=== PATIENT | male | born 1945 | race Caucasian/White ===

== ENCOUNTER 2019-07-30 17:25 | Inpatient (IN) | payer MEDICARE, SELFPAY ==
--- NOTE | ~2019-07-30 | US_ITS ---
EXAMINATION: US carotid duplex BI DATE: 08/01/2019 13:52 INDICATION: Mental status changes TECHNIQUE: Grayscale, color Doppler, and pulsed Doppler images of the cervical carotid arteries were obtained. The degree of vessel stenosis is placed in one of the following categories: normal, <50%, 5 0-69%, >=70% but less than near-occlusion, near-occlusion, or total occlusion. Note that percent sten osis relative to normal distal artery lumen diameter is indirectly measured from velocity measurement s as described by Gabino, et al. Radiology 2003; 229:340-346. Notes: Normal: Peak systolic velocity <125 centimeters/sec and no plaque <50%. Peak systolic velocity <125 ( EDV <40; ICA/CCA PSV ratio <2.0; used these factors only a tandem lesions or low cardiac output or co ntralateral disease) 50-69 %: PSV 125-230 (EDV 40-100; ratio 2-4) >= 70% but less than near occlusion: PSV greater than 230 (EDV > 100; ratio> 4.0) Near Occlusion: PSV that is variable; markedly narrowed lumen Occlusion: Absent flow on color/spectral Doppler and no lumen on myers scale. COMPARISON: None. FINDINGS: RIGHT: The right common carotid artery (CCA) peak systolic velocity (PSV) is 102 cm/s. The right internal ca rotid artery (ICA) PSV is 87 cm/s. The right ICA end-diastolic velocity (EDV) is 10 cm/s. The right I CA/CCA PSV ratio is 0.9. The external carotid artery (ECA) PSV is 122 cm/s. There is antegrade flow i n the right vertebral artery. LEFT: The left CCA PSV is 74 cm/s. The left ICA PSV is 71 cm/s. The left ICA EDV is 21 cm/s. The left ICA/C CA PSV ratio is 1. The ECA PSV is 98 cm/s. There is antegrade flow in the left vertebral artery. IMPRESSION: 1. Less than 50% stenosis in the right internal carotid artery by sonographic criteria. 2. Less than 50% stenosis in the left internal carotid artery by sonographic criteria. Reviewed, dictated and finalized at location A. IMPRESSION: 1. Less than 50% stenosis in the right internal carotid artery by sonographic albino ambrocio. 2. Less than 50% stenosis in the left internal carotid artery by sonographic hui esposito.
--- NOTE | ~2019-07-30 | US_ITS ---
EXAMINATION: US biopsy renal DATE: 08/13/2019 13:59 INDICATION: Acute renal insufficiency of indeterminate etiology. TECHNIQUE: The procedure including the risks, benefits, and alternatives was discussed with the patie nt. Risks discussed included bleeding and infection. The patient understood the risks and agreed to p roceed. A timeout was performed to verify the patient's name, date of , and procedure to be p erformed. The skin overlying the left kidney was prepped and draped in usual sterile fashion. Anest hetic was administered with 1% lidocaine subcutaneously. An 18 gauge core biopsy needle was then use d to obtain 3 core biopsy specimens under continuous sonographic guidance. The entry site was cleaned and dressed. There were no immediate complications. FINDINGS: Ultrasound images demonstrate the needle in the kidney. IMPRESSION: 1. Ultrasound-guided random left kidney core needle biopsy. Reviewed, dictated and finalized at location A.
--- NOTE | ~2019-07-30 | US_ITS ---
EXAMINATION: US renal BI DATE: 08/06/2019 13:35 INDICATION: Acute kidney injury. TECHNIQUE: Multiple ultrasound grayscale images of the kidneys were obtained. COMPARISON: CT 08/01/2019 FINDINGS: The right kidney measures 11.7 x 6.2 x 7.0 cm. The left kidney measures 11.4 x 5.3 x 5.7 cm. The kidn eys demonstrate normal parenchymal echogenicity. There is no hydronephrosis. The bladder is normal. IMPRESSION: 1. Normal kidneys. No hydronephrosis. Reviewed, dictated and finalized at location A.
--- NOTE | ~2019-07-30 | CT_ITS ---
EXAMINATION: CT soft tiss nk chst ab pel wo EXAM DATE: 08/01/2019 18:10 INDICATION: Enlarging cervical lymph nodes. Decrease in appetite. TECHNIQUE: Spiral CT of the neck, chest, abdomen and pelvis was performed without contrast. Axial, coronal and sagittal images of the neck were reviewed. Axial, coronal and sagittal images of the juan carlos st were reviewed. Coronal maximum intensity pixel images of chest reviewed. Axial, coronal and sagi ttal images of the abdomen and pelvis were reviewed. The dose-length product (DLP) for this examinat ion was 1665.07 mGy-cm. The exposure was tailored according to patient size (auto mA exposure contro l), and iterative reconstruction (ASIR) was used as additional dose reduction technique. There is no prior study for comparison. FINDINGS: NECK: Extensive cervical lymphadenopathy with innumerable round cervical lymph nodes measuring up to about 1.7 x 1.0 cm, along the internal jugular chains, posterior cervical triangles, supraclavicular regions. The thyroid gland is unremarkable. The submandibular and parotid glands are symmetric. T he airway is unremarkable. Parapharyngeal and pre-glottic fat planes are preserved. Limited evalu ation of cervical vessels on this noncontrast study. The orbits are unremarkable. Visualized sinu ses and mastoid air cells are well aerated. There is severe disc disease at C5-6, moderate to sever e at C6-7. CHEST: Severe bilateral axillary lymphadenopathy with largest lymph node identified in the right axil la measuring 5.1 x 1.8 cm. There are increased number of mediastinal, prevascular lymph nodes with la rgest precarinal lymph node measuring 1.5 x 1.2 cm. Enlarged epicardial lymph nodes measuring up to 3 .0 x 1.9 cm. Bibasilar predominant mosaic attenuation, could be air trapping, edema or infection. Th ere is 4 mm right lower lobe nodule on image #67, 3 mm right middle lobe nodule on image 61. There a re no pleural or pericardial effusions. Tracheobronchial tree is patent. There is no pneumothorax . There is cardiomegaly. Sternotomy wires and coronary artery calcifications. ABDOMEN PELVIS: There are enlarged bilateral inguinal, pelvic, retroperitoneal lymph nodes, with one of the larger lymph nodes in the left inguinal region measuring 3.9 x 2.1 cm. There is mild splenomeg anastasiya at 15 cm greatest dimension. The liver, adrenal glands and pancreas are unremarkable. Gallbladde r is unremarkable. No biliary obstruction. Left nephrolithiasis measuring 4 mm and another measurin g 1 mm. No obstructing ureteral stones. There is mild prostatomegaly. Mild nonspecific bilateral per inephric fat stranding. The bladder is unremarkable. There is moderate scattered arteriosclerotic d isease. The appendix is not positively visualized. There is no pericecal inflammatory change to suggest appe ndicitis. The stomach and small bowel are unremarkable. There is moderate to large amount of colon ic stool. No free intraperitoneal gas. There are no osteoblastic or osteolytic lesions identified . Mild to moderate lumbar levoscoliosis. IMPRESSION: 1. Extensive neck, chest, abdomen and pelvis lymphadenopathy. 2. Mild splenomegaly. 3. Left nephrolithiasis. 4. Basilar is a continuation, differential diagnosis including air trapping, edema, infection. Reviewed, dictated and finalized at location A. IMPRESSION: 1. Extensive neck, chest, abdomen and pelvis lymphadenopathy. 2. Mild splenomegaly. 3. Left nephrolithiasis. 4. Basilar is a continuation, differential diagnosis including air trapping, e kevin, infection.
--- NOTE | ~2019-07-30 | NM_ITS ---
EXAMINATION: NM renal flow and function DATE: 08/08/2019 15:06 INDICATION: Acute kidney injury. TECHNIQUE: 7.73 mCi Tc-99m MAG3 was administered IV. 40 mg furosemide was administered IV immediatel y afterward. The patient was scanned in the supine position. A posterior abdominal radionuclide angio gram was obtained. A subsequent time course of static images of the kidneys, ureters, and bladder was obtained. COMPARISON: ultrasound 08/06/19 FINDINGS: The posterior abdominal radionuclide angiogram and sequential static images show normal siz e, position, and morphology of the kidneys. Peak renal parenchymal uptake was 14 min in right kidney and 5 min in left kidney (normal peak 3-5 minutes). The relative early renal uptake was 52% on the r ight and 48% on the left (<40% is abnormal). No abnormalities of the ureters or bladder are seen. Th e ultrasound from 08/06/2019 demonstrates no hydronephrosis. T1/2 for clearance of activity from the right kidney and proximal collecting system was >>20 minutes. T1/2 for clearance of activity from the left kidney and proximal collecting system was >>20 minutes. IMPRESSION: 1. Symmetric kidney function. 2. Delayed contrast clearance from both kidneys, consistent with decreased renal function. Reviewed, dictated and finalized at location A. IMPRESSION: 1. Symmetric kidney function. 2. Delayed contrast clearance from both kidneys, consistent with decreased monica al function.
--- NOTE | ~2019-07-30 | CT_ITS ---
EXAMINATION: CT brain wo con DATE: 07/31/2019 00:45 INDICATION: Confusion TECHNIQUE: Computed tomography (CT) of the head was performed without intravenous contrast. Sagittal and coronal reconstructions were performed. The mA was adjusted according to patient size. Iterative reconstruction technique was employed. The dose-length product was 605.33 mGy-cm. COMPARISON: None FINDINGS: No acute intracranial hemorrhage, acute infarction or abnormal extra axial fluid collection. Small ol d lacunar infarct in the right frontal lobe dsouza radiata. There is additional mild scattered white matter hypoattenuation consistent with chronic small vessel ischemic disease. Symmetric prominence of the sulci consistent with mild age-appropriate diffuse cerebral volume loss. Ventricles are normal a nd symmetric. No mass/mass effect. Intracranial calcified cerebral atherosclerosis is noted. The orbi ts, paranasal sinuses and mastoid air cells are normal. IMPRESSION: 1. 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 2. Age-related changes including mild diffuse volume loss and mild scattered white matter hypoattenua tion consistent with chronic small vessel ischemic disease. Reviewed, dictated and finalized at location A. IMPRESSION: 1. 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 2. Age-related changes including mild diffuse volume loss and mild scattered wh ite matter hypoattenuation consistent with chronic small vessel ischemic diseas e.
--- NOTE | ~2019-07-30 | MR_ITS ---
EXAMINATION: MR brain/brain stem wo con DATE: 08/01/2019 13:32 INDICATION: Altered mental status TECHNIQUE: Magnetic resonance imaging (MRI) of the brain and brainstem was performed without intraven ous contrast. Sequences included sagittal and axial T1-weighted SE, axial diffusion-weighted FS SE, a xial T2*-weighted GRE, axial T2-weighted FLAIR, and axial T2-weighted FSE. Apparent diffusion coeffic ient (ADC) maps were created. COMPARISON: Head CT dated 07/31/2019 FINDINGS: There are no areas of restricted diffusion to suggest acute infarction. Small old lacunar infarct in the anterior left frontal periventricular white matter. Single tiny focus of susceptibility artifact on T2*weighted images at the right basal ganglia consistent with the presence of blood products in th e setting of chronic microhemorrhage which could be seen with hypertension or amyloid angiopathy. No abnormal intracranial mass lesion. There are scattered areas of nonspecific increased T2-weighted sig nal intensity in the cerebral white matter, predominantly involving the deep and periventricular whit e matter. There are no intraparenchymal signal abnormalities seen on the other pulse sequences. The v entricles are symmetric and normal in size. There are no abnormal extra-axial fluid collections. Flow voids are seen in the cerebral arteries on the T2-weighted sequences consistent with their expected patency. Mild mucoperiosteal thickening in the bilateral ethmoid sinuses. Visualized orbits and soft tissues are unremarkable. There are numerous enlarged bilateral cervical lymph nodes. IMPRESSION: 1. No acute intracranial process. 2. Small old lacunar infarct in the left frontal lobe white matter. 3. Tiny focus of susceptibility artifact in the right basal ganglia consistent with chronic microimag e sequences in the setting of hypertension or less likely amyloid angiopathy. 4. Age-related changes including mild diffuse volume loss and age-appropriate scattered nonspecific w chuck matter T2 hyperintensity consistent with chronic small vessel ischemic disease. 5. Numerous enlarged bilateral cervical lymph nodes which raises concern for lymphoma or less likely metastatic disease. Consider further evaluation with CT of at least the neck and chest and consider u ltrasound-guided lymph node biopsy. Reviewed, dictated and finalized at location A. IMPRESSION: 1. No acute intracranial process. 2. Small old lacunar infarct in the left frontal lobe white matter. 3. Tiny focus of susceptibility artifact in the right basal ganglia consistent with chronic microimage sequences in the setting of hypertension or less likely amyloid angiopathy. 4. Age-related changes including mild diffuse volume loss and age-appropriate s cattered nonspecific white matter T2 hyperintensity consistent with chronic sma ll vessel ischemic disease. 5. Numerous enlarged bilateral cervical lymph nodes which raises concern for ly mphoma or less likely metastatic disease. Consider further evaluation with CT o f at least the neck and chest and consider ultrasound-guided lymph node biopsy.
--- NOTE | ~2019-07-30 | XR_ITS ---
EXAMINATION: XR chest 2V EXAM DATE: 07/30/2019 18:12 INDICATION: Shortness of air, increasing weakness fatigue and confusion. TECHNIQUE: Frontal and lateral projections of the chest obtained and reviewed. There is no prior raghav dy for comparison. FINDINGS: Sternotomy wires are present without findings to suggest sternal dehiscence. Patient rotat ed to the right. No confluent consolidation, pneumothorax or pleural effusion suspected. There is mil d compression fracture of a midthoracic level likely chronic. IMPRESSION: 1. No acute cardiopulmonary findings. Reviewed, dictated and finalized at location A.
--- NOTE | ~2019-07-30 | US_ITS ---
EXAMINATION: US biopsy lymph node DATE: 08/02/2019 12:39 INDICATION: Extensive lymphadenopathy concerning for lymphoma including a prominent enlarged right ax illary lymph node. TECHNIQUE: The procedure including the risks and benefits was discussed with the patient. Risks discu ssed included bleeding and infection. The patient understood the risks and agreed to proceed. The sk in overlying the right axilla was prepped and draped in usual sterile fashion. Anesthetic was admini stered with 1% lidocaine subcutaneously. An 14 gauge core biopsy needle was advanced under continuou s ultrasound observation to the lesion of interest. 6 core biopsy specimens were obtained, 2 placed in formalin and 4 in RPMI media. The needle was removed and the entry site was cleaned and dressed. Post procedure ultrasound demonstrated no hemorrhage. FINDINGS: Ultrasound images demonstrate a few enlarged right axillary lymph nodes the most accessible is a 7.1 x 2.4 cm lymph node with thickened cortex surrounding a central fatty hilum. Subsequent lisbet ges demonstrate biopsy needles advanced into the lymph node. IMPRESSION: 1. Successful Ultrasound-guided biopsy of a 7.1 x 2.4 cm right axillary lymph node. Reviewed, dictated and finalized at location A. IMPRESSION: 1. Successful Ultrasound-guided biopsy of a 7.1 x 2.4 cm right axillary lymph n ode.
[2019-07-30 17:34] VITALS: BP 199/95; PULSE 78; RESP 20; O2SAT 100
--- NOTE | 2019-07-30 17:40 | ED.GENADULT ---
HPI - General Adult General Chief complaint: Altered Mental Status Stated complaint: short of breath Time Seen by Provider: 07/30/19 17:33 History of Present Illness HPI narrative: Patient is a 73-year-old male with history of CABG x5 who presents the ER with exertional weakness and shortness of breath. Ongoing for the last week. No chest pain. Has had decreased appetite as well and has lost 8 pounds. No runny nose/sore throat/productive cough. 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 Apparently there is also a shop in [place] that he frequents. There is a COVID positive person there 06/26/19, the place was shut down for 2 weeks, and then it reopened business. He visited that shop after they came off of quarantine and there were no known infectious people there at that time. Has no known personal interaction with a COVID positive person. Related Data Home Medications Medication Instructions Recorded Confirmed Adults Multivitamin 1 cap DAILY 07/30/19 07/30/19 aspirin 325 mg DAILY 07/30/19 07/30/19 coenzyme Q10 [CoQ-10] 200 mg PO DAILY 07/30/19 07/30/19 cyanocobalamin (vitamin B-12) 1,000 mcg DAILY 07/30/19 07/30/19 [Vitamin B-12] dapagliflozin-metformin [Xigduo XR] 5 - 1,000 tablet PO DAILY 07/30/19 07/30/19 diphenhydramine HCl [Benadryl] 25 mg PO HS 07/30/19 07/30/19 lisinopril 20 mg DAILY 07/30/19 07/30/19 metoprolol tartrate 12.5 mg BID 07/30/19 07/30/19 omega-3 fatty acids-fish oil [Fish 1 cap DAILY 07/30/19 07/30/19 Oil] simvastatin 40 mg HS 07/30/19 07/30/19 vitamin D3-folic acid 1 tablet DAILY 07/30/19 07/30/19 Allergies Allergy/AdvReac Type Severity Reaction Status Date / Time No Known Allergies Allergy Verified 07/30/19 18:20 Review of Systems Review of Systems: All systems reviewed & are unremarkable except as noted in HPI and below Constitutional: Constitutional: Denies chills, Reports fatigue, Denies fever(s) and Reports weakness ENT: Denies nasal congestion and Denies sore throat Cardiovascular: Cardiovascular: Denies chest pain and Denies radiating jaw, neck or arm pain Respiratory: Respiratory: Denies chest congestion, Denies cough, Reports dyspnea and Denies wheezing Gastrointestinal: Gastrointestinal: Denies abdominal pain, Denies nausea and Denies vomiting Genitourinary: Genitourinary: Denies dysuria and Denies urinary frequency Exam Narrative: Exam Narrative: GENERAL: Well-appearing, well-nourished, and in no acute distress. HEAD: Normocephalic, atraumatic. CHEST: Clear to auscultation. No respiratory distress. HEART: Regular rate and rhythm. Normal peripheral pulses. ABDOMEN: Soft, nontender, nondistended. EXTREMITIES: Normal range of motion. No edema. SKIN: Warm, dry, no rash. NEURO: Alert and oriented x3. PSYCH: Normal mood and affect. Course Course Emergency Course: Discussed case with Dr. Garcia as well as the hospital service. Admit for observation. Trend troponins. We will cautiously hydrate with 500 mL bolus and then a rate of 100 mL/h. Vital Signs Vital signs: Vital Signs Pulse Rate 78 07/30/19 17:34 Respiratory Rate 20 07/30/19 17:34 Blood Pressure 199/95 H 07/30/19 17:34 Pulse Oximetry 100 07/30/19 17:34 Pulse Rate 78 07/30/19 17:34 Respiratory Rate 20 07/30/19 18:48 Blood Pressure 199/95 H 07/30/19 17:34 Pulse Oximetry 100 07/30/19 17:34 Medical Decision Making Vital Signs Vital Signs: Vital Signs Pulse Rate 78 07/30/19 17:34 Respiratory Rate 20 07/30/19 17:34 Blood Pressure 199/95 H 07/30/19 17:34 Pulse Oximetry 100 07/30/19 17:34 Pulse Rate 78 07/30/19 17:34 Respiratory Rate 20 07/30/19 18:48 Blood Pressure 199/95 H 07/30/19 17:34 Pulse Oximetry 100 07/30/19 17:34 Lab Data Result diagrams: 07/30/19 17:50 07/30/19 17:50 Labs: Lab Results 07/30/19 07/30/19 07/30/19 Range/Units 17:50 17:50 17:50 WBC 14.5 H (4.5-10.0) K/mm3
--- NOTE | 2019-07-30 17:42 | ECG_ITS ---
Measurements Intervals [place] Rate: 77 P: 53 UT: 150 QRS: 15 QRSD: 98 T: 114 QT: 389 QTc: 441 Interpretive Statements SINUS RHYTHM LEFT ATRIAL ENLARGEMENT BORDERLINE R WAVE PROGRESSION, ANTERIOR LEADS INFERIOR INFARCT, AGE INDETERMINATE BORDERLINE ST-T WAVE ABNORMALITY- ANTEROLAT/LAT LEADS BASELINE WANDER- II, III, AVF, V1-V3, V6 ABNORMAL ECG Electronically Signed On 07-31-2019 7:19:23 CDT by Osmin Nam D.O.
[2019-07-30 17:56] LABS: Hemoglobin 12.5 g/dL (14.0-18.0); Mean Corpuscular HGB Conc 32.9 g/dl (32-36); Mean Corpuscular Hemoglobin 30.8 pg (26-34); Mean Corpuscular Volume 93.6 fl (80-100); Mean Platelet Volume 11.8 fl (7.4-10.4); Platelet Count Result 179 k/mm3 (150-375); Red Blood Count 4.06 M/mm3 (4.6-6.20); Red Cell Distribution Width 13.2 % (11.5-14.5); White Blood Count 14.5 K/mm3 (4.5-10.0)
[2019-07-30 18:06] LABS: INR 1.1; Partial Thromboplastin Time 24.2 SECONDS (22.3-36.8); Prothrombin Time 13.8 Seconds (11.1-14.7)
[2019-07-30 18:08] LABS: Blood Urea Nitrogen 28 mg/dL (9-20); Calcium 12.3 mg/dL (8.4-10.2); Carbon Dioxide 27 mmol/L (22-30); Chloride 106 mmol/L (98-107); Estimated CRCL calculation 30 ml/min; Estimated Glomerular Filt Rate 33; Glucose 119 mg/dL (75-110); Sodium 137 mmol/L (137-145)
[2019-07-30 18:20] LABS: Band Neutrophils Percent 2 % (0-6); Basophils Absolute Manual 0.14 K/mm3 (0.0-0.1); Basophils Percent Manual 1 % (0-1); Lymphocytes Absolute Manual 6.96 K/mm3 (1.1-4.5); Monocytes Percent Manual 9 % (3-9); Neutrophils Absolute Manual 6.09 K/mm3 (1.3-6.7); Neutrophils Percent Manual 40 % (46-73); Platelet Estimate Adequate (Adequate); Total Cells Counted 100
[2019-07-30 18:27] LABS: NT Pro B Type Natriuretic Pept 1790 PG/ML (5-100); Troponin I 0.069 ng/mL (0.000-0.034)
[2019-07-30 18:48] VITALS: RESP 20
[2019-07-30 18:58] VITALS: BP 170/87; PULSE 76; RESP 15; TEMP 36.9; O2SAT 95
[2019-07-30] MEDS: SODIUM CHLORIDE 0.9% IV 500 ML 999 ML IV CONT (19:03)
[2019-07-30 19:06] LABS: Add Urine Microscopic? YES; Appearance Urine Clear (Clear); Bacteria Urine Trace /hpf; Bilirubin Urine Negative (Negative); Blood Urine 1+ (Negative); Color Urine Straw (Yellow); Glucose Urine UA 3+ mg/dL (Negative); Ketones Urine Negative (Negative); Leukocyte Esterase Ur Negative LEU/UL (Negative); Mucus Urine Rare /lpf; Nitrate Urine Negative (Negative); Protein Urine 2+ mg/dL (Negative); Specific Grav Ur 1.011 (1.001-1.035); Urobilinogen Urine Negative mg/dL (<2.0); WBC Urine 0-3 /hpf
[2019-07-30 20:00] VITALS: BP 186/95; PULSE 85; RESP 20; TEMP 36.9; O2SAT 97
[2019-07-30] MEDS: SODIUM CHLORIDE 0.9% IV 1,000 ML 100 ML IV CONT (20:14)
[2019-07-30 20:18] VITALS: BMI 23.5
--- NOTE | 2019-07-30 20:20 | ADMGEN ---
This patient, Jabier Smith, was admitted to IMU Room 200-01 at 2009 on Jul 30 2019 Patient/family oriented to hospital policies and general routines including ID bracelet, bed and alarms, visiting hours, pain management, procedures, bathroom and other care routines, personal items, smoking policy, room service/diet, and visiting hours. Valuables list has been completed. Information on how to activate the Rapid Response Team has been discussed. Patient/Family are encouraged to report perceived risks to care and to ask questions if they do not understand what they are told or what they should do.
[2019-07-30 21:48] LABS: Creatine Kinase 36 U/L (55-170)
[2019-07-30 22:00] VITALS: PULSE 83
[2019-07-30 22:16] LABS: Troponin I 0.079 ng/mL (0.000-0.034)
--- NOTE | 2019-07-30 23:00 | PM.IMHP ---
H&P: HPI History of Present Illness Chief complaint: Acute renal failure,Elevated troponin,Hypocalcemia Narrative: Date and time of patient contact: 07/30/2019 at 11:00 p.m. Jabier Smith is a 73 year old male with a past medical history of coronary artery disease diabetes and hypertension who presented to the ER with 2 weeks of increasing weakness, and confusion. Source of information is ER records, patient report and patient's 's report. The patient himself denies having any confusion. However his states that the patient has been confused over the past week. He has been slower to respond and does not his usual self. Over the last 3 days she reports that he is forgetful. Just before coming into the ER the patient was clutching at his temples and had for gotten what he was getting ready to do. He has had more difficulty with word finding for the last 2 or 3 days. She does not think the patient has fallen but reports that the patient has stumbled and caught himself several times over the course of the last week or 2. The patient reports that he has been more short of breath for the last couple of weeks. He denies any eliciting or relieving factors with his shortness of breath. His states that she has caught him mouth breathing multiple times recently. The patient has had decreased appetite and he has lost 8 lb over the course of the last 2 weeks. He denies any fevers or chills. He has had progressive fatigue. 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 His reports that he is usually on the go and does not slow down. She states that he runs where he goes. Currently he has little energy or motivation. He denies any loss of taste or smell. He denies any GI or urinary symptoms. He has not been having any chest pain or palpitations. He has not noticed any lower extremity swelling or abdominal swelling. He denies ever having had a colonoscopy but does have Cologuard cards at home that he has not yet utilized. He denies any dysuria or hematuria. He has been afebrile since presentation. He does have some leukocytosis with lymphocytosis on labs. The patient and his deny any history of kidney disease. However the patient's creatinine on arrival to the ER was elevated at 2.0. His calcium was also elevated to 12.3. I contacted the patient's by phone with permission from the patient. Review of Systems Review of Systems: Narrative: 12 systems were reviewed with pertinent positives and negatives per HPI. Except as documented in the HPI, all other systems were reviewed and are negative. 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 He lives in [place] with his (Cata) of 50 years. He has 2 sons who are in their 40s and who are relatively healthy. Primary care provider: [facility] Code status: Full code Smoking status: Never smoker Alcohol intake: never Substance use: never Living arrangements: with family Additional living arrangements comments: He lives in [place] with his of 50 years. 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
[2019-07-30 23:39] VITALS: BP 174/99; PULSE 73; RESP 20; TEMP 36.6; O2SAT 97
[2019-07-31] VITALS (27 sets, daily range): BP systolic 133–235; BP diastolic 63–114; PULSE 57–105; RESP 12–20; TEMP 36.1–36.8; O2SAT 93–100; BMI 22.2
[2019-07-31 00:34] LABS: Troponin I 0.084 ng/mL (0.000-0.034)
[2019-07-31] MEDS: METOPROLOL TARTRATE INJ 5 MG/5 ML VIAL IV PUSH ×2 (01:38→11:20)
[2019-07-31] MEDS: SIMVASTATIN 20 MG TABLET 40 MG PO ×2 (01:38→21:23)
[2019-07-31] MEDS: METOPROLOL TARTRATE 12.5 MG TABLET PO ×3 (01:38→17:06)
[2019-07-31] MEDS: hydrALAZINE HCL 20 MG/ML VIAL 10 MG IV PUSH ×2 (03:02→08:19)
[2019-07-31 04:30] LABS: D Dimer 2.25 ug/mL (<0.48)
[2019-07-31 04:32] LABS: Hematocrit 36.7 % (42.0-52.0); Hemoglobin 12.1 g/dL (14.0-18.0); Mean Corpuscular Hemoglobin 30.7 pg (26-34); Mean Corpuscular Volume 93.1 fl (80-100); Mean Platelet Volume 11.4 fl (7.4-10.4); Platelet Count Result 152 k/mm3 (150-375); Red Blood Count 3.94 M/mm3 (4.6-6.20); White Blood Count 14.1 K/mm3 (4.5-10.0)
[2019-07-31 04:50] LABS: Alanine Aminotransferase 16 U/L (4-50); Albumin Level 3.6 g/dL (3.5-5.1); Alkaline Phosphatase 71 U/L (38-126); Aspartate Amino Transferase 28 U/L (17-59); Bilirubin,Total 0.3 mg/dL (0.2-1.3); Blood Urea Nitrogen 26 mg/dL (9-20); CRP < 0.5 mg/dL (<1.0); Calcium 11.4 mg/dL (8.4-10.2); Carbon Dioxide 27 mmol/L (22-30); Chloride 106 mmol/L (98-107); Estimated CRCL calculation 32 ml/min; Estimated Glomerular Filt Rate 37; Glucose 102 mg/dL (75-110); Lactate Dehydrogenase 333 U/L (313-618); Potassium 3.6 mmol/L (3.4-5.0); Sodium 137 mmol/L (137-145)
[2019-07-31 05:02] LABS: Parathyroid Intact 50.6 pg/mL (7.5-53.5); Troponin I 0.094 ng/mL (0.000-0.034)
[2019-07-31] MEDS: MULTIVITAMINS THERAPEUTIC TAB (*BKC) 1 TABLET PO (08:10)
[2019-07-31] MEDS: FOLIC ACID 1 MG TABLET PO (08:10)
[2019-07-31] MEDS: CHOLECALCIFEROL 1,000 UNIT TABLET 5000 UNITS PO (08:10)
[2019-07-31] MEDS: ASPIRIN 325 MG TABLET PO (08:10)
[2019-07-31] MEDS: OMEGA 3 POLYUNSAT FATTY ACIDS 1 GM CAP PO (08:11)
[2019-07-31] MEDS: CYANOCOBALAMIN 1,000 MCG TABLET 1000 MCG PO (08:11)
[2019-07-31] MEDS: HEPARIN SODIUM 5,000 UNITS/ML VIAL 5000 UNITS SUB-Q ×2 (08:18→21:23)
[2019-07-31 09:14] LABS: Glucose Point of Care 99 (65-105)
[2019-07-31 13:28] LABS: SARS-CoV-2 RNA PCR Negative
--- NOTE | 2019-07-31 14:02 | PM.CNCAR ---
Assessment and Plan Assessment and plan (1) Elevated troponin: Code(s): R79.89 - Other specified abnormal findings of blood chemistry Status: Acute Assessment and Plan: Slow upward trend possibly demand ischemia related to hypertensive urgency with systolic blood pressures as high as 235/114. He has underlying CAD so can't exclude small non ST-elevation [place], however, most likely type 2 infarct. Continue aggressive medical therapy including aspirin, statin beta-lópez. (2) Coronary artery disease: Code(s): I25.10 - Atherosclerotic heart disease of [place] coronary artery without angina pectoris Status: Acute Assessment and Plan: As above. Aggressive medical therapy. Further workup/recommendations based on patient's clinical response to therapy and echocardiogram. (3) Encephalopathy acute: Code(s): G93.40 - Encephalopathy, unspecified Status: Acute Assessment and Plan: Improved. Workup per primary service. (4) Acute renal failure (ARF): Code(s): N17.9 - Acute kidney failure, unspecified Status: Acute Assessment and Plan: Supportive care, IV fluids. Workup per primary service. (5) RODRIGUES (dyspnea on exertion): Code(s): R06.00 - Dyspnea, unspecified Status: Acute Assessment and Plan: Essentially resolved at this time. Check 2D echocardiogram. Patient is not been seen in the office for quite some time but he denied anginal symptoms Predating his admission. (6) Suspected COVID-19 virus infection: Code(s): R68.89 - Other general symptoms and signs Status: Acute Assessment and Plan: Negative (7) Hypertension: Code(s): I10 - Essential (primary) hypertension Status: Acute Assessment and Plan: Hypertensive, uncontrolled. May have been contributing to patient's symptom complex at presentation, however, encephalopathy workup underway per primary service. No evidence of acute stroke/bleed on CT head. (8) Dyslipidemia: Code(s): E78.5 - Hyperlipidemia, unspecified Status: Acute Assessment and Plan: Continue statin therapy. Check fasting lipid profile. (9) Status post aorto-coronary artery bypass graft: Code(s): Z95.1 - Presence of aortocoronary bypass graft Status: Acute Assessment and Plan: Will need ischemic evaluation as this has not been performed in many years due to his lack of follow-up. Further recommendation based on patient's clinical course, review of echocardiogram. Need to monitor renal function with clarity in this regard. History of Present Illness History of Present Illness Consult date/time: Date of service: 07/31/19 14:02 This is a cardiology consultation at the request of Dr. Bejarano for our opinion regarding elevated Trop I and CAD. Requesting physician: Roxi Bejarano, DO Consult reason: Other (elevated Troponin I) Reason For Visit: Acute renal failure,Elevated troponin,Hypocalcemia Narrative: Patient is a 70-year-old male with a past medical history significant for CABG February 24, 2011 with a RAMIREZ to the LAD, left radial arterial graft to the 1st obtuse marginal branch, saphenous vein graft to 2nd obtuse marginal branch sequentially graft to the right PDA who did well there are after but has not been seen in the office in October 11, 2016. Patient denies chest pain or any particular issues until past several days. It is documented in the electronic medical record at presentation history was obtained through his as he was confused, slow to respond. This has improved and he denies chest pain but did admit to worsening shortness of breath with past couple of weeks. He stated he had been feeling much more fatigued, weak, decreased energy losing weight and appetite. He denied sore throat or significant cough. 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 There is no palpitati
[2019-07-31 16:14] LABS: Glucose Point of Care 112 (65-105)
--- NOTE | 2019-07-31 16:51 | PM.IMPN ---
Subjective Date/time seen: 07/31/19 16:51 Pt admitted by speech therapist technician [employer] rep, discussed case with her, so shorter note Pt is stable for transfer out of ICU on medical floor now. Past medical history of coronary artery disease diabetes and hypertension who presented to the ER with 2 weeks of increasing weakness, and confusion. Possible COVID due to loss of appetite and encephalopathy. Pt has elevated troponin, DM and HTN. Cardiology consulted for elevated troponin. Pt creat is elevated at 1.8 continue to monitor. Continue present care, pt seen by cardiology for elevated troponin. I will add sliding scale and Bp medications. Also continue to monitor calcium levels. Objective Data Vital Signs Vital Signs: Vital Signs - 24 hr 07/30/19 17:34 07/30/19 18:48 07/30/19 18:58 Temperature 36.9 C Pulse Rate 78 76 Respiratory Rate 20 20 15 Blood Pressure 199/95 H 170/87 H Pulse Oximetry 100 95 07/30/19 20:00 07/30/19 22:00 07/30/19 23:39 Temperature 36.9 C 36.6 C Pulse Rate 85 83 73 Respiratory Rate 20 20 Blood Pressure 186/95 H 174/99 H Pulse Oximetry 97 97 07/31/19 00:00 07/31/19 01:07 07/31/19 01:30 Temperature Pulse Rate 105 H 78 79 Respiratory Rate 16 Blood Pressure 230/110 H 235/114 H Pulse Oximetry 95 07/31/19 01:38 07/31/19 02:00 07/31/19 02:27 Temperature Pulse Rate 89 69 69 Respiratory Rate 15 Blood Pressure 217/94 H Pulse Oximetry 93 07/31/19 03:15 07/31/19 04:00 07/31/19 05:02 Temperature 36.4 C L Pulse Rate 69 73 57 L Respiratory Rate 18 15 Blood Pressure 207/98 H 194/87 H 133/73 Pulse Oximetry 99 98 99 07/31/19 05:52 07/31/19 06:01 07/31/19 07:51 Temperature Pulse Rate 57 L Respiratory Rate Blood Pressure 145/63 H Pulse Oximetry 99 07/31/19 08:00 07/31/19 08:09 07/31/19 09:00 Temperature 36.5 C Pulse Rate 65 73 70 Respiratory Rate 17 18 Blood Pressure 181/89 H 168/73 H Pulse Oximetry 100 98 07/31/19 10:00 07/31/19 11:11 07/31/19 11:20 Temperature Pulse Rate 73 78 Respiratory Rate Blood Pressure Pulse Oximetry 97 07/31/19 12:00 07/31/19 14:00 07/31/19 16:00 Temperature 36.5 C 36.8 C Pulse Rate 69 70 80 Respiratory Rate 12 18 Blood Pressure 178/83 H 172/86 H Pulse Oximetry 94 96 Intake/Output Intake/Output: Intake & Output 07/28/19 07/29/19 07/30/19 07/31/19 23:59 23:59 23:59 23:59 Intake Total 500 2055 Output Total 2100 Balance 500 -45 Meds/Results Medications: Active Medications Generic Name Dose Route Start Last Admin Trade Name Freq PRN Reason Stop Dose Admin Acetaminophen 650 mg 07/30/19 19:16 Tylenol Tablet PO Q4H PRN Mild Pain (1-3) or Fever Hydrocodone Bitart/Acetaminophen 1 tab 07/30/19 19:16 [place] 5-325 Mg PO Q4H PRN Pain Rated 4-6 Aspirin 325 mg 07/31/19 09:00 07/31/19 08:10 Aspirin PO 325 mg DAILY SLAVA Administration Cyanocobalamin 1,000 mcg 07/31/19 09:00 07/31/19 08:11 Vitamin B-12 Tab PO 1,000 mcg DAILY SLAVA Administration Diphenhydramine HCl 25 mg 07/31/19 00:26 Benadryl Cap PO HS PRN Insomnia Fish Oil 1 gm 07/31/19 09:00 07/31/19 08:11 [place] PO 1 gm DAILY SLAVA Administration Folic Acid 1 mg 07/31/19 09:00 07/31/19 08:10 Folic Acid PO 1 mg QAM SLAVA Administration Heparin Sodium (Porcine) 5,000 units 07/31/19 09:00 07/31/19 08:18 Heparin Sodium SUB-Q 5,000 units Q12HR SLAVA Administration Hydralazine HCl 10 mg 07/31/19 02:51 07/31/19 08:19 Apresoline Hcl Inj IV PUSH 10 mg Q4HR PRN Administration Blood Pressure - High Metoprolol Tartrate 5 mg 07/31/19 00:41 07/31/19 11:20 Lopressor Inj IV PUSH 5 mg Q6H PRN Administration SBP greater than 180 Metoprolol Tartrate 12.5 mg 07/31/19 09:00 07/31/19 08:09 Lopressor PO 12.5 mg BID SLAVA Administration Morphine Sulfate 4 mg 07/30/19 19:16 Morphine Sulfate Inj
[2019-07-31] MEDS: lisinopriL 20 MG TABLET PO (18:05)
[2019-07-31 18:49] LABS: Glucose Point of Care 110 (65-105)
--- NOTE | 2019-07-31 19:34 | PC.NURSE ---
This patient, Jabier Smith, was received from ICU 7 on 07/31/19 at 1545. Personal belongings list checked and signed. Patient/family oriented to unit policies and routines
[2019-07-31 20:49] LABS: Glucose Point of Care 126 (65-105)
[2019-08-01] VITALS (18 sets, daily range): BP systolic 147–180; BP diastolic 62–90; PULSE 68–98; RESP 20; TEMP 36.1–36.8; O2SAT 91–99
[2019-08-01] MEDS: hydrALAZINE HCL 20 MG/ML VIAL 10 MG IV PUSH (03:25)
[2019-08-01 04:49] LABS: Hematocrit 35.9 % (42.0-52.0); Hemoglobin 12.1 g/dL (14.0-18.0); Mean Corpuscular HGB Conc 33.7 g/dl (32-36); Mean Corpuscular Hemoglobin 30.9 pg (26-34); Mean Corpuscular Volume 91.8 fl (80-100); Mean Platelet Volume 11.8 fl (7.4-10.4); Platelet Count Result 165 k/mm3 (150-375); Red Blood Count 3.91 M/mm3 (4.6-6.20); White Blood Count 14.5 K/mm3 (4.5-10.0)
[2019-08-01 05:03] LABS: Alanine Aminotransferase 15 U/L (4-50); Albumin Level 3.6 g/dL (3.5-5.1); Alkaline Phosphatase 68 U/L (38-126); Aspartate Amino Transferase 24 U/L (17-59); Bilirubin,Total 0.4 mg/dL (0.2-1.3); Blood Urea Nitrogen 24 mg/dL (9-20); Calcium 11.7 mg/dL (8.4-10.2); Carbon Dioxide 24 mmol/L (22-30); Chloride 106 mmol/L (98-107); Estimated CRCL calculation 31 ml/min; Estimated Glomerular Filt Rate 37; Glucose 122 mg/dL (75-110); Potassium 3.5 mmol/L (3.4-5.0); Sodium 137 mmol/L (137-145)
[2019-08-01 07:48] LABS: Glucose Point of Care 111 (65-105)
[2019-08-01] MEDS: HEPARIN SODIUM 5,000 UNITS/ML VIAL 5000 UNITS SUB-Q ×2 (09:55→20:17)
[2019-08-01] MEDS: OMEGA 3 POLYUNSAT FATTY ACIDS 1 GM CAP PO (09:55)
[2019-08-01] MEDS: MULTIVITAMINS THERAPEUTIC TAB (*BKC) 1 TABLET PO (09:56)
[2019-08-01] MEDS: CYANOCOBALAMIN 1,000 MCG TABLET 1000 MCG PO (09:56)
[2019-08-01] MEDS: lisinopriL 20 MG TABLET PO (09:56)
[2019-08-01] MEDS: ASPIRIN 325 MG TABLET PO (09:56)
[2019-08-01] MEDS: METOPROLOL TARTRATE 12.5 MG TABLET PO ×2 (09:56→17:10)
[2019-08-01] MEDS: CHOLECALCIFEROL 1,000 UNIT TABLET 5000 UNITS PO (09:56)
[2019-08-01] MEDS: FOLIC ACID 1 MG TABLET PO (09:56)
--- NOTE | 2019-08-01 10:01 | PM.IMPN ---
Progress Note: A&P Assessment and Plan (1) Elevated troponin: Code(s): R79.89 - Other specified abnormal findings of blood chemistry Status: Acute Assessment and Plan: Consulted and appreciate input. Troponin did peak at 0.094. Suspect type 2 infarct. Discussed with Cardiology today. Plan to review echocardiogram. If echocardiogram is acceptable, may be able to discharge later today. In the meantime, will continue ASA, simvastatin and metoprolol. Telemetry reviewed on 08/01/2019 with sinus rhythm. (2) Acute renal failure (ARF): Qualifiers: Acute renal failure type: unspecified Qualified Code(s): N17.9 - Acute kidney failure, unspecified Code(s): N17.9 - Acute kidney failure, unspecified Status: Acute Assessment and Plan: Creatinine 2.00 on admission but baseline unknown. Creatinine is now remaining 1.80 and suspect this is his baseline with patient most likely having chronic kidney disease stage 3. No difficulty with urination. Patient on home lisinopril and will continue. Will monitor as long as here. (3) Hypercalcemia: Code(s): E83.52 - Hypercalcemia Status: Acute Assessment and Plan: Creatinine still mildly elevated at 11.7 today. PTH is normal at 50.6. Will follow while here but can follow as outpatient. (4) Encephalopathy acute: Code(s): G93.40 - Encephalopathy, unspecified Status: Acute Assessment and Plan: Unspecified encephalopathy at this point. No obvious infectious process. CT brain with small old lacunar infarct in the right frontal dsouza radiata but no acute changes. Normal mentation at this time. Will continue to monitor while here. (5) Hypertension: Qualifiers: Hypertension type: essential hypertension Qualified Code(s): I10 - Essential (primary) hypertension Code(s): I10 - Essential (primary) hypertension Status: Acute Assessment and Plan: Blood pressure reviewed on 08/01/2019 with mild elevation. Home lisinopril was restarted. Also continue metoprolol. Will continue to monitor. Adjust treatment as needed. (6) Coronary artery disease: Qualifiers: Coronary Disease-Associated Artery/Lesion type: [place] artery [place] vs. transplanted heart: [place] heart Associated angina: without angina Qualified Code(s): I25.10 - Atherosclerotic heart disease of [place] coronary artery without angina pectoris Code(s): I25.10 - Atherosclerotic heart disease of [place] coronary artery without angina pectoris Status: Acute Assessment and Plan: Mild elevation of troponin level as noted above. Await echocardiogram results. Continue ASA, metoprolol and fish oil. (7) Dyslipidemia: Code(s): E78.5 - Hyperlipidemia, unspecified Status: Acute Assessment and Plan: Continue simvastatin and fish oil. (8) Type 2 diabetes mellitus: Qualifiers: Diabetes mellitus half-way insulin use: without terminal worker use Diabetes mellitus complication status: without complication Qualified Code(s): E11.9 - Type 2 diabetes mellitus without complications Code(s): E11.9 - Type 2 diabetes mellitus without complications Status: Acute Assessment and Plan: Glucose reviewed on 08/01/2019 and stable with home oral medication on hold. With elevated creatinine, will need to continue to hold home medication as it does include metformin. Will most likely need to discuss continued treatment with his primary physician as an outpatient. (9) Suspected COVID-19 virus infection: Code(s): R68.89 - Other general symptoms and signs Status: Ruled-out Assessment and Plan: COVID 19 testing is negative. (10) DVT prophylaxis: Code(s): Z29.9 - Encounter for prophylactic measures, unspecified Status: Acute Assessment and Plan: Heparin subcutaneously. Time Spent With Patient Time with patient: 15 - 25 minutes Subjective Date/t
[2019-08-01 11:32] LABS: Glucose Point of Care 148 (65-105)
--- NOTE | 2019-08-01 11:54 | PM.PNCARD ---
Progress Note: A&P Assessment and Plan (1) Elevated troponin: Code(s): R79.89 - Other specified abnormal findings of blood chemistry Status: Acute Assessment and Plan: Patient is not exhibiting anginal symptoms. BP better but not well controlled. Ideally, increase lisinopril to 40 mg daily. Baseline renal function unknown however. Slow upward trend possibly demand ischemia related to hypertensive urgency with systolic blood pressures as high as 235/114. He has underlying CAD so can't exclude small non ST-elevation [place], however, most likely type 2 infarct. Continue aggressive medical therapy including aspirin, statin beta-lópez. (2) Coronary artery disease: Qualifiers: Coronary Disease-Associated Artery/Lesion type: [place] artery [place] vs. transplanted heart: [place] heart Associated angina: without angina Qualified Code(s): I25.10 - Atherosclerotic heart disease of [place] coronary artery without angina pectoris Code(s): I25.10 - Atherosclerotic heart disease of [place] coronary artery without angina pectoris Status: Acute Assessment and Plan: Echocardiogram personally reviewed. EF 65-70% without focal wall motion abnormalities, moderate LVH no significant valve pathology. Outpatient ischemic evaluation. Office follow-up within the next 2-4 weeks. (3) Hypercalcemia: Code(s): E83.52 - Hypercalcemia Status: Acute Assessment and Plan: Significantly elevated on presentation and concerning given acute encephalopathy, associated hyperproteinemia. Consider malignancy i.e. multiple myeloma or primary hyperparathyroidism (although PTH in normal limits at 50), PTHrP pending. (4) Hypertension: Qualifiers: Hypertension type: essential hypertension Qualified Code(s): I10 - Essential (primary) hypertension Code(s): I10 - Essential (primary) hypertension Status: Acute Assessment and Plan: Hypertensive, uncontrolled. May have been contributing to patient's symptom complex at presentation, however, encephalopathy workup underway per primary service. No evidence of acute stroke/bleed on CT head. (5) Encephalopathy acute: Code(s): G93.40 - Encephalopathy, unspecified Status: Acute Assessment and Plan: Improved but still with significant psychomotor delay. May be related to hypercalcemia. Consider MRI given previously unknown CVA on CT head. Workup and treatment per primary service. (6) Acute renal failure (ARF): Qualifiers: Acute renal failure type: unspecified Qualified Code(s): N17.9 - Acute kidney failure, unspecified Code(s): N17.9 - Acute kidney failure, unspecified Status: Acute Assessment and Plan: Workup per primary service. creatinine plateaued at 1.8, chronicity unknown suspect likely at baseline. Patient should have at least outpatient nephrology consultation. (7) Hyperproteinemia: Code(s): E88.09 - Other disorders of plasma-protein metabolism, not elsewhere classified Status: Acute Assessment and Plan: as above, concerning in setting of renal insufficiency, presentation with weakness, lethargy /encephalopathy, hyperproteinemia and hypercalcemia. (8) Cerebrovascular accident, old: Code(s): Z86.73 - Personal history of transient ischemic attack (TIA), and cerebral infarction without residual deficits Status: Acute Assessment and Plan: Radiographic old small lacunar infarction previously unknown. No history of known atrial fibrillation / flutter. Carotid Dopplers. Aggressive atherosclerotic risk reduction. Check lipid panel. Continue statin. Goal LDL less than 70. (9) RODRIGUES (dyspnea on exertion): Code(s): R06.00 - Dyspnea, unspecified Status: Acute Assessment and Plan: Essentially resolved at this time. Check 2D echocardiogram. Patient is not been seen in the office for quite some time but he denied anginal sympt
[2019-08-01 15:54] LABS: Cholesterol 119 mg/dL (0-200); HDL Direct 21 mg/dL; Triglycerides 174 mg/dL (<150)
[2019-08-01 16:05] LABS: LDL Cholesterol Direct 61 mg/dL
[2019-08-01 16:16] LABS: Troponin I 0.384 ng/mL (0.000-0.034)
[2019-08-01 16:29] LABS: Glucose Point of Care 89 (65-105)
--- NOTE | 2019-08-01 17:24 | ECHO_ITS ---
Patient Info Name: Jabier Smith Age: 73 years : 1945 Gender: Male Ht: 69 in Wt: 150 lbs BSA: 1.82 m2 HR: 86 bpm Heart Rhythm: Sinus Rhythm Technical Quality: Good Exam Date: 08/01/2019 9:07 AM Exam Location: [facility] Patient Status: Inpatient Admit Date: 07/30/2019 Staff Ordering Physician: Alonso Chavez MD It Training Specialist: Tee Melendez, TEJ, RT Attending Provider: Roxi Bejarano DO Referring Physician: Kathy NOVAK; Exam Type: CA echo doppler color flow Study Info Indications I50.9 - Heart failure, unspecified Complete two-dimensional, color flow and Doppler transthoracic echocardiogram is performed. Summary 1. Left ventricular systolic function is normal, estimated at 65-70%. 2. There is moderately increased left ventricular wall thickness. 3. The left ventricular diastolic function is grade I diastolic dysfunction. 4. Global longitudinal strain is moderately elevated at -9 %. 5. There is mild aortic valve sclerosis. 6. There is no aortic valve stenosis. 7. There is trace tricuspid valve regurgitation. 8. Unable to estimate PA systolic pressure due to poor spectral resolution of tricuspid regurgitant jet velocity. 9. False tendon noted within the LV cavity. Left Ventricle Left ventricular chamber dimension is normal. Left ventricular systolic function is normal, estimated at 65-70%. There is moderately increased left ventricular wall thickness. The left ventricular diastolic function is grade I diastolic dysfunction. Global longitudinal strain is moderately elevated at -9 %. False tendon noted within the LV cavity. Right Ventricle Right ventricular chamber dimension is normal. Right ventricular systolic function is normal. Left Atria Left atrial chamber dimension is normal. Right Atria Right atrial chamber dimension is normal. Aortic Valve The aortic valve is trileaflet. There is mild aortic valve sclerosis. There is no aortic valve stenosis. There is no aortic valve regurgitation. Pulmonic Valve The pulmonic valve is normal. There is trace pulmonic regurgitation. Mitral Valve The mitral valve has thickened leaflets. There is trace mitral valve regurgitation. The mitral valve annulus is mildly calcified. Tricuspid Valve The tricuspid valve leaflets are normal. There is trace tricuspid valve regurgitation. Unable to estimate PA systolic pressure due to poor spectral resolution of tricuspid regurgitant jet velocity. Pericardium/Pleural The pericardium appears normal. There is no pericardial effusion. Inferior Vena Cava Normal inferior vena cava with >50% collapse upon inspiration consistent with normal right atrial pressure, 5 mmHg. Aorta The aortic root size at the sinus of Valsalva is normal. Left Ventricular Outflow Tract Name Value Normal LVOT 2D LVOT Diameter 2.0 cm LVOT Doppler LVOT Peak Gradient 7 mmHg LVOT Mean Gradient 4 mmHg LVOT VTI 20 cm LVOT VTI/AV VTI Ratio 0.8 LVOT Stroke Volume
[2019-08-01] MEDS: SIMVASTATIN 20 MG TABLET 40 MG PO (20:14)
[2019-08-01 20:22] LABS: Glucose Point of Care 116 (65-105)
[2019-08-02] VITALS (11 sets, daily range): BP systolic 166–180; BP diastolic 66–98; PULSE 58–89; RESP 14–20; TEMP 36.1–36.9; O2SAT 96–100
[2019-08-02 04:33] LABS: Hematocrit 35.1 % (42.0-52.0); Hemoglobin 11.5 g/dL (14.0-18.0); Mean Corpuscular HGB Conc 32.8 g/dl (32-36); Mean Corpuscular Hemoglobin 30.7 pg (26-34); Mean Corpuscular Volume 93.9 fl (80-100); Mean Platelet Volume 11.9 fl (7.4-10.4); Platelet Count Result 158 k/mm3 (150-375); Red Blood Count 3.74 M/mm3 (4.6-6.20); Red Cell Distribution Width 13.2 % (11.5-14.5); White Blood Count 14.4 K/mm3 (4.5-10.0)
[2019-08-02 04:45] LABS: Alanine Aminotransferase 15 U/L (4-50); Albumin Level 3.4 g/dL (3.5-5.1); Alkaline Phosphatase 60 U/L (38-126); Aspartate Amino Transferase 22 U/L (17-59); Bilirubin,Total 0.3 mg/dL (0.2-1.3); Blood Urea Nitrogen 27 mg/dL (9-20); Calcium 11.9 mg/dL (8.4-10.2); Carbon Dioxide 28 mmol/L (22-30); Chloride 108 mmol/L (98-107); Estimated CRCL calculation 33 ml/min; Estimated Glomerular Filt Rate 37; Glucose 102 mg/dL (75-110); Potassium 3.7 mmol/L (3.4-5.0); Sodium 139 mmol/L (137-145)
[2019-08-02 07:41] LABS: Glucose Point of Care 152 (65-105)
--- NOTE | 2019-08-02 09:21 | PM.IMPN ---
Progress Note: A&P Assessment and Plan (1) Lymphadenopathy: Code(s): R59.1 - Generalized enlarged lymph nodes Status: Acute Assessment and Plan: MRI brain done to rule out CVA yesterday revealed numerous enlarged bilateral cervical lymph nodes. Follow-up CT neck/chest/abdomen/pelvis done without contrast due to creatinine level reveals extensive lymphadenopathy in all areas with largest lymph node in the right axilla measuring 5.1 x 1.7 cm, largest precarinal lymph node measuring 1.5 x 1.2 cm, enlarged epicardial lymph nodes measuring up to 3.0 x 1.9 cm and larger lymph nodes in left inguinal region measuring up to 3.9 x 2.1 cm. I was able speak with Radiologist this morning. Will proceed with ultrasound-guided lymph node biopsy most likely from left inguinal region or right axilla. I did also speak with the patient's this morning and notified of CT results. She agrees with proceeding with ultrasound-guided lymph node biopsy. also mentions patient's brother did have diagnosis of lymphocytic lymphoma/chronic lymphocytic leukemia and behaved in a similar manner to that in which the patient is behaving now. Will also consult Oncology. Doubt infectious at this point given extensive nature of lymphadenopathy. Anticipate transfer from IMU later today. (2) Encephalopathy acute: Code(s): G93.40 - Encephalopathy, unspecified Status: Acute Assessment and Plan: Unspecified encephalopathy at this point but patient with extensive lymphadenopathy as noted above. No obvious infectious process. CT brain with small old lacunar infarct in the right frontal dsouza radiata but no acute changes. MRI brain lacunar infarct but no acute changes. Will continue to monitor. (3) Elevated troponin: Code(s): R79.89 - Other specified abnormal findings of blood chemistry Status: Acute Assessment and Plan: Cardiology consulted and appreciate input. Troponin did peak at 0.384 yesterday. Suspect type 2 infarct. Echocardiogram with EF 65-70%, grade 1 diastolic dysfunction. Telemetry reviewed on 08/02/2019 with continued sinus rhythm. Will continue ASA, simvastatin and metoprolol. Will continue to monitor. (4) Acute renal failure (ARF): Qualifiers: Acute renal failure type: unspecified Qualified Code(s): N17.9 - Acute kidney failure, unspecified Code(s): N17.9 - Acute kidney failure, unspecified Status: Acute Assessment and Plan: Creatinine 2.00 on admission but baseline unknown. Creatinine remains unchanged at 1.80 again today. I suspect this is his current baseline. Will continue to monitor. (5) Hypercalcemia: Code(s): E83.52 - Hypercalcemia Status: Acute Assessment and Plan: Calcium remains elevated at 11.9 today. PTH normal at 50.6. Suspect this is most likely related to a malignancy. Additional evaluation as noted above. (6) Hypertension: Qualifiers: Hypertension type: essential hypertension Qualified Code(s): I10 - Essential (primary) hypertension Code(s): I10 - Essential (primary) hypertension Status: Acute Assessment and Plan: Blood pressure reviewed on 08/02/2019 with continued elevation. Will increase metoprolol. Continue lisinopril. Continue to monitor and adjust treatment as needed. (7) Coronary artery disease: Qualifiers: Coronary Disease-Associated Artery/Lesion type: [place] artery [place] vs. transplanted heart: [place] heart Associated angina: without angina Qualified Code(s): I25.10 - Atherosclerotic heart disease of [place] coronary artery without angina pectoris Code(s): I25.10 - Atherosclerotic heart disease of [place] coronary artery without angina pectoris Status: Acute Assessment and Plan: Elevation of troponin level as noted above. Echocardiogram as noted above. Continue ASA, metoprolol and simvastatin. (8) Dyslipidemia: Code(s): E78.5 - H
[2019-08-02] MEDS: CYANOCOBALAMIN 1,000 MCG TABLET 1000 MCG PO (09:42)
[2019-08-02] MEDS: ASPIRIN 325 MG TABLET PO (09:42)
[2019-08-02] MEDS: FOLIC ACID 1 MG TABLET PO (09:42)
[2019-08-02] MEDS: lisinopriL 20 MG TABLET PO (09:42)
[2019-08-02] MEDS: MULTIVITAMINS THERAPEUTIC TAB (*BKC) 1 TABLET PO (09:42)
[2019-08-02] MEDS: CHOLECALCIFEROL 1,000 UNIT TABLET 5000 UNITS PO (09:42)
[2019-08-02] MEDS: METOPROLOL TARTRATE 25 MG TABLET PO ×2 (09:46→21:07)
--- NOTE | 2019-08-02 10:45 | PM.PNCARD ---
Progress Note: A&P Additional Plan 73-year-old man with: Coronary artery disease previous CABG. He is clinically stable. Troponin levels were elevated but this is not felt to be indicative of AMI/ACS Extensive lymphadenopathy found on CT scan. Patient to have a tissue diagnosis established with biopsy which apparently is scheduled in Radiology this afternoon No specific cardiac recommendations at this time Luis Alberto Jcainto MD [facility] Subjective Date/time seen: Date of service: 08/02/19 10:45 Interval history: Follow-up visit in 73-year-old man with history of coronary artery disease previous surgical revascularization seen at the request of the hospitalist because of elevation of troponin. It is our impression that her troponin elevation is not indicative of an acute coronary event. Further evaluation has demonstrated evidence of extensive lymphadenopathy and chart indicates the need for lymph node biopsy. There are no notes on the chart which indicate the plans for this. The patient is also on aware of what the plan is in terms of obtaining lymph node node biopsy for tissue diagnosis Nursing staff indicate that he is planned to have a ultrasound axillary lymph node biopsy by Radiology later today No cardiac complaints of any kind he was sleeping flat in bed with the television on when I came in the room to see him Exam Const: General: comfortable and no acute distress Other: White male appears stated age sleeping flat in bed when I came in to see him upon awakening offers no complaints HENMT: Mouth: Yes moist mucous membranes Eyes: Sclera: sclerae normal Pupils: Equal, round and reactive pupils present Neck: Neck: supple and no JVD Thyroid: thyroid normal Resp: Effort & Inspection: normal respiratory effort Auscultation: clear to auscultation bilaterally Cardio: Rate: regular rate Rhythm: regular rhythm Other: No significant murmur or gallop GI: Auscultation: normal bowel sounds Skin: General skin exam: normal color Neuro: Cognition (Neuro): normal cognition and abnormal cognition Other: Patient is having a hard time remembering details of his history and evaluation that is taking place. Also not able to accurately recall his previous cardiac surgery details Objective Data Vital Signs Vital Signs: Vital Signs - 24 hr 08/01/19 12:00 08/01/19 12:18 08/01/19 14:00 Temperature 36.2 C L Pulse Rate 74 70 68 Respiratory Rate 20 Blood Pressure 161/83 H Pulse Oximetry 99 08/01/19 16:00 08/01/19 16:32 08/01/19 17:10 Temperature 36.3 C L Pulse Rate 74 73 75 Respiratory Rate 20 Blood Pressure 167/81 H Pulse Oximetry 99 08/01/19 18:00 08/01/19 20:00 08/01/19 22:00 Temperature 36.1 C L Pulse Rate 76 71 79 Respiratory Rate 20 Blood Pressure 147/77 H Pulse Oximetry 94 08/02/19 00:00 08/02/19 02:00 08/02/19 04:00 Temperature 36.9 C 36.7 C Pulse Rate 77 58 L 79 Respiratory Rate 16 20 Blood Pressure 176/71 H 178/74 H Pulse Oximetry 96 99 08/02/19 05:42 08/02/19 09:22 08/02/19 09:46 Temperature 36.1 C L Pulse Rate 59 L 89 76 Respiratory Rate 16 Blood Pressure 166/98 H Pulse Oximetry 98 Intake/Output Intake/Output: Intake & Output 07/30/19 07/31/19 08/01/19 08/02/19 23:59 23:59 23:59 23:59 Intake Total 500 2295 1500 780 Output Total 2100 1925 800 Balance 500 195 -425 -20 Meds/Results Medications: Active Medications Generic Name Dose Route Start Last Admin Trade Name Freq PRN Reason Stop Dose Admin Acetaminophen 650 mg 07/30/19 19:16 Tylenol Tablet PO Q4H PRN Mild Pain (1-3) or Fever Hydrocodone Bitart/Acetaminophen 1 tab 07/30/19 19:16 [place] 5-325 Mg PO Q4H PRN Pain Rated 4-6 Alprazolam 0.25 mg 08/01/19 17:04 Xanax PO TID PRN Anxiety Aspirin 325 mg 07/31/19 09:00 08/02/19 09:42 Aspirin PO 325 mg DAILY SLAVA Administration Cyanocobalamin 1,000 mcg 07/31/19 09:00
[2019-08-02] MEDS: OMEGA 3 POLYUNSAT FATTY ACIDS 1 GM CAP PO (11:57)
[2019-08-02 12:41] LABS: Glucose Point of Care 83 (65-105)
--- NOTE | 2019-08-02 13:06 | PC.NURSE ---
This patient, Jabier Smith, was transferred to [facility] on 08/02/19 at 1300. Personal belongings sent with patient. Belongings list checked. Report given to VENKATA Jacobs. Appropriate documentation sent with patient.
[2019-08-02] MEDS: ZOLEDRONIC ACID 4 MG/100 ML 100 ML 400 MG IVPB (16:34)
[2019-08-02 16:52] LABS: Glucose Point of Care 106 (65-105)
--- NOTE | 2019-08-02 18:01 | CONS_ITS ---
DATE OF CONSULTATION: 08/02/2019 REASON FOR CONSULTATION: Generalized lymphadenopathy, likely lymphoma. HISTORY OF PRESENTING ILLNESS: This is a pleasant 73-year-old male with history of coronary artery disease, status post coronary artery bypass grafting about 10 years ago. The patient also has a history of hypertension, came into the hospital with complaint of increasing weakness and confusion for the last couple of weeks duration. The patient lost almost 20 pounds weight in this last 6 months duration. He was initially seen by the primary care physician and was referred to the hospital because of concern of COVID-19 infection. He denies any night sweats and fevers and chills. He has occasional cough. Denies any rash and diarrhea. Denies any other new complaints. CT scan was performed that showed extensive neck, chest, abdominal and pelvic lymphadenopathy with mild splenomegaly. Brain MRI was also done that showed no acute intracranial process. The patient had ultrasound-guided right axillary lymph node biopsy done today. REVIEW OF SYSTEMS: 12-point review of system was reviewed and as per HPI, otherwise negative. PAST MEDICAL HISTORY: Coronary artery disease status post coronary artery bypass grafting, hyperlipidemia, type 2 diabetes, hypertension. PAST SURGICAL HISTORY: Coronary artery bypass grafting 10 years ago. FAMILY HISTORY: There is no history of leukemia and lymphoma in the family. 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 He denies any history of smoking and drinking. The patient has 2 children. HOME MEDICATIONS: Reviewed. ALLERGIES: REVIEWED. PHYSICAL EXAMINATION: GENERAL: This patient is a well-developed, well-nourished male, no apparent distress, alert and oriented. VITAL SIGNS: Per nursing note. HEENT: Normocephalic, atraumatic. Clear oropharynx. LUNGS: Clear to auscultation bilaterally. CARDIOVASCULAR: Regular rate and rhythm. No murmurs. ABDOMEN: Soft, nontender, nondistended. Bowel sounds are positive in all 4 quadrants. No hepatosplenomegaly. EXTREMITIES: No edema. LYMPHATICS: There is generalized lymphadenopathy with prominent right axillary lymphadenopathy and bilateral cervical lymphadenopathy. There is also prominent right groin lymphadenopathy. LABORATORY DATA: WBC 14.4, hemoglobin 11.5, platelet 158,000, 40% neutrophils, 48% lymphocytes. LDH normal at 333, creatinine 1.8, calcium elevated at 11.9. ASSESSMENT AND PLAN: 1. Generalized lymphadenopathy, status post ultrasound-guided right axillary lymph node biopsy. The patient lost 20 pounds weight in last 6 months. Denies any night sweats, fevers and chills. I have reviewed the CT scan finding that showed multiple lymphadenopathy involving the neck, chest, abdomen and pelvis. These findings are quite worrisome for lymphoma. Biopsy has been performed and pathology is pending. Labs also reviewed. LDH is normal. I will order flow cytometric analysis for lymphoma. The patient would need further staging workup for lymphoma as an outpatient. I have provided this patient my office information. 2. Hypercalcemia, likely responsible for mental status changes. MRI finding noted. I would suggest dose of bisphosphonate to normalize the calcium level. I have answered all the questions to the patient's satisfaction. Thank you for the consultation. DEBRA FAITH M.D. SPEEDER FRAME TENDER SPEEDER FRAME TENDER D I MT: Charis
[2019-08-02] MEDS: SIMVASTATIN 20 MG TABLET 40 MG PO (21:07)
[2019-08-02] MEDS: HEPARIN SODIUM 5,000 UNITS/ML VIAL 5000 UNITS SUB-Q (21:08)
[2019-08-02 21:15] LABS: Glucose Point of Care 102 (65-105)
[2019-08-03 05:15] VITALS: BP 192/81; PULSE 69; RESP 18; TEMP 36.5; O2SAT 94
[2019-08-03 07:51] LABS: Glucose Point of Care 98 (65-105)
[2019-08-03 08:18] VITALS: PULSE 70
[2019-08-03] MEDS: FOLIC ACID 1 MG TABLET PO (08:18)
[2019-08-03] MEDS: ASPIRIN 325 MG TABLET PO (08:18)
[2019-08-03] MEDS: CHOLECALCIFEROL 1,000 UNIT TABLET 5000 UNITS PO (08:18)
[2019-08-03] MEDS: METOPROLOL TARTRATE 25 MG TABLET PO (08:18)
[2019-08-03] MEDS: CYANOCOBALAMIN 1,000 MCG TABLET 1000 MCG PO (08:18)
[2019-08-03] MEDS: MULTIVITAMINS THERAPEUTIC TAB (*BKC) 1 TABLET PO (08:19)
[2019-08-03] MEDS: HEPARIN SODIUM 5,000 UNITS/ML VIAL 5000 UNITS SUB-Q ×2 (08:19→20:48)
[2019-08-03] MEDS: lisinopriL 20 MG TABLET PO (08:19)
[2019-08-03] MEDS: OMEGA 3 POLYUNSAT FATTY ACIDS 1 GM CAP PO (08:19)
--- NOTE | 2019-08-03 11:14 | PM.IMPN ---
Progress Note: A&P Assessment and Plan (1) Lymphadenopathy: Code(s): R59.1 - Generalized enlarged lymph nodes Status: Acute Assessment and Plan: MRI brain done to rule out CVA on 08/01/2019 revealed numerous enlarged bilateral cervical lymph nodes. Follow-up CT neck/chest/abdomen/pelvis done without contrast due to creatinine level reveals extensive lymphadenopathy in all areas with largest lymph node in the right axilla measuring 5.1 x 1.7 cm, largest precarinal lymph node measuring 1.5 x 1.2 cm, enlarged epicardial lymph nodes measuring up to 3.0 x 1.9 cm and larger lymph nodes in left inguinal region measuring up to 3.9 x 2.1 cm. Ultrasound-guided lymph node biopsy from the right axilla completed yesterday. Patient was seen in consultation by Dr. Austin with patient most likely felt to have lymphoma but need to await biopsy results. He has otherwise significantly improved and can follow up biopsy results as an outpatient. Discussed with Dr. Austin by phone today. With calcium increasing will not be able to discharge today but hopefully can discharge in the next 1-2 days as long as lab results are improving. (2) Acute metabolic encephalopathy: Code(s): G93.41 - Metabolic encephalopathy Status: Acute Assessment and Plan: Etiology not entirely clear on admission but with patient now noted to have lymphadenopathy with hypercalcemia most likely this was an acute metabolic encephalopathy. No infectious process found. CT brain with small old lacunar infarct in the right frontal dsouza radiata but no acute changes. MRI brain lacunar infarct but no acute changes. Will need to continue to follow mentation as an outpatient. (3) Acute renal failure (ARF): Qualifiers: Acute renal failure type: unspecified Qualified Code(s): N17.9 - Acute kidney failure, unspecified Code(s): N17.9 - Acute kidney failure, unspecified Status: Acute Assessment and Plan: Creatinine 2.00 on admission but baseline unknown. Creatinine 1.90 today but has essentially remained unchanged. Suspect this is current baseline. Continue to monitor. (4) Hypercalcemia: Code(s): E83.52 - Hypercalcemia Status: Acute Assessment and Plan: Calcium remains elevated up to 12.1 today. PTH normal at 50.6. Most likely result of probable malignancy. Did receive dose of IV Zometa yesterday. Discussed with Dr. Austin. He would like to start calcitonin. Would also like to have calcium decreasing prior to discharge. (5) Elevated troponin: Code(s): R79.89 - Other specified abnormal findings of blood chemistry Status: Acute Assessment and Plan: Cardiology consulted and appreciate input. Troponin did peak at 0.384 yesterday. Suspect type 2 infarct. Echocardiogram with EF 65-70%, grade 1 diastolic dysfunction. Presently stable. Will continue ASA, simvastatin and metoprolol. Will continue to monitor. (6) Hypertension: Qualifiers: Hypertension type: essential hypertension Qualified Code(s): I10 - Essential (primary) hypertension Code(s): I10 - Essential (primary) hypertension Status: Acute Assessment and Plan: Blood pressure reviewed on 08/03/2019 with continued elevation. Will leave current lisinopril and metoprolol but add amlodipine. Will have IV hydralazine available as needed. Will continue to monitor. (7) Coronary artery disease: Qualifiers: Coronary Disease-Associated Artery/Lesion type: [place] artery [place] vs. transplanted heart: [place] heart Associated angina: without angina Qualified Code(s): I25.10 - Atherosclerotic heart disease of [place] coronary artery without angina pectoris Code(s): I25.10 - Atherosclerotic heart disease of [place] coronary artery without angina pectoris Status: Acute Assessment and Plan: Elevation of troponin level as noted above. Echocardiogram as noted above. Continue ASA, me
[2019-08-03 11:18] LABS: Alanine Aminotransferase 17 U/L (4-50); Albumin Level 3.7 g/dL (3.5-5.1); Alkaline Phosphatase 70 U/L (38-126); Aspartate Amino Transferase 21 U/L (17-59); Bilirubin,Total 0.3 mg/dL (0.2-1.3); Blood Urea Nitrogen 32 mg/dL (9-20); Calcium 12.1 mg/dL (8.4-10.2); Carbon Dioxide 25 mmol/L (22-30); Chloride 106 mmol/L (98-107); Estimated CRCL calculation 31 ml/min; Estimated Glomerular Filt Rate 35; Glucose 141 mg/dL (75-110); Sodium 137 mmol/L (137-145)
[2019-08-03 12:08] LABS: Glucose Point of Care 91 (65-105)
[2019-08-03] MEDS: AMLODIPINE BESYLATE 5 MG TABLET PO (13:05)
[2019-08-03] MEDS: CALCITONIN SALMON INJ 400 UNITS/2 ML VIAL 100 UNITS SUB-Q (13:05)
--- NOTE | 2019-08-03 13:55 | PM.PNCARD ---
Progress Note: A&P Assessment and Plan (1) Elevated troponin: Code(s): R79.89 - Other specified abnormal findings of blood chemistry Status: Acute Assessment and Plan: Elevated trop up to 0.38, 2nd hypertensionand underlying CAD which appears stable. Patient is not exhibiting anginal symptoms. He has underlying CAD so can't exclude small non ST-elevation [place], however, most likely type 2 infarct. Continue aggressive medical therapy including aspirin, statin beta-lópez. (2) Coronary artery disease: Qualifiers: Associated angina: without angina Coronary Disease-Associated Artery/Lesion type: [place] artery [place] vs. transplanted heart: [place] heart Qualified Code(s): I25.10 - Atherosclerotic heart disease of [place] coronary artery without angina pectoris Code(s): I25.10 - Atherosclerotic heart disease of [place] coronary artery without angina pectoris Status: Acute Assessment and Plan: Echocardiogram personally reviewed. EF 65-70% without focal wall motion abnormalities, moderate LVH no significant valve pathology. Outpatient ischemic evaluation. Office follow-up within the next 2-4 weeks. (3) Hypertension: Qualifiers: Hypertension type: essential hypertension Qualified Code(s): I10 - Essential (primary) hypertension Code(s): I10 - Essential (primary) hypertension Status: Acute Assessment and Plan: Still hypertensive, uncontrolled. Increase metoprolol to 50 mg BID. (4) Encephalopathy acute: Code(s): G93.40 - Encephalopathy, unspecified Status: Acute Assessment and Plan: Improved. May be related to hypercalcemia and a metabolic encephalopathy. Workup and treatment per primary service. (5) Acute renal failure (ARF): Qualifiers: Acute renal failure type: unspecified Qualified Code(s): N17.9 - Acute kidney failure, unspecified Code(s): N17.9 - Acute kidney failure, unspecified Status: Acute Assessment and Plan: Workup per primary service. creatinine plateaued at 1.8, chronicity unknown suspect likely at baseline. Stable. (6) Cerebrovascular accident, old: Code(s): Z86.73 - Personal history of transient ischemic attack (TIA), and cerebral infarction without residual deficits Status: Acute Assessment and Plan: Radiographic old small lacunar infarction previously unknown. No history of known atrial fibrillation / flutter. Carotid Dopplers showed < 50% stenosis. Aggressive atherosclerotic risk reduction. LDL chol 61. Continue statin. (7) RODRIGUES (dyspnea on exertion): Code(s): R06.00 - Dyspnea, unspecified Status: Acute Assessment and Plan: Echo showed EF 65-70%. Essentially resolved at this time. (8) Dyslipidemia: Code(s): E78.5 - Hyperlipidemia, unspecified Status: Acute Assessment and Plan: Continue statin therapy. Check fasting lipid profile. Subjective Date/time seen: 08/03/19 13:55 Interval history: Follow-up visit in 73-year-old man with history of coronary artery disease previous surgical revascularization seen at the request of the hospitalist because of elevation of troponin. It is our impression that her troponin elevation is not indicative of an acute coronary event. Further evaluation has demonstrated evidence of extensive lymphadenopathy. S/P biopsy 08/02/2019. Dr. Austin consulted and lymphoma is suspected. Pt is thought to have a metabolic encephalopathy. Date of Service: 08/03/2019: They say I've go cancer. Noted to be hypertensive. UP and about in room, feels little shakey. No SOB, CP. Review of Systems Constitutional: Constitutional
[2019-08-03 14:24] VITALS: BP 183/77; PULSE 66; RESP 18; TEMP 36.2; O2SAT 97
[2019-08-03] MEDS: hydrALAZINE HCL 20 MG/ML VIAL 10 MG IV PUSH (14:35)
[2019-08-03 16:33] VITALS: BP 167/62
[2019-08-03 17:44] LABS: Glucose Point of Care 115 (65-105)
[2019-08-03 20:30] VITALS: BP 175/84; PULSE 81; RESP 18; TEMP 37; O2SAT 97
[2019-08-03 20:47] VITALS: PULSE 81
[2019-08-03] MEDS: METOPROLOL TARTRATE 50 MG TAB PO (20:47)
[2019-08-03] MEDS: SIMVASTATIN 20 MG TABLET 40 MG PO (20:49)
[2019-08-03 23:58] LABS: Glucose Point of Care 109 (65-105)
[2019-08-04 04:40] VITALS: BP 152/77; PULSE 79; RESP 16; TEMP 37.4; O2SAT 98
[2019-08-04 05:23] LABS: Hematocrit 33.8 % (42.0-52.0); Hemoglobin 11.3 g/dL (14.0-18.0); Mean Corpuscular HGB Conc 33.4 g/dl (32-36); Mean Corpuscular Volume 92.9 fl (80-100); Mean Platelet Volume 11.8 fl (7.4-10.4); Platelet Count Result 174 k/mm3 (150-375); Red Blood Count 3.64 M/mm3 (4.6-6.20); Red Cell Distribution Width 13.3 % (11.5-14.5); White Blood Count 14.1 K/mm3 (4.5-10.0)
[2019-08-04 05:40] LABS: Alanine Aminotransferase 15 U/L (4-50); Albumin Level 3.4 g/dL (3.5-5.1); Alkaline Phosphatase 69 U/L (38-126); Aspartate Amino Transferase 20 U/L (17-59); Bilirubin,Total 0.3 mg/dL (0.2-1.3); Blood Urea Nitrogen 35 mg/dL (9-20); Calcium 11.5 mg/dL (8.4-10.2); Carbon Dioxide 27 mmol/L (22-30); Chloride 107 mmol/L (98-107); Estimated CRCL calculation 27 ml/min; Estimated Glomerular Filt Rate 29; Glucose 119 mg/dL (75-110); Potassium 3.6 mmol/L (3.4-5.0); Sodium 139 mmol/L (137-145)
[2019-08-04 08:41] LABS: Glucose Point of Care 126 (65-105)
[2019-08-04] MEDS: CHOLECALCIFEROL 1,000 UNIT TABLET 5000 UNITS PO (09:15)
[2019-08-04] MEDS: ASPIRIN 325 MG TABLET PO (09:15)
[2019-08-04] MEDS: CYANOCOBALAMIN 1,000 MCG TABLET 1000 MCG PO (09:15)
[2019-08-04 09:16] VITALS: PULSE 79
[2019-08-04] MEDS: FOLIC ACID 1 MG TABLET PO (09:16)
[2019-08-04] MEDS: METOPROLOL TARTRATE 50 MG TAB PO ×2 (09:16→20:28)
[2019-08-04] MEDS: AMLODIPINE BESYLATE 5 MG TABLET 10 MG PO (09:16)
[2019-08-04] MEDS: MULTIVITAMINS THERAPEUTIC TAB (*BKC) 1 TABLET PO (09:17)
[2019-08-04] MEDS: OMEGA 3 POLYUNSAT FATTY ACIDS 1 GM CAP PO (09:17)
[2019-08-04] MEDS: HEPARIN SODIUM 5,000 UNITS/ML VIAL 5000 UNITS SUB-Q ×2 (09:18→21:14)
[2019-08-04] MEDS: CALCITONIN SALMON INJ 400 UNITS/2 ML VIAL 100 UNITS SUB-Q (10:52)
--- NOTE | 2019-08-04 11:19 | PM.IMPN ---
Progress Note: A&P Assessment and Plan (1) Lymphadenopathy: Code(s): R59.1 - Generalized enlarged lymph nodes Status: Acute Assessment and Plan: MRI brain done to rule out CVA on 08/01/2019 revealed numerous enlarged bilateral cervical lymph nodes. Follow-up CT neck/chest/abdomen/pelvis done without contrast due to creatinine level reveals extensive lymphadenopathy in all areas with largest lymph node in the right axilla measuring 5.1 x 1.7 cm, largest precarinal lymph node measuring 1.5 x 1.2 cm, enlarged epicardial lymph nodes measuring up to 3.0 x 1.9 cm and larger lymph nodes in left inguinal region measuring up to 3.9 x 2.1 cm. Ultrasound-guided lymph node biopsy from the right axilla completed yesterday. Patient was seen in consultation by Dr. Austin with patient most likely felt to have lymphoma but need to await biopsy results. Has improved from admission but still not ultimately at his baseline. Pathology results still pending. With calcium at 11.5 and creatinine slightly higher today, will not discharge today. Hopeful discharge in next 1-2 days as long as stable. (2) Acute metabolic encephalopathy: Code(s): G93.41 - Metabolic encephalopathy Status: Acute Assessment and Plan: Etiology not entirely clear on admission but with patient now noted to have lymphadenopathy with hypercalcemia most likely this was an acute metabolic encephalopathy related to the elevated calcium level. No infectious process found. CT brain with small old lacunar infarct in the right frontal dsouza radiata but no acute changes. MRI brain lacunar infarct but no acute changes. Improved mentation from admission. Will continue to monitor. (3) Acute renal failure (ARF): Qualifiers: Acute renal failure type: unspecified Qualified Code(s): N17.9 - Acute kidney failure, unspecified Code(s): N17.9 - Acute kidney failure, unspecified Status: Acute Assessment and Plan: Has now increased back up to 2.20 today. Lisinopril discontinued. Will continue to monitor. (4) Hypercalcemia: Code(s): E83.52 - Hypercalcemia Status: Acute Assessment and Plan: Calcium now decreasing again at 11.5 today. PTH normal at 50.6. Most likely result of malignancy. Received dose of IV Zometa on 08/02/2019. Started on subcutaneous calcitonin on 08/03/2019 which will be continued daily. Would like calcium to be closer to 11 prior to discharge. Will recheck in a.m.. (5) Hypertension: Qualifiers: Hypertension type: essential hypertension Qualified Code(s): I10 - Essential (primary) hypertension Code(s): I10 - Essential (primary) hypertension Status: Acute Assessment and Plan: Blood pressure reviewed on 08/04/2019 with persistent elevation. Will continue current metoprolol. Increase amlodipine. Holding lisinopril with increasing creatinine. IV hydralazine still available as needed. Will continue to monitor and adjust treatment as needed. (6) Elevated troponin: Code(s): R79.89 - Other specified abnormal findings of blood chemistry Status: Acute Assessment and Plan: Cardiology consulted and appreciate input. Troponin did peak at 0.384 yesterday. Suspect type 2 infarct. Echocardiogram with EF 65-70%, grade 1 diastolic dysfunction. Presently stable. Will continue ASA, simvastatin and metoprolol. Will continue to monitor. (7) Coronary artery disease: Qualifiers: Associated angina: without angina Coronary Disease-Associated Artery/Lesion type: [place] artery [place] vs. transplanted heart: [place] heart Qualified Code(s): I25.10 - Atherosclerotic heart disease of [place] coronary artery without angina pectoris Code(s): I25.10 - Atherosclerotic heart disease of [place] coronary artery without angina pectoris Status: Acute Assessment and Plan: Elevation of troponin level as noted above. Echocardiogram as not
[2019-08-04 11:48] LABS: Glucose Point of Care 105 (65-105)
[2019-08-04 14:24] VITALS: BP 149/62; PULSE 59; RESP 18; TEMP 36.3; O2SAT 98
--- NOTE | 2019-08-04 14:37 | PM.PNCARD ---
Progress Note: A&P Assessment and Plan (1) Elevated troponin: Code(s): R79.89 - Other specified abnormal findings of blood chemistry Status: Acute Assessment and Plan: Elevated trop up to 0.38, 2nd hypertension and underlying CAD which appears stable. Patient is not exhibiting anginal symptoms. He has underlying CAD so can't exclude small non ST-elevation [place], however, most likely type 2 infarct. Continue aggressive medical therapy including aspirin, statin beta-lópez. (2) Coronary artery disease: Qualifiers: Coronary Disease-Associated Artery/Lesion type: [place] artery [place] vs. transplanted heart: [place] heart Associated angina: without angina Qualified Code(s): I25.10 - Atherosclerotic heart disease of [place] coronary artery without angina pectoris Code(s): I25.10 - Atherosclerotic heart disease of [place] coronary artery without angina pectoris Status: Acute Assessment and Plan: Echocardiogram personally reviewed. EF 65-70% without focal wall motion abnormalities, moderate LVH no significant valve pathology. Outpatient ischemic evaluation. Office follow-up within the next 2-4 weeks. (3) Hypertension: Qualifiers: Hypertension type: essential hypertension Qualified Code(s): I10 - Essential (primary) hypertension Code(s): I10 - Essential (primary) hypertension Status: Acute Assessment and Plan: Still hypertensive, uncontrolled. Increased metoprolol to 50 mg BID on Monday; no major improvement yet. (4) Encephalopathy acute: Code(s): G93.40 - Encephalopathy, unspecified Status: Acute Assessment and Plan: Improved. May be related to hypercalcemia and a metabolic encephalopathy. Workup and treatment per primary service. (5) Acute renal failure (ARF): Qualifiers: Acute renal failure type: unspecified Qualified Code(s): N17.9 - Acute kidney failure, unspecified Code(s): N17.9 - Acute kidney failure, unspecified Status: Acute Assessment and Plan: Workup per primary service. creatinine plateaued at 1.8-2.0, chronicity unknown suspect likely at baseline. Stable. (6) Cerebrovascular accident, old: Code(s): Z86.73 - Personal history of transient ischemic attack (TIA), and cerebral infarction without residual deficits Status: Acute Assessment and Plan: Radiographic old small lacunar infarction previously unknown. No history of known atrial fibrillation / flutter. Carotid Dopplers showed < 50% stenosis. Aggressive atherosclerotic risk reduction. LDL chol 61. Continue statin. (7) RODRIGUES (dyspnea on exertion): Code(s): R06.00 - Dyspnea, unspecified Status: Acute Assessment and Plan: Echo showed EF 65-70%. Essentially resolved at this time. (8) Dyslipidemia: Code(s): E78.5 - Hyperlipidemia, unspecified Status: Acute Assessment and Plan: Continue statin therapy. Check fasting lipid profile. Additional Plan 73-year-old man with: Coronary artery disease previous CABG. He is clinically stable. Troponin levels were elevated but this is not felt to be indicative of AMI/ACS Extensive lymphadenopathy found on CT scan. Patient to have a tissue diagnosis established with biopsy which apparently is scheduled in Radiology this afternoon No specific cardiac recommendations at this time Luis Alberto Jacinto MD [facility] Subjective Date/time seen: 08/04/19 14:37 Interval history: Follow-up visit in 73-year-old man with history of coronary artery disease previous surgical revascularization seen at the request of the hospitalist because of elevation of troponin. It is our impres
[2019-08-04 16:32] LABS: Glucose Point of Care 126 (65-105)
[2019-08-04 20:22] VITALS: BP 176/95; PULSE 67; RESP 18; TEMP 36.6; O2SAT 100
[2019-08-04 20:28] VITALS: PULSE 67
[2019-08-04] MEDS: SIMVASTATIN 20 MG TABLET 40 MG PO (20:28)
[2019-08-04 20:36] LABS: Glucose Point of Care 99 (65-105)
[2019-08-05 05:00] VITALS: BP 149/93; PULSE 74; RESP 18; TEMP 36.9; O2SAT 98
[2019-08-05 05:36] LABS: Hematocrit 32.7 % (42.0-52.0); Hemoglobin 10.8 g/dL (14.0-18.0); Mean Corpuscular Hemoglobin 30.9 pg (26-34); Mean Corpuscular Volume 93.4 fl (80-100); Mean Platelet Volume 12.3 fl (7.4-10.4); Platelet Count Result 160 k/mm3 (150-375); Red Cell Distribution Width 13.4 % (11.5-14.5); White Blood Count 16.6 K/mm3 (4.5-10.0)
[2019-08-05 05:48] LABS: Alanine Aminotransferase 14 U/L (4-50); Albumin Level 3.4 g/dL (3.5-5.1); Alkaline Phosphatase 65 U/L (38-126); Aspartate Amino Transferase 19 U/L (17-59); Bilirubin,Total 0.3 mg/dL (0.2-1.3); Blood Urea Nitrogen 37 mg/dL (9-20); Calcium 11.3 mg/dL (8.4-10.2); Carbon Dioxide 28 mmol/L (22-30); Chloride 109 mmol/L (98-107); Estimated CRCL calculation 22 ml/min; Estimated Glomerular Filt Rate 23; Glucose 104 mg/dL (75-110); Potassium 3.7 mmol/L (3.4-5.0); Sodium 139 mmol/L (137-145)
[2019-08-05 07:55] LABS: Glucose Point of Care 110 (65-105)
[2019-08-05] MEDS: HEPARIN SODIUM 5,000 UNITS/ML VIAL 5000 UNITS SUB-Q ×2 (08:27→22:00)
[2019-08-05] MEDS: ASPIRIN 325 MG TABLET PO (08:27)
[2019-08-05] MEDS: CHOLECALCIFEROL 1,000 UNIT TABLET 5000 UNITS PO (08:28)
[2019-08-05] MEDS: OMEGA 3 POLYUNSAT FATTY ACIDS 1 GM CAP PO (08:29)
[2019-08-05] MEDS: AMLODIPINE BESYLATE 5 MG TABLET 10 MG PO (08:29)
[2019-08-05] MEDS: MULTIVITAMINS THERAPEUTIC TAB (*BKC) 1 TABLET PO (08:29)
[2019-08-05] MEDS: CYANOCOBALAMIN 1,000 MCG TABLET 1000 MCG PO (08:30)
[2019-08-05] MEDS: FOLIC ACID 1 MG TABLET PO (08:30)
[2019-08-05 08:31] VITALS: PULSE 70
[2019-08-05] MEDS: METOPROLOL TARTRATE 50 MG TAB PO ×2 (08:31→22:00)
[2019-08-05 08:39] VITALS: PULSE 70; RESP 18; O2SAT 98
[2019-08-05] MEDS: CALCITONIN SALMON INJ 400 UNITS/2 ML VIAL 100 UNITS SUB-Q (08:39)
--- NOTE | 2019-08-05 10:52 | PCNFU ---
Nutrition Follow-Up Complete: Involuntary weight loss related to decreased appetite as evidenced by reported 8 pound weight loss over 2 weeks prior to admission. Goal: Patient to consume 75% of meals/supplements or greater. Progressing towards goal. We will continue current goal. Pt current nutrition is DBCC/Heart Healthy. Nutrition recommendation: Agree Last recorded weight is 72 kg. Bowel Motility:+BM reported 08/02 Labs Reviewed:Cr 2.7,BUN 37,GFR 23,Alb 3.4 Meds Noted:Vit B12,Lovaza,Folic Acid,MVI, Vit D Additional Notes: Spoke with nursing today on telephone due to COVID 19 precautions. Patient requires tray set up. Oral Intake 50-100% of meals. Glucerna shakes continue BID providing an additional 220 kcals and 9 gms protein.Oncology consult 08/01-possible lymphoma. Monitoring: Follow up in 5 days.
[2019-08-05 11:34] LABS: Glucose Point of Care 134 (65-105)
--- NOTE | 2019-08-05 13:29 | PM.PNCARD ---
Progress Note: A&P Assessment and Plan (1) Elevated troponin: Code(s): R79.89 - Other specified abnormal findings of blood chemistry Status: Acute Assessment and Plan: Elevated trop up to 0.38, 2nd hypertension and underlying CAD which appears stable. No anginal symptoms. He has underlying CAD so can't exclude small non ST-elevation [place], however, most likely type 2 infarct. Continue aggressive medical therapy including aspirin, statin beta-lópez. (2) Coronary artery disease: Qualifiers: Coronary Disease-Associated Artery/Lesion type: [place] artery [place] vs. transplanted heart: [place] heart Associated angina: without angina Qualified Code(s): I25.10 - Atherosclerotic heart disease of [place] coronary artery without angina pectoris Code(s): I25.10 - Atherosclerotic heart disease of [place] coronary artery without angina pectoris Status: Acute Assessment and Plan: Echocardiogram personally reviewed. EF 65-70% without focal wall motion abnormalities, moderate LVH no significant valve pathology. Outpatient ischemic evaluation. Office follow-up within the next 2-4 weeks. Will arrange outpatient follow up (3) Hypertension: Qualifiers: Hypertension type: essential hypertension Qualified Code(s): I10 - Essential (primary) hypertension Code(s): I10 - Essential (primary) hypertension Status: Acute Assessment and Plan: Improved but not to goal. (4) Encephalopathy acute: Code(s): G93.40 - Encephalopathy, unspecified Status: Acute Assessment and Plan: May be related to hypercalcemia and a metabolic encephalopathy. Workup and treatment per primary service. (5) Acute renal failure (ARF): Qualifiers: Acute renal failure type: unspecified Qualified Code(s): N17.9 - Acute kidney failure, unspecified Code(s): N17.9 - Acute kidney failure, unspecified Status: Acute Assessment and Plan: Workup per primary service. Chronicity unknown Worsening. Creatinine up to 2.7 today. Lisinopril on hold (6) Cerebrovascular accident, old: Code(s): Z86.73 - Personal history of transient ischemic attack (TIA), and cerebral infarction without residual deficits Status: Acute Assessment and Plan: Radiographic old small lacunar infarction previously unknown. No history of known atrial fibrillation / flutter. Carotid Dopplers showed < 50% stenosis. Aggressive atherosclerotic risk reduction. LDL chol 61. Continue statin. (7) RODRIGUES (dyspnea on exertion): Code(s): R06.00 - Dyspnea, unspecified Status: Acute Assessment and Plan: Echo showed EF 65-70%. Essentially resolved at this time. (8) Dyslipidemia: Code(s): E78.5 - Hyperlipidemia, unspecified Status: Acute Assessment and Plan: Continue statin therapy. Check fasting lipid profile. Additional Plan Plan discussed with Dr Jacinto [id number] 08/05/2019 Subjective Date/time seen: 08/05/19 13:29 Interval history: Follow-up for: history of coronary artery disease previous surgical revascularization, elevation of troponin. Date of service: 08/05/2019 Subjective: No chest discomfort or any pain elsewhere. Denied shortness of breath, lightheadedness or palpitations Review of Systems Constitutional: Constitutional: Reports fatigue, Reports lethargy and Reports weakness Eyes: Eyes: Reports as per HPI and Denies blurry vision ENT: Denies epistaxis Cardiovascular: Cardiovascular: Denies chest pain, Denies diaphoresis, Denies leg edema, Denies lightheadedness, Denies palpitations, Denies dyspnea and Denies dyspnea on exertion Respiratory: Respiratory: Denies juan carlos
--- NOTE | 2019-08-05 14:41 | PM.IMPN ---
Progress Note: A&P Assessment and Plan (1) B-cell lymphoma: Qualifiers: B-cell lymphoma type: unspecified B-cell Lymphoma site: unspecified region Qualified Code(s): C85.10 - Unspecified B-cell lymphoma, unspecified site Code(s): C85.10 - Unspecified B-cell lymphoma, unspecified site Status: Acute Assessment and Plan: Appreciate input from Dr. Austin. MRI brain done to rule out CVA on 08/01/2019 revealed numerous enlarged bilateral cervical lymph nodes. Follow-up CT neck/chest/abdomen/pelvis done without contrast due to creatinine level reveals extensive lymphadenopathy in all areas with largest lymph node in the right axilla measuring 5.1 x 1.7 cm, largest precarinal lymph node measuring 1.5 x 1.2 cm, enlarged epicardial lymph nodes measuring up to 3.0 x 1.9 cm and larger lymph nodes in left inguinal region measuring up to 3.9 x 2.1 cm. 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 Discussed with Dr. Austin. Will need additional work up and port placement but can be done as outpatient. Hopeful discharge tomorrow if calcium level lower than today. Discussed with patient. Also discussed with his , Cata Smith, by phone today. (2) Acute metabolic encephalopathy: Code(s): G93.41 - Metabolic encephalopathy Status: Acute Assessment and Plan: Etiology not entirely clear on admission but with patient now noted to have lymphadenopathy with hypercalcemia most likely this was an acute metabolic encephalopathy related to the elevated calcium level. No infectious process found. CT brain with small old lacunar infarct in the right frontal dsouza radiata but no acute changes. MRI brain with old lacunar infarct but no acute changes in brain. COVID-19 testing negative. Mentation continues to improve from admission although not yet back to his normal of a few months ago. Will continue to monitor. (3) Acute renal failure (ARF): Qualifiers: Acute renal failure type: unspecified Qualified Code(s): N17.9 - Acute kidney failure, unspecified Code(s): N17.9 - Acute kidney failure, unspecified Status: Acute Assessment and Plan: Creatinine continues to increase and now up to 2.70 today. No longer on lisinopril. Not on any nephrotoxic agents. Nephrology consulted with continue increase in creatinine level. Urine output remains good. Will continue to monitor. (4) Hypercalcemia: Code(s): E83.52 - Hypercalcemia Status: Acute Assessment and Plan: Calcium elevated on admission with PTH normal at 50.6. Result of malignancy. Received dose of IV Zometa on 08/02/2019. Started on subcutaneous calcitonin daily on 08/03/2019. Calcium now back down to 11.3 today. Will recheck in a.m. Would like calcium to at least be lower again tomorrow for possible discharge. (5) Hypertension: Qualifiers: Hypertension type: essential hypertension Qualified Code(s): I10 - Essential (primary) hypertension Code(s): I10 - Essential (primary) hypertension Status: Acute Assessment and Plan: Blood pressure reviewed on 08/05/2019. Blood pressure improving although not yet at goal. Will continue current metoprolol and amlodipine. Lisinopril stopped with increasing creatinine. IV hydralazine still available as needed. Will continue to monitor and adjust treatment as needed. (6) Elevated troponin: Code(s): R79.89 - Other specified abnormal findings of blood chemistry Status: Acute Assessment and Plan: Cardiology consulted and appreciate input. Troponin did peak at 0.384. Suspect type 2 infarct. Echocardiogram with EF 65-70, grade 1 diastolic dysfunction. Remains stable. Will continue ASA, simvastatin and metoprolol. Will continue to monitor. (7) Coronary artery disease:
[2019-08-05 16:00] VITALS: BP 135/78; PULSE 58; RESP 14; TEMP 37.1; O2SAT 96
--- NOTE | 2019-08-05 16:30 | P.PNONC_ITS ---
Progress Note: A/P - Additional Plan Mature B-cell lymphoma status post right axillary lymph node biopsy. Final pathology report is pending. I will order flow cytometric analysis on the back of low blood for lymphoma. Patient will follow-up with me as an outpatient for complete workup for newly diagnosed lymphoma and start chemotherapy treatment. Hypercalcemia. Calcium level has improved. Status post Zometa infusion. Patie nt is on calcitonin. Should be able to go home in next 24 hours with further improvement in calcium level. Acute renal insufficiency. Nephrology service has been consulted. - Time Spent With Patient Total time spent is greater than 50% in coordination of care (as documented) at patient's floor/unit and/or counseling patient: 15 - 25 minutes Subjective Interval history: Mature B-cell lymphoma Hypercalcemia Acute renal insufficiency Review of Systems - Review of Systems Patient is much more awake and alert today. He denies any fevers and chills. He denies any night sweats. No abdominal pain. Denies any other new complaints. - Neurologic Reports system reviewed and no additional complaints, except as documented, Reports abnormal speech, Reports confusion, Reports weakness, Denies behavioral changes, Denies headache(s) Exam Vital signs: Temp Pulse Resp BP Pulse Ox 36.9 C 70 18 149/93 H 98 08/05/19 05:00 08/05/19 08:39 08/05/19 08:39 08/05/19 05:00 08/05/19 08:39 Lungs are clear to auscultation bilaterally Cardiovascular regular rate rhythm no murmurs Abdomen soft nontender nondistended bowel sounds are positive Extremities no edema PN: Objective Data - Labs CBC & Chem 7: 08/05/19 05:07 08/05/19 05:07 Labs: Laboratory Results - last 24 hr 08/04/19 08/04/19 08/05/19 16:27 20:32 05:07 WBC 16.6 H RBC 3.50 L Hgb 10.8 L Hct 32.7 L MCV 93.4 MCH 30.9 MCHC 33.0 RDW 13.4 Plt Count 160 MPV 12.3 H Sodium Potassium Chloride Carbon Dioxide BUN Creatinine Estim Creat Clear Calc Estimated GFR Glucose POC Capillary Glucose 126 H 99 Calcium Total Bilirubin AST ALT Alkaline Phosphatase Total Protein Albumin 08/05/19 08/05/19 08/05/19 05:07 07:50 11:28 WBC RBC Hgb Hct MCV MCH MCHC RDW Plt Count MPV Sodium 139 Potassium 3.7 Chloride 109 H Carbon Dioxide 28 BUN 37 H Creatinine 2.70 H Estim Creat Clear Calc 22 Estimated GFR 23 L Glucose 104 POC Capillary Glucose 110 134 H Calcium 11.3 H Total Bilirubin 0.3 AST 19 ALT 14 Alkaline Phosphatase 65 Total Protein 9.0 H Albumin 3.4 L
[2019-08-05 16:47] LABS: Glucose Point of Care 98 (65-105)
--- NOTE | 2019-08-05 18:55 | PM.CNNEP ---
Assessment and Plan Assessment and plan (1) Acute renal failure (ARF): Qualifiers: Acute renal failure type: unspecified Qualified Code(s): N17.9 - Acute kidney failure, unspecified Code(s): N17.9 - Acute kidney failure, unspecified Status: Acute (2) Hypercalcemia: Code(s): E83.52 - Hypercalcemia Status: Acute (3) Hypertension: Qualifiers: Hypertension type: essential hypertension Qualified Code(s): I10 - Essential (primary) hypertension Code(s): I10 - Essential (primary) hypertension Status: Acute (4) Type 2 diabetes mellitus: Qualifiers: Diabetes mellitus complication status: without complication Diabetes mellitus correction insulin use: without correction use Qualified Code(s): E11.9 - Type 2 diabetes mellitus without complications Code(s): E11.9 - Type 2 diabetes mellitus without complications Status: Acute Assessment and Plan: . Additional Plan Jabier has acute renal failure of unclear etiology. More concerning is the fact that despite supportive therapy that has been instituted, his BUN and creatinine continue to rise. However, in spite of this, he continues to make fairly good urine output and has no critical electrolyte abnormalities and continues to make fairly good urine output with relative stability in his volume status. I suppose the hypercalcemia in of itself could have caused some damage to his kidneys or perhaps he may have some other pathology present in spite of the fact that he does have hypertension and diabetes which does put him at risk for renal insufficiency at baseline. His recent imaging did not show any specific yet abnormalities in his kidneys aside from nephrolithiasis but these were nonobstructing stones. For further evaluation of his renal dysfunction, I will check urine electrolytes, urine is some the fills, a renal ultrasound for more definitive imaging of his kidneys, and assess for proteinuria with a random urine to protein creatinine ratio. If his kidney function continues to deteriorate, I will proceed with further serological testing to ensure he does not having some other intrinsic, infiltrative, or inflammatory disorder affecting his kidneys. I will continue follow patient with you while Emend hospitalized make further recommendations during his hospital course. Thank you for allowing me to participate in the care of this patient. History of Present Illness Reason for Consult Consult date: 08/06/19 Reason for consult: acute renal failure Chief Complaint Chief complaint: Acute renal failure,Elevated troponin,Hypocalcemia History of Present Illness Narrative: The patient is a 73 year old male with a past medical history as outlined belowowho presented to the ER with 2 weeks of increasing weakness, and confusion. He reportedly had been slower to respond than usual. Over the last 3 days prior to admission, she reports that he is forgetful. Just before coming into the ER,the patient was clutching at his temples and had for gotten what he was getting ready to do. He has had more difficulty with word finding for the last 2 or 3 days prior to admission as well. The patient has also had decreased appetite and he has lost 8 lb over the course of the last 2 weeks. He denies any fevers or chills but has had progressive fatigue. He denies any GI or urinary symptoms. He has not been having any chest pain or palpitations. He has not noticed any lower extremity swelling or abdominal swelling. Workup and evaluation in emergency room was significant for acute renal failure with a creatinine of 2.0 mg/dL and hypercalcemia with a value of 12.3. Given the constellation of symptoms as noted above and these laboratory abnormalities along with the fact that imaging studies have demonstrated significant lymphadenopathy, he was admitted the hospital for further evaluation and therapy Since admission, h
[2019-08-05 22:00] VITALS: BP 162/76; PULSE 63; PULSE 84; RESP 16; TEMP 36.9; O2SAT 95
[2019-08-05] MEDS: SIMVASTATIN 20 MG TABLET 40 MG PO (22:00)
[2019-08-05] MEDS: ALPRAZOLAM 0.25 MG TABLET PO (22:06)
[2019-08-05 22:57] LABS: Glucose Point of Care 85 (65-105)
[2019-08-06 05:31] LABS: Potassium 3.9 mmol/L (3.4-5.0)
[2019-08-06 05:47] LABS: Albumin Level 3.3 g/dL (3.5-5.1); Blood Urea Nitrogen 47 mg/dL (9-20); Calcium 10.8 mg/dL (8.4-10.2); Carbon Dioxide 26 mmol/L (22-30); Chloride 109 mmol/L (98-107); Estimated CRCL calculation 21 ml/min; Estimated Glomerular Filt Rate 21; Glucose 95 mg/dL (75-110); Phosphorus 4.1 mg/dL (2.5-4.5); Sodium 140 mmol/L (137-145)
[2019-08-06 06:00] VITALS: BP 132/87; PULSE 53; RESP 18; TEMP 36.9; O2SAT 97
[2019-08-06 07:45] LABS: Glucose Point of Care 93 (65-105)
[2019-08-06 08:00] VITALS: PULSE 61; RESP 18; O2SAT 100
[2019-08-06] MEDS: CHOLECALCIFEROL 1,000 UNIT TABLET 5000 UNITS PO (08:24)
[2019-08-06 08:25] VITALS: BP 171/74; PULSE 61; RESP 18; O2SAT 97
[2019-08-06] MEDS: FOLIC ACID 1 MG TABLET PO (08:25)
[2019-08-06] MEDS: AMLODIPINE BESYLATE 5 MG TABLET 10 MG PO (08:25)
[2019-08-06] MEDS: MULTIVITAMINS THERAPEUTIC TAB (*BKC) 1 TABLET PO (08:25)
[2019-08-06] MEDS: CYANOCOBALAMIN 1,000 MCG TABLET 1000 MCG PO (08:25)
[2019-08-06] MEDS: ASPIRIN 325 MG TABLET PO (08:25)
[2019-08-06] MEDS: METOPROLOL TARTRATE 50 MG TAB PO ×2 (08:25→20:48)
[2019-08-06] MEDS: OMEGA 3 POLYUNSAT FATTY ACIDS 1 GM CAP PO (08:25)
[2019-08-06] MEDS: HEPARIN SODIUM 5,000 UNITS/ML VIAL 5000 UNITS SUB-Q ×2 (08:26→20:47)
[2019-08-06] MEDS: CALCITONIN SALMON INJ 400 UNITS/2 ML VIAL 100 UNITS SUB-Q (08:48)
--- NOTE | 2019-08-06 10:33 | PM.PNNEP ---
Progress Note: A&P Assessment and Plan (1) Acute renal failure (ARF): Qualifiers: Acute renal failure type: unspecified Qualified Code(s): N17.9 - Acute kidney failure, unspecified Code(s): N17.9 - Acute kidney failure, unspecified Status: Acute Assessment and Plan: etiology not entirely clear due to hypercalcemia?? - if so, should start to improve given improvement in calcium levels noted blood and protein on urinalysis - this could be from HTN or DM but automimmune dissease/vasculilits is possible no critical electrolytes and making reasonable UOP creatinine up again today but rate of rise has decreased - possible peak/plateau? urine electrolytes pending still continue supportive therapy (2) Hypercalcemia: Code(s): E83.52 - Hypercalcemia Status: Acute Assessment and Plan: improving s/p zometa related to suspected malignancy(?) (3) Hypertension: Qualifiers: Hypertension type: essential hypertension Qualified Code(s): I10 - Essential (primary) hypertension Code(s): I10 - Essential (primary) hypertension Status: Acute Assessment and Plan: reasonable control off lisinopril given #1 (4) Type 2 diabetes mellitus: Qualifiers: Diabetes mellitus complication status: without complication Diabetes mellitus supervisor intermediates insulin use: without supervisor intermediates use Qualified Code(s): E11.9 - Type 2 diabetes mellitus without complications Code(s): E11.9 - Type 2 diabetes mellitus without complications Status: Acute Assessment and Plan: follow accuchecks on SSI Will continue to follow. Subjective Date/time seen: 08/06/19 10:33 No acute issues or problems to report at this time; asking about discharge although the concerning the his kidney function continues to deteriorate. Exam Narrative: Exam Narrative: General: WD/WN male in NAD Heart: normal S1 and S2; no rub Lungs: clear to auscultation Abdomen: soft, nontender, nondistended, positive bowel sounds Extremities: no cyanosis or clubbing; no edema Skin: warm and dry Objective Data Vital Signs Vital Signs: Vital Signs Temp Pulse Resp BP Pulse Ox 08/06/19 08:25 61 18 171/74 H 97 08/06/19 06:00 36.9 C 53 L 18 132/87 97 08/05/19 22:00 36.9 C 63 16 162/76 H 95 08/05/19 16:00 37.1 C 58 L 14 135/78 96 Intake/Output Intake/Output: Intake & Output 08/03/19 08/04/19 08/05/19 08/06/19 23:59 23:59 23:59 23:59 Intake Total 2107 2732 1920 760 Output Total 540 1870 450 200 Balance 4592 108 7445 560 Meds/Results Medications: Active Medications Generic Name Dose Route Start Last Admin Trade Name Freq PRN Reason Stop Dose Admin Acetaminophen 650 mg 07/30/19 19:16 Tylenol Tablet PO Q4H PRN Mild Pain (1-3) or Fever Hydrocodone Bitart/Acetaminophen 1 tab 07/30/19 19:16 Sunburst 5-325 Mg PO Q4H PRN Pain Rated 4-6 Alprazolam 0.25 mg 08/01/19 17:04 08/05/19 22:06 Xanax PO 0.25 mg TID PRN Administration Anxiety Amlodipine Besylate 10 mg 08/04/19 07:38 08/06/19 08:25 Norvasc PO 10 mg QAM SLAVA Administration Aspirin 325 mg 07/31/19 09:00 08/06/19 08:25 Aspirin PO 325 mg DAILY SLAVA Administration Calcitonin [place] 100 units 08/03/19 11:30 08/06/19 08:48 Miacalcin Inj SUB-Q 100 units QAM SLAVA Administration Cyanocobalamin 1,000 mcg 07/31/19 09:00 08/06/19 08:25 Vitamin B-12 Tab PO 1,000 mcg DAILY SLAVA Administration Dextrose 12.5 gm 07/31/19 17:07 Dextrose 50% Syringe IV PUSH PRN PRN Hypoglycemia Protocol Diphenhydramine HCl 25 mg 07/31/19 00:26 08/05/19 22:06 Benadryl Cap PO 25 mg HS PRN Administration Insomnia Fish Oil 1 gm 07/31/19 09:00 08/06/19 08:25 Lovaza PO 1 gm DAILY SLAVA Administration Folic Acid 1 mg 07/31/19 09:00 08/06/19 08:25 Folic Acid PO 1 mg QAM SLAVA
--- NOTE | 2019-08-06 10:55 | PM.PNCARD ---
Progress Note: A&P Assessment and Plan (1) Elevated troponin: Code(s): R79.89 - Other specified abnormal findings of blood chemistry Status: Acute Assessment and Plan: Elevated trop up to 0.38, 2nd hypertension and underlying CAD which appears stable. No anginal symptoms. He has underlying CAD so can't exclude small non ST-elevation [place], however, most likely type 2 infarct. Continue aggressive medical therapy including aspirin, statin beta-lópez. Outpatient ischemic eval. See discharge instructions (2) Coronary artery disease: Qualifiers: Associated angina: without angina Coronary Disease-Associated Artery/Lesion type: [place] artery [place] vs. transplanted heart: [place] heart Qualified Code(s): I25.10 - Atherosclerotic heart disease of [place] coronary artery without angina pectoris Code(s): I25.10 - Atherosclerotic heart disease of [place] coronary artery without angina pectoris Status: Acute Assessment and Plan: Echocardiogram personally reviewed. EF 65-70% without focal wall motion abnormalities, moderate LVH no significant valve pathology. Outpatient ischemic evaluation as above. Office follow-up after stress test (3) Hypertension: Qualifiers: Hypertension type: essential hypertension Qualified Code(s): I10 - Essential (primary) hypertension Code(s): I10 - Essential (primary) hypertension Status: Acute Assessment and Plan: Improved but not to goal. Add hydralazine 10 mg every 8 hours (4) Encephalopathy acute: Code(s): G93.40 - Encephalopathy, unspecified Status: Acute Assessment and Plan: May be related to hypercalcemia and a metabolic encephalopathy. Workup and treatment per primary service. (5) Acute renal failure (ARF): Qualifiers: Acute renal failure type: unspecified Qualified Code(s): N17.9 - Acute kidney failure, unspecified Code(s): N17.9 - Acute kidney failure, unspecified Status: Acute Assessment and Plan: Workup per primary service. Chronicity unknown. Worsening. Creatinine up to 2.9 today. Lisinopril on hold Dr Moise consulted (6) Cerebrovascular accident, old: Code(s): Z86.73 - Personal history of transient ischemic attack (TIA), and cerebral infarction without residual deficits Status: Acute Assessment and Plan: Radiographic old small lacunar infarction previously unknown. No history of known atrial fibrillation / flutter. Carotid Dopplers showed < 50% stenosis. Aggressive atherosclerotic risk reduction. LDL chol 61. Continue statin. (7) RODRIGUES (dyspnea on exertion): Code(s): R06.00 - Dyspnea, unspecified Status: Acute Assessment and Plan: Echo showed EF 65-70%. Essentially resolved at this time. (8) Dyslipidemia: Code(s): E78.5 - Hyperlipidemia, unspecified Status: Acute Assessment and Plan: Continue statin therapy. LDL 61 on 08/01/2019 Additional Plan Plan discussed with Dr Radha Jain 08/06/2019 Time Spent With Patient Time with patient: less than 15 minutes Subjective Date/time seen: 08/06/19 10:55 Interval history: Follow-up for: history of coronary artery disease previous surgical revascularization, elevation of troponin. Date of service: 08/06/2019 Subjective: Review of Systems Constitutional: Constitutional: Reports fatigue, Reports lethargy and Reports weakness Eyes: Eyes: Denies blurry vision ENT: Denies epistaxis Cardiovascular: Cardiovascular: Denies chest pain, Denies diaphoresis, Denies leg edema, Denies lightheadedness, Denies palpitations, Denies dyspnea and Denies dyspnea on exertion Respiratory: Respiratory
[2019-08-06 12:10] LABS: Glucose Point of Care 111 (65-105)
--- NOTE | 2019-08-06 12:40 | PM.IMPN ---
Progress Note: A&P Assessment and Plan (1) B-cell lymphoma: Qualifiers: B-cell lymphoma type: unspecified B-cell Lymphoma site: unspecified region Qualified Code(s): C85.10 - Unspecified B-cell lymphoma, unspecified site Code(s): C85.10 - Unspecified B-cell lymphoma, unspecified site Status: Acute Assessment and Plan: Appreciate input from Dr. Austin. MRI brain done to rule out CVA on 08/01/2019 revealed numerous enlarged bilateral cervical lymph nodes. Follow-up CT neck/chest/abdomen/pelvis done without contrast due to creatinine level reveals extensive lymphadenopathy in all areas. 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 Patient will need additional work up and port placement but can be done as outpatient. (2) Acute metabolic encephalopathy: Code(s): G93.41 - Metabolic encephalopathy Status: Acute Assessment and Plan: Etiology not entirely clear on admission but suspect related to lymphadenopathy with hypercalcemia. No infectious process found. CT brain with small old lacunar infarct in the right frontal dsouza radiata but no acute changes. MRI brain with old lacunar infarct but no acute changes in brain. COVID-19 testing negative. Mentation continues to improve from admission although not yet back to his normal of a few months ago. Will continue to monitor. (3) Acute renal failure (ARF): Qualifiers: Acute renal failure type: unspecified Qualified Code(s): N17.9 - Acute kidney failure, unspecified Code(s): N17.9 - Acute kidney failure, unspecified Status: Acute Assessment and Plan: Creatinine continues to increase and now up to 2.90 today. No longer on lisinopril. Not on any nephrotoxic agents. Nephrology consulted and appreciate their input. Urine output remains good. Will continue to monitor. Discussed with Nephrology today. Renal ultrasound showing normal kidneys and no hydronephrosis. (4) Hypercalcemia: Code(s): E83.52 - Hypercalcemia Status: Acute Assessment and Plan: Calcium elevated on admission with PTH normal at 50.6. Result of malignancy. Received dose of IV Zometa on 08/02/2019. Started on subcutaneous calcitonin daily on 08/03/2019. Calcium now back down to 10.8 today. (5) Hypertension: Qualifiers: Hypertension type: essential hypertension Qualified Code(s): I10 - Essential (primary) hypertension Code(s): I10 - Essential (primary) hypertension Status: Acute Assessment and Plan: Blood pressure reviewed on 08/06/2019. Blood pressure improving but still elevated. Will continue current metoprolol and amlodipine. Lisinopril stopped with increasing creatinine. IV hydralazine still available as needed. Oral hydralazine added. Will continue to monitor and adjust treatment as needed. (6) Elevated troponin: Code(s): R79.89 - Other specified abnormal findings of blood chemistry Status: Acute Assessment and Plan: Cardiology consulted and appreciate input. Troponin did peak at 0.384. Suspect type 2 infarct. Echocardiogram with EF 65-70, grade 1 diastolic dysfunction. Remains stable. Will continue ASA, simvastatin and metoprolol. Will continue to monitor. Plan for outpatient ischemic evaluation. (7) Coronary artery disease: Qualifiers: Associated angina: without angina Coronary Disease-Associated Artery/Lesion type: [place] artery [place] vs. transplanted heart: [place] heart Qualified Code(s): I25.10 - Atherosclerotic heart disease of [place] coronary artery without angina pectoris Code(s): I25.10 - Atherosclerotic heart disease of [place] coronary artery without angina pectoris Status: Acute Assessment and Plan: Elevation of troponin level as noted above. Echocardiogram as no
[2019-08-06 14:27] VITALS: BP 169/73; PULSE 51; RESP 16; TEMP 35.9; O2SAT 100
[2019-08-06] MEDS: hydrALAZINE 10 MG TABLET PO ×2 (14:29→21:03)
[2019-08-06 15:00] LABS: Creatinine Urine 63.4 mg/dL; Total Protein Urine Random 103 mg/dL
[2019-08-06 15:10] LABS: Sodium Urine Random 24 meq/L
[2019-08-06 16:39] LABS: Glucose Point of Care 124 (65-105)
[2019-08-06 20:08] VITALS: BP 170/70; PULSE 55; RESP 16; TEMP 36.1; O2SAT 100
[2019-08-06 20:48] VITALS: PULSE 57
[2019-08-06 20:48] LABS: Glucose Point of Care 116 (65-105)
[2019-08-06] MEDS: SIMVASTATIN 20 MG TABLET 40 MG PO (20:48)
[2019-08-07] MEDS: SODIUM CHLORIDE 0.9% IV 250 ML 75 ML IV CONT (02:51)
[2019-08-07 04:55] VITALS: BP 135/97; PULSE 55; RESP 16; TEMP 36.8; O2SAT 98
[2019-08-07] MEDS: hydrALAZINE 10 MG TABLET PO (05:00)
[2019-08-07 05:32] LABS: Basophils Percent Auto 0.2 % (0.2-1.2); Eosinophils Absolute Auto 0.1 K/mm3 (0-0.3); Eosinophils Percent Auto 0.7 % (0-4.4); Hematocrit 32.5 % (42.0-52.0); Hemoglobin 10.6 g/dL (14.0-18.0); Immature Granulocyte Absolute 0.04 K/mm3 (0.00-0.031); Immature Granulocyte Percent A 0.3 % (0-0.5); Lymphocytes Absolute Auto 9.38 K/mm3 (0.9-3.2); Mean Corpuscular HGB Conc 32.6 g/dl (32-36); Mean Corpuscular Hemoglobin 30.7 pg (26-34); Mean Corpuscular Volume 94.2 fl (80-100); Mean Platelet Volume 12.6 fl (7.4-10.4); Monocytes Absolute Auto 1.1 K/mm3 (0.1-0.6); Monocytes Percent Auto 6.9 % (2.6-8.5); Neutrophils Absolute Auto 4.5 K/mm3 (1.3-6.7); Neutrophils Percent Auto 29.9 % (45.5-73.1); Platelet Count Result 169 k/mm3 (150-375); Red Blood Count 3.45 M/mm3 (4.6-6.20); Red Cell Distribution Width 13.4 % (11.5-14.5); White Blood Count 15.1 K/mm3 (4.5-10.0)
[2019-08-07 05:33] LABS: Albumin Level 3.2 g/dL (3.5-5.1); Blood Urea Nitrogen 48 mg/dL (9-20); Calcium 10.6 mg/dL (8.4-10.2); Carbon Dioxide 24 mmol/L (22-30); Chloride 107 mmol/L (98-107); Estimated CRCL calculation 20 ml/min; Estimated Glomerular Filt Rate 21; Glucose 99 mg/dL (75-110); Magnesium 2.1 mg/dL (1.6-2.3); Sodium 136 mmol/L (137-145)
[2019-08-07 08:17] LABS: Glucose Point of Care 101 (65-105)
[2019-08-07 08:32] VITALS: PULSE 60
[2019-08-07] MEDS: MULTIVITAMINS THERAPEUTIC TAB (*BKC) 1 TABLET PO (08:32)
[2019-08-07] MEDS: METOPROLOL TARTRATE 50 MG TAB PO ×2 (08:32→22:08)
[2019-08-07] MEDS: OMEGA 3 POLYUNSAT FATTY ACIDS 1 GM CAP PO (08:33)
[2019-08-07] MEDS: CHOLECALCIFEROL 1,000 UNIT TABLET 5000 UNITS PO (08:33)
[2019-08-07] MEDS: ASPIRIN 325 MG TABLET PO (08:33)
[2019-08-07] MEDS: CALCITONIN SALMON INJ 400 UNITS/2 ML VIAL 100 UNITS SUB-Q (08:34)
[2019-08-07] MEDS: AMLODIPINE BESYLATE 5 MG TABLET 10 MG PO (08:34)
[2019-08-07 08:35] VITALS: PULSE 60; RESP 16; O2SAT 98
[2019-08-07] MEDS: HEPARIN SODIUM 5,000 UNITS/ML VIAL 5000 UNITS SUB-Q ×2 (08:35→22:08)
[2019-08-07] MEDS: CYANOCOBALAMIN 1,000 MCG TABLET 1000 MCG PO (08:35)
[2019-08-07] MEDS: FOLIC ACID 1 MG TABLET PO (08:35)
--- NOTE | 2019-08-07 11:14 | PM.PNCARD ---
Progress Note: A&P Assessment and Plan (1) Elevated troponin: Code(s): R79.89 - Other specified abnormal findings of blood chemistry Status: Acute Assessment and Plan: Elevated trop up to 0.38, 2nd hypertension and underlying CAD which appears stable. No anginal symptoms. He has underlying CAD so can't exclude small non ST-elevation [place], however, most likely type 2 infarct. Continue aggressive medical therapy including aspirin, statin beta-lópez. Outpatient ischemic eval. See discharge instructions (2) Coronary artery disease: Qualifiers: Coronary Disease-Associated Artery/Lesion type: [place] artery [place] vs. transplanted heart: [place] heart Associated angina: without angina Qualified Code(s): I25.10 - Atherosclerotic heart disease of [place] coronary artery without angina pectoris Code(s): I25.10 - Atherosclerotic heart disease of [place] coronary artery without angina pectoris Status: Acute Assessment and Plan: Echocardiogram personally reviewed. EF 65-70% without focal wall motion abnormalities, moderate LVH no significant valve pathology. Outpatient ischemic evaluation as above. Office follow-up after stress test (3) Hypertension: Qualifiers: Hypertension type: essential hypertension Qualified Code(s): I10 - Essential (primary) hypertension Code(s): I10 - Essential (primary) hypertension Status: Acute Assessment and Plan: Improved but but still not to goal. Increase hydralazine to 25mg every 8 hours. (4) Encephalopathy acute: Code(s): G93.40 - Encephalopathy, unspecified Status: Acute Assessment and Plan: May be related to hypercalcemia and a metabolic encephalopathy. Workup and treatment per primary service. (5) Acute renal failure (ARF): Qualifiers: Acute renal failure type: unspecified Qualified Code(s): N17.9 - Acute kidney failure, unspecified Code(s): N17.9 - Acute kidney failure, unspecified Status: Acute Assessment and Plan: Workup per primary service. Chronicity unknown. Worsening. Creatinine up to 3.0 today. Lisinopril on hold Management [facility] (6) Cerebrovascular accident, old: Code(s): Z86.73 - Personal history of transient ischemic attack (TIA), and cerebral infarction without residual deficits Status: Acute Assessment and Plan: Radiographic old small lacunar infarction previously unknown. No history of known atrial fibrillation / flutter. Carotid Dopplers showed < 50% stenosis. Aggressive atherosclerotic risk reduction. LDL chol 61. Continue statin. (7) RODRIGUES (dyspnea on exertion): Code(s): R06.00 - Dyspnea, unspecified Status: Acute Assessment and Plan: Echo showed EF 65-70%. Essentially resolved at this time. (8) Dyslipidemia: Code(s): E78.5 - Hyperlipidemia, unspecified Status: Acute Assessment and Plan: Continue statin therapy. LDL 61 on 08/01/2019 Additional Plan OK to discharge from cardiac standpoint Plan discussed with Dr Garcia 1120 08/07/2019 Subjective Date/time seen: 08/07/19 11:14 Interval history: Follow-up for: history of coronary artery disease previous surgical revascularization, elevation of troponin. Date of service: 08/07/2019 Subjective:No chest discomfort, shortness of breath, lightheadedness or palpitations. Has been ambulating in the room as well as in the halls. Has had 2 large bowel movements. Wants to know who he needs to talk to so he can go home. Review of Systems Constitutional: Constitutional: Denies chills and Denies fever(s) Eyes: Eyes: Denies blurry vision ENT: Den
[2019-08-07 11:40] LABS: Glucose Point of Care 128 (65-105)
[2019-08-07] MEDS: hydrALAZINE HCL 25 MG TABLET PO ×2 (13:28→22:08)
[2019-08-07 15:07] VITALS: BP 154/61; PULSE 63; RESP 18; TEMP 37.1; O2SAT 95
[2019-08-07 16:37] LABS: Glucose Point of Care 121 (65-105)
--- NOTE | 2019-08-07 17:06 | P.PNNP_ITS ---
Progress Note: A&P Assessment and Plan (1) Acute renal failure (ARF): Qualifiers: Acute renal failure type: unspecified Qualified Code(s): N17.9 - Acute kidney failure, unspecified Code(s): N17.9 - Acute kidney failure, unspecified Status: Acute Assessment and Plan: * etiology not entirely clear * due to hypercalcemia?? - if so, should start to improve given improvement in calcium levels * noted blood and protein on urinalysis - this could be from HTN or DM but automimmune dissease/vasculilits is possible * no critical electrolytes and making reasonable UOP * creatinine up again today - expand testing (serologies) * urine electrolytes suggest pre-renal azotemia - trial of IVFs * related to lymphoma?? -- there are case reports of lymphoma causing ALEXA... * continue supportive therapy (2) Hypercalcemia: Code(s): E83.52 - Hypercalcemia Status: Acute Assessment and Plan: * improving * s/p zometa * related to suspected malignancy(?) (3) Hypertension: Qualifiers: Hypertension type: essential hypertension Qualified Code(s): I10 - Essential (primary) hypertension Code(s): I10 - Essential (primary) hypertension Status: Acute Assessment and Plan: * reasonable control * off lisinopril given #1 (4) Type 2 diabetes mellitus: Qualifiers: Diabetes mellitus complication status: without complication Diabetes mellitus intermediate school teacher insulin use: without intermediate school teacher use Qualified Code(s): E11.9 - Type 2 diabetes mellitus without complications Code(s): E11.9 - Type 2 diabetes mellitus without complications Status: Acute Assessment and Plan: * follow accuchecks * on SSI Will continue to follow. Subjective Date/time seen: 08/07/19 17:06 Not very talkative at the time of my visit -- I tried to wake him up several times and appeared to ignore me; however, he did not appear in any acute distress. Exam Narrative: Exam Narrative: General: WD/WN male in NAD Heart: normal S1 and S2; no rub Lungs: clear to auscultation Abdomen: soft, nontender, nondistended, positive bowel sounds Extremities: no cyanosis or clubbing; no edema Skin: warm and intact Objective Data Vital Signs Vital Signs: Vital Signs Temp Pulse Resp BP Pulse Ox 08/07/19 15:07 37.1 C 63 18 154/61 H 95 08/07/19 08:35 60 16 98 08/07/19 08:32 60 08/07/19 04:55 36.8 C 55 L 16 135/97 H 98 08/06/19 20:48 57 L 08/06/19 20:08 36.1 C L 55 L 16 170/70 H 100 Intake/Output Intake/Output: Intake & Output 08/04/19 08/05/19 08/06/19 08/07/19 23:59 23:59 23:59 23:59 Intake Total 2732 1920 2240 1255 Output Total 1870 450 200 Balance 862 1470 2040 1255 Meds/Results Medications: Active Medications Generic Name Dose Route Start Last Admin Trade Name Ramonq PRN Reason Stop Dose Admin Acetaminophen 650 mg 07/30/19 19:16 Tylenol Tablet PO Q4H PRN Mild Pain (1-3) or Fever Hydrocodone Bitart/Acetaminophen 1 tab 07/30/19 19:16 [place] 5-325 Mg PO Q4H PRN Pain Rated 4-6 Alprazolam 0.25 mg 08/01/19 17:04 08/05/19 22:06 Xanax PO 0.25 mg TID PRN Administratio
--- NOTE | 2019-08-07 17:06 | PM.PNNEP ---
Progress Note: A&P Assessment and Plan (1) Acute renal failure (ARF): Qualifiers: Acute renal failure type: unspecified Qualified Code(s): N17.9 - Acute kidney failure, unspecified Code(s): N17.9 - Acute kidney failure, unspecified Status: Acute Assessment and Plan: etiology not entirely clear due to hypercalcemia?? - if so, should start to improve given improvement in calcium levels noted blood and protein on urinalysis - this could be from HTN or DM but automimmune dissease/vasculilits is possible no critical electrolytes and making reasonable UOP creatinine up again today - expand testing (serologies) urine electrolytes suggest pre-renal azotemia - trial of IVFs related to lymphoma?? -- there are case reports of lymphoma causing ALEXA... continue supportive therapy (2) Hypercalcemia: Code(s): E83.52 - Hypercalcemia Status: Acute Assessment and Plan: improving s/p zometa related to suspected malignancy(?) (3) Hypertension: Qualifiers: Hypertension type: essential hypertension Qualified Code(s): I10 - Essential (primary) hypertension Code(s): I10 - Essential (primary) hypertension Status: Acute Assessment and Plan: reasonable control off lisinopril given #1 (4) Type 2 diabetes mellitus: Qualifiers: Diabetes mellitus complication status: without complication Diabetes mellitus termination clerk insulin use: without halfway use Qualified Code(s): E11.9 - Type 2 diabetes mellitus without complications Code(s): E11.9 - Type 2 diabetes mellitus without complications Status: Acute Assessment and Plan: follow accuchecks on SSI Will continue to follow. Subjective Date/time seen: 08/07/19 17:06 Not very talkative at the time of my visit -- I tried to wake him up several times and appeared to ignore me; however, he did not appear in any acute distress. Exam Narrative: Exam Narrative: General: WD/WN male in NAD Heart: normal S1 and S2; no rub Lungs: clear to auscultation Abdomen: soft, nontender, nondistended, positive bowel sounds Extremities: no cyanosis or clubbing; no edema Skin: warm and intact Objective Data Vital Signs Vital Signs: Vital Signs Temp Pulse Resp BP Pulse Ox 08/07/19 15:07 37.1 C 63 18 154/61 H 95 05/13/20 08:35 60 16 98 08/07/19 08:32 60 08/07/19 04:55 36.8 C 55 L 16 135/97 H 98 08/06/19 20:48 57 L 08/06/19 20:08 36.1 C L 55 L 16 170/70 H 100 Intake/Output Intake/Output: Intake & Output 08/04/19 08/05/19 08/06/19 08/07/19 23:59 23:59 23:59 23:59 Intake Total 2732 1920 2240 1255 Output Total 1870 450 200 Balance 862 1470 2040 1255 Meds/Results Medications: Active Medications Generic Name Dose Route Start Last Admin Trade Name Freq PRN Reason Stop Dose Admin Acetaminophen 650 mg 07/30/19 19:16 Tylenol Tablet PO Q4H PRN Mild Pain (1-3) or Fever Hydrocodone Bitart/Acetaminophen 1 tab 07/30/19 19:16 [place] 5-325 Mg PO Q4H PRN Pain Rated 4-6 Alprazolam 0.25 mg 08/01/19 17:04 08/05/19 22:06 Xanax PO 0.25 mg TID PRN Administration Anxiety Amlodipine Besylate 10 mg 08/04/19 07:38 08/07/19 08:34 Norvasc PO 10 mg QAM SLAVA Administration Aspirin 325 mg 07/31/19 09:00 08/07/19 08:33 Aspirin PO 325 mg DAILY SLAVA Administration Calcitonin [place] 100 units 08/03/19 11:30 08/07/19 08:34 Miacalcin Inj SUB-Q 100 units QAM SLAVA Administration Cyanocobalamin 1,000 mcg 07/31/19 09:00 08/07/19 08:35 Vitamin B-12 Tab PO 1,000 mcg DAILY SLAVA Administration Dextrose 12.5 gm 07/31/19 17:07 Dextrose 50% Syringe IV PUSH PRN PRN Hypoglycemia Protocol Diphenhydramine HCl 25 mg 07/31/19 00:26 08/06/19 20:52 Benadryl Cap PO 25 mg HS PRN Administration Insomnia Docusate Sodium 100 mg
--- NOTE | 2019-08-07 17:16 | PM.IMPN ---
Progress Note: A&P Assessment and Plan (1) B-cell lymphoma: Qualifiers: B-cell lymphoma type: unspecified B-cell Lymphoma site: unspecified region Qualified Code(s): C85.10 - Unspecified B-cell lymphoma, unspecified site Code(s): C85.10 - Unspecified B-cell lymphoma, unspecified site Status: Acute Assessment and Plan: Appreciate input from Dr. Austin. MRI brain done to rule out CVA on 08/01/2019 revealed numerous enlarged bilateral cervical lymph nodes. Follow-up CT neck/chest/abdomen/pelvis reveals extensive lymphadenopathy in all areas. Ultrasound-guided lymph node biopsy from the right axilla completed on 08/02/2019 with pathology results showing CD5-negative, [id number] mature B-cell lymphoma. Patient will need additional work up and port placement but can be done as outpatient. (2) Acute metabolic encephalopathy: Code(s): G93.41 - Metabolic encephalopathy Status: Acute Assessment and Plan: Etiology related to lymphoma with hypercalcemia. No infectious process found. CT brain with small old lacunar infarct in the right frontal dsouza radiata but no acute changes. MRI brain with old lacunar infarct but no acute changes in brain. COVID-19 testing negative. Mentation continues to improve from admission. Will continue to monitor. (3) Acute renal failure (ARF): Qualifiers: Acute renal failure type: unspecified Qualified Code(s): N17.9 - Acute kidney failure, unspecified Code(s): N17.9 - Acute kidney failure, unspecified Status: Acute Assessment and Plan: Creatinine continues to increase and now up to 3.0 today. No longer on lisinopril. Not on any nephrotoxic agents. Nephrology consulted and appreciate their input. Urine output not calculated but patient feels he is voiding well. Need more strict UOP. (4) Hypercalcemia: Code(s): E83.52 - Hypercalcemia Status: Acute Assessment and Plan: Calcium elevated on admission to 12.3 with iPTH normal at 50.6. Hypercalcemia related to the malignancy. Received dose of IV Zometa on 08/02/19. Started on subcutaneous calcitonin daily on 08/03/2019. Calcium now back down to 10.6 today. (5) Hypertension: Qualifiers: Hypertension type: essential hypertension Qualified Code(s): I10 - Essential (primary) hypertension Code(s): I10 - Essential (primary) hypertension Status: Acute Assessment and Plan: Blood pressure reviewed on 08/07/2019. Blood pressure improved but still elevated at times. Continue metoprolol, hydralazine and amlodipine. Lisinopril stopped with increasing creatinine. IV hydralazine still available as needed. Oral hydralazine advanced today. Will continue to monitor. (6) Elevated troponin: Code(s): R79.89 - Other specified abnormal findings of blood chemistry Status: Acute Assessment and Plan: Cardiology consulted and appreciate input. Troponin did peak at 0.384. Suspect type 2 infarct. Echocardiogram with EF 65-70, grade 1 diastolic dysfunction. Remains stable. Will continue ASA, simvastatin and metoprolol. Will continue to monitor. Plan for outpatient ischemic evaluation. (7) Coronary artery disease: Qualifiers: Associated angina: without angina Coronary Disease-Associated Artery/Lesion type: [place] artery [place] vs. transplanted heart: [place] heart Qualified Code(s): I25.10 - Atherosclerotic heart disease of [place] coronary artery without angina pectoris Code(s): I25.10 - Atherosclerotic heart disease of [place] coronary artery without angina pectoris Status: Acute Assessment and Plan: Elevation of troponin level as noted above. Echocardiogram as noted above. Stable with no acute issue. Continue ASA, metoprolol and simvastatin. plan for outpatient ischemic evaluation. (8) Type 2 diabetes mellitus: Qualifiers: Diabetes mellitus com
[2019-08-07 22:00] VITALS: BP 157/72; PULSE 63; PULSE 73; RESP 18; TEMP 37.1; O2SAT 96
[2019-08-07 22:06] LABS: Glucose Point of Care 90 (65-105)
[2019-08-07] MEDS: SIMVASTATIN 20 MG TABLET 40 MG PO (22:07)
[2019-08-07 22:08] VITALS: PULSE 63
[2019-08-08 06:00] VITALS: BP 140/54; PULSE 61; RESP 20; TEMP 36.3; O2SAT 99
[2019-08-08] MEDS: hydrALAZINE HCL 25 MG TABLET PO ×3 (06:15→22:39)
[2019-08-08 06:29] LABS: Basophils Percent Auto 0.2 % (0.2-1.2); Eosinophils Absolute Auto 0.1 K/mm3 (0-0.3); Eosinophils Percent Auto 0.4 % (0-4.4); Hematocrit 30.4 % (42.0-52.0); Immature Granulocyte Absolute 0.03 K/mm3 (0.00-0.031); Immature Granulocyte Percent A 0.2 % (0-0.5); Lymphocytes Absolute Auto 9.71 K/mm3 (0.9-3.2); Lymphocytes Percent Auto 67.2 % (18.3-44.2); Mean Corpuscular HGB Conc 32.9 g/dl (32-36); Mean Corpuscular Hemoglobin 31.1 pg (26-34); Mean Corpuscular Volume 94.4 fl (80-100); Monocytes Absolute Auto 0.9 K/mm3 (0.1-0.6); Monocytes Percent Auto 6.3 % (2.6-8.5); Neutrophils Absolute Auto 3.7 K/mm3 (1.3-6.7); Neutrophils Percent Auto 25.7 % (45.5-73.1); Platelet Count Result 172 k/mm3 (150-375); Red Blood Count 3.22 M/mm3 (4.6-6.20); Red Cell Distribution Width 13.5 % (11.5-14.5); White Blood Count 14.5 K/mm3 (4.5-10.0)
[2019-08-08 06:44] LABS: Albumin Level 3.2 g/dL (3.5-5.1); Blood Urea Nitrogen 45 mg/dL (9-20); Calcium 10.5 mg/dL (8.4-10.2); Carbon Dioxide 25 mmol/L (22-30); Chloride 109 mmol/L (98-107); Estimated CRCL calculation 17 ml/min; Estimated Glomerular Filt Rate 17; Glucose 95 mg/dL (75-110); Phosphorus 4.1 mg/dL (2.5-4.5); Potassium 3.8 mmol/L (3.4-5.0); Sodium 137 mmol/L (137-145)
[2019-08-08 07:00] LABS: Atypical Lymphocytes Present; Platelet Estimate Adequate (Adequate)
[2019-08-08 07:50] LABS: Glucose Point of Care 103 (65-105)
[2019-08-08] MEDS: MULTIVITAMINS THERAPEUTIC TAB (*BKC) 1 TABLET PO (09:56)
[2019-08-08] MEDS: CALCITONIN SALMON INJ 400 UNITS/2 ML VIAL 100 UNITS SUB-Q (09:56)
[2019-08-08] MEDS: CHOLECALCIFEROL 1,000 UNIT TABLET 5000 UNITS PO (09:57)
[2019-08-08] MEDS: CYANOCOBALAMIN 1,000 MCG TABLET 1000 MCG PO (09:57)
[2019-08-08] MEDS: AMLODIPINE BESYLATE 5 MG TABLET 10 MG PO (09:57)
[2019-08-08 09:58] VITALS: PULSE 61
[2019-08-08] MEDS: METOPROLOL TARTRATE 50 MG TAB PO ×2 (09:58→20:41)
[2019-08-08] MEDS: HEPARIN SODIUM 5,000 UNITS/ML VIAL 5000 UNITS SUB-Q ×2 (09:58→20:41)
[2019-08-08] MEDS: OMEGA 3 POLYUNSAT FATTY ACIDS 1 GM CAP PO (09:58)
[2019-08-08] MEDS: FOLIC ACID 1 MG TABLET PO (09:59)
--- NOTE | 2019-08-08 10:45 | PM.IMPN ---
Progress Note: A&P Assessment and Plan (1) Acute renal failure (ARF): Qualifiers: Acute renal failure type: unspecified Qualified Code(s): N17.9 - Acute kidney failure, unspecified Code(s): N17.9 - Acute kidney failure, unspecified Status: Acute Assessment and Plan: Creatinine continues to increase and now up to 3.6 today. No longer on lisinopril. Not on any nephrotoxic agents. Nephrology consulted and appreciate their input. Urine output not calculated but patient feels he is voiding well. Discussed with nephrology with plans now for possible renal biopsy. (2) B-cell lymphoma: Qualifiers: B-cell lymphoma type: unspecified B-cell Lymphoma site: unspecified region Qualified Code(s): C85.10 - Unspecified B-cell lymphoma, unspecified site Code(s): C85.10 - Unspecified B-cell lymphoma, unspecified site Status: Acute Assessment and Plan: Appreciate input from Dr. Austin. MRI brain done to rule out CVA on 08/01/2019 revealed numerous enlarged bilateral cervical lymph nodes. Follow-up CT neck/chest/abdomen/pelvis reveals extensive lymphadenopathy in all areas. Ultrasound-guided lymph node biopsy from the right axilla completed on 08/02/2019 with pathology results showing CD5-negative, [id number] mature B-cell lymphoma. Patient will need additional work up and port placement but can be done as outpatient. (3) Acute metabolic encephalopathy: Code(s): G93.41 - Metabolic encephalopathy Status: Acute Assessment and Plan: Etiology related to lymphoma with hypercalcemia. No infectious process found. CT brain with small old lacunar infarct in the right frontal dsouza radiata but no acute changes. MRI brain with old lacunar infarct but no acute changes in brain. COVID-19 testing negative. Essentially resolved. Will continue to monitor. (4) Hypercalcemia: Code(s): E83.52 - Hypercalcemia Status: Acute Assessment and Plan: Calcium elevated on admission to 12.3 with iPTH and PTHrp normal. Hypercalcemia related to the malignancy. Received dose of IV Zometa on 08/02/19. Started on subcutaneous calcitonin daily on 08/03/2019. Calcium now back down to 10.5 today. (5) Hypertension: Qualifiers: Hypertension type: essential hypertension Qualified Code(s): I10 - Essential (primary) hypertension Code(s): I10 - Essential (primary) hypertension Status: Acute Assessment and Plan: Blood pressure reviewed on 08/08/2019. Blood pressure improved overall. Continue metoprolol, hydralazine and amlodipine. Lisinopril stopped with increasing creatinine. IV hydralazine still available as needed. Will continue to monitor. (6) Elevated troponin: Code(s): R79.89 - Other specified abnormal findings of blood chemistry Status: Acute Assessment and Plan: Cardiology consulted and appreciate input. Troponin did peak at 0.384. Suspect type 2 infarct. Echocardiogram with EF 65-70, grade 1 diastolic dysfunction. Remains stable. Will continue ASA, simvastatin and metoprolol. Will continue to monitor. Plan for outpatient ischemic evaluation. (7) Coronary artery disease: Qualifiers: Coronary Disease-Associated Artery/Lesion type: [place] artery [place] vs. transplanted heart: [place] heart Associated angina: without angina Qualified Code(s): I25.10 - Atherosclerotic heart disease of [place] coronary artery without angina pectoris Code(s): I25.10 - Atherosclerotic heart disease of [place] coronary artery without angina pectoris Status: Acute Assessment and Plan: Elevation of troponin level as noted above. Echocardiogram as noted above. Stable with no acute issue. Continue ASA, metoprolol and simvastatin. plan for outpatient ischemic evaluation. (8) Type 2 diabetes mellitus: Qualifiers: Diabetes mellitus care home insulin use: without long t
[2019-08-08 10:56] LABS: Free T4 Free Thyroxine Reflex 1.41 ng/dL (0.78-2.19)
[2019-08-08 11:16] LABS: Glucose Point of Care 123 (65-105)
--- NOTE | 2019-08-08 11:43 | PM.PNNEP ---
Progress Note: A&P Assessment and Plan (1) Acute renal failure (ARF): Qualifiers: Acute renal failure type: unspecified Qualified Code(s): N17.9 - Acute kidney failure, unspecified Code(s): N17.9 - Acute kidney failure, unspecified Status: Acute Assessment and Plan: etiology not entirely clear due to hypercalcemia?? - if so, would have assumed improvement in renal function given improvement in calcium levels noted blood and protein on urinalysis - this could be from HTN or DM but automimmune dissease/vasculilits is possible no critical electrolytes and making reasonable UOP creatinine up again today - expanded testing (serologies) pending urine electrolytes suggest pre-renal azotemia - trial of IVFs not effectv related to lymphoma?? -- there are case reports of lymphoma causing ALEXA... leading towards doing a renal biopsy -- unfortunately, on full dose ASA which make him high risk for bleeding - hold ASA for now - tentative plan renal biopsy next week check renal scan continue supportive therapy (2) Hypercalcemia: Code(s): E83.52 - Hypercalcemia Status: Acute Assessment and Plan: improving s/p zometa related to suspected malignancy(?) (3) Hypertension: Qualifiers: Hypertension type: essential hypertension Qualified Code(s): I10 - Essential (primary) hypertension Code(s): I10 - Essential (primary) hypertension Status: Acute Assessment and Plan: reasonable control off lisinopril given #1 (4) Type 2 diabetes mellitus: Qualifiers: Diabetes mellitus mcfp insulin use: without mcfp use Diabetes mellitus complication status: without complication Qualified Code(s): E11.9 - Type 2 diabetes mellitus without complications Code(s): E11.9 - Type 2 diabetes mellitus without complications Status: Acute Assessment and Plan: follow accuchecks on SSI Will continue to follow. Subjective Date/time seen: 08/08/19 11:43 No new issues or problems to report at this time; states he is voiding normally; no events overnight or earlier this AM; no apparent distress voiced. Exam Narrative: Exam Narrative: General: WD/WN male in NAD Heart: normal S1 and S2; no rub Lungs: clear to auscultation Abdomen: soft, nontender, nondistended, positive bowel sounds Extremities: no cyanosis or clubbing; no edema Skin: no rash Objective Data Vital Signs Vital Signs: Vital Signs Temp Pulse Resp BP Pulse Ox 08/08/19 09:58 61 08/08/19 06:00 36.3 C L 61 20 140/54 L 99 08/07/19 22:08 63 08/07/19 22:00 37.1 C 63 18 157/72 H 96 Intake/Output Intake/Output: Intake & Output 08/05/19 08/06/19 08/07/19 08/08/19 23:59 23:59 23:59 23:59 Intake Total 1920 2240 4235 1250 Output Total 450 200 300 Balance 1470 2040 4235 950 Meds/Results Medications: Active Medications Generic Name Dose Route Start Last Admin Trade Name Freq PRN Reason Stop Dose Admin Acetaminophen 650 mg 07/30/19 19:16 Tylenol Tablet PO Q4H PRN Mild Pain (1-3) or Fever Hydrocodone Bitart/Acetaminophen 1 tab 07/30/19 19:16 [place] 5-325 Mg PO Q4H PRN Pain Rated 4-6 Alprazolam 0.25 mg 08/01/19 17:04 08/05/19 22:06 Xanax PO 0.25 mg TID PRN Administration Anxiety Amlodipine Besylate 10 mg 08/04/19 07:38 08/08/19 09:57 Norvasc PO 10 mg QAM SLAVA Administration Aspirin 325 mg 07/31/19 09:00 08/08/19 09:57 Aspirin PO Not Given DAILY SLAVA Calcitonin [place] 100 units 08/03/19 11:30 08/08/19 09:56 Miacalcin Inj SUB-Q 100 units QAM SLAVA Administration Cyanocobalamin 1,000 mcg 07/31/19 09:00 08/08/19 09:57 Vitamin B-12 Tab PO 1,000 mcg DAILY SLAVA Administration Dextrose 12.5 gm 07/31/19 17:07 Dextrose 50% Syringe IV PUSH PRN PRN Hypoglycemia Protocol Diphenhydramine
--- NOTE | 2019-08-08 11:43 | P.PNNP_ITS ---
Progress Note: A&P Assessment and Plan (1) Acute renal failure (ARF): Qualifiers: Acute renal failure type: unspecified Qualified Code(s): N17.9 - Acute kidney failure, unspecified Code(s): N17.9 - Acute kidney failure, unspecified Status: Acute Assessment and Plan: * etiology not entirely clear * due to hypercalcemia?? - if so, would have assumed improvement in renal function given improvement in calcium levels * noted blood and protein on urinalysis - this could be from HTN or DM but automimmune dissease/vasculilits is possible * no critical electrolytes and making reasonable UOP * creatinine up again today - expanded testing (serologies) pending * urine electrolytes suggest pre-renal azotemia - trial of IVFs not effectv * related to lymphoma?? -- there are case reports of lymphoma causing ALEXA... * leading towards doing a renal biopsy -- unfortunately, on full dose ASA which make him high risk for bleeding - hold ASA for now - tentative plan renal biopsy next week * check renal scan * continue supportive therapy (2) Hypercalcemia: Code(s): E83.52 - Hypercalcemia Status: Acute Assessment and Plan: * improving * s/p zometa * related to suspected malignancy(?) (3) Hypertension: Qualifiers: Hypertension type: essential hypertension Qualified Code(s): I10 - Essential (primary) hypertension Code(s): I10 - Essential (primary) hypertension Status: Acute Assessment and Plan: * reasonable control * off lisinopril given #1 (4) Type 2 diabetes mellitus: Qualifiers: Diabetes mellitus intermediate insulin use: 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 Subjective Date/time seen: 08/08/19 11:43 No new issues or problems to report at this time; states he is voiding normally; no events overnight or earlier this AM; no apparent distress voiced. Exam Narrative: Exam Narrative: General: WD/WN male in NAD Heart: normal S1 and S2; no rub Lungs: clear to auscultation Abdomen: soft, nontender, nondistended, positive bowel sounds Extremities: no cyanosis or clubbing; no edema Skin: no rash Objective Data Vital Signs Vital Signs: Vital Signs Temp Pulse Resp BP Pulse Ox 08/08/19 09:58 61 08/08/19 06:00 36.3 C L 61 20 140/54 L 99 08/07/19 22:08 63 08/07/19 22:00 37.1 C 63 18 157/72 H 96 Intake/Output Intake/Output: Intake & Output 08/05/19 08/06/19 08/07/19 08/08/19 23:59 23:59 23:59 23:59 Intake Total 1920 2240 4235 1250 Output Total 450 200 300 Balance 1470 2040 4235 950 Meds/Results Medications: Active Medications Generic Name Dose Route Start Last Admin Trade Name Freq PRN Reason Stop Dose Admin Acetaminophen 650 mg 07/30/19 19:16 Tylenol Tablet PO Q4H PRN Mild Pain (1-3) or Fever Hydrocodone Bitart/Acetaminophen 1 tab 07/30/19 19:16 [place] 5-325 Mg PO Q4H PRN
--- NOTE | 2019-08-08 13:59 | PCOTNOTE ---
Attempted to see patient this pm, however patient being taken to [facility] at this time.
[2019-08-08 15:24] LABS: Total Triiodothyronine (T3) 1.16 NG/ML (0.97-1.69)
[2019-08-08 15:28] VITALS: BP 131/66; PULSE 57; RESP 18; TEMP 37.3; O2SAT 100
[2019-08-08 16:12] LABS: Glucose Point of Care 122 (65-105)
[2019-08-08 20:00] VITALS: PULSE 66; RESP 18; O2SAT 97
[2019-08-08 20:20] VITALS: BP 170/72; PULSE 66; RESP 18; TEMP 36.6; O2SAT 97
[2019-08-08] MEDS: SIMVASTATIN 20 MG TABLET 40 MG PO (20:38)
[2019-08-08 20:41] VITALS: PULSE 66
[2019-08-09 00:11] LABS: Glucose Point of Care 135 (65-105)
[2019-08-09] MEDS: hydrALAZINE HCL 25 MG TABLET PO ×3 (06:18→21:18)
[2019-08-09 06:26] VITALS: BP 133/78; PULSE 55; RESP 16; TEMP 36.8; O2SAT 99
[2019-08-09 06:38] LABS: Hematocrit 31.1 % (42.0-52.0); Hemoglobin 10.2 g/dL (14.0-18.0); Mean Corpuscular HGB Conc 32.8 g/dl (32-36); Mean Corpuscular Hemoglobin 30.9 pg (26-34); Mean Corpuscular Volume 94.2 fl (80-100); Mean Platelet Volume 12.3 fl (7.4-10.4); Platelet Count Result 178 k/mm3 (150-375); Red Cell Distribution Width 13.4 % (11.5-14.5); White Blood Count 17.1 K/mm3 (4.5-10.0)
[2019-08-09 06:56] LABS: Albumin Level 3.2 g/dL (3.5-5.1); Blood Urea Nitrogen 48 mg/dL (9-20); Calcium 10.5 mg/dL (8.4-10.2); Carbon Dioxide 24 mmol/L (22-30); Chloride 108 mmol/L (98-107); Estimated CRCL calculation 16 ml/min; Estimated Glomerular Filt Rate 15; Glucose 126 mg/dL (75-110); Phosphorus 4.4 mg/dL (2.5-4.5); Potassium 4.2 mmol/L (3.4-5.0); Sodium 136 mmol/L (137-145)
[2019-08-09 07:00] LABS: Complement C3 79 mg/dL (88-165)
[2019-08-09 08:10] LABS: Glucose Point of Care 84 (65-105)
[2019-08-09] MEDS: CHOLECALCIFEROL 1,000 UNIT TABLET 5000 UNITS PO (08:28)
[2019-08-09] MEDS: HEPARIN SODIUM 5,000 UNITS/ML VIAL 5000 UNITS SUB-Q ×2 (08:30→21:18)
[2019-08-09] MEDS: OMEGA 3 POLYUNSAT FATTY ACIDS 1 GM CAP PO (08:30)
[2019-08-09] MEDS: AMLODIPINE BESYLATE 5 MG TABLET 10 MG PO (08:30)
[2019-08-09] MEDS: CALCITONIN SALMON INJ 400 UNITS/2 ML VIAL 100 UNITS SUB-Q (08:30)
[2019-08-09] MEDS: FOLIC ACID 1 MG TABLET PO (08:30)
[2019-08-09] MEDS: MULTIVITAMINS THERAPEUTIC TAB (*BKC) 1 TABLET PO (08:30)
[2019-08-09 08:31] VITALS: PULSE 55
[2019-08-09] MEDS: METOPROLOL TARTRATE 50 MG TAB PO ×2 (08:31→21:18)
[2019-08-09] MEDS: CYANOCOBALAMIN 1,000 MCG TABLET 1000 MCG PO (08:31)
[2019-08-09 08:39] LABS: Glucose Point of Care 83 (65-105)
--- NOTE | 2019-08-09 10:50 | PCNFU ---
Nutrition Follow-Up Complete: Involuntary weight loss related to decreased appetite as evidenced by reported 8 pound weight loss over 2 weeks prior to admission. Goal: Patient to consume 75% of meals/supplements or greater. Progressing towards goal.We will continue current goal. Pt current nutrition is DBCC/Heart Healthy. Nutrition recommendation:Agree Last recorded weight is 71.6 kg. Bowel Motility:+BM reported 08/07 Labs Reviewed:BUN 48,Cr 3.9,Na 136 Meds Noted:VIt D,B12,Folic Acid, MVI Additional Notes: Spoke with nursing today over telephone due to COVID 19 precautions. Tried calling patients room x 2, no answer. Patient Intake has been fair 50% of most trays. Breakfast today patient ordered a banana, hash browns,eggs, V8 and coffee intake reported 50%. Possible Renal Biopsy next week. Monitoring: Follow up in 5 days.
[2019-08-09 11:28] LABS: Hepatitis B Surface Antigen Negative (Negative)
[2019-08-09 11:31] LABS: Glucose Point of Care 119 (65-105)
[2019-08-09 11:34] LABS: HAV RESULT Negative (Negative); Hepatitis B Core IgM Result Negative (Negative)
[2019-08-09 11:46] LABS: Hepatitis B Surface Anti Res Negative; Hepatitis C Virus Antibody Negative (Negative)
--- NOTE | 2019-08-09 11:57 | PM.IMPN ---
Progress Note: A&P Assessment and Plan (1) Acute renal failure (ARF): Qualifiers: Acute renal failure type: unspecified Qualified Code(s): N17.9 - Acute kidney failure, unspecified Code(s): N17.9 - Acute kidney failure, unspecified Status: Acute Assessment and Plan: Creatinine continues to increase and now up to 3.9 today. No longer on lisinopril. Not on any nephrotoxic agents. Nephrology consulted and appreciate their input. Urine output not calculated but patient feels he is voiding well. Discussed with nephrology with plans now for possible renal biopsy. (2) B-cell lymphoma: Qualifiers: B-cell lymphoma type: unspecified B-cell Lymphoma site: unspecified region Qualified Code(s): C85.10 - Unspecified B-cell lymphoma, unspecified site Code(s): C85.10 - Unspecified B-cell lymphoma, unspecified site Status: Acute Assessment and Plan: Appreciate input from Dr. Austin. MRI brain done to rule out CVA on 08/01/2019 revealed numerous enlarged bilateral cervical lymph nodes. Follow-up CT neck/chest/abdomen/pelvis reveals extensive lymphadenopathy in all areas. 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 Patient will need additional work up and port placement but can be done as outpatient. (3) Acute metabolic encephalopathy: Code(s): G93.41 - Metabolic encephalopathy Status: Acute Assessment and Plan: Etiology related to lymphoma with hypercalcemia. No infectious process found. CT brain with small old lacunar infarct in the right frontal dsouza radiata but no acute changes. MRI brain with old lacunar infarct but no acute changes in brain. COVID-19 testing negative. Essentially resolved. Will continue to monitor. (4) Hypercalcemia: Code(s): E83.52 - Hypercalcemia Status: Acute Assessment and Plan: Calcium elevated on admission to 12.3 with iPTH and PTHrp normal. Hypercalcemia related to the malignancy. Received dose of IV Zometa on 08/02/19. Started on subcutaneous calcitonin daily on 08/03/2019. Calcium stable at 10.5 today. (5) Hypertension: Qualifiers: Hypertension type: essential hypertension Qualified Code(s): I10 - Essential (primary) hypertension Code(s): I10 - Essential (primary) hypertension Status: Acute Assessment and Plan: Blood pressure reviewed on 08/09/2019. Blood pressure improved overall. Continue metoprolol, hydralazine and amlodipine. Lisinopril stopped with increasing creatinine. IV hydralazine still available as needed. Will continue to monitor. (6) Elevated troponin: Code(s): R79.89 - Other specified abnormal findings of blood chemistry Status: Acute Assessment and Plan: Cardiology consulted and appreciate input. Troponin did peak at 0.384. Suspect type 2 infarct. Echocardiogram with EF 65-70, grade 1 diastolic dysfunction. Remains stable. Will continue simvastatin and metoprolol. Will continue to monitor. Plan for outpatient ischemic evaluation. Resume aspirin when okay with Nephrology. (7) Coronary artery disease: Qualifiers: Coronary Disease-Associated Artery/Lesion type: [place] artery [place] vs. transplanted heart: [place] heart Associated angina: without angina Qualified Code(s): I25.10 - Atherosclerotic heart disease of [place] coronary artery without angina pectoris Code(s): I25.10 - Atherosclerotic heart disease of [place] coronary artery without angina pectoris Status: Acute Assessment and Plan: Elevation of troponin level as noted above. Echocardiogram as noted above. Stable with no acute issue. Continue metoprolol and simvastatin. Plan for outpatient ischemic evaluation. Aspirin on hold from possible biopsy. (8) Type 2 diabetes mellitus: Qualifiers:
--- NOTE | 2019-08-09 13:05 | P.PNNP_ITS ---
Progress Note: A&P Assessment and Plan (1) Acute renal failure (ARF): Qualifiers: Acute renal failure type: unspecified Qualified Code(s): N17.9 - Acute kidney failure, unspecified Code(s): N17.9 - Acute kidney failure, unspecified Status: Acute Assessment and Plan: * etiology not entirely clear * creatinine continues to rise despite conversative therapy * due to hypercalcemia?? - if so, would have assumed improvement in renal function given improvement in calcium levels * noted blood and protein on urinalysis - this could be from HTN or DM but automimmune dissease/vasculilits is possible - serological evaluation ordered with some results noted * no critical electrolytes and making reasonable UOP * urine electrolytes suggest pre-renal azotemia - trial of IVFs not effective * related to lymphoma?? -- there are case reports of lymphoma causing ALEXA... * renal scan results noted * leading towards doing a renal biopsy -- unfortunately, on full dose ASA since admission which make him high risk for bleeding - hold ASA for now (at least for 5 days) - tentative plan renal biopsy next week (Monday or Monday) * continue supportive therapy (2) Hypercalcemia: Code(s): E83.52 - Hypercalcemia Status: Acute Assessment and Plan: * improving * s/p zometa * related to suspected malignancy(?) (3) Hypertension: Qualifiers: Hypertension type: essential hypertension Qualified Code(s): I10 - Essential (primary) hypertension Code(s): I10 - Essential (primary) hypertension Status: Acute Assessment and Plan: * reasonable control * off lisinopril given #1 (4) Type 2 diabetes mellitus: Qualifiers: Diabetes mellitus complication status: without complication 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 Subjective Date/time seen: 08/09/19 13:05 No new issues or problems to report at this time; eating and drinking well; despite descrepancy with I/Os, reports he is making reasonably urine; no apparent distress noted. Exam Narrative: Exam Narrative: General: WD/WN male in NAD Heart: normal S1 and S2; no rub Lungs: clear to auscultation Abdomen: soft, nontender, nondistended, positive bowel sounds Extremities: no cyanosis or clubbing; no edema Skin: no nodules Objective Data Vital Signs Vital Signs: Vital Signs Temp Pulse Resp BP Pulse Ox 08/09/19 08:31 55 L 08/09/19 06:26 36.8 C 55 L 16 133/78 99 08/08/19 20:41 66 08/08/19 20:20 36.6 C 66 18 170/72 H 97 08/08/19 20:00 66 18 97 08/08/19 15:28 37.3 C 57 L 18 131/66 100 Intake/Output Intake/Output: Intake & Output 08/06/19 08/07/19 08/08/19 08/09/19 23:59 23:59 23:59 23:59 Intake Total 2240 4235 2490 1930 Output Total 200 300 Balance 2040 4235 2190 1930 Meds/Results Medications: Active Medications Generic Name Dose Route Start Last Admin Trade Name Pavel PRN Reason Stop Dose Admin Acetaminophen 650 mg
--- NOTE | 2019-08-09 13:05 | PM.PNNEP ---
Progress Note: A&P Assessment and Plan (1) Acute renal failure (ARF): Qualifiers: Acute renal failure type: unspecified Qualified Code(s): N17.9 - Acute kidney failure, unspecified Code(s): N17.9 - Acute kidney failure, unspecified Status: Acute Assessment and Plan: etiology not entirely clear creatinine continues to rise despite conversative therapy due to hypercalcemia?? - if so, would have assumed improvement in renal function given improvement in calcium levels noted blood and protein on urinalysis - this could be from HTN or DM but automimmune dissease/vasculilits is possible - serological evaluation ordered with some results noted no critical electrolytes and making reasonable UOP urine electrolytes suggest pre-renal azotemia - trial of IVFs not effective related to lymphoma?? -- there are case reports of lymphoma causing ALEXA... renal scan results noted leading towards doing a renal biopsy -- unfortunately, on full dose ASA since admission which make him high risk for bleeding - hold ASA for now (at least for 5 days) - tentative plan renal biopsy next week (Monday or Monday) continue supportive therapy (2) Hypercalcemia: Code(s): E83.52 - Hypercalcemia Status: Acute Assessment and Plan: improving s/p zometa related to suspected malignancy(?) (3) Hypertension: Qualifiers: Hypertension type: essential hypertension Qualified Code(s): I10 - Essential (primary) hypertension Code(s): I10 - Essential (primary) hypertension Status: Acute Assessment and Plan: reasonable control off lisinopril given #1 (4) Type 2 diabetes mellitus: Qualifiers: Diabetes mellitus complication status: without complication Diabetes mellitus half-way insulin use: without terminal 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 Subjective Date/time seen: 08/09/19 13:05 No new issues or problems to report at this time; eating and drinking well; despite descrepancy with I/Os, reports he is making reasonably urine; no apparent distress noted. Exam Narrative: Exam Narrative: General: WD/WN male in NAD Heart: normal S1 and S2; no rub Lungs: clear to auscultation Abdomen: soft, nontender, nondistended, positive bowel sounds Extremities: no cyanosis or clubbing; no edema Skin: no nodules Objective Data Vital Signs Vital Signs: Vital Signs Temp Pulse Resp BP Pulse Ox 08/09/19 08:31 55 L 08/09/19 06:26 36.8 C 55 L 16 133/78 99 08/08/19 20:41 66 08/08/19 20:20 36.6 C 66 18 170/72 H 97 08/08/19 20:00 66 18 97 08/08/19 15:28 37.3 C 57 L 18 131/66 100 Intake/Output Intake/Output: Intake & Output 08/06/19 08/07/19 08/08/19 08/09/19 23:59 23:59 23:59 23:59 Intake Total 2240 4235 2490 1930 Output Total 200 300 Balance 2040 4235 2190 1930 Meds/Results Medications: Active Medications Generic Name Dose Route Start Last Admin Trade Name Freq PRN Reason Stop Dose Admin Acetaminophen 650 mg 07/30/19 19:16 Tylenol Tablet PO Q4H PRN Mild Pain (1-3) or Fever Hydrocodone Bitart/Acetaminophen 1 tab 07/30/19 19:16 [place] 5-325 Mg PO Q4H PRN Pain Rated 4-6 Alprazolam 0.25 mg 08/01/19 17:04 08/05/19 22:06 Xanax PO 0.25 mg TID PRN Administration Anxiety Amlodipine Besylate 10 mg 08/04/19 07:38 08/09/19 08:30 Norvasc PO 10 mg QAM SLAVA Administration Aspirin 325 mg 07/31/19 09:00 08/08/19 09:57 Aspirin PO Not Given DAILY [facility] Calcitonin [place] 100 units 08/03/19 11:30 08/09/19 08:30 Miacalcin Inj SUB-Q 100 units QAM SLAVA Administration Cyanocobalamin 1,000 mcg 07/31/19 09:00
[2019-08-09 14:05] VITALS: BP 151/69; PULSE 51; RESP 18; TEMP 36.1; O2SAT 97
--- NOTE | 2019-08-09 14:47 | WPDONCPN ---
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 Flow cytometry on the blood also came back positive for lymphoma. Patient will start chemotherapy with bendamustine Rituxan as an outpatient. I will ask Dr connell for port placement. This can be arranged as an outpatient. Hypercalcemia. Secondary to lymphoma. Calcium has improved to status post Zometa and calcitonin treatment. Acute renal insufficiency. Nephrology input noted. Creatinine keep going up. Patient wants to be discharged today as patient patient is [place] out of the state. This decision will be based on nephrology input. Okay to discharge from Hematology standpoint. - Time Spent With Patient Total time spent is greater than 50% in coordination of care (as documented) at patient's floor/unit and/or counseling patient: 15 - 25 minutes Subjective Interval history: Mature B-cell lymphoma Hypercalcemia Acute renal insufficiency Review of Systems - Review of Systems Patient resting comfortably. He denies any fevers and chills. He denies any chest pain and shortness of breath. Patient wants to go home today. He has been eating well. - Neurologic Reports system reviewed and no additional complaints, except as documented, Reports abnormal speech, Reports confusion, Reports weakness, Denies behavioral changes, Denies headache(s) Exam Vital signs: Denisse Villeda. Assessment of coma and impaired consciousness. A practical scale. Lancet 1974; 2:81-4. Narrative: Lungs are clear to auscultation bilaterally Cardiovascular regular rate rhythm no murmurs Abdomen soft nontender nondistended Extremities no edema PN: Objective Data - Labs CBC & Chem 7: 08/09/19 05:57 08/09/19 05:57 Labs: Laboratory Results - last 24 hr 08/08/19 08/08/19 08/08/19 05:51 16:09 20:40 WBC RBC Hgb Hct MCV MCH MCHC RDW Plt Count MPV Sodium Potassium Chloride Carbon Dioxide BUN Creatinine Estim Creat Clear Calc Estimated GFR Glucose POC Capillary Glucose 122 H 135 H Calcium Phosphorus Albumin Total T3 1.16 Complement C3 Complement C4 Hepatitis A IgM Ab Hep Bs Antigen Hep Bs Antibody Hep B Core IgM Ab Hepatitis C Ab Screen 08/09/19 08/09/19 08/09/19 05:57 05:57 05:57 WBC 17.1 H RBC 3.30 L Hgb 10.2 L Hct 31.1 L MCV 94.2 MCH 30.9 MCHC 32.8 RDW 13.4 Plt Count 178 MPV 12.3 H Sodium Potassium Chloride Carbon Dioxide BUN Creatinine Estim Creat Clear Calc Estimated GFR Glucose POC Capillary Glucose Calcium Phosphorus Albumin Total T3 Complement C3 79 L Complement C4 13.6 L Hepatitis A IgM Ab Negative Hep Bs Antigen Negative Hep Bs Antibody Negative Hep B Core IgM Ab Negative Hepatitis C Ab Screen Negative 08/09/19 08/09/19 08/09/19 05:57 08:08 08:29 WBC RBC Hgb Hct MCV MCH MCHC RDW Plt Count MPV Sodium 136 L Potassium 4.2 Chloride 108 H Carbon Dioxide 24 BUN 48 H Creatinine 3.90 H Estim Creat Clear Calc 16 Estimated GFR 15 L Glucose 126 H POC Capillary Glucose 84 83 Calcium 10.5 H Phosphorus 4.4 Albumin 3.2 L Total T3 Complement C3 Complement C4 Hepatitis A IgM Ab Hep Bs Antigen Hep Bs Antibody Hep B Core IgM Ab Hepatitis C Ab Screen 08/09/19 11:24 WBC RBC Hgb Hct MCV MCH MCHC RDW Plt Count MPV Sodium Potassium Chloride Carbon Dioxide BUN Creatinine Estim Creat Clear Calc Estimated GFR Glucose POC Capillary Glucose 119 H Calcium Phosphorus Albumin Total T3 Complement C3 Complement C4 Hepatitis A IgM Ab Hep Bs Antigen Hep Bs Antibody Hep B Core IgM Ab Hepatitis C Ab Screen
[2019-08-09 16:29] LABS: Glucose Point of Care 100 (65-105)
--- NOTE | 2019-08-09 16:35 | PM.CNGS ---
Assessment and Plan Assessment and plan (1) B-cell lymphoma: Qualifiers: B-cell lymphoma type: unspecified B-cell Lymphoma site: unspecified region Qualified Code(s): C85.10 - Unspecified B-cell lymphoma, unspecified site Code(s): C85.10 - Unspecified B-cell lymphoma, unspecified site Status: Acute Assessment and Plan: The patient has newly diagnosed B-Cell lymphoma and is being followed by Dr. Austin for Oncology who has requested Port-A-Cath placement for chemotherapy. Description of Port-A-Cath placement, risks, benefits, indications, and expected outcomes were discussed with the patient in detail. All questions were answered. The patient agrees to proceed. After discussing the patient's case with Dr. Rossi, we will plan to schedule this as an outpatient with Dr. Rossi once the patient is medically stable. Thank you for allowing me to see the patient in consultation. Please let us know if you need anything further. (2) Acute renal failure (ARF): Qualifiers: Acute renal failure type: unspecified Qualified Code(s): N17.9 - Acute kidney failure, unspecified Code(s): N17.9 - Acute kidney failure, unspecified Status: Acute (3) Coronary artery disease: Qualifiers: Coronary Disease-Associated Artery/Lesion type: [place] artery [place] vs. transplanted heart: [place] heart Associated angina: without angina Qualified Code(s): I25.10 - Atherosclerotic heart disease of [place] coronary artery without angina pectoris Code(s): I25.10 - Atherosclerotic heart disease of [place] coronary artery without angina pectoris Status: Acute (4) Hypertension: Qualifiers: Hypertension type: essential hypertension Qualified Code(s): I10 - Essential (primary) hypertension Code(s): I10 - Essential (primary) hypertension Status: Acute (5) Dyslipidemia: Code(s): E78.5 - Hyperlipidemia, unspecified Status: Acute (6) Type 2 diabetes mellitus: Qualifiers: Diabetes mellitus care home insulin use: without care home use Diabetes mellitus complication status: without complication Qualified Code(s): E11.9 - Type 2 diabetes mellitus without complications Code(s): E11.9 - Type 2 diabetes mellitus without complications Status: Acute History of Present Illness Consult details Consult date: 08/09/19 Reason for consult: other (Port-A-Cath placement) Requesting physician: Pradeep Austin MD Narrative: This is a 73-year-old male with a history of coronary artery disease, hypertension, and diabetes, who was admitted to [facility] on 07/30/19 for elevated troponin, encephalopathy, acute renal failure, and suspected COVID-19. Patient was incidentally found to have bilateral cervical lymphadenopathy on his brain MRI. Further workup revealed extensive neck, chest, abdominal, and pelvic lymphadenopathy on CT. The patient underwent right axillary lymph node biopsy on 08/02/19 and he has a new diagnosis of B-cell lymphoma. Oncology has been consulted and is planning to start the patient on chemotherapy outpatient. Our service has been consulted requesting Port-A-Cath placement for this patient. Also to note, the patient has worsening acute renal failure with a creatinine of 3.9 today, and is being followed by Nephrology. He had elevated troponins on admission and Cardiology evaluated the patient. This was felt to be type 2 infarct related to his hypertensive urgency on admission with the coronary artery disease. Patient currently on full dose aspirin and statin therapy, along with a beta-lópez. The patient is now being seen on the medical floor for surgical evaluation. No significant complaints at this time. Review of Systems Review of Systems: All systems reviewed & are unremarkable except as noted in HPI and below Constitutional: Constitutional: Reports as per HPI, Denies chills, Denies excessive sweating, Denies fatigue, Denies fever(s),
[2019-08-09 19:20] VITALS: BP 150/63; PULSE 56; RESP 16; TEMP 36.3; O2SAT 99
[2019-08-09 21:18] VITALS: PULSE 56
[2019-08-09] MEDS: SIMVASTATIN 20 MG TABLET 40 MG PO (21:18)
[2019-08-09 21:19] VITALS: PULSE 56; RESP 16; O2SAT 99
[2019-08-09 22:14] LABS: Glucose Point of Care 105 (65-105)
[2019-08-10 05:44] VITALS: BP 165/71; PULSE 68; RESP 16; TEMP 36.8; O2SAT 92
[2019-08-10] MEDS: hydrALAZINE HCL 25 MG TABLET PO ×3 (05:53→22:07)
[2019-08-10 07:22] LABS: Albumin Level 3.4 g/dL (3.5-5.1); Blood Urea Nitrogen 49 mg/dL (9-20); Calcium 10.9 mg/dL (8.4-10.2); Carbon Dioxide 21 mmol/L (22-30); Chloride 110 mmol/L (98-107); Estimated CRCL calculation 14 ml/min; Estimated Glomerular Filt Rate 13; Glucose 116 mg/dL (75-110); Phosphorus 4.9 mg/dL (2.5-4.5); Potassium 4.4 mmol/L (3.4-5.0); Sodium 137 mmol/L (137-145)
[2019-08-10 07:33] LABS: INR 1.1; Prothrombin Time 13.7 Seconds (11.1-14.7)
[2019-08-10 08:18] LABS: Glucose Point of Care 110 (65-105)
[2019-08-10] MEDS: CHOLECALCIFEROL 1,000 UNIT TABLET 5000 UNITS PO (09:57)
[2019-08-10] MEDS: CYANOCOBALAMIN 1,000 MCG TABLET 1000 MCG PO (09:57)
[2019-08-10 09:58] VITALS: PULSE 64
[2019-08-10] MEDS: MULTIVITAMINS THERAPEUTIC TAB (*BKC) 1 TABLET PO (09:58)
[2019-08-10] MEDS: OMEGA 3 POLYUNSAT FATTY ACIDS 1 GM CAP PO (09:58)
[2019-08-10] MEDS: METOPROLOL TARTRATE 50 MG TAB PO ×2 (09:58→22:07)
[2019-08-10] MEDS: AMLODIPINE BESYLATE 5 MG TABLET 10 MG PO (09:58)
[2019-08-10] MEDS: FOLIC ACID 1 MG TABLET PO (09:58)
[2019-08-10] MEDS: HEPARIN SODIUM 5,000 UNITS/ML VIAL 5000 UNITS SUB-Q ×2 (09:59→22:07)
[2019-08-10] MEDS: CALCITONIN SALMON INJ 400 UNITS/2 ML VIAL 100 UNITS SUB-Q (10:00)
--- NOTE | 2019-08-10 11:08 | PM.PNNEP ---
Progress Note: A&P Assessment and Plan (1) Acute renal failure (ARF): Qualifiers: Acute renal failure type: unspecified Qualified Code(s): N17.9 - Acute kidney failure, unspecified Code(s): N17.9 - Acute kidney failure, unspecified Status: Acute Assessment and Plan: etiology not entirely clear creatinine continues to rise despite conversative therapy due to hypercalcemia?? - if so, would have assumed improvement in renal function given improvement in calcium levels noted blood and protein on urinalysis - this could be from HTN or DM but automimmune dissease/vasculilits is possible - serological evaluation ordered with some results noted no critical electrolytes and making reasonable UOP urine electrolytes suggest pre-renal azotemia - trial of IVFs not effective related to lymphoma?? -- there are case reports of lymphoma causing ALEXA... renal scan results noted leading towards doing a renal biopsy -- unfortunately, on full dose ASA since admission which make him high risk for bleeding - hold ASA for now (at least for 5 days) - tentative plan renal biopsy next week (as he would have off ASA for ~ 5 days) continue supportive therapy (2) Hypercalcemia: Code(s): E83.52 - Hypercalcemia Status: Acute Assessment and Plan: improving s/p zometa related to suspected malignancy(?) (3) Hypertension: Qualifiers: Hypertension type: essential hypertension Qualified Code(s): I10 - Essential (primary) hypertension Code(s): I10 - Essential (primary) hypertension Status: Acute Assessment and Plan: reasonable control off lisinopril given #1 (4) Type 2 diabetes mellitus: Qualifiers: Diabetes mellitus complication status: without complication Diabetes mellitus terminal worker insulin use: without usp use Qualified Code(s): E11.9 - Type 2 diabetes mellitus without complications Code(s): E11.9 - Type 2 diabetes mellitus without complications Status: Acute Assessment and Plan: follow accuchecks on SSI Per patient's request, I will try to discuss the situation with regard to his renal failure with his son. Will continue to follow. Subjective Date/time seen: 08/10/19 11:08 No new issues or complaints voiced; states he continues to make urine (suspect I/Os documentation inaccurate); no events overnight or earlier this AM; no apparent distress noted. Exam Narrative: Exam Narrative: General: WD/WN male in NAD Heart: normal S1 and S2; no rub Lungs: clear to auscultation Abdomen: soft, nontender, nondistended, positive bowel sounds Extremities: no cyanosis or clubbing; no edema Skin: warm and intact Objective Data Vital Signs Vital Signs: Vital Signs Temp Pulse Resp BP Pulse Ox 08/10/19 09:58 64 08/10/19 05:44 36.8 C 68 16 165/71 H 92 08/09/19 21:19 56 L 16 99 08/09/19 21:18 56 L 08/09/19 19:20 36.3 C L 56 L 16 150/63 H 99 08/09/19 14:05 36.1 C L 51 L 18 151/69 H 97 Intake/Output Intake/Output: Intake & Output 08/07/19 08/08/19 08/09/19 08/10/19 23:59 23:59 23:59 23:59 Intake Total 4235 2490 2720 865 Output Total 300 Balance 4235 2190 2720 865 Meds/Results Medications: Active Medications Generic Name Dose Route Start Last Admin Trade Name Freq PRN Reason Stop Dose Admin Acetaminophen 650 mg 07/30/19 19:16 Tylenol Tablet PO Q4H PRN Mild Pain (1-3) or Fever Alprazolam 0.25 mg 08/01/19 17:04 08/05/19 22:06 Xanax PO 0.25 mg TID PRN Administration Anxiety Amlodipine Besylate 10 mg 08/04/19 07:38 08/10/19 09:58 Norvasc PO 10 mg QAM SLAVA Administration Aspirin 325 mg 07/31/19 09:00 08/08/19 09:57 Aspirin PO Not Given DAILY SLAVA Calcitonin [place] 100 units 08/03/19 11:30 08/10/19 10:00 Miacalcin Inj SUB-Q 100 units QAM SLAVA Administration Cyanocobalamin
[2019-08-10 12:15] LABS: Glucose Point of Care 107 (65-105)
--- NOTE | 2019-08-10 13:49 | PM.IMPN ---
Progress Note: A&P Assessment and Plan (1) Acute renal failure (ARF): Qualifiers: Acute renal failure type: unspecified Qualified Code(s): N17.9 - Acute kidney failure, unspecified Code(s): N17.9 - Acute kidney failure, unspecified Status: Acute Assessment and Plan: Creatinine continues to increase and now up to 4.5 today. No longer on lisinopril. Not on any nephrotoxic agents. Nephrology consulted and appreciate their input. Urine output not accurate but patient feels he is voiding well. Discussed with nephrology with plans now for possible renal biopsy. (2) B-cell lymphoma: Qualifiers: B-cell lymphoma type: unspecified B-cell Lymphoma site: unspecified region Qualified Code(s): C85.10 - Unspecified B-cell lymphoma, unspecified site Code(s): C85.10 - Unspecified B-cell lymphoma, unspecified site Status: Acute Assessment and Plan: Appreciate input from Dr. Austin. MRI brain done to rule out CVA on 08/01/2019 revealed numerous enlarged bilateral cervical lymph nodes. Follow-up CT neck/chest/abdomen/pelvis reveals extensive lymphadenopathy in all areas. Ultrasound-guided lymph node biopsy from the right axilla completed on 08/02/2019 with pathology results showing CD5-negative, [id number] mature B-cell lymphoma. Patient will need additional work up and port placement but can be done as outpatient. General surgery consulted for Port placement but plan to be done as outpatient. (3) Acute metabolic encephalopathy: Code(s): G93.41 - Metabolic encephalopathy Status: Acute Assessment and Plan: Etiology related to lymphoma with hypercalcemia. No infectious process found. CT brain with small old lacunar infarct in the right frontal dsouza radiata but no acute changes. MRI brain with old lacunar infarct but no acute changes in brain. COVID-19 testing negative. Essentially resolved. Will continue to monitor. (4) Hypercalcemia: Code(s): E83.52 - Hypercalcemia Status: Acute Assessment and Plan: Calcium elevated on admission to 12.3 with iPTH and PTHrp normal. Hypercalcemia related to the malignancy. Received dose of IV Zometa on 08/02/19. Started on subcutaneous calcitonin daily on 08/03/2019. Calcium stable at 10.9 today. (5) Hypertension: Qualifiers: Hypertension type: essential hypertension Qualified Code(s): I10 - Essential (primary) hypertension Code(s): I10 - Essential (primary) hypertension Status: Acute Assessment and Plan: Blood pressure reviewed on 08/10/2019. Blood pressure still elevated at times. Continue metoprolol, hydralazine and amlodipine. Lisinopril stopped with increasing creatinine. IV hydralazine still available as needed. Will continue to monitor for now; may need to maintain a higher pressure to perfuse the kidneys. (6) Elevated troponin: Code(s): R79.89 - Other specified abnormal findings of blood chemistry Status: Acute Assessment and Plan: Cardiology consulted and appreciate input. Troponin did peak at 0.384. Suspect type 2 infarct. Echocardiogram with EF 65-70, grade 1 diastolic dysfunction. Remains stable. Will continue simvastatin and metoprolol. Will continue to monitor. Plan for outpatient ischemic evaluation. Resume aspirin when okay with Nephrology. (7) Coronary artery disease: Qualifiers: Associated angina: without angina Coronary Disease-Associated Artery/Lesion type: [place] artery [place] vs. transplanted heart: [place] heart Qualified Code(s): I25.10 - Atherosclerotic heart disease of [place] coronary artery without angina pectoris Code(s): I25.10 - Atherosclerotic heart disease of [place] coronary artery without angina pectoris Status: Acute Assessment and Plan: Elevation of troponin level as noted above. Echocardiogram as noted above. Stable with no acute issue. Continue me
[2019-08-10 14:00] VITALS: BP 150/83; PULSE 56; RESP 18; TEMP 36.5; O2SAT 98
[2019-08-10] MEDS: DOCUSATE SODIUM 100 MG CAPSULE PO (16:17)
[2019-08-10 17:41] LABS: Glucose Point of Care 107 (65-105)
--- NOTE | 2019-08-10 19:02 | PC.NURSE ---
Urinary catheter placed for retention per Dr. Mcclelland's orders. Bladder scan showed >999 urine volume.
[2019-08-10 21:27] VITALS: BP 165/65; PULSE 69; RESP 18; TEMP 37; O2SAT 99
[2019-08-10] MEDS: SIMVASTATIN 20 MG TABLET 40 MG PO (22:06)
[2019-08-10] MEDS: ALPRAZOLAM 0.25 MG TABLET PO (22:08)
[2019-08-10 22:22] LABS: Glucose Point of Care 115 (65-105)
[2019-08-11 06:24] VITALS: BP 146/66; PULSE 63; RESP 20; TEMP 36.8; O2SAT 99
[2019-08-11] MEDS: hydrALAZINE HCL 25 MG TABLET PO ×3 (06:24→20:58)
[2019-08-11 07:04] LABS: Albumin Level 3.5 g/dL (3.5-5.1); Blood Urea Nitrogen 49 mg/dL (9-20); Calcium 10.8 mg/dL (8.4-10.2); Carbon Dioxide 20 mmol/L (22-30); Chloride 110 mmol/L (98-107); Estimated CRCL calculation 14 ml/min; Estimated Glomerular Filt Rate 13; Glucose 182 mg/dL (75-110); Phosphorus 4.5 mg/dL (2.5-4.5); Potassium 4.1 mmol/L (3.4-5.0); Sodium 138 mmol/L (137-145)
[2019-08-11 07:58] LABS: Glucose Point of Care 128 (65-105)
[2019-08-11] MEDS: AMLODIPINE BESYLATE 5 MG TABLET 10 MG PO (08:54)
[2019-08-11 08:55] VITALS: PULSE 70
[2019-08-11] MEDS: FOLIC ACID 1 MG TABLET PO (08:55)
[2019-08-11] MEDS: CHOLECALCIFEROL 1,000 UNIT TABLET 5000 UNITS PO (08:55)
[2019-08-11] MEDS: METOPROLOL TARTRATE 50 MG TAB PO ×2 (08:55→20:58)
[2019-08-11] MEDS: MULTIVITAMINS THERAPEUTIC TAB (*BKC) 1 TABLET PO (08:55)
[2019-08-11] MEDS: CYANOCOBALAMIN 1,000 MCG TABLET 1000 MCG PO (08:55)
[2019-08-11] MEDS: OMEGA 3 POLYUNSAT FATTY ACIDS 1 GM CAP PO (08:55)
[2019-08-11] MEDS: HEPARIN SODIUM 5,000 UNITS/ML VIAL 5000 UNITS SUB-Q ×2 (08:56→20:58)
[2019-08-11] MEDS: CALCITONIN SALMON INJ 400 UNITS/2 ML VIAL 100 UNITS SUB-Q (08:58)
--- NOTE | 2019-08-11 11:33 | PM.PNNEP ---
Progress Note: A&P Assessment and Plan (1) Acute renal failure (ARF): Qualifiers: Acute renal failure type: unspecified Qualified Code(s): N17.9 - Acute kidney failure, unspecified Code(s): N17.9 - Acute kidney failure, unspecified Status: Acute Assessment and Plan: etiology not entirely clear creatinine continues to rise despite conservative therapy - although, creatinine stable today in comparison to yesterday... due to hypercalcemia?? - if so, would have assumed improvement in renal function given improvement in calcium levels noted blood and protein on urinalysis - this could be from HTN or DM but automimmune dissease/vasculilits is possible - serological evaluation ordered with some results noted no critical electrolytes and making reasonable UOP urine electrolytes suggest pre-renal azotemia - trial of IVFs not effective related to lymphoma?? -- there are case reports of lymphoma causing ALEXA... renal scan results noted leading towards doing a renal biopsy -- unfortunately, on full dose ASA since admission which make him high risk for bleeding - hold ASA for now (needs to be off at least for 5 days) - tentative plan renal biopsy next week (likely Monday) - HOWEVER, possible peak/plateau today of creatinine?? - will see what his creatinine is tomorrow...if improving, may hold off on renal biopsy continue supportive therapy (2) Hypercalcemia: Code(s): E83.52 - Hypercalcemia Status: Acute Assessment and Plan: improving s/p zometa related to suspected malignancy(?) (3) Hypertension: Qualifiers: Hypertension type: essential hypertension Qualified Code(s): I10 - Essential (primary) hypertension Code(s): I10 - Essential (primary) hypertension Status: Acute Assessment and Plan: reasonable control off lisinopril given #1 (4) Type 2 diabetes mellitus: Qualifiers: Diabetes mellitus complication status: without complication Diabetes mellitus assisted insulin use: without assisted use Qualified Code(s): E11.9 - Type 2 diabetes mellitus without complications Code(s): E11.9 - Type 2 diabetes mellitus without complications Status: Acute Assessment and Plan: follow accuchecks on SSI Long and extensive discussion (> 20 minutes) with patient's son by phone regarding confusion, worsening kidney function, and possible need for renal biopsy. Will continue to follow. Subjective Date/time seen: 08/11/19 11:33 Appears to be doing reasonably well at this time although seems a bit confused today in comparison to yesterday (confirmed with patient's son based on his phone call conversation with his father earlier today). Exam Narrative: Exam Narrative: General: WD/WN male in NAD Heart: normal S1 and S2; no rub Lungs: clear to auscultation Abdomen: soft, nontender, nondistended, positive bowel sounds Extremities: no cyanosis or clubbing; no edema Skin: no rashes Objective Data Vital Signs Vital Signs: Vital Signs Temp Pulse Resp BP Pulse Ox 08/11/19 08:55 70 08/11/19 06:24 36.8 C 63 20 146/66 H 99 08/10/19 21:27 37.0 C 69 18 165/65 H 99 08/10/19 14:00 36.5 C 56 L 18 150/83 H 98 Intake/Output Intake/Output: Intake & Output 08/08/19 08/09/19 08/10/19 08/11/19 23:59 23:59 23:59 23:59 Intake Total 2490 2720 3195 840 Output Total 897 220 0047 Balance 2190 2720 2425 -285 Meds/Results Medications: Active Medications Generic Name Dose Route Start Last Admin Trade Name Freq PRN Reason Stop Dose Admin Acetaminophen 650 mg 07/30/19 19:16 Tylenol Tablet PO Q4H PRN Mild Pain (1-3) or Fever Alprazolam 0.25 mg 08/01/19 17:04 08/10/19 22:08 Xanax PO 0.25 mg TID PRN Administration Anxiety Amlodipine Besylate 10 mg 08/04/19 07:38 08/11/19 08:54 Norvasc PO 10 mg QAM SLAVA Admini
[2019-08-11 12:49] LABS: Glucose Point of Care 120 (65-105)
--- NOTE | 2019-08-11 13:11 | PM.IMPN ---
Progress Note: A&P Assessment and Plan (1) Acute renal failure (ARF): Qualifiers: Acute renal failure type: unspecified Qualified Code(s): N17.9 - Acute kidney failure, unspecified Code(s): N17.9 - Acute kidney failure, unspecified Status: Acute Assessment and Plan: Creatinine has climbed to 4.5 but now unchanged today. No longer on lisinopril. Not on any nephrotoxic agents. Nephrology consulted and appreciate their input. No evidence of retention clinically or by scans past few days until yesterday. Retention may be playing so part in his ALEXA. Will follow Cr. Possible renal biopsy planned for tomorrow. Check UA to exclude UTI. (2) Acute metabolic encephalopathy: Code(s): G93.41 - Metabolic encephalopathy Status: Acute Assessment and Plan: Etiology related to lymphoma with hypercalcemia. No infectious process found. CT brain with small old lacunar infarct in the right frontal dsouza radiata but no acute changes. MRI brain with old lacunar infarct but no acute changes in brain. COVID-19 testing negative. Mental status worse today but could be related to poor sleeping. (3) Urine retention: Code(s): R33.9 - Retention of urine, unspecified Status: Acute Assessment and Plan: Patient with difficulty voiding yesterday. Bladder scan showed urine retention and Patel catheter placed. Renal ultrasound showing normal bladder on August 05. Nuclear medicine renal scan showed no abnormalities of the bladder on August 07. Unclear on why patient developed acute urine retention. Renal function was worsening during this time but creatinine unchanged today. Routine Patel care. Voiding trial once up and around. Treat constipation. (4) B-cell lymphoma: Qualifiers: B-cell lymphoma type: unspecified B-cell Lymphoma site: unspecified region Qualified Code(s): C85.10 - Unspecified B-cell lymphoma, unspecified site Code(s): C85.10 - Unspecified B-cell lymphoma, unspecified site Status: Acute Assessment and Plan: Appreciate input from Dr. Austin. MRI brain done to rule out CVA on 08/01/2019 revealed numerous enlarged bilateral cervical lymph nodes. Follow-up CT neck/chest/abdomen/pelvis reveals extensive lymphadenopathy in all areas. Ultrasound-guided lymph node biopsy from the right axilla completed on 08/02/2019 with pathology results showing CD5-negative, [id number] mature B-cell lymphoma. Patient will need additional work up and port placement but can be done as outpatient. General surgery consulted for Port placement but plan to be done as outpatient. (5) Hypercalcemia: Code(s): E83.52 - Hypercalcemia Status: Acute Assessment and Plan: Calcium elevated on admission to 12.3 with iPTH and PTHrp normal. Hypercalcemia related to the malignancy. Received dose of IV Zometa on 08/01. Started on subcutaneous calcitonin daily on 08/03/2019. Calcium stable at 10.8 today. (6) Hypertension: Qualifiers: Hypertension type: essential hypertension Qualified Code(s): I10 - Essential (primary) hypertension Code(s): I10 - Essential (primary) hypertension Status: Acute Assessment and Plan: Blood pressure reviewed on 08/11/2019. Blood pressure elevated yesterday but could be related to urine retention. Blood pressure better controlled this morning. Continue metoprolol, hydralazine and amlodipine. Lisinopril stopped with increasing creatinine. IV hydralazine still available as needed. Will continue to monitor for now; may need to maintain a higher pressure to perfuse the kidneys. (7) Elevated troponin: Code(s): R79.89 - Other specified abnormal findings of blood chemistry Status: Acute Assessment and Plan: Cardiology consulted and appreciate input. Troponin did peak at 0.384. Suspect type 2 infarct. Echocardiogram with EF 65-70, grade 1 diastolic dysfun
[2019-08-11 14:00] VITALS: BP 132/60; PULSE 70; RESP 16; TEMP 36.7; O2SAT 99
[2019-08-11 14:27] LABS: Add Urine Microscopic? YES; Appearance Urine Clear (Clear); Bacteria Urine Trace /hpf; Bilirubin Urine Negative (Negative); Blood Urine 3+ (Negative); Color Urine Yellow (Yellow); Glucose Urine UA 1+ mg/dL (Negative); Ketones Urine Negative (Negative); Leukocyte Esterase Ur 1+ LEU/UL (Negative); Mucus Urine Rare /lpf; Nitrate Urine Negative (Negative); Protein Urine 2+ mg/dL (Negative); RBC Urine 21-50 /hpf (0-2); Squamous Epithelial Cell Urine Rare /hpf (Few); Urobilinogen Urine Negative mg/dL (<2.0)
[2019-08-11] MEDS: polyethylene glycoL 3350 17 GM POWD.PACK PO (14:45)
[2019-08-11 16:27] LABS: Glucose Point of Care 109 (65-105)
[2019-08-11 20:58] VITALS: PULSE 78
[2019-08-11] MEDS: SIMVASTATIN 20 MG TABLET 40 MG PO (20:58)
[2019-08-11 21:46] LABS: Glucose Point of Care 122 (65-105)
[2019-08-11 22:00] VITALS: BP 152/62; PULSE 69; RESP 12; TEMP 37.1; O2SAT 97
[2019-08-12] VITALS (8 sets, daily range): BP systolic 147–162; BP diastolic 53–69; PULSE 65–70; RESP 14–20; TEMP 36.8–37.2; O2SAT 95–98
[2019-08-12] MEDS: hydrALAZINE HCL 25 MG TABLET PO ×2 (05:14→14:24)
[2019-08-12 05:24] LABS: Basophils Absolute Auto 0.1 K/mm3 (0.0-0.1); Basophils Percent Auto 0.3 % (0.2-1.2); Eosinophils Absolute Auto 0.1 K/mm3 (0-0.3); Eosinophils Percent Auto 0.5 % (0-4.4); Hematocrit 29.6 % (42.0-52.0); Hemoglobin 9.8 g/dL (14.0-18.0); Immature Granulocyte Absolute 0.05 K/mm3 (0.00-0.031); Immature Granulocyte Percent A 0.3 % (0-0.5); Lymphocytes Absolute Auto 11.27 K/mm3 (0.9-3.2); Lymphocytes Percent Auto 61.5 % (18.3-44.2); Mean Corpuscular HGB Conc 33.1 g/dl (32-36); Mean Corpuscular Volume 93.7 fl (80-100); Mean Platelet Volume 12.4 fl (7.4-10.4); Monocytes Absolute Auto 1.2 K/mm3 (0.1-0.6); Monocytes Percent Auto 6.3 % (2.6-8.5); Neutrophils Absolute Auto 5.7 K/mm3 (1.3-6.7); Neutrophils Percent Auto 31.1 % (45.5-73.1); Platelet Count Result 177 k/mm3 (150-375); Red Blood Count 3.16 M/mm3 (4.6-6.20); Red Cell Distribution Width 13.8 % (11.5-14.5); White Blood Count 18.3 K/mm3 (4.5-10.0)
[2019-08-12 05:32] LABS: INR 1.2; Prothrombin Time 15.1 Seconds (11.1-14.7)
[2019-08-12 05:33] LABS: Partial Thromboplastin Time 24.6 SECONDS (22.3-36.8)
[2019-08-12 05:39] LABS: Alanine Aminotransferase 19 U/L (4-50); Albumin Level 3.1 g/dL (3.5-5.1); Alkaline Phosphatase 68 U/L (38-126); Aspartate Amino Transferase 18 U/L (17-59); Bilirubin,Total 0.3 mg/dL (0.2-1.3); Blood Urea Nitrogen 47 mg/dL (9-20); Calcium 10.6 mg/dL (8.4-10.2); Carbon Dioxide 23 mmol/L (22-30); Chloride 111 mmol/L (98-107); Estimated CRCL calculation 12 ml/min; Estimated Glomerular Filt Rate 11; Glucose 101 mg/dL (75-110); Magnesium 2.3 mg/dL (1.6-2.3); Phosphorus 4.8 mg/dL (2.5-4.5); Potassium 3.9 mmol/L (3.4-5.0); Sodium 137 mmol/L (137-145)
[2019-08-12 07:33] LABS: Glucose Point of Care 94 (65-105)
[2019-08-12] MEDS: CHOLECALCIFEROL 1,000 UNIT TABLET 5000 UNITS PO (09:10)
[2019-08-12] MEDS: METOPROLOL TARTRATE 50 MG TAB PO ×2 (09:10→21:02)
[2019-08-12] MEDS: MULTIVITAMINS THERAPEUTIC TAB (*BKC) 1 TABLET PO (09:10)
[2019-08-12] MEDS: OMEGA 3 POLYUNSAT FATTY ACIDS 1 GM CAP PO (09:10)
[2019-08-12] MEDS: CYANOCOBALAMIN 1,000 MCG TABLET 1000 MCG PO (09:11)
[2019-08-12] MEDS: AMLODIPINE BESYLATE 5 MG TABLET 10 MG PO (09:11)
[2019-08-12] MEDS: FOLIC ACID 1 MG TABLET PO (09:11)
[2019-08-12] MEDS: polyethylene glycoL 3350 17 GM POWD.PACK PO (09:12)
[2019-08-12] MEDS: CALCITONIN SALMON INJ 400 UNITS/2 ML VIAL 100 UNITS SUB-Q (09:12)
[2019-08-12] MEDS: HEPARIN SODIUM 5,000 UNITS/ML VIAL 5000 UNITS SUB-Q (09:15)
--- NOTE | 2019-08-12 10:18 | PM.IMPN ---
Progress Note: A&P Assessment and Plan (1) Acute renal failure (ARF): Qualifiers: Acute renal failure type: unspecified Qualified Code(s): N17.9 - Acute kidney failure, unspecified Code(s): N17.9 - Acute kidney failure, unspecified Status: Acute Assessment and Plan: Creatinine has climbed to 5.1. No longer on lisinopril. Not on any nephrotoxic agents. Nephrology consulted and appreciate their input. No evidence of retention clinically or by scans past few days until yesterday. Retention may be playing a part in his ALEXA but Cr worse today. UA noted yesterday and Rocephin added. UCx pending. Will follow Cr. Possible renal biopsy planned for tomorrow. Consider steroids (AIN related to lymphoma). Spoke with Petar (son) ([phone]) who would like him transferred to [facility]. Explained that nothing urgent that necessitates transfer to [place] but patient can follow up with [facility] after discahrge. Discussed with him about the plan for the biopsy and he seems satisfied with the current plan. (2) B-cell lymphoma: Qualifiers: B-cell lymphoma type: unspecified B-cell Lymphoma site: unspecified region Qualified Code(s): C85.10 - Unspecified B-cell lymphoma, unspecified site Code(s): C85.10 - Unspecified B-cell lymphoma, unspecified site Status: Acute Assessment and Plan: Appreciate input from Dr. Austin. MRI brain done to rule out CVA on 08/01/2019 revealed numerous enlarged bilateral cervical lymph nodes. Follow-up CT neck/chest/abdomen/pelvis reveals extensive lymphadenopathy in all areas. Ultrasound-guided lymph node biopsy from the right axilla completed on 08/02/2019 with pathology results showing CD5-negative, [id number] mature B-cell lymphoma. General surgery consulted for Port placement but plan to be done as outpatient. (3) Acute metabolic encephalopathy: Code(s): G93.41 - Metabolic encephalopathy Status: Acute Assessment and Plan: Etiology related to lymphoma with hypercalcemia. No infectious process found. CT brain with small old lacunar infarct in the right frontal dsouza radiata but no acute changes. MRI brain with old lacunar infarct but no acute changes in brain. COVID-19 testing negative. Mental status worse yesterday but better today. Continue to monitor. (4) Hypercalcemia: Code(s): E83.52 - Hypercalcemia Status: Acute Assessment and Plan: Calcium elevated on admission to 12.3 with iPTH and PTHrp normal. Hypercalcemia related to the malignancy. Received dose of IV Zometa on 08/01. Started on subcutaneous calcitonin daily on 08/03/2019. Calcium stable at 10.6 today. (5) Hypertension: Qualifiers: Hypertension type: essential hypertension Qualified Code(s): I10 - Essential (primary) hypertension Code(s): I10 - Essential (primary) hypertension Status: Acute Assessment and Plan: Blood pressure reviewed on 08/12/2019. Blood pressure elevated at times with SBP running in the 130-160 range. Lisinopril stopped due to increasing creatinine. IV hydralazine available as needed. Will continue metoprolol, hydralazine and amlodipine. Hydralazine was advanced. Will continue to monitor. (6) Elevated troponin: Code(s): R79.89 - Other specified abnormal findings of blood chemistry Status: Acute Assessment and Plan: Cardiology consulted and appreciate input. Troponin did peak at 0.384. Suspect type 2 infarct. Echocardiogram with EF 65-70, grade 1 diastolic dysfunction. Patient remains stable. Will continue simvastatin and metoprolol. Will continue to monitor. Plan for outpatient ischemic evaluation. Resume aspirin when okay with Nephrology. (7) Coronary artery disease: Qualifiers: Associated angina: without angina Coronary Disease-Associated Artery/Lesion type: [place] artery [place] vs. transplanted heart: [place] heart Qualif
[2019-08-12 11:34] LABS: Glucose Point of Care 131 (65-105)
--- NOTE | 2019-08-12 16:06 | P.PNNP_ITS ---
Progress Note: A&P Assessment and Plan (1) Acute renal failure (ARF): Qualifiers: Acute renal failure type: unspecified Qualified Code(s): N17.9 - Acute kidney failure, unspecified Code(s): N17.9 - Acute kidney failure, unspecified Status: Acute Assessment and Plan: * etiology not entirely clear * creatinine continues to rise despite conservative therapy * due to hypercalcemia?? - if so, would have assumed improvement in renal function given improvement in calcium levels * noted blood and protein on urinalysis - this could be from HTN or DM but automimmune dissease/vasculilits is possible - serological evaluation ordered with some results noted * no critical electrolytes and making reasonable UOP * urine electrolytes suggest pre-renal azotemia - trial of IVFs not effective * related to lymphoma?? -- there are case reports of lymphoma causing ALEXA... * renal scan results noted * plan renal biopsy -- unfortunately, on full dose ASA since admission which make him high risk for bleeding - hold ASA for now (needs to be off at least for 5 days) - renal biopsy tomorrow * continue supportive therapy (2) Hypercalcemia: Code(s): E83.52 - Hypercalcemia Status: Acute Assessment and Plan: * improving * s/p zometa * related to suspected malignancy(?) (3) Hypertension: Qualifiers: Hypertension type: essential hypertension Qualified Code(s): I10 - Essential (primary) hypertension Code(s): I10 - Essential (primary) hypertension Status: Acute Assessment and Plan: * reasonable control * off lisinopril given #1 (4) Type 2 diabetes mellitus: Qualifiers: Diabetes mellitus complication status: without complication Diabetes [facility] insulin use: without executive admin use Qualified Code(s): E11.9 - Type 2 diabetes mellitus without complications Code(s): E11.9 - Type 2 diabetes mellitus without complications Status: Acute Assessment and Plan: * follow accuchecks * on SSI Will continue to follow. Subjective Date/time seen: 08/12/19 16:06 Fluctuating mentation noted; no new issues or problems to report at this time; arrington catheter placed on the assumption this was playing a role with renal dysfunction. Exam Narrative: Exam Narrative: General: WD/WN male in NAD Heart: normal S1 and S2; no rub Lungs: clear to auscultation Abdomen: soft, nontender, nondistended, positive bowel sounds Extremities: no cyanosis or clubbing; no edema Skin: warm and dry Objective Data Vital Signs Vital Signs: Vital Signs Temp Pulse Resp BP Pulse Ox 08/12/19 14:34 36.8 C 70 14 162/69 H 97 08/12/19 10:17 65 08/12/19 09:10 65 08/12/19 08:51 36.8 C 68 14 147/53 H 98 08/12/19 05:52 37.2 C 66 18 157/64 H 95 08/11/19 22:00 37.1 C 69 12 152/62 H 97 08/11/19 20:58 78 Intake/Output Intake/Output: Intake & Output 08/09/19 08/10/19 08/11/19 08/12/19 23:59 23:59 23:59 23:59 Intake Total 2720 3195 2670 1370 Output Total 770 1975 950 Balance 2720 2425 695 420 Meds/Results Medications: Active Medications Generic Name Dose Route Start Last Admin Trade Name Freq PRN Reason Stop Dose Admin Acetaminophen 650 mg
--- NOTE | 2019-08-12 16:06 | PM.PNNEP ---
Progress Note: A&P Assessment and Plan (1) Acute renal failure (ARF): Qualifiers: Acute renal failure type: unspecified Qualified Code(s): N17.9 - Acute kidney failure, unspecified Code(s): N17.9 - Acute kidney failure, unspecified Status: Acute Assessment and Plan: etiology not entirely clear creatinine continues to rise despite conservative therapy due to hypercalcemia?? - if so, would have assumed improvement in renal function given improvement in calcium levels noted blood and protein on urinalysis - this could be from HTN or DM but automimmune dissease/vasculilits is possible - serological evaluation ordered with some results noted no critical electrolytes and making reasonable UOP urine electrolytes suggest pre-renal azotemia - trial of IVFs not effective related to lymphoma?? -- there are case reports of lymphoma causing ALEXA... renal scan results noted plan renal biopsy -- unfortunately, on full dose ASA since admission which make him high risk for bleeding - hold ASA for now (needs to be off at least for 5 days) - renal biopsy tomorrow continue supportive therapy (2) Hypercalcemia: Code(s): E83.52 - Hypercalcemia Status: Acute Assessment and Plan: improving s/p zometa related to suspected malignancy(?) (3) Hypertension: Qualifiers: Hypertension type: essential hypertension Qualified Code(s): I10 - Essential (primary) hypertension Code(s): I10 - Essential (primary) hypertension Status: Acute Assessment and Plan: reasonable control off lisinopril given #1 (4) Type 2 diabetes mellitus: Qualifiers: Diabetes mellitus complication status: without complication 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 Subjective Date/time seen: 08/12/19 16:06 Fluctuating mentation noted; no new issues or problems to report at this time; arrington catheter placed on the assumption this was playing a role with renal dysfunction. Exam Narrative: Exam Narrative: General: WD/WN male in NAD Heart: normal S1 and S2; no rub Lungs: clear to auscultation Abdomen: soft, nontender, nondistended, positive bowel sounds Extremities: no cyanosis or clubbing; no edema Skin: warm and dry Objective Data Vital Signs Vital Signs: Vital Signs Temp Pulse Resp BP Pulse Ox 08/12/19 14:34 36.8 C 70 14 162/69 H 97 08/12/19 10:17 65 08/12/19 09:10 65 08/12/19 08:51 36.8 C 68 14 147/53 H 98 08/12/19 05:52 37.2 C 66 18 157/64 H 95 08/11/19 22:00 37.1 C 69 12 152/62 H 97 08/11/19 20:58 78 Intake/Output Intake/Output: Intake & Output 08/09/19 08/10/19 08/11/19 08/12/19 23:59 23:59 23:59 23:59 Intake Total 2720 3195 2670 1370 Output Total 770 1975 950 Balance 2720 2425 695 420 Meds/Results Medications: Active Medications Generic Name Dose Route Start Last Admin Trade Name Freq PRN Reason Stop Dose Admin Acetaminophen 650 mg 07/30/19 19:16 Tylenol Tablet PO Q4H PRN Mild Pain (1-3) or Fever Alprazolam 0.25 mg 08/01/19 17:04 08/10/19 22:08 Xanax PO 0.25 mg TID PRN Administration Anxiety Amlodipine Besylate 10 mg 08/04/19 07:38 08/12/19 09:11 Norvasc PO 10 mg QAM SLAVA Administration Aspirin 325 mg 07/31/19 09:00 08/08/19 09:57 Aspirin PO Not Given DAILY [facility] Calcitonin [place] 100 units 08/03/19 11:30 08/12/19 09:12 Miacalcin Inj SUB-Q 100 units QAM SLAVA Administration Cyanocobalamin 1,000 mcg 07/31/19 09:00 08/12/19 09:11 Vitamin B-12 Tab PO 1,000 mcg DAILY SLAVA Administration Dextrose 12.5 gm 07/31/19 17:07
[2019-08-12 16:35] LABS: Glucose Point of Care 106 (65-105)
[2019-08-12 17:51] LABS: ANCA Screen Negative (Negative)
[2019-08-12] MEDS: hydrALAZINE HCL 50 MG TABLET PO (21:02)
[2019-08-12] MEDS: SIMVASTATIN 20 MG TABLET 40 MG PO (21:02)
[2019-08-12 21:32] LABS: Anti Streptolysin O Screen <50 IU/mL (<200)
[2019-08-12 22:32] LABS: Glucose Point of Care 88 (65-105)
[2019-08-13 04:11] LABS: Abnormal Protein Band 1 4.3 g/dL; Albumin 2.8 g/dL (3.8-4.8); Alpha 1 Globulin 0.3 g/dL (0.2-0.3); Alpha 2 Globulin 0.6 g/dL (0.5-0.9); Beta 1 Globulin 0.3 g/dL (0.4-0.6); Gamma Globulin 4.4 g/dL (0.8-1.7); Protein, Total 8.6 g/dL (6.1-8.1)
[2019-08-13 05:12] VITALS: BP 125/41; PULSE 67; RESP 14; TEMP 37.1; O2SAT 97
[2019-08-13] MEDS: hydrALAZINE HCL 50 MG TABLET PO ×3 (05:18→20:57)
[2019-08-13 05:36] LABS: Basophils Percent Auto 0.2 % (0.2-1.2); Eosinophils Absolute Auto 0.1 K/mm3 (0-0.3); Eosinophils Percent Auto 0.6 % (0-4.4); Hematocrit 29.7 % (42.0-52.0); Hemoglobin 9.8 g/dL (14.0-18.0); Immature Granulocyte Absolute 0.07 K/mm3 (0.00-0.031); Immature Granulocyte Percent A 0.4 % (0-0.5); Lymphocytes Percent Auto 59.4 % (18.3-44.2); Mean Corpuscular Hemoglobin 30.9 pg (26-34); Mean Corpuscular Volume 93.7 fl (80-100); Mean Platelet Volume 12.6 fl (7.4-10.4); Monocytes Absolute Auto 1.2 K/mm3 (0.1-0.6); Monocytes Percent Auto 7.1 % (2.6-8.5); Neutrophils Absolute Auto 5.5 K/mm3 (1.3-6.7); Neutrophils Percent Auto 32.3 % (45.5-73.1); Platelet Count Result 167 k/mm3 (150-375); Red Blood Count 3.17 M/mm3 (4.6-6.20); Red Cell Distribution Width 13.7 % (11.5-14.5)
[2019-08-13 05:45] LABS: INR 1.1; Prothrombin Time 14.3 Seconds (11.1-14.7)
[2019-08-13 06:07] LABS: Blood Urea Nitrogen 51 mg/dL (9-20); Calcium 10.8 mg/dL (8.4-10.2); Carbon Dioxide 21 mmol/L (22-30); Chloride 110 mmol/L (98-107); Estimated CRCL calculation 11 ml/min; Estimated Glomerular Filt Rate 10; Glucose 104 mg/dL (75-110); Phosphorus 5.1 mg/dL (2.5-4.5); Potassium 3.9 mmol/L (3.4-5.0); Sodium 135 mmol/L (137-145)
[2019-08-13 06:17] LABS: Atypical Lymphocytes Present; Platelet Estimate Adequate (Adequate)
--- NOTE | 2019-08-13 08:00 | PC.NURSE ---
Pt NPO for procedure today. Morning medications held.
[2019-08-13 08:03] LABS: Glucose Point of Care 107 (65-105)
[2019-08-13 11:08] LABS: Glucose Point of Care 104 (65-105)
[2019-08-13 12:05] LABS: Anti Glomerular Basement Memb <1.0 AI (<1.0)
--- NOTE | 2019-08-13 12:31 | PC.NURSE ---
Pt off the floor 12:25 for biopsy procedure.
[2019-08-13 13:50] VITALS: BP 159/66; PULSE 69; RESP 18; TEMP 37.1; O2SAT 97
[2019-08-13] MEDS: CHOLECALCIFEROL 1,000 UNIT TABLET 5000 UNITS PO (13:52)
[2019-08-13] MEDS: CALCITONIN SALMON INJ 400 UNITS/2 ML VIAL 100 UNITS SUB-Q (13:52)
[2019-08-13] MEDS: MULTIVITAMINS THERAPEUTIC TAB (*BKC) 1 TABLET PO (13:53)
[2019-08-13] MEDS: METOPROLOL TARTRATE 50 MG TAB PO ×2 (13:53→20:10)
[2019-08-13] MEDS: AMLODIPINE BESYLATE 5 MG TABLET 10 MG PO (13:53)
[2019-08-13] MEDS: FOLIC ACID 1 MG TABLET PO (13:53)
[2019-08-13] MEDS: OMEGA 3 POLYUNSAT FATTY ACIDS 1 GM CAP PO (13:53)
[2019-08-13] MEDS: CYANOCOBALAMIN 1,000 MCG TABLET 1000 MCG PO (13:53)
[2019-08-13 13:56] VITALS: BP 121/57; BP 147/59; PULSE 75; PULSE 77; RESP 24; O2SAT 92; O2SAT 95
--- NOTE | 2019-08-13 15:00 | PM.IMPN ---
Progress Note: A&P Assessment and Plan (1) Acute renal failure (ARF): Qualifiers: Acute renal failure type: unspecified Qualified Code(s): N17.9 - Acute kidney failure, unspecified Code(s): N17.9 - Acute kidney failure, unspecified Status: Acute Assessment and Plan: Nephrology consulted and appreciate input. Etiology not clear. Creatinine continues to increase in up to 5.40 today. Urine culture remains pending with IV ceftriaxone in place. Not on any nephrotoxic agents. Has not been revealing thus far. Now status post renal biopsy today. Will continue to follow creatinine levels. Would like to see creatinine decrease prior to discharge. Urinary catheter is in place. (2) B-cell lymphoma: Qualifiers: B-cell lymphoma type: unspecified B-cell Lymphoma site: unspecified region Qualified Code(s): C85.10 - Unspecified B-cell lymphoma, unspecified site Code(s): C85.10 - Unspecified B-cell lymphoma, unspecified site Status: Acute Assessment and Plan: Appreciate input from Dr. Austin. MRI brain done to rule out CVA on 08/01/2019 revealed numerous enlarged bilateral cervical lymph nodes. Follow-up CT neck/chest/abdomen/pelvis reveals extensive lymphadenopathy in all areas. 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 General surgery consulted for Port placement. COVID-19 testing has now been initiated for eventual port placement. (3) Acute metabolic encephalopathy: Code(s): G93.41 - Metabolic encephalopathy Status: Acute Assessment and Plan: Etiology related to lymphoma with hypercalcemia. No infectious process found. CT brain with small old lacunar infarct in the right frontal dsouza radiata but no acute changes. MRI brain with old lacunar infarct but no acute changes in brain. COVID-19 testing negative on admission. Repeat testing initiated for other reasons as noted above. Mental status better today as compared to admission. Will continue to monitor. (4) Hypercalcemia: Code(s): E83.52 - Hypercalcemia Status: Acute Assessment and Plan: Calcium elevated on admission to 12.3 with iPTH and PTHrp normal. Hypercalcemia related to the malignancy. Received dose of IV Zometa on 08/02/2019. Started on subcutaneous calcitonin daily on 08/03/2019. Calcium stable at 10.8 today. Will follow. (5) Hypertension: Qualifiers: Hypertension type: essential hypertension Qualified Code(s): I10 - Essential (primary) hypertension Code(s): I10 - Essential (primary) hypertension Status: Acute Assessment and Plan: Blood pressure reviewed on 08/13/2019. Blood pressure still with mild elevation at times. Will continue metoprolol, hydralazine and amlodipine. Hydralazine also available as needed. No longer on lisinopril with increasing creatinine levels. Continue to monitor and adjust as needed. (6) Elevated troponin: Code(s): R79.89 - Other specified abnormal findings of blood chemistry Status: Acute Assessment and Plan: Cardiology consulted and appreciate input. Troponin did peak at 0.384. Suspect type 2 infarct. Echocardiogram with EF 65-70, grade 1 diastolic dysfunction. Patient remains stable. Will continue simvastatin and metoprolol. Will continue to monitor. Plan for outpatient ischemic evaluation. Plan to resume aspirin when okay with Nephrology. (7) Coronary artery disease: Qualifiers: Associated angina: without angina Coronary Disease-Associated Artery/Lesion type: [place] artery [place] vs. transplanted heart: [place] heart Qualified Code(s): I25.10 - Atherosclerotic heart disease of [place] coronary artery without angina pectoris Code(s): I25.10 - Atherosclerotic heart disease of [place] coronary artery without angina pectoris
[2019-08-13 16:59] LABS: Glucose Point of Care 117 (65-105)
[2019-08-13 20:10] VITALS: PULSE 75
[2019-08-13] MEDS: SIMVASTATIN 20 MG TABLET 40 MG PO (20:10)
[2019-08-13 20:14] LABS: Glucose Point of Care 204 (65-105)
[2019-08-13 20:15] VITALS: PULSE 75; RESP 24; O2SAT 92
[2019-08-13 20:16] VITALS: BP 124/70; PULSE 63; RESP 16; TEMP 37.1; O2SAT 95
[2019-08-14] VITALS (7 sets, daily range): BP systolic 154–166; BP diastolic 59–71; PULSE 55–75; RESP 14–18; TEMP 36.7–36.8; O2SAT 94–100
[2019-08-14] MEDS: hydrALAZINE HCL 50 MG TABLET PO ×3 (05:13→21:04)
[2019-08-14 06:26] LABS: Albumin Level 3.1 g/dL (3.5-5.1); Blood Urea Nitrogen 53 mg/dL (9-20); Calcium 10.6 mg/dL (8.4-10.2); Carbon Dioxide 21 mmol/L (22-30); Chloride 108 mmol/L (98-107); Estimated CRCL calculation 10 ml/min; Estimated Glomerular Filt Rate 9; Glucose 103 mg/dL (75-110); Phosphorus 5.3 mg/dL (2.5-4.5); Potassium 4.2 mmol/L (3.4-5.0); Sodium 135 mmol/L (137-145)
[2019-08-14 07:56] LABS: Glucose Point of Care 105 (65-105)
[2019-08-14] MEDS: AMLODIPINE BESYLATE 5 MG TABLET 10 MG PO (08:29)
[2019-08-14] MEDS: MULTIVITAMINS THERAPEUTIC TAB (*BKC) 1 TABLET PO (08:29)
[2019-08-14] MEDS: OMEGA 3 POLYUNSAT FATTY ACIDS 1 GM CAP PO (08:29)
[2019-08-14] MEDS: CYANOCOBALAMIN 1,000 MCG TABLET 1000 MCG PO (08:29)
[2019-08-14] MEDS: CHOLECALCIFEROL 1,000 UNIT TABLET 5000 UNITS PO (08:29)
[2019-08-14] MEDS: FOLIC ACID 1 MG TABLET PO (08:29)
[2019-08-14] MEDS: CALCITONIN SALMON INJ 400 UNITS/2 ML VIAL 100 UNITS SUB-Q (08:30)
[2019-08-14] MEDS: METOPROLOL TARTRATE 50 MG TAB PO ×2 (08:30→20:13)
--- NOTE | 2019-08-14 11:06 | PCNFU ---
Nutrition Follow-Up Complete: Involuntary weight loss related to decreased appetite as evidenced by reported 8 pound weight loss over 2 weeks prior to admission. Goal: Patient to consume 75% of meals/supplements or greater. Patient has met goal. No new goal. Pt current nutrition is DBCC. Nutrition recommendation:Agree Last recorded weight is 73.8 kg. Bowel Motility:Last reported BM 08/10 Labs Reviewed:PO4 5.3,Alb 3.1,Na 135,BUN 53,Cr 6.4 Meds Noted:MVI,Vit D, B12,Folic Acid Additional Notes: Spoke with nursing today for nutrition follow up due to COVID 19 precautions. Patient had Renal Biopsy 08/12. Possible Port Placement, Surgery has been consulted. Oral Intake has improved 75-100% of DBCC with Glucerna Shakes BID. No further nutritional interventions at this time. Monitoring: Follow up in 7 days.
[2019-08-14 11:34] LABS: Glucose Point of Care 117 (65-105)
--- NOTE | 2019-08-14 16:00 | P.PNNP_ITS ---
Progress Note: A&P Assessment and Plan (1) Acute renal failure (ARF): Qualifiers: Acute renal failure type: unspecified Qualified Code(s): N17.9 - Acute kidney failure, unspecified Code(s): N17.9 - Acute kidney failure, unspecified Status: Acute Assessment and Plan: * etiology not entirely clear * creatinine continues to rise despite conservative therapy * due to hypercalcemia?? - if so, would have assumed improvement in renal function given improvement in calcium levels * noted blood and protein on urinalysis - this could be from HTN or DM but automimmune dissease/vasculilits is possible - serological evaluation noted -- majority of tests negative... -- low complement levels -- abnormal SPEP/UPEP + immunofixation * no critical electrolytes and making reasonable UOP * urine electrolytes suggest pre-renal azotemia - trial of IVFs not effective * related to lymphoma?? -- there are case reports of lymphoma causing ALEXA... * renal scan results noted * renal biopsy yesterday -- pathology pending * continue supportive therapy (2) Hypercalcemia: Code(s): E83.52 - Hypercalcemia Status: Acute Assessment and Plan: * improving * s/p zometa * related to suspected malignancy(?) (3) Hypertension: Qualifiers: Hypertension type: essential hypertension Qualified Code(s): I10 - Essential (primary) hypertension Code(s): I10 - Essential (primary) hypertension Status: Acute Assessment and Plan: * reasonable control * off lisinopril given #1 (4) Type 2 diabetes mellitus: Qualifiers: Diabetes mellitus complication status: without complication 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 Subjective Date/time seen: 08/14/19 16:00 Unable to see yesterday as he was out of room getting his renal biopsy procedure - he tolerated it reasonably well; no apparent distress noted. Exam Narrative: Exam Narrative: General: WD/WN male in NAD Heart: normal S1 and S2; no rub Lungs: clear to auscultation Abdomen: soft, nontender, nondistended, positive bowel sounds Extremities: no cyanosis or clubbing; no edema Skin: no rash Objective Data Vital Signs Vital Signs: Vital Signs Temp Pulse Resp BP Pulse Ox 08/14/19 15:14 36.7 C 55 L 14 163/71 H 97 08/14/19 08:32 74 18 166/63 H 100 08/14/19 08:30 74 08/14/19 08:00 75 100 08/14/19 04:46 36.8 C 64 16 159/59 H 98 08/13/19 20:16 37.1 C 63 16 124/70 95 08/13/19 20:15 75 24 H 92 08/13/19 20:10 75 Intake/Output Intake/Output: Intake & Output 08/11/19 08/12/19 08/13/19 08/14/19 23:59 23:59 23:59 23:59 Intake Total 2670 2990 1780 1152 Output Total 1975 2350 2950 2025 Balance 449 173 -[phone] -873 Meds/Results Medications: Active Medications Generic Name Dose Route Start Last Admin Trade Name Ramonq PRN Reason Stop Dose Admin Acetaminophen 650 mg 07/30/19 19:16 Tylenol Tab
--- NOTE | 2019-08-14 16:00 | PM.PNNEP ---
Progress Note: A&P Assessment and Plan (1) Acute renal failure (ARF): Qualifiers: Acute renal failure type: unspecified Qualified Code(s): N17.9 - Acute kidney failure, unspecified Code(s): N17.9 - Acute kidney failure, unspecified Status: Acute Assessment and Plan: etiology not entirely clear creatinine continues to rise despite conservative therapy due to hypercalcemia?? - if so, would have assumed improvement in renal function given improvement in calcium levels noted blood and protein on urinalysis - this could be from HTN or DM but automimmune dissease/vasculilits is possible - serological evaluation noted -- majority of tests negative... -- low complement levels -- abnormal SPEP/UPEP + immunofixation no critical electrolytes and making reasonable UOP urine electrolytes suggest pre-renal azotemia - trial of IVFs not effective related to lymphoma?? -- there are case reports of lymphoma causing ALEXA... 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 Subjective Date/time seen: 08/14/19 16:00 Unable to see yesterday as he was out of room getting his renal biopsy procedure - he tolerated it reasonably well; no apparent distress noted. Exam Narrative: Exam Narrative: General: WD/WN male in NAD Heart: normal S1 and S2; no rub Lungs: clear to auscultation Abdomen: soft, nontender, nondistended, positive bowel sounds Extremities: no cyanosis or clubbing; no edema Skin: no rash Objective Data Vital Signs Vital Signs: Vital Signs Temp Pulse Resp BP Pulse Ox 08/14/19 15:14 36.7 C 55 L 14 163/71 H 97 08/14/19 08:32 74 18 166/63 H 100 08/14/19 08:30 74 08/14/19 08:00 75 100 08/14/19 04:46 36.8 C 64 16 159/59 H 98 08/13/19 20:16 37.1 C 63 16 124/70 95 08/13/19 20:15 75 24 H 92 08/13/19 20:10 75 Intake/Output Intake/Output: Intake & Output 08/11/19 08/12/19 08/13/19 08/14/19 23:59 23:59 23:59 23:59 Intake Total 2670 2990 1780 1152 Output Total 1975 2350 2950 2025 Balance 692 401 -0050 -764 Meds/Results Medications: Active Medications Generic Name Dose Route Start Last Admin Trade Name Freq PRN Reason Stop Dose Admin Acetaminophen 650 mg 07/30/19 19:16 Tylenol Tablet PO Q4H PRN Mild Pain (1-3) or Fever Alprazolam 0.25 mg 08/01/19 17:04 08/10/19 22:08 Xanax PO 0.25 mg TID PRN Administration Anxiety Amlodipine Besylate 10 mg 08/04/19 07:38 08/14/19 08:29 Norvasc PO 10 mg QAM SLAVA Administration Aspirin 325 mg 07/31/19 09:00 08/08/19 09:57 Aspirin PO Not Given DAILY [facility] Calcitonin [place] 100 units 08/03/19 11:30 08/14/19 08:30 Miacalcin Inj SUB-Q 100 units QAM SLAVA Administration Cyanocobalamin 1,000 mcg 07/31/19 09:00 08/14/19 08:29 Vitamin B-12 Tab PO 1,000 mcg DAILY SLAVA Administration Dextrose 12.5 gm 07/31/19 17:07 Dextrose 50% Syringe IV PUSH PRN PRN Hyp
[2019-08-14 16:23] LABS: Glucose Point of Care 126 (65-105)
--- NOTE | 2019-08-14 16:24 | PM.IMPN ---
Progress Note: A&P Assessment and Plan (1) Acute renal failure (ARF): Qualifiers: Acute renal failure type: unspecified Qualified Code(s): N17.9 - Acute kidney failure, unspecified Code(s): N17.9 - Acute kidney failure, unspecified Status: Acute Assessment and Plan: Nephrology consulted and appreciate input. Creatinine now up to 6.40 today. Renal biopsy results not available time my visit but nephrology did receive results afterwards findings consistent lymphoma. Nephrology to speak with family. Urinary catheter remains in place. Urine culture is negative and will discontinue IV ceftriaxone. Depending on how patient and family wish to proceed, could potentially discharge tomorrow as needs outpatient treatment for his lymphoma. (2) B-cell lymphoma: Qualifiers: B-cell lymphoma type: unspecified B-cell Lymphoma site: unspecified region Qualified Code(s): C85.10 - Unspecified B-cell lymphoma, unspecified site Code(s): C85.10 - Unspecified B-cell lymphoma, unspecified site Status: Acute Assessment and Plan: Appreciate input from Dr. Austin. MRI brain done to rule out CVA on 08/01/2019 revealed numerous enlarged bilateral cervical lymph nodes. Follow-up CT neck/chest/abdomen/pelvis reveals extensive lymphadenopathy in all areas. Ultrasound-guided lymph node biopsy from the right axilla completed on 08/02/2019 with pathology results showing CD5-negative, [id number] mature B-cell lymphoma. General surgery consulted for Port placement during this stay with plan to do as outpatient as will need chemotherapy. COVID-19 testing has now been initiated for eventual port placement and still pending. (3) Acute metabolic encephalopathy: Code(s): G93.41 - Metabolic encephalopathy Status: Acute Assessment and Plan: Etiology related to lymphoma with hypercalcemia. No infectious process found. CT brain with small old lacunar infarct in the right frontal dsouza radiata but no acute changes. MRI brain with old lacunar infarct but no acute changes in brain. COVID-19 testing negative on admission. Repeat testing initiated for other reasons as noted above. Mental status stable but does have some confusion. Will continue to monitor. (4) Hypercalcemia: Code(s): E83.52 - Hypercalcemia Status: Acute Assessment and Plan: Calcium elevated on admission to 12.3 with iPTH and PTHrp normal. Hypercalcemia related to the malignancy. Received dose of IV Zometa on 08/02/2019. Started on subcutaneous calcitonin daily on 08/03/2019. Calcium stable at 10.6 today. Will follow. (5) Hypertension: Qualifiers: Hypertension type: essential hypertension Qualified Code(s): I10 - Essential (primary) hypertension Code(s): I10 - Essential (primary) hypertension Status: Acute Assessment and Plan: Blood pressure reviewed on 08/14/2019. Blood pressure with persistent mild elevation but stable. Will continue metoprolol, hydralazine and amlodipine. Hydralazine also available as needed. No longer on lisinopril with increasing creatinine levels. Continue to monitor and adjust as needed. (6) Elevated troponin: Code(s): R79.89 - Other specified abnormal findings of blood chemistry Status: Acute Assessment and Plan: Cardiology consulted and appreciate input. Troponin did peak at 0.384. Suspect type 2 infarct. Echocardiogram with EF 65-70, grade 1 diastolic dysfunction. Patient remains stable. Will continue simvastatin and metoprolol. Will continue to monitor. Plan for outpatient ischemic evaluation. Plan to resume aspirin when okay with Nephrology. (7) Coronary artery disease: Qualifiers: Associated angina: without angina Coronary Disease-Associated Artery/Lesion type: [place] artery [place] vs. transplanted heart: [place] heart Qualified Code(s): I25.10 - Atherosclerotic heart disease of [place] my[place]
--- NOTE | 2019-08-14 16:44 | WPDONCPN ---
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 Plan is to start chemotherapy upon discharge and recovery of kidney function. Acute renal insufficiency. Not status post renal biopsy. Pathology is pending. Nephrology input is noted. Hypercalcemia. Secondary to lymphoma. Status post a matter treatment. Calcium has improved with improvement in mental status. I have discussed this case with patient's son also on the phone today and explained the situation in detail. - Time Spent With Patient Total time spent is greater than 50% in coordination of care (as documented) at patient's floor/unit and/or counseling patient: 15 - 25 minutes Subjective Interval history: Mature B-cell lymphoma Hypercalcemia Acute renal insufficiency Review of Systems - Review of Systems Patient is awake and alert. He denies any fevers and chills. Denies any abdominal pain and chest pain. No bleeding and bruising. - Neurologic Reports system reviewed and no additional complaints, except as documented, Reports abnormal speech, Reports confusion, Reports weakness, Denies abnormal gait, Denies behavioral changes, Denies headache(s), Denies numbness, Denies tingling Exam Vital signs: Denisse Villeda. Assessment of coma and impaired consciousness. A practical scale. Lancet 1974; 2:81-4. Narrative: Lungs are clear to auscultation bilaterally Cardiovascular regular rate rhythm no murmurs Abdomen soft nontender nondistended Extremities no edema PN: Objective Data - Labs CBC & Chem 7: 08/13/19 05:04 08/14/19 05:15 Labs: Laboratory Results - last 24 hr 08/08/19 08/09/19 08/13/19 11:28 05:57 16:51 Sodium Potassium Chloride Carbon Dioxide BUN Creatinine Estim Creat Clear Calc Estimated GFR Glucose POC Capillary Glucose 117 H Calcium Phosphorus Albumin Serum Immunofixation see below A Urine Immunofixation see below A 08/13/19 08/14/19 08/14/19 20:12 05:15 07:54 Sodium 135 L Potassium 4.2 Chloride 108 H Carbon Dioxide 21 L BUN 53 H Creatinine 6.40 H Estim Creat Clear Calc 10 Estimated GFR 9 L Glucose 103 POC Capillary Glucose 204 H 105 Calcium 10.6 H Phosphorus 5.3 H Albumin 3.1 L Serum Immunofixation Urine Immunofixation 08/14/19 08/14/19 11:32 16:21 Sodium Potassium Chloride Carbon Dioxide BUN Creatinine Estim Creat Clear Calc Estimated GFR Glucose POC Capillary Glucose 117 H 126 H Calcium Phosphorus Albumin Serum Immunofixation Urine Immunofixation
[2019-08-14] MEDS: SIMVASTATIN 20 MG TABLET 40 MG PO (20:11)
[2019-08-14 20:20] LABS: Glucose Point of Care 188 (65-105)
[2019-08-15 01:37] LABS: Cryoglobulin, QL Negative (Negative); SM Antibody <1.0; SM/RNP Antibody <1.0
[2019-08-15 01:37] LABS: Abnormal Protein Band 1 59 mg/dL; Creatinine, Random Urine 44 mg/dL (20-320); Total Protein/Creatinine Ratio 3205 mg/g creat (22-128)
[2019-08-15 04:24] VITALS: BP 146/51; PULSE 67; RESP 16; TEMP 37.1; O2SAT 97
[2019-08-15] MEDS: hydrALAZINE HCL 50 MG TABLET PO ×2 (05:03→13:37)
[2019-08-15 06:31] LABS: Blood Urea Nitrogen 55 mg/dL (9-20); Calcium 10.3 mg/dL (8.4-10.2); Carbon Dioxide 21 mmol/L (22-30); Chloride 108 mmol/L (98-107); Estimated CRCL calculation 9 ml/min; Estimated Glomerular Filt Rate 8; Glucose 104 mg/dL (75-110); Phosphorus 5.1 mg/dL (2.5-4.5); Potassium 4.1 mmol/L (3.4-5.0); Sodium 135 mmol/L (137-145)
--- NOTE | 2019-08-15 08:03 | PM.PNGS ---
Progress Note: A&P Assessment and Plan (1) Encounter for care related to Port-a-Cath: Code(s): Z45.2 - Encounter for adjustment and management of vascular access device Status: Acute Assessment and Plan: plan to proceed with Port-A-Cath placement tomorrow morning under anesthesia. The procedure the risks the benefits have been discussed. All questions were answered. Patient understands and agrees to go ahead. (2) B-cell lymphoma: Qualifiers: B-cell lymphoma type: unspecified B-cell Lymphoma site: unspecified region Qualified Code(s): C85.10 - Unspecified B-cell lymphoma, unspecified site Code(s): C85.10 - Unspecified B-cell lymphoma, unspecified site Status: Acute (3) Acute renal failure (ARF): Qualifiers: Acute renal failure type: unspecified Qualified Code(s): N17.9 - Acute kidney failure, unspecified Code(s): N17.9 - Acute kidney failure, unspecified Status: Acute Subjective Subjective Date/Time Seen: 08/15/19 08:03 needs Port-A-Cath for chemotherapy. Renal biopsies suggests lymphoma is likely cause of his renal failure. will need port placement to proceed with chemotherapy regardless of current renal dysfunction. Objective Data Vital Signs Vital Signs: Vital Signs - 24 hr 08/14/19 08:30 08/14/19 08:32 08/14/19 15:14 Temperature 36.7 C Pulse Rate 74 74 55 L Respiratory Rate 18 14 Blood Pressure 166/63 H 163/71 H Pulse Oximetry 100 97 08/14/19 19:32 08/14/19 20:13 08/15/19 04:24 Temperature 36.7 C 37.1 C Pulse Rate 67 74 67 Respiratory Rate 15 16 Blood Pressure 154/67 H 146/51 H Pulse Oximetry 94 97 Intake/Output Intake/Output: Intake & Output 08/12/19 08/13/19 08/14/19 08/15/19 23:59 23:59 23:59 23:59 Intake Total 2990 1780 1852 700 Output Total 2350 2950 2500 1050 Balance 640 -1170 -648 -350 Meds/Results Medications: Active Medications Generic Name Dose Route Start Last Admin Trade Name Freq PRN Reason Stop Dose Admin Acetaminophen 650 mg 07/30/19 19:16 Tylenol Tablet PO Q4H PRN Mild Pain (1-3) or Fever Alprazolam 0.25 mg 08/01/19 17:04 08/10/19 22:08 Xanax PO 0.25 mg TID PRN Administration Anxiety Amlodipine Besylate 10 mg 08/04/19 07:38 08/14/19 08:29 Norvasc PO 10 mg QAM SLAVA Administration Aspirin 325 mg 07/31/19 09:00 08/08/19 09:57 Aspirin PO Not Given DAILY SLAVA Calcitonin [place] 100 units 08/03/19 11:30 08/14/19 08:30 Miacalcin Inj SUB-Q 100 units QAM SLAVA Administration Cyanocobalamin 1,000 mcg 07/31/19 09:00 08/14/19 08:29 Vitamin B-12 Tab PO 1,000 mcg DAILY SLAVA Administration Dextrose 12.5 gm 07/31/19 17:07 Dextrose 50% Syringe IV PUSH PRN PRN Hypoglycemia Protocol Diphenhydramine HCl 25 mg 07/31/19 00:26 08/14/19 21:04 Benadryl Cap PO 25 mg HS PRN Administration Insomnia Docusate Sodium 100 mg 08/06/19 11:16 08/10/19 16:17 Colace Capsule PO 100 mg Q12H PRN Administration Constipation Fish Oil 1 gm 07/31/19 09:00 08/14/19 08:29 Lovaza PO 1 gm DAILY SLAVA Administration Folic Acid 1 mg 07/31/19 09:00 08/14/19 08:29 Folic Acid PO 1 mg QAM SLAVA Administration Glucagon 1 mg 07/31/19 17:07 Glucagon For Inj IM PRN PRN Hypoglycemia Protocol Glucose 15 gm 07/31/19 17:07 Glutose 15 PO PRN PRN Hypoglycemia Protocol Heparin Sodium (Porcine) 5,000 units 07/31/19 09:00 08/12/19 09:15 Heparin Sodium SUB-Q 5,000 units Q12HR SLAVA Administration Hydralazine HCl 10 mg 08/03/19 11:36 08/03/19 14:35 Apresoline Hcl Inj IV PUSH 10 mg Q6HR PRN Administration Blood Pressure - High Hydralazine HCl 50 mg 08/12/19 22:00 08/15/19 05:03 Apresoline Tablet PO 50 mg Q8HR SLAVA Administration Dextrose 1,000 mls @ 100 mls/hr 07/31/19 17:07 Dextrose 5% 1,000 Ml IVPB PRN PRN
[2019-08-15] MEDS: CHOLECALCIFEROL 1,000 UNIT TABLET 5000 UNITS PO (08:25)
[2019-08-15] MEDS: FOLIC ACID 1 MG TABLET PO (08:25)
[2019-08-15 08:27] VITALS: PULSE 76
[2019-08-15] MEDS: MULTIVITAMINS THERAPEUTIC TAB (*BKC) 1 TABLET PO (08:27)
[2019-08-15] MEDS: AMLODIPINE BESYLATE 5 MG TABLET 10 MG PO (08:27)
[2019-08-15] MEDS: CYANOCOBALAMIN 1,000 MCG TABLET 1000 MCG PO (08:27)
[2019-08-15] MEDS: OMEGA 3 POLYUNSAT FATTY ACIDS 1 GM CAP PO (08:27)
[2019-08-15] MEDS: METOPROLOL TARTRATE 50 MG TAB PO (08:27)
[2019-08-15] MEDS: polyethylene glycoL 3350 17 GM POWD.PACK PO (08:27)
[2019-08-15] MEDS: CALCITONIN SALMON INJ 400 UNITS/2 ML VIAL 100 UNITS SUB-Q (08:29)
[2019-08-15 08:41] LABS: Glucose Point of Care 107 (65-105)
[2019-08-15 12:36] LABS: Glucose Point of Care 114 (65-105)
--- NOTE | 2019-08-15 13:00 | PM.PNNEP ---
Progress Note: A&P Assessment and Plan (1) Acute renal failure (ARF): Qualifiers: Acute renal failure type: unspecified Qualified Code(s): N17.9 - Acute kidney failure, unspecified Code(s): N17.9 - Acute kidney failure, unspecified Status: Acute Assessment and Plan: RENAL BIOPSY: - kappa light chaine deposition disease - dense lymphoid inflitrate of CD20+/CD5- B-cells -- this is consistent with renal involvement by the patient's known lymphoproliferative disorder discussed with patient and son (by phone) in detail that treatment of his underlying lymphoma should hopefully improve renal function (2) Hypercalcemia: Code(s): E83.52 - Hypercalcemia Status: Acute Assessment and Plan: improving s/p zometa related to suspected malignancy(?) (3) Hypertension: Qualifiers: Hypertension type: essential hypertension Qualified Code(s): I10 - Essential (primary) hypertension Code(s): I10 - Essential (primary) hypertension Status: Acute Assessment and Plan: reasonable control off lisinopril given #1 (4) Type 2 diabetes mellitus: Qualifiers: Diabetes mellitus long goods drier insulin use: without long goods drier use Diabetes mellitus complication status: without complication Qualified Code(s): E11.9 - Type 2 diabetes mellitus without complications Code(s): E11.9 - Type 2 diabetes mellitus without complications Status: Acute Assessment and Plan: follow accuchecks on SSI Will continue to follow. Subjective Date/time seen: 08/15/19 13:00 No new issues or problems to report at this time; no events or issues overnight or earlier this AM; continues to make reasonably UOP in spite of rising creatinine. Exam Narrative: Exam Narrative: General: WD/WN male in NAD Heart: normal S1 and S2; no rub Lungs: clear to auscultation Abdomen: soft, nontender, nondistended, positive bowel sounds Extremities: no cyanosis or clubbing; no edema Skin: no rash Objective Data Vital Signs Vital Signs: Vital Signs Temp Pulse Resp BP Pulse Ox 08/15/19 08:27 76 08/15/19 04:24 37.1 C 67 16 146/51 H 97 08/14/19 20:13 74 08/14/19 19:32 36.7 C 67 15 154/67 H 94 08/14/19 15:14 36.7 C 55 L 14 163/71 H 97 Intake/Output Intake/Output: Intake & Output 08/12/19 08/13/19 08/14/19 08/15/19 23:59 23:59 23:59 23:59 Intake Total 2990 1780 1852 1290 Output Total 2350 2950 2500 1600 Balance 640 -1170 -648 -310 Meds/Results Medications: Active Medications Generic Name Dose Route Start Last Admin Trade Name Freq PRN Reason Stop Dose Admin Acetaminophen 650 mg 07/30/19 19:16 Tylenol Tablet PO Q4H PRN Mild Pain (1-3) or Fever Alprazolam 0.25 mg 08/01/19 17:04 08/10/19 22:08 Xanax PO 0.25 mg TID PRN Administration Anxiety Amlodipine Besylate 10 mg 08/04/19 07:38 08/15/19 08:27 Norvasc PO 10 mg QAM SLAVA Administration Aspirin 325 mg 07/31/19 09:00 08/08/19 09:57 Aspirin PO Not Given DAILY [facility] Calcitonin [place] 100 units 08/03/19 11:30 08/15/19 08:29 Miacalcin Inj SUB-Q 100 units QAM SLAVA Administration Chlorhexidine Gluconate 1 applic 08/16/19 05:00 Hibiclens TOPICAL 08/16/19 05:01 ONCE ONE Cyanocobalamin 1,000 mcg 07/31/19 09:00 08/15/19 08:27 Vitamin B-12 Tab PO 1,000 mcg DAILY SLAVA Administration Dexamethasone 40 mg 08/16/19 08:00 Dexamethasone Po PO 08/19/19 08:01 DAILY@0800 [facility] Dextrose 12.5 gm 07/31/19 17:07 Dextrose 50% Syringe IV PUSH PRN PRN Hypoglycemia Protocol Diphenhydramine HCl 25 mg 07/31/19 00:26 08/14/19 21:04 Benadryl Cap PO 25 mg HS PRN Administration Insomnia Docusate Sodium 100 mg 08/06/19 11:16 08/10/19 16:17 Colace Capsule PO 100 mg Q12H PRN Administration Constipation Fish Oil 1 gm 07/31/19 09
--- NOTE | 2019-08-15 13:14 | PM.IMPN ---
Progress Note: A&P Assessment and Plan (1) B-cell lymphoma: Qualifiers: B-cell lymphoma type: unspecified B-cell Lymphoma site: unspecified region Qualified Code(s): C85.10 - Unspecified B-cell lymphoma, unspecified site Code(s): C85.10 - Unspecified B-cell lymphoma, unspecified site Status: Acute Assessment and Plan: Appreciate input from Dr. Austin. MRI brain done to rule out CVA on 08/01/2019 revealed numerous enlarged bilateral cervical lymph nodes. Follow-up CT neck/chest/abdomen/pelvis reveals extensive lymphadenopathy in all areas. Ultrasound-guided lymph node biopsy from the right axilla completed on 08/02/2019 with pathology results showing CD5-negative, [id number] mature B-cell lymphoma. General surgery consulted for Port placement during this stay with plan to do as outpatient as will need chemotherapy. COVID-19 testing negative earlier in stay but new test initiated on 08/13/2019 with plan for port placement. Kidney biopsy now also with B-cell lymphoma. Discussed with patient and son, Petar, by phone. Son tells me has he spoken with, Dr. Sunday Forman, an oncologist at [facility] who has made contact with Dr. Rohit rC, oncologist at [facility] who is willing to accept patient in transfer. I spoke with Dr. Cr's assistant coach, Danelle, regarding patient who was able to tell me they are aware of patient and Dr. Cr is willing to accept. I then contacted [facility] and spoke with Dr. Portillo, fellow, who also agrees to accept patient in transfer. Dr. Austin and Dr. Andujar aware of family decision for transfer. Patient started on dexamethasone while here with patient and family in agreement. Dr. Rossi to be notified of decision for transfer as was to have port placement tomorrow. (2) Acute renal failure (ARF): Qualifiers: Acute renal failure type: unspecified Qualified Code(s): N17.9 - Acute kidney failure, unspecified Code(s): N17.9 - Acute kidney failure, unspecified Status: Acute Assessment and Plan: Nephrology consulted and appreciate input. Creatinine now up to 6.70 today. Renal biopsy results reveal B-cell lymphoma. Urinary catheter remains in place. Urine culture is negative with IV ceftriaxone stopped yesterday. Will now be followed at [facility]. (3) Acute metabolic encephalopathy: Code(s): G93.41 - Metabolic encephalopathy Status: Acute Assessment and Plan: Etiology related to lymphoma with hypercalcemia. No infectious process found. CT brain with small old lacunar infarct in the right frontal dsouza radiata but no acute changes. MRI brain with old lacunar infarct but no acute changes in brain. COVID-19 testing negative on admission. Repeat testing initiated for other reasons as noted above. Patient still with some confusion but he is aware of such. Stable at present. Will monitor. (4) Hypercalcemia: Code(s): E83.52 - Hypercalcemia Status: Acute Assessment and Plan: Calcium elevated on admission to 12.3 with iPTH and PTHrp normal. Hypercalcemia related to the malignancy. Received dose of IV Zometa on 08/02/2019. Started on subcutaneous calcitonin daily on 08/03/2019. Calcium remains stable at 10.3 today. (5) Hypertension: Qualifiers: Hypertension type: essential hypertension Qualified Code(s): I10 - Essential (primary) hypertension Code(s): I10 - Essential (primary) hypertension Status: Acute Assessment and Plan: Blood pressure reviewed on 08/15/2019. Blood pressure stable at present time. Will continue metoprolol, hydralazine and amlodipine. Hydralazine also available as needed. No longer on lisinopril with increasing creatinine levels. Continue to monitor while here. (6) Elevated troponin: Code(s): R79.89 - Other specified abnormal findings of blood chemistry Status: Acute Assessment and Plan: Cardiology consulted and appreciate input. John
[2019-08-15 13:39] VITALS: BP 133/69
[2019-08-15 14:31] VITALS: BP 144/66; PULSE 63; RESP 18; TEMP 36.7; O2SAT 98
--- NOTE | 2019-08-15 16:15 | PM.TDS ---
Transfer Discharge Sum: Prov Provider Date of admission: 08/02/19 10:53 Primary care physician: PHYSICIAN NOT ON STAFF Admitting clinician: Roxi Bejarano DO Attending physician on admission: Roxi Bejarano Consults: 07/30/19 19:18 Consult to Physician Routine Comment: Consulting Provider: Dulce Maria Garcia call center agent/MD group to consult: rtoy Reason for consultation: SOA, elevated trop Has provider been notified: Yes 08/02/19 Consult to Physician Routine Comment: OFFICE NOTIFIED OF CONSULT SPOKE WITH TERESA Consulting Provider: Pradeep Austin call center agent/MD group to consult: oncology Reason for consultation: extensive lymphadenopathy Has provider been notified: Yes 08/05/19 Consult to Physician Routine Comment: talked to office at 0830 Consulting Provider: Jacob Andujar call center agent/MD group to consult: Dr. Russell/Con Reason for consultation: acute renal failure Has provider been notified: Yes 08/09/19 Consult to Physician Routine Comment: 08/08 OFFICE NOTIFIED @ [phone] (,) Consulting Provider: Salvador Rossi call center agent/MD group to consult: Dr Galvan Reason for consultation: Port placement ( can be done as outpt) Has provider been notified: Yes Attending physician on discharge: Zoraida Young Discharging clinician: Zoraida Young Anticipated date of transfer: 08/15/19 Receiving physician/facility: Dr. Cr/[facility] DS: Admitting Diagnosis Admitting Diagnosis Admitting Diagnosis: Other specified abnormal findings of blood chemistry DS: Discharge Diagnosis Discharge Diagnosis (1) B-cell lymphoma: Qualifiers: B-cell lymphoma type: unspecified B-cell Lymphoma site: unspecified region Qualified Code(s): C85.10 - Unspecified B-cell lymphoma, unspecified site Code(s): C85.10 - Unspecified B-cell lymphoma, unspecified site Status: Acute (2) Acute renal failure (ARF): Qualifiers: Acute renal failure type: unspecified Qualified Code(s): N17.9 - Acute kidney failure, unspecified Code(s): N17.9 - Acute kidney failure, unspecified Status: Acute (3) Acute metabolic encephalopathy: Code(s): G93.41 - Metabolic encephalopathy Status: Acute (4) Hypercalcemia: Code(s): E83.52 - Hypercalcemia Status: Acute (5) Hypertension: Qualifiers: Hypertension type: essential hypertension Qualified Code(s): I10 - Essential (primary) hypertension Code(s): I10 - Essential (primary) hypertension Status: Acute (6) Elevated troponin: Code(s): R79.89 - Other specified abnormal findings of blood chemistry Status: Acute (7) Coronary artery disease: Qualifiers: Associated angina: without angina Coronary Disease-Associated Artery/Lesion type: [place] artery [place] vs. transplanted heart: [place] heart Qualified Code(s): I25.10 - Atherosclerotic heart disease of [place] coronary artery without angina pectoris Code(s): I25.10 - Atherosclerotic heart disease of [place] coronary artery without angina pectoris Status: Acute (8) Type 2 diabetes mellitus: Qualifiers: Diabetes mellitus complication status: without complication Diabetes mellitus termite control servicer insulin use: without fci use Qualified Code(s): E11.9 - Type 2 diabetes mellitus without complications Code(s): E11.9 - Type 2 diabetes mellitus without complications Status: Acute (9) Dyslipidemia: Code(s): E78.5 - Hyperlipidemia, unspecified Status: Acute Transfer Discharge Sum: Med Medications Active and Home Medications: Home Medications Adults Multivitamin 1 cap PO DAILY 07/30/19 [History Confirmed 07/30/19] aspirin 325 mg PO DAILY 07/30/19 [History Confirmed 07/30/19] coenzyme Q10 [CoQ-10] 200 mg PO DAILY 07/30/19 [History Confirmed 07/30/19] cyanocobalamin (vitamin B-12) [Vitamin B-12] 1,000 mcg PO DAILY 07/30/19 [History Confirmed 07/30/19]
--- NOTE | 2019-08-15 17:21 | WPDONCPN ---
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 Kidney biopsy or core came back positive for lymphoma. I started patient on pulsed dexamethasone 40 mg for 3 days while waiting to start chemotherapy. I was made aware by the primary care physician the patient is going to be transferred at [facility] for further care. Acute renal insufficiency. This is secondary to lymphoma does involvement of kidney. We will start pulsed dexamethasone while waiting to start chemotherapy. Hypercalcemia. Calcium level has improved. Case again discussed with the son on the phone. - Time Spent With Patient Total time spent is greater than 50% in coordination of care (as documented) at patient's floor/unit and/or counseling patient: 15 - 25 minutes Subjective Interval history: Mature B-cell lymphoma Hypercalcemia Acute renal insufficiency Review of Systems - Review of Systems Patient looks quite comfortable. He denies any chest pain and abdominal pain. Denies any fevers and chills. No bleeding and bruising. Remains tired and weak. - Neurologic Reports system reviewed and no additional complaints, except as documented, Reports abnormal speech, Reports confusion (at times), Reports weakness, Denies abnormal gait, Denies behavioral changes, Denies headache(s), Denies numbness, Denies tingling Exam Vital signs: Denisse Villeda. Assessment of coma and impaired consciousness. A practical scale. Lancet 1974; 2:81-4. Narrative: Lungs are clear to auscultation bilaterally Cardiovascular regular rate rhythm no murmurs Abdomen soft nontender nondistended bowel sounds are positive Extremities no edema PN: Objective Data - Labs CBC & Chem 7: 08/13/19 05:04 08/15/19 05:25 Labs: Laboratory Results - last 24 hr 08/08/19 08/09/19 08/09/19 11:43 05:57 05:57 Sodium Potassium Chloride Carbon Dioxide BUN Creatinine Estim Creat Clear Calc Estimated GFR Glucose POC Capillary Glucose Calcium Phosphorus Albumin Ur Random Creatinine 44 U Random Total Protein 141 H Protein/Creatinin Ratio 3205 H Urine Albumin 9 U Xkkwe-5-Nogkvgqo 4 U Gdbyj-2-Uobdzasa 6 U Beta Globulin 18 U Gamma Globulin 64 U Abnormal Prot Band 1 59 H U Abnormal Prot Band 2 Not Reportable U Abnormal Prot Band 3 Not Reportable Urine PEP Interpret see below A Cryoglobulin % Not Reportable Cryoglobulin Qualit Negative Sm (Swift) Antibody <1.0 SM/LACE PINNER IgG Antibody <1.0 08/14/19 08/15/19 08/15/19 20:18 05:25 08:34 Sodium 135 L Potassium 4.1 Chloride 108 H Carbon Dioxide 21 L BUN 55 H Creatinine 6.70 H Estim Creat Clear Calc 9 Estimated GFR 8 L Glucose 104 POC Capillary Glucose 188 H 107 Calcium 10.3 H Phosphorus 5.1 H Albumin 3.0 L Ur Random Creatinine U Random Total Protein Protein/Creatinin Ratio Urine Albumin U Ewipk-9-Pdisngfr U Fkths-6-Xxxutahs U Beta Globulin U Gamma Globulin U Abnormal Prot Band 1 U Abnormal Prot Band 2 U Abnormal Prot Band 3 Urine PEP Interpret Cryoglobulin % Cryoglobulin Qualit Sm (Swift) Antibody SM/LACE PINNER IgG Antibody 08/15/19 12:34 Sodium Potassium Chloride Carbon Dioxide BUN Creatinine Estim Creat Clear Calc Estimated GFR Glucose POC Capillary Glucose 114 H Calcium Phosphorus Albumin Ur Random Creatinine U Random Total Protein Protein/Creatinin Ratio Urine Albumin U Mgkae-6-Ozgkdxdq U Kcang-1-Usinsanx U Beta Globulin U Gamma Globulin U Abnormal Prot Band 1 U Abnormal Prot Band 2 U Abnormal Prot Band 3 Urine PEP Interpret Cryoglobulin % Cryoglobulin Qualit Sm (Swift) Antibody SM/LACE PINNER IgG Antibody
[2019-08-15 17:57] LABS: Glucose Point of Care 112 (65-105)
[2019-08-16 12:40] LABS: Chloride Rand Ur <20 mmol/L (32-290); Creatinine Random Urine 67 mg/dL (20-320)
[2019-08-17 13:22] LABS: SARS-CoV-2 RNA PCR Negative
== END 2019-08-15 19:05 | disposition short-term general hospital (02) | DRG 823 ==
LOC: ANHED 19:17 → ANHIMU 19:35 → ANHICU 07-31 01:21 → ANHIMU 07-31 15:21 → ANH3MED 08-03 08:56 → ANHIMU 08-16 09:43
PROVIDERS: Family Medicine; Internal Medicine; Internal Medicine Cardiovascular Disease; Internal Medicine Nephrology; Admitting Provider Internal Medicine; Emergency Provider Emergency Medicine; Visit Provider Hospitalist
DX: C85.11 Unspecified B-cell lymphoma, lymph nodes of head, face, and neck (principal); G93.41 Metabolic encephalopathy; I21.A1 Myocardial infarction type 2; N17.9 Acute kidney failure, unspecified; D80.8 Other immunodeficiencies with predominantly antibody defects; Z03.818 Encounter for observation for suspected exposure to other biological agents ruled out; E83.52 Hypercalcemia; E11.9 Type 2 diabetes mellitus without complications; I10 Essential (primary) hypertension; I25.10 Atherosclerotic heart disease of native coronary artery without angina pectoris; Z86.73 Personal history of transient ischemic attack (TIA), and cerebral infarction without residual deficits; E78.5 Hyperlipidemia, unspecified; Z95.1 Presence of aortocoronary bypass graft
CPT/HCPCS: 36415; 38505; 50200; 70450; 70490; 70551; 71046; 71250; 74176; 76775; 76942; 78707; 80048; 80053; 80061; 80069; 80074; 81001; 81050; 82436; 82550; 82570; 82595; 82728; 83519; 83520; 83615; 83735; 83880; 83970; 84100; 84155; 84156; 84165; 84166; 84300; 84439; 84443; 84480; 84484; 85025; 85027; 85380; 85610; 85730; 85999; 86021; 86038; 86060; 86140; 86160; 86225; 86235; 86334; 86335; 86706; 87086; 87635; 88184; 88300; 88305; 88313; 88329; 88342; 88346; 88348; 88350; 93005; 93306; 93880; 96361; 96372; 96374; 96375; 96376; 97110; 97116; 97161; 97165; 97530; 97535; 99285; A9270; A9562; C9803; G0378; J0360; J0630; J0696; J1644; J3489; J7030; J7040; J7050; U0003

== ENCOUNTER 2024-09-11 10:33 | Outpatient (CLI) | payer MEDICARE, SELFPAY ==
--- NOTE | ~2024-09-11 | MR_ITS ---
MRI of the brain Clinical History: Dizziness and giddiness Technique: Axial and sagittal T1-weighted images were acquired. These were followed by axial T2-weigh linn, diffusion weighted, gradient, and FLAIR images. Following intravenous administration of 15 cc Pr oHance gadolinium, T1-weighted fat-sat imaging was performed in the axial, coronal, and sagittal plan es. Findings: There is no acute infarct, acute intracranial hemorrhage or mass lesion. A few low signal f oci and gradient images suggest sequela of prior remote mammogram images. There is extensive chronic microvascular ischemic change in the periventricular white matter bilaterally. Ventricles and subarachnoid spaces are mildly dilated. Orbits are unremarkable. Paranasal sinuses and left mastoid air cells are clear. There is right mastoid effusion. Major intracranial flow voids are intact. Sagittal midline structures are intact. No abnormal postcontrast enhancement identified. IMPRESSION: No acute abnormality. Extensive chronic microvascular ischemic change. Several scattered focal prior microhemorrhages. Right mastoid effusion. Reviewed, dictated and finalized at [facility].
--- OUTSIDE RECORDS SUMMARY | 2024-09-11 12:05 | XMS_ITS | Encounter Summary ---
Author Organization [facility] Healthcare Address [address] [place] [address] Care Team Providers Care Ornithology Teacher Name Role Phone Kathleen Paz LEVERS LACE MACHINE OPERATOR Primary Care Provider [phone] Rohit Cr MD PhD Unavailable [phone] Annabella Washington Primary Care Pr ovider Kathleen Paz LEVERS LACE MACHINE OPERATOR Primary Care Provider [phone] Annabella Washington Primary Care Pr ovider Toney Godinez MD Unavailable Encounter Details Date Type Department Care Team (Late st Contact Info) Description 09/18/2019 Telephone [facility] [address] [place] [id number] Elvira Emmanuel RT Social History Tobacco Use Types Packs/Day Years Used Date Smoking Tobacco: Never Smokeless Tobacco: Never Alcohol Use Standard Drinks/Week Comments No 0 (1 standard drink = 0.6 oz pur e alcohol) Sex and Gender Information Value Date Recorded Sex Assigned at Not on file Legal Sex 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 Patient meets criteria for COVID-19 isolation discontinuation. Fifi Contreras RN Automatically added due to negative COVID-19 result. 04/09/2020 04/09/2020 04/09/2020 11:41 PM FRAME PULLEY MORTISING MACHINE OPERATOR documented as of this encounter Care Teams Ornithology Teacher Relationship Specialty Start Date End Date Kathleen Paz NP [address] [facility] [address] [place] [address] PCP - General Nurse Practitioner 08/13/19 04/11/20 Annabella Washington PA [address] [facility] [address] [place] [address] PCP - General 04/12/20 04/12/20 Kathleen Paz NP [address] [facility] [address] [place] [address] PCP - General 04/13/20 04/15/20 Annabella Washington PA [address] [facility] [address] [place] [address] PCP - General Physician Barrel Waterer 04/16/20 Rohit Cr MD PhD [address] [facility] [address] [place] [address] Medical Oncologist/Diamond Grader Medical Oncology 08/28/19 Toney Godinez MD [address] [facility] [address] [place] [address] Consulting Physician Nephrology 09/16/21 documented as of this encounter
--- OUTSIDE RECORDS SUMMARY | 2024-09-11 12:05 | XMS_ITS | Continuity of Care Document ---
Author Organization [facility] Address [address] [place] [address] Phone Care Team Providers Care Talent Advisor Name Role Phone Tc Madison MD Unavailable Unavailable Advance Directives Directive Yes / No Effective Date File Name No Information Encounters Encounter Description Practice Location Reason(s) For Visit Diagnoses Date Provider Providers Copied on Encounter [facility], [address], [place], [place], [id number], [place] tel:[phone] [facility] No Information [place] [address], [address], [place], [address], [place]. tel:[phone] Family History Family Member Type Diagnosis Age At Onset No Information Payers Payer name Insurance type Covered green party ID Authoriza tion(s) No Information Social History Type Description Quantity Date Captured Comments Sex Male Smoking Status No Information Chief Complaint And Reason For Visit No Information Reason For Referral Reason For Referral No Information History Of Present Illness Encounter Date Complaint History Of Prese nt Illness No Information Functional Status Date Functional Assessmen t No Information Instructions Date Instruction Additional Infor mation No Information Assessments Type Assessment Date No Information Patient Care Teams Name Effective Dates (start - stop) Status Members No Information
--- OUTSIDE RECORDS SUMMARY | 2024-09-11 12:05 | XMS_ITS | Encounter Summary ---
Author Organization [facility] Address [address] [place] [address] Phone Care Team Providers Care Agency Recruiter Name Role Phone Rohit Cr MD PhD Unavailable [phone] Annabella Washington Primary Care Pr ovider Toney Godinez MD Unavailable Encounter Details Date Type Department Care Team (Late st Contact Info) Description 02/19/2024 Telephone [facility] Scheduling [address] [place] [address] Belen Soto Social History Tobacco Use Types Packs/Day Years Used Date Smoking Tobacco: Never Passive Smoke Exposure: Never Smokeless Tobacco: Never Alcohol Use Standard Drinks/Week Comments No 0 (1 standard drink = 0.6 oz pur e alcohol) Sex and Gender Information Value Date Recorded Sex Assigned at Not on file 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
--- OUTSIDE RECORDS SUMMARY | 2024-09-11 12:05 | XMS_ITS | Clinical Summary ---
Author Organization [facility] Address [address] [place] [address] Care Team Providers Care Extruding Press Adjuster Name Role Phone Rohit Cr MD PhD Unavailable [phone] [facility] Pr ovider Toney Godinez MD Unavailable Allergies Active Allergy Reactions Criticality Noted Date Comments Rituximab Shortness of breath,Chills High 0 Medications diphenhydrAMINE (BENADRYL) 25 mg capsule take 1 capsule by oral route every 4 - 6 hours as needed 0 0 5 Active allopurinoL (ZYLOPRIM) 100 mg tabletIndication s:Prevent Tumor Lysis Syndrome Take 1 tablet (100 mg total) by mouth daily 30 tablet 11 0 Active amLODIPine (NORVASC) 10 mg tabletIndication s:Weakness,Kishore marginal zone B-cell lymphoma (HCC) Take 1 tablet (10 mg total) by mouth daily 30 tablet 11 0 Active blood-glucose meter miscIndications: Other specified diabetes mellitus with other specified complication, unspecified whether long distance operator insulin use (HCC) 1 each 3 (three) times a day 1 each 0 Active blood glucose diagnostic (glucose blood) stripIndications :Other specified diabetes mellitus with other specified complication, unspecified whether long distance operator insulin use (HCC) Use to test blood glucose 3 times daily 200 each 0 Active dapagliflozin-me tformin 5-1,000 mg tablet, IR & ER, biphasic 24hrIndications: type 2 diabetes mellitus Take 1 tablet by mouth daily 30 tablet 0 Active blood glucose diagnostic (OneTouch Ultra Blue Test Strip) strip OneTouch Ultra Blue Test Strip Active blood-glucose meter misc OneTouch Ultra2 Meter U UTD Active levothyroxine (SYNTHROID) 50 mcg tablet 1 Active blood-glucose meter miscIndications: Kishore marginal zone B-cell lymphoma (HCC) OneTouch Ultra2 Meter USE DIRECTED DAILY Active blood glucose diagnostic (OneTouch Ultra Test) stripIndications :Kishore marginal zone B-cell lymphoma (HCC) OneTouch Ultra Test strips USE 1 STRIP TO TEST BLOOD SUGAR DAILY Active blood glucose diagnostic (OneTouch Ultra Test) stripIndications :Kishore marginal zone B-cell lymphoma (HCC) USE 1 STRIP TO TEST BLOOD SUGAR DAILY Active senna (SENOKOT) 8.6 mg tabletIndication s:HOLD FOR DIARRHEA Take 1 tablet by mouth daily 30 tablet 11 2 Active prochlorperazine (Compazine) 10 mg tabletIndication s:Multiple myeloma not having achieved remission (HCC) Take 1 tablet (10 mg total) by mouth every 6 (six) hours as needed for nausea or vomiting 120 tablet 3 2 Active glimepiride (AMARYL) 1 mg tablet TAKE 1 TABLET BY MOUTH EVERY DAY AT DINNER 2 Active oxyCODONE (ROXICODONE) 5 mg immediate release tabletIndication s:Multiple myeloma not having achieved remission (HCC) Acti ve atorvastatin (LIPITOR) 40 mg tablet TAKE 1 TABLET(40 MG) BY MOUTH DAILY 90 tablet 3 3 Active lancets (OneTouch Delica Lancets) 33 gauge miscIndications: Multiple myeloma not having achieved remission (HCC) OneTouch Delica Lancets 33 gauge USE ONE TIME DAILY DIRECTED. Active loratadine (CLARITIN) 10 mg tablet Take 1 tablet (10 mg total) by mouth every morning 3 Active aspirin 81 mg enteric coated tablet Take 1 tablet (81 mg total) by mouth daily Active sodium bicarbonate 650 mg tabletIndication s:Multiple myeloma not having achieved remission (HCC) Take 1 tablet (650 mg total) by mouth 2 (two) times a day Active ergocalciferol (VITAMIN D) 50,000 unit capsuleIndicatio ns:Kishore marginal zone B-cell lymphoma (HCC) Take 1 capsule (50,000 Units total) by mouth every 30 (thirty) days 3 capsule 3 4 Active lisinopriL (PRINIVIL,ZESTRI L) 5 mg tablet TAKE 1 TABLET(5 MG) BY MOUTH DAILY 90 tablet 3 4 Active gabapentin (NEURONTIN) 100 mg capsuleIndicatio ns:Kishore marginal zone B-cell lymphoma (HCC),Idiopathic peripheral neuropathy TAKE 2 CAPSULES(200 MG) BY MOUTH THREE TIMES DAILY 180 capsule 2 4 Active acyclovir (ZOVIRAX) 400 mg tabletIndication s:Kishore marginal zone B-cell lymphoma (HCC) TAKE 1 TABLET BY MOUTH DAILY 90 tablet 3 4 Active nitroglycerin (NITROSTAT) 0.4 mg SL tabletIndication s: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 started 08/15 BMT/IEC/DCI Plan Clinical Trial Inpatient Floor 8800 Reason for Admission New Lymphoma Transplant/IEC Planning Patient Education Completed Consents Done IDOh Insurance Approvals/Issues Discharge Planning Anticipated Discharge Date 08/26 Issue to be Resolved Before Discharge Diagnosis Living Situation/Distance from [facility] Discharge To Home Caregiver Spouse Requests sent to Case Management and/or Medical Assistants 08/15 Sent request to [facility] to order OSH Path/Slides for LN bsx and Kidney bsx Post-Discharge Followup/Local Care Consult with Shaye 09/04 and cycle 2 R-CVP Labs 08/29 Labs/line care 09/01 Sent ambulatory referral to Nephrology for follow up within 1-2 weeks r/t new ALEXA Televisit Consent Active myChart Miscellaneous Notes: Patient will not be able to get Neulasta with Cycle 1 since he will remain inpatient, he will receive GCSF while inpatient Problem Noted Date Diagnosed Date Multiple myeloma not having achieved remission 0 10/08/2021 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 Recently diagnosed after presenting to OSH 07/29 with weakness and confusion, found to have hypercalcemia and ALEXA. Disease involves lymph nodes, bone, kidneys. S/p kidney biopsy with lymphomatous involvement. 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 Assessment & Plan (09/26/2019 11:13 PM CDT): Continue home ASA, simva, metop, amlodipine Hypertension associated with diabetes 10/01/2015 Overview (06/30/2016): HTN (hypertension), benign History of coronary artery bypass surgery 2015 Overview (06/30/2016): 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 ([facility]/HCC) 10/01/2015 Overview (06/30/2016): DM type 2 with diabetic dyslipidemia Resolved Problems Problem Noted Date Diagnosed Date Resolved Date Sepsis 04/14/2020 04/14/2020 Encounters Date Type Department Care Team Description 07/18/2024 9:45 AM CDT Office Visit [facility] [address] [place] [address] 6 [place] [address] Rohit Cr MD PhD Multiple myeloma not having achieved remission (HCC) 07/18/2024 9:15 AM CDT Lab [facility] - Lab Collection [address] [place] [address] 6 [place] [address] Multiple myeloma not having achieved remission (HCC) 07/18/2024 8:45 AM CDT Lab [facility] On[facility] [address] [place] [phone] Multiple myeloma not having achieved remission (HCC) 07/12/2024 Orders Only [facility] [address] [place] [address] Bridger Parada MD PhD Neoplasm of unspecified behavior of bone, soft tissue, and skin 07/11/2024 4:15 PM CDT Office Visit [facility] [address] [place] [address] 6 [place] [id number] Bridger Parada MD PhD Neoplasm of unspecified behavior of bone, soft tissue, and skin (Primary Dx); Multiple benign nevi; Seborrheic keratosis; Quispe angioma; Lentigines; History of nonmelanoma skin cancer from Last 3 Months Surgical History Surgery Date Site/Laterality Comments CORONARY ARTERY BYPASS GRAFT 03/27/2010 - 03/26/2011 Coronary Artery Bypass Graft CENTRAL LINE PLACEMENT > 5 YEARS 08/17/2019 N/A CARDIAC SURGERY SUPERFICIAL BONE BIOPSY 04/08/2020 N/A Medical History Medical History Date Comments Cardiovascular disease Coronary Artery Disease Hypertension Hypertension Hx Other Medical Diabetes Type I I Sleep apnea Sleep Apnea Coronary artery disease Diabetes mellitus (HCC) Cancer (HCC) Family History Medical History Relation Name Comments Lymphoma Brother 1 Other Brother 2 DM; Cause of De ath: DM Stroke Father Stroke; Cause o f : Stroke Heart attack Mother Myocardial Infa rction; Cause of : Myocardial Infarction Relation Name Status Comments Brother 1 (Age 69) Brother 2 Father (Age 85) Mother (Age 85) Social History Tobacco Use Types Packs/Day Years Used Date Smoking Tobacco: Never Passive Smoke Exposure: Never Smokeless Tobacco: Never Tobacco Cessation:Counseling Given: Not Answered Alcohol Use Standard Drinks/Week Comments No 0 (1 standard drink = 0.6 oz pur e alcohol) Sex and Gender Information Value Date Recorded Sex Assigned at Not on file Legal Sex 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 Gender Identity Not on file Sexual Orientation Not on file Obstetrics History Last Filed Vital Signs Vital Sign Reading Time Taken Comments Blood Pressure 135/72 07/18/2024 9:27 AM CDT Pulse 68 07/18/2024 9:24 AM CDT Temperature 36.5 C (97.7 F) 07/18/2024 9:24 AM CDT Respiratory Rate 18 07/18/2024 9:24 AM CDT Oxygen Saturation 98% 07/18/2024 9:2 4 AM CDT Inhaled Oxygen Concentration - - Weight 80.3 kg (177 lb) 07/18/2024 9:24 AM CDT Height 169.3 cm (5' 6.65) 05/23/2024 1 0:36 AM CATTLE RANCHER measured without shoes-hp Body Mass Index 28.01 05/23/2024 10:36 AM CATTLE RANCHER Plan of Treatment Health Maintenance Due Date Last Done Comments Depression Screening 1945 Dilated Eye Exam 1945 Foot Exam 1945 DTaP/Tdap/Td Vaccine (1 - Tdap) 1956 Hepatitis B Screening 11/14/1963 Pneumococcal vaccine 65+ (1 of 2 - PCV) 1964 Zoster Vaccine (1 of 2) 1964 Well Visit 65+ 2010 Hemoglobin A1C 03/29/2020 09/27/2019 Fall Risk Assessment 06/10/2022 06/10/2021, 04/14/2020, 09/04/2019 Albumin Creatinine Ratio, Urine 10/12/2024 4 Influenza Vaccine (Season Ended) 2024 Lipid Panel 03/29/2025 03/29/2024, 06/26, 01/13/2022, Additional history exists eGFR 07/18/2025 07/18/2024, 04/28, 01/25/2024, Additional history exists Hepatitis C Screening Completed 08/15/2019 Procedures Procedure Name Priority Date/Time Associated Diagnosis Comments EGFR Routine 07/18/2024 8:59 AM CDT Multiple myeloma not having achieved remission (HCC) DIFFERENTIAL AUTO Routine 07/18/2024 8:5 9 AM CDT Multiple myeloma not having achieved remission (HCC) CBC WITH AUTO DIFFERENTIAL Routine 07/18/2024 8:59 AM CDT Multiple myeloma not having achieved remission (HCC) COMPREHENSIVE METABOLIC PANEL Routine 07/18/2024 8:59 AM CDT Multiple myeloma not having achieved remission (HCC) IGA Routine 07/18/2024 8:59 AM CDT Multiple myeloma not having achieved remission (HCC) IGG Routine 07/18/2024 8:59 AM CDT Multiple myeloma not having achieved remission (HCC) IGM Routine 07/18/2024 8:59 AM CDT Multiple myeloma not having achieved remission (HCC) IMMUNOGLOBULIN FREE LIGHT CHAINS Routine 07/18/2024 8:59 AM CDT Multiple myeloma not having achieved remission (HCC) LACTATE DEHYDROGENASE Routine 07/18/2024 8:59 AM CDT Multiple myeloma not having achieved remission (HCC) PROTEIN ELECTROPHORESIS, WITH REFLEX, SERUM Routine 07/18/2024 8:59 AM CDT Multiple myeloma not having achieved remission (HCC) SURGICAL PATHOLOGY Routine 07/11/2024 12 :00 AM CDT Neoplasm of unspecified behavior of bone, soft tissue, and skin POCT LIPID PANEL Routine 03/29/2024 8:43 AM CATTLE RANCHER Lipid screening ALBUMIN CREATININE RATIO, URINE Routine 10/13/2023 4:57 PM CDT Stage 3a chronic kidney disease (HCC) HEMOGLOBIN A1C Routine 09/27/2019 2:46 AM CDT HEPATITIS PANEL, ACUTE Routine 11:16 PM CDT from Last 3 Months or Most Recently Relevant to Health Maintenance Results * (ABNORMAL) eGFR (07/18/2024 8:59 AM CDT) eGFR 47(L) >=60 mL/min/1. 73 m2 Comment: Interpretive Data Reference Interval Normal >/= 90 mL/min/1.73m2 Mildly decreased* 60 - 89 mL/min/1.73m2 Mildly to moderately decreased 45 - 59 mL/min/1.73m2 Moderately to severely decreased 30 - 44 mL/min/1.73m2 Severely decreased 15 - 29 mL/min/1.73m2 Kidney Failure < 15 mL/min/1.73m2 *Relative to young adult level Estimated glomerular filtration rate is determined by the 2020 CKD-EPI equation recommended by the National Kidney Foundation (A Unifying Approach to GFR Estimation: Recommendations of the NKF-ASK Task Force on Reassessing the Inclusion of Race in Diagnosing Kidney Disease, JASN 202). The CKD-EPI equation should not be used for patients with unstable renal function and has not been validated in children and those over 70. Current interpretive data was last reviewed 2021. Blood 07/18/2024 8:59 AM CDT 07/18/2024 11:06 AM CDT Chandrika Persaud Gallina ELECTRICIAN ELEVATOR MAINTENANCE LAB BLOOD ORDERABLES Final Res ult [facility] [place] [address] * (ABNORMAL) Differential, auto (07/18/2024 8:59 AM CDT) Neutrophil abs 5.29 1.50 - 6.50 K/cumm Comment:Testing performed by : [facility], [address] [place] [phone] Lymphocyte abs 0.60(L) 0.80 - 3.30 K/cumm BRYANT CHARLES Comment:Testing performed by : [facility], [address] [place] [phone] Monocyte abs 0.67 0.20 - 0.80 K/cumm BRYANT CHARLES Comment:Testing performed by : [facility], [address] [place] [id number] Eosinophil abs 0.09 0.00 - 0.50 K/cumm BRYANT CHARLES Comment:Testing performed by : [facility], [address] [place] [phone] Basophil abs 0.02 0.00 - 0.10 K/cumm BRYANT CHARLES Comment:Testing performed by : [facility], [address] [place] [phone] Neutrophil pct 79.4 % CERPETER CHARLES Comment: Interpretive Data Percent cell count reference ranges are not reported, since discordance with absolute values may lead to misinterpretation of CBC data. Current Interpretive Data was last revised on 2017. Testing performed by: [facility], [address] [place] [phone] Lymphocyte pct 8.9 % CERNER BJ Comment: Interpretive Data Percent cell count reference ranges are not reported, since discordance with absolute values may lead to misinterpretation of CBC data. Current Interpretive Data was last revised on 2017. Testing performed by: [facility], [address] [place] [id number] Monocyte pct 10.0 % CERNER BJ Comment: Interpretive Data Percent cell count reference ranges are not reported, since discordance with absolute values may lead to misinterpretation of CBC data. Current Interpretive Data was last revised on 2017. Testing performed by: [facility], [address] [place] [phone] Eosinophil pct 1.3 % BRYANT CHARLES Comment: Interpretive Data Percent cell count reference ranges are not reported, since discordance with absolute values may lead to misinterpretation of CBC data. Current Interpretive Data was last revised on 2017. Testing performed by: [facility], [address] [place] [phone] Basophil pct 0.3 % BRYANT CHARLES Comment: Interpretive Data Percent cell count reference ranges are not reported, since discordance with absolute values may lead to misinterpretation of CBC data. Current Interpretive Data was last revised on 2017. Testing performed by: [facility], [address] [place] [phone] Blood 07/18/2024 8:59 AM CDT 07/18/2024 9:11 AM CDT us Chandrika Chambers ELECTRICIAN ELEVATOR MAINTENANCE LAB BLOOD ORDERABLES Final Res ult BRYANT CHARLES [facility] [place] [address] * (ABNORMAL) Immunoglobulin free light chains (07/18/2024 8:59 AM CDT) [place]/Lambda ratio [facility] 11.01(H) 0.26 - 1.65 Comment: Interpretive Data The Binding Site FreeLite assay procedure was used. Results from different manufacturers or methods may not be comparable. Serial testing should be performed using the same methods and instrumentation. Current Interpretive Data was last revised on 2023. [place] free light chain [facility] 12.99(H) 0.33 - 1.94 mg/dL BRYANT CHARLES Comment: Interpretive Data The Binding Site FreeLite assay procedure was used. Results from different manufacturers or methods may not be comparable. Serial testing should be performed using the same methods and instrumentation. Current Interpretive Data was last revised on 2023. Lambda free light chain [facility] 1.18 0.57 - 2.63 mg/dL BRYANT CHARLES Comment: Interpretive Data The Binding Site FreeLite assay procedure was used. Results from different manufacturers or methods may not be comparable. Serial testing should be performed using the same methods and instrumentation. Current Interpretive Data was last revised on 2023. Blood 07/18/2024 8:59 AM CDT 07/18/2024 9:35 AM CDT us Chandrika Chambers ELECTRICIAN ELEVATOR MAINTENANCE LAB BLOOD ORDERABLES Final Res ult [facility] CHAR[facility] Department [place] [address] * (ABNORMAL) CBC with auto differential (07/18/2024 8:59 AM CDT) WBC 6.66 3.80 - 9.90 K/cumm Comment:Testing performed by : [facility], [address] [place] [address] Hgb 13.8 13.0 - 17.5 g/dL BRYANT CHARLES Comment:Testing performed by : [facility], [address] [place] [address] Hct 41.2 38.9 - 50.3 % BRYANT CHARLES Comment:Testing performed by : [facility], [address] [place] [address] Plt 175 150 - 400 K/cumm BRYANT CHARLES Comment:Testing performed by : [facility], [address] [place] [address] MPV 9.4 6.8 - 10.4 fL BRYANT CHARLES Comment:Testing performed by : [facility], [address] [place] [address] RBC 4.10(L) 4.30 - 5.80 M/cumm BRYANT CHARLES Comment:Testing performed by : [facility], [address] [place], [place] [phone] MCV 100.4(H) 81.3 - 96.4 fL BRYANT CHARLES Comment:Testing performed by : [facility], [address] [place], [place] [phone] MCH 33.7(H) 27.1 - 33.3 pg BRYANT CHARLES Comment:Testing performed by : [facility], [address] [place], [place] [phone] MCHC 33.5 32.3 - 35.7 g/dL BRYANT CHARLES Comment:Testing performed by : [facility], [address] [place], [place] [phone] RDW CV 13.4 11.1 - 14.9 % BRYANT CHARLES Comment:Testing performed by : [facility], [address] [place], [place] [phone] NRBC abs 0.00 0.00 - 0.01 K/cumm BRYANT CHARLES Comment:Testing performed by : [facility], [address] [place], [place] [phone] Blood 07/18/2024 8:59 AM CDT 07/18/2024 9:11 AM CDT Chandrika Hellerr ELECTRICIAN ELEVATOR MAINTENANCE LAB BLOOD ORDERABLES Final Res ult [facility] CHAR[facility] Department [place] [address] * (ABNORMAL) Protein electrophoresis with reflex, serum with interpretation (07/18/2024 8:59 AM CDT) Protein, sr 6.7 6.2 - 8.2 g/dL Albumin 4.1 3.2 - 5.0 g/dL [facility] Alpha-1 globulin 0.3 0.2 - 0.4 g/dL [facility] Alpha-2 globulin 0.8 0.5 - 1.0 g/dL [facility] Beta-1 globulin 0.4 0.3 - 0.6 g/dL [facility] Beta-2 globulin 0.2 0.2 - 0.6 g/dL [facility] Gamma globulin 1.0 0.5 - 1.7 g/dL [facility] Rstr Pk Gamma 0.5(H) 0.0 - 0.0 g/dL [facility] SPEP interp Please see comment [facility] Comment: Abnormal restricted peak in Gamma region Possible abnormal restricted peak in Beta-2 region Electrophoretic pattern appears similar to previous sample 05/24/24 Reviewed and signed by Balaji Le MD, PhD 07/19/2024 Blood 07/18/2024 8:59 AM CDT 07/18/2024 10:49 AM CDT us Chandrika Chambers ELECTRICIAN ELEVATOR MAINTENANCE LAB BLOOD ORDERABLES Final Res ult Performing Organization Address [facility] de Phone Number [facility] Department [place] [address] * Lactate dehydrogenase (LD) (07/18/2024 8:59 AM CDT) Lactate dehydrogenase (LDH) 230 100 - 250 Units/L Blood 07/18/2024 8:59 AM CDT 07/18/2024 9:18 AM CDT us Chandrika Chambers ELECTRICIAN ELEVATOR MAINTENANCE LAB BLOOD ORDERABLES Final Res ult Performing Organization Address [facility] de Phone Number [facility] Department [place] [address] * (ABNORMAL) IgA (07/18/2024 8:59 AM CDT) Immunoglobulin A <50(L) 70 - 400 mg/dL Blood 07/18/2024 8:59 AM CDT 07/18/2024 9:35 AM CDT us Chandrika Chambers ELECTRICIAN ELEVATOR MAINTENANCE LAB BLOOD ORDERABLES Final Res ult Performing Organization Address [facility]/ZIP Co de Phone Number [facility] [place] [address] * IgM (07/18/2024 8:59 AM CDT) [facility] Immunoglobulin M 50 40 - 230 mg/dL Blood 07/18/2024 8:59 AM CDT 07/18/2024 9:35 AM CDT Chandrika S. Gallina ELECTRICIAN ELEVATOR MAINTENANCE LAB BLOOD ORDERABLES Final Res ult Performing Organization Address [facility] de Phone Number [facility] [place] [address] * IgG (07/18/2024 8:59 AM CDT) [facility] Immunoglobulin G 1,045 700 - 1,600 mg/dL Blood 07/18/2024 8:59 AM CDT 07/18/2024 9:35 AM CDT Chandrika S. Gallina ELECTRICIAN ELEVATOR MAINTENANCE LAB BLOOD ORDERABLES Final Res ult Performing Organization Address [facility] de Phone Number [facility] [place] [employer] [place] [address] * (ABNORMAL) Comprehensive metabolic panel (07/18/2024 8:59 AM CDT) [facility] Sodium 144 135 - 145 mmol/L Potassium, pl 4.2 3.3 - 4.9 mmol/L [facility] Chloride 106 97 - 110 mmol/L [facility] CO2 26 22 - 32 mmol/L [facility] Anion gap 12 2 - 15 mmol/L [facility] BUN 15 6 - 25 mg/dL [facility] Creatinine 1.50(H) 0.80 - 1.30 mg/dL [facility] Glucose 177 70 - 199 mg/dL [facility] Comment: Interpretive Data Fasting glucose >/= 126 mg/dl is diagnostic for diabetes. Fasting is defined as no caloric intake for at least 8 hours. Fasting glucose between 100 mg/dl to 125 mg/dl is diagnostic of prediabetes. In a patient with classic symptoms of hyperglycemia or hyperglycemic crisis, a random glucose >/= 200 mg/dl is diagnostic for diabetes. In the absence of unequivocal hyperglycemia, results should be confirmed by repeat testing. The classification and Diagnosis of Diabetes Diabetes Care 2021; 46: S19-S40. Current interpretive data was last revised 2022. Calcium 9.6 8.5 - 10.3 mg/dL [facility] Bilirubin, total 0.4 0.1 - 1.2 mg/dL [facility] Protein, pl 7.3 6.5 - 8.5 g/dL [facility] Albumin 4.4 3.5 - 5.0 g/dL [facility] Alk phos 78 40 - 130 Units/L [facility] ALT 19 7 - 55 Units/L [facility] AST 20 10 - 50 Units/L [facility] Blood 07/18/2024 8:59 AM CDT 07/18/2024 9:18 AM CDT us Chandrika Chambers ELECTRICIAN ELEVATOR MAINTENANCE LAB BLOOD ORDERABLES Final Res ult BRYANT CHARLES [facility] [place] [address] * Surgical pathology (07/11/2024 12:00 AM CDT) Tissue (Skin, shave biopsy) 07/11/2024 07/12/2024 8:59 AM CDT Narrative [facility] - 07/15/2024 3:50 PM CDT EPIC results best viewed via link to PDF [facility] Dermatopathology Center [facility], [address], [place] [address] [email or web address] Note to Patients: This report may contain a detailed description of human tissue sent by a health care provider to the laboratory for pathologic evaluation. The content of this report is essential for diagnosis and may provide important critical findings. This information may be unfamiliar to patients to review without a medical professional present. It is advised that the patient review this report in the presence of a health care provider who can answer questions and explain the details. FINAL REPORT Patient Information: PATIENT NAME: JABIER SMITH SEX: M : 1945 (Age: 78) Specimen Information: COLLECTED: 07/11/2024 RECEIVED: 07/12/2024 REPORTED: 07/15/2024 Submitting Physician Information: Bridger Parada MD PhD [address] [place] [address] , DERMATOPATHOLOGY REPORT RESULTS DIAGNOSIS: A. 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 SKIN, RIGHT UPPER CHEST, SHAVE BIOPSY: BASAL CELL CARCINOMA, SUPERFICIAL ag/spng By this signature, I attest that the above diagnosis is based upon my personal examination of the slides(and/or other material indicated in the diagnosis). Bridger Parada MD, PhD Report Electronically Reviewed and Signed Out By Bridger Parada MD, PhD 07/15/2024 15:50:04 CLINICAL INFORMATION A-B. R/O SCC. SPECIMEN DATA MICROSCOPIC DESCRIPTION: A. There is hyperkeratosis, papillated epithelial hyperplasia and horn pseudocysts. Atypical keratinocytes are present throughout the entire thickness of this epithelium. (D04.9) B. Emanating from the undersurface of the epidermis, there are aggregates of atypical basal epithelial cells with palisading of their peripheral nuclei. (C44.91) GROSS DESCRIPTION: A. Received in a formalin-containing bottle is a superficial fragment of pale mendez and dome-shaped, slightly crusted skin measuring 1.0 by 0.6 by 0.2 cm. The surgical margin is inked blue. The specimen is sectioned into 4 pieces and submitted entirely in a single cassette. Due to shrinkage, measurements may be different than those at time of procedure. B. Received in a formalin-containing bottle is a superficial fragment of pale mendez, finely scaling, and semi-translucent skin measuring 1.1 by 0.7 by 0.1 cm. The surgical margin is inked blue. The specimen is sectioned into 4 pieces and submitted entirely in a single cassette. Due to shrinkage, measurements may be different than those at the time of procedure. djd/anc ICD-9 ZSD.176 ZSD.1474 Clerical Data A; 11737 B; 71898 The characteristics of special, immunohistochemical, and immunofluorescence stains and in-situ hybridization tests performed by the [facility]at[facility] were deemed acceptable in ongoing quality improvement coordinator (rn) measures and in compliance with regulations drawn from the Clinical Laboratory Improvement Act ta6076 (CLIA '88). Control reactions for all stains performed were deemed adequate and appropriate by a pathologist prior to evaluation of patient tissue. Some diagnoses were rendered with the assistance of laboratory-developed tests utilizing analyte-specific reagents; the performance characteristic of these tests were determined by [facility] and are not cleared or approved by the [place] Food an Drug administration. Laboratory developed test may only be performed in a facility that is certified by the [facility] as a high-complexity laboratory under CLIA '88. These tests are used for clinical purposes and are not investigational. Bridger Parada MD PhD LAB PATHOLOGY ORDERABLES Final Result [facility] [address] [place] [id number] * POCT lipid panel (03/29/2024 8:43 AM CATTLE RANCHER) Cholesterol, POC 126 mg/dL HDL, POC 43 mg/dL Triglycerides, POC 77 mg/dL LDL Cholesterol POC 67 mg/dL Chol/HDL Ratio, POC 1.5 Non-HDL Cholesterol, POC 83 mg/dL Cholesterol Total, POC 126 mg/dL Capillary blood 03/29/2024 8 :43 AM CATTLE RANCHER Allison Sepulveda NP POINT OF CARE TEST ORDERA BLES Final Result * Albumin Creatinine Ratio, Urine (10/13/2023 4:57 PM CDT) Albumin Ur <12.0 mg/L Comment: Interpretive Data No reference range established. Current interpretive data was last revised 2018. Creatinine Ur 44.8 mg/dL [facility] Comment: Interpretive Data No reference range established. Current interpretive data was last revised 2018. Albumin Creatinine Ratio, Ur <27 1 - 29 mg/g [facility] Urine 10/13/2023 4:57 PM CDT 10/13/2023 5:23 PM CDT Reyes Patterson MD LAB URINE O RDERABLES Final Result Performing Organization Address [facility] de Phone Number [facility] [place] [address] * (ABNORMAL) Hemoglobin A1c (09/27/2019 2:46 AM CDT) Hgb A1C 6.3(H) 4.0 - 5.6 % [facility] Estimated Average Glucose 134 mg/dL [facility] Comment: The ADA recommends reporting an estimated Average Glucose (eAG) with all Hemoglobin A1c results using the equation derived from a study of 507 normal and diabetic adults. Minority populations were underrepresented and children were not included. (Diabetes Care 31:1612-5833, 2008). The eAG is not equivalent to a fasting glucose. Blood specimen (specimen) 09/27/2019 2:46 AM CDT 09/27/2019 3:01 AM CDT Barbara Moralez MD LAB BLOOD ORDERABLES Final Resu lt Performing Organization Address [facility] [place] [address] * Hepatitis panel, acute (08/15/2019 11:16 PM CDT) Hep A IgM Nonreactive Nonreactive [facility] Comment: Interpretive Data: If Hep A IgM Ab is reported as Equivocal, a new sample should be drawn in two weeks for testing. Current interpretive data was last revised on 19. Hep B core IgM Nonreactive Nonreactive [facility] Comment: Interpretive Data If HepB Core IgM Ab is reported as Equivocal, a new sample should be drawn in two weeks for testing. Current interpretive data was last revised on 19. Hep C Ab Nonreactive Nonreactive [facility] HepBsAg Nonreactive Nonreactive [facility] Blood specimen (specimen) 08/15/2019 11:16 PM CDT 08/15/2019 11:29 PM CDT Karly Damon MD LAB MICROBIOLOGY - GENERAL OR DERABLES Edited Result - Final [facility] [place] [address] from Last 3 Months or Most Recently Relevant to Health Maintenance Insurance IDPA T MEDICARE [facility] MEDICARE [facility] ID[facility] MEDICARE GOLD Advance Directives For more information, please contact: [phone] * Full Code (Latest Code Status on File) Date Activated Date Inactivated Comments 04/09/2020 3:39 PM 04/14/2020 7:48 PM * Full Code Date Activated Date Inactivated Comments 04/08/2020 2:57 PM 04/09/2020 4:39 AM * Full Code Date Activated Date Inactivated Comments 09/26/2019 10:46 PM 09/29/2019 6:38 PM * Full Code Date Activated Date Inactivated Comments 08/15/2019 10:16 PM 08/27/2019 9:04 PM Care Teams Extruding Press Adjuster Relationship Specialty Start Date End Date Annabella Washington PA PCP - General Physician [employer] Portal Consultant 04/16/20 Rohit Cr MD PhD Medical Oncologist/Aircraft Skin Burnisher Medical Oncology 08/28/19 Toney Godinez MD Consulting Physician Nephrology 09/16/21
--- OUTSIDE RECORDS SUMMARY | 2024-09-11 12:05 | XMS_ITS ---
Author Organization [facility] Address [address] [place] [address] Care Team Providers Care Pesticide Use Medical Coordinator Name Role Phone Rohit Cr MD PhD Unavailable [phone] Annbaella Washington Primary Care Pr ovider Toney Godinez MD Unavailable Active Problems Patient Care Coordination No te Formatting of this note is d ifferent from the original. 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 started 08/15 BMT/IEC/DCI Plan Clinical Trial Inpatient Floor 8800 Reason for Admission New Lymphoma Transplant/IEC Planning Patient Education Completed Consents Done [facility] Insurance Approvals/Issues Discharge Planning Anticipated Discharge Date 08/26 Issue to be Resolved Before Discharge Diagnosis Living Situation/Distance from [facility] Discharge To Home Caregiver Spouse Requests sent [...] home allopurinol Coronary artery disease invo lving [place] coronary artery of [place] heart without angina pectoris 10/01/2015 Overview (09/26/2019): Coronary artery disease involving [place] coronary artery of [place] heart without angina pectoris Assessment & Plan (09/26/2019 11:13 PM CDT): Continue home ASA, simva, metop, amlodipine Hypertension associated with diabetes 10/01/2015 Overview (06/30/2016): HTN (hypertension), benign History of coronary artery bypass surgery 2015 Overview (06/30/2016): 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) 10/01/2015 Overview (06/30/2016): DM type 2 with diabetic dyslipidemia Current Treatment and Therapy Plans Daratumumab SUBCUTANEOUS / Lenalidomide / Dexamethasone - 28 Day Cycles - Myeloma* Plan Start Date:10/13/2021 Plan Provider:Rohit Cr MD PhD Linked Problems Multiple myeloma not having achieved remission (HCC) Treatment Medications Current Day (Day 1 , Cycle 15 - Planned for 12/08/2022) Next Day (Day 1, Cycle 16 - Planned for 01/05/2023) daratumumab-fihj (DARZALEX FASPRO) (DARZALEX FASPRO)daratumumab-fih j (DARZALEZ FASPRO) (DARZELEX FASPRO)lenalidomide (REVLIMID) daratumumab-fihj (DARZALEX FASPRO) 1,800 mg -30,000 units hyaluronidase subcutaneous injectionlenalidomide (REVLIMID) 10 mg capsule daratumumab-fihj (DARZALEX FASPRO) 1,800 mg -30,000 units hyaluronidase subcutaneous injectionlenalidomide (REVLIMID) 10 mg capsule Past Treatment and Therapy Plans Line Care Plan Name Start Date Discontinue Date Treatment Medications Discontinue Reason Plan Provider APHERESIS IV ACCESS AND MAINTENANCE 09/26/2019 06/06/2023 No medications scheduled. Automatic discontinuation of dormant plans Rohit Cr MD PhD Oncology Chemotherapy Treatment Plan Name Start Date Discontinue Date Treatment Medications Discontinue Reason Plan Provider Cycles Rituximab Maintenance Every 12 Weeks - Lymphoma 05/29/19 21 03/30/2022 riTUXimab (RITUXAN)riTUXimab (RITUXAN) IVPB in 500 mL Therapy Complete Rohit Cr MD PhD 8 of 8 cycles completed CVP + R (Cyclophosph amide / VinCRIStine / PredniSONE / RiTUXimab) 21 Day Cycles - NHL 020 09/27/2019 cycloPHOSphamide (CYTOXAN)cycloPHOSphamid e (CYTOXAN) IVPB (vial 20 mg/mL) (J9075)riTUXimab (RITUXAN)riTUXimab (RITUXAN) IVPB in 500 mLvinCRIStinevinCRIStine (ONCOVIN) IVPB in 50 mL Progressive Disease Rohit Cr MD PhD 3 of 6 cycles started Oncology Treatment (2) Plan Name Start Date Discontinue Date Treatment Medications Discontinue Reason Plan Provider Cycles Bendamustine / RiTUXimab 28 Day Cycles - NHL 09/26/2019 03/24/2020 bendamustine (BENDEKA) IVPB in 50 mLriTUXimab (RITUXAN) IVPB in 500 mL Therapy Complete Rohit Cr MD PhD 6 of 6 cycles completed Specialty Infusion Treatment Plan Name Start Date Discontinue Date Treatment Medications Discontinue Reason Plan Provider ANTIBIOTIC STANDING ORDERS 04/15/2020 05/22/2023 No medications scheduled. Automatic discontinuation of dormant plans Rohit Cr MD PhD Radiation Treatments * Course [id number]/01/2021 - 07/28/2021 Treatment Period Energy Fraction Dose Fractions Total Dose Plans Planned RT PELVIS 07/01/2021 - 07/28/2021 200 20 / 4,000 Reference Points Delivered [id number] 07/01/2021 - 07/28/2021 4,000 Lifetime Dose Tracking * Chemical Lifetime Dose Automatic Entry Manual Entr y Fluoro Time 1 minutes 1 minutes 0 minutes cyclophosphamide 2,038.462 mg/m2 (3,780 mg) 2,038.462 mg/m2 (3,780 mg) 0 mg/m2 (0 mg) Air kerma at the reference point (Ka,r) 3 mGy 3 mGy 0 mGy DLP 1,503 mGycm 1,503 mGycm 0 mGycm Resolved Problems Problem Noted Date Diagnosed Date Resolved Date Sepsis 04/14/2020 04/14/2020
--- OUTSIDE RECORDS SUMMARY | 2024-09-11 12:05 | XMS_ITS | Encounter Summary ---
Author Organization [facility] Address [address] [place] [address] Phone Care Team Providers Care Manager Ed Name Role Phone Kathleen Paz CELEBRITY MANAGER Primary Care Provider [phone] Rohit Cr MD PhD Unavailable [phone] Annabella Washington Primary Care Pr ovider Kathleen Paz CELEBRITY MANAGER Primary Care Provider [phone] Annabella Washington Primary Care Pr ovider Toney Godinez MD Unavailable Encounter Details Date Type Department Care Team (Late st Contact Info) Description 10/07/2019 Telephone [facility] Bone Marrow Transplant [address] [facility] Advanced Medicine 7th Floor, [place] [address] Raz Segundo Social History Tobacco Use Types Packs/Day Years Used Date Smoking Tobacco: Never Smokeless Tobacco: Never Alcohol Use Standard Drinks/Week Comments No 0 (1 standard drink = 0.6 oz pur e alcohol) Sex and Gender Information Value Date Recorded Sex Assigned at Not on file Legal Sex Male 10:17 AM FIXED INCOME ANALYST Gender Identity Not on file Sexual Orientation Not on file documented as of this encounter Plan of Treatment Not on file documented as of this encounter Visit Diagnoses Not on filedocumented in this encounter Additional Health Concerns Infection Onset Date Last Indicated Resolved Time COVID: Suspected 04/09/2020 04/09/2020 04/09/2020 6:52 PM FIXED INCOME ANALYST Respiratory Infection (MAKENNA), contact + droplet Comment:04/09/2020 IP Review - Patient classified as Low Risk for COVID-19 and has one negative COVID-19 test. Patient meets criteria for COVID-19 isolation discontinuation. Fifi Contreras RN Automatically added due to negative COVID-19 result. 04/09/2020 04/09/2020 04/09/2020 11:41 PM FIXED INCOME ANALYST documented as of this encounter Care Teams Manager Ed Relationship Specialty Start Date End Date Kathleen Paz, EMETERIO [address] [place] [address] PCP - General Nurse Practitioner 08/13/19 04/11/20 Annabella Washington PA [address] [place] [address] PCP - General 04/12/20 04/12/20 Kathleen Paz, EMETERIO [address] [place] [address] PCP - General 04/13/20 04/15/20 Annabella Washington PA [address] [place] [address] PCP - General Physician Packing Room Worker 04/16/20 Rohit Cr MD PhD [address] [place] [address] Medical Oncologist/Security Representative Medical Oncology 08/28/19 Toney Godinez MD [address] [facility] [address] [place] [address] Consulting Physician Nephrology 09/16/21 documented as of this encounter
--- OUTSIDE RECORDS SUMMARY | 2024-09-11 12:05 | XMS_ITS | Encounter Summary ---
Author Organization [facility] Address [address] [place] [address] Phone Care Team Providers Care Afternoon Nanny Name Role Phone Rohit Cr MD PhD Unavailable [phone] Annabella Washington Primary Care Pr ovider Toney Godinez MD Unavailable Encounter Details Date Type Department Care Team (Late st Contact Info) Description 08/19/2022 Telephone [facility] Bone Marrow Transplant [address] [facility] Advanced Medicine 7th Floor, [place] [address] Berenice Tello V. 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
--- OUTSIDE RECORDS SUMMARY | 2024-09-11 12:05 | XMS_ITS | Encounter Summary ---
Author Organization [facility] Address [address] [place] [address] Phone Care Team Providers Care Solderer Assembler Name Role Phone Rohit Cr MD PhD Unavailable [phone] Annabella Washington Primary Care Pr ovider Toney Godinez MD Unavailable Encounter Details Date Type Department Care Team (Late st Contact Info) Description 05/09/2023 Telephone [facility] Bone Marrow Transplant [address] [facility] Advanced Medicine 7th Floor, [place] [address] Berenice Tello V. Social History Tobacco Use Types Packs/Day Years Used Date Smoking Tobacco: Never Passive Smoke Exposure: Never Smokeless Tobacco: Never Alcohol Use Standard Drinks/Week Comments No 0 (1 standard drink = 0.6 oz pur e alcohol) Sex and Gender Information Value Date Recorded Sex Assigned at Not on file Legal Sex Male 10:17 AM SPORTS ATTORNEY Gender Identity Not on file Sexual Orientation Not on file documented as of this encounter Plan of Treatment Not on file documented as of this encounter Visit Diagnoses Not on filedocumented in this encounter Care Teams Solderer Assembler Relationship Specialty Start Date End Date Annabella Washington PA PCP - General Physician Superintendent Measurement 04/16/20 Rohit Cr MD PhD Medical Oncologist/Tar Chaser Medical Oncology 08/28/19 Toney Godinez MD Consulting Physician Nephrology 09/16/21 documented as of this encounter
--- OUTSIDE RECORDS SUMMARY | 2024-09-11 12:05 | XMS_ITS | Referral Summary ---
Author Organization [facility] Address [address] [place] [address] Care Team Providers Care School Bus Attendant Name Role Phone Rohit Cr MD PhD Unavailable [phone]- [phone] Annabella Washington Primary Care Pr ovider Toney Godinez MD Unavailable Encounters Date Type Department Care Team Description 07/18/2024 9:15 AM CDT Lab [facility] - Lab Collection [address] [place] [id number] Multiple myeloma not having achieved remission (HCC) 07/18/2024 9:45 AM CDT Office Visit [facility] Bone Marrow Transplant [address] [place] [phone] Rohit Cr MD PhD Multiple myeloma not having achieved remission (HCC) 07/18/2024 8:45 AM CDT Lab [facility] Oncology Lab [address] [place] [phone] Multiple myeloma not having achieved remission (HCC) 07/12/2024 Orders Only [facility] [address] [place] [address] Bridger Parada MD PhD Neoplasm of unspecified behavior of bone, soft tissue, and skin 07/11/2024 4:15 PM CDT Office Visit [facility] Dermatology [address] [place] [address] Bridger Parada MD PhD Neoplasm of unspecified behavior of bone, soft tissue, and skin (Primary Dx); Multiple benign nevi; Seborrheic keratosis; Quispe angioma; Lentigines; History of nonmelanoma skin cancer from Last 3 Months Allergies Active Allergy Reactions Criticality Noted Date [...] mellitus with other specified complication, unspecified whether intermediate school teacher insulin use (HCC) 1 each 3 (three) times a day 1 each 0 Active blood glucose diagnostic (glucose blood) stripIndications :Other specified diabetes mellitus with other specified complication, unspecified whether jail insulin use (HCC) Use to test blood [...] mg SL tabletIndication s: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 Assessment & Plan (09/26/2019 11:13 PM CDT): Continue home ASA, simva, metop, amlodipine Hypertension associated with diabetes 10/01/2015 Overview (06/30/2016): HTN (hypertension), benign History of coronary artery bypass surgery 2015 Overview (06/30/2016): 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 ([facility]) 10/01/2015 Overview (06/30/2016): DM type 2 with diabetic dyslipidemia Resolved Problems Problem Noted Date Diagnosed Date Resolved Date Sepsis 04/14/2020 04/14/2020 Social History Tobacco Use Types Packs/Day Years Used Date Smoking Tobacco: Never Passive Smoke Exposure: Never Smokeless Tobacco: Never Tobacco Cessation:Counseling Given: Not Answered Alcohol Use Standard Drinks/Week Comments No 0 (1 standard drink = 0.6 oz pur e alcohol) Sex and Gender Information Value Date Recorded Sex Assigned at Not on file Legal Sex Male 10:17 AM FREIGHT INSPECTOR Gender Identity Not on file Sexual Orientation Not on file Last Filed Vital Signs Vital Sign Reading [...] cm (5' 6.65) 05/23/2024 1 0:36 AM FREIGHT INSPECTOR measured without shoes- Body Mass Index 28.01 05/23/2024 10:36 AM FREIGHT INSPECTOR Plan of Treatment Not on file Procedures Procedure Name Priority Date/Time Associated Diagnosis [...] POCT LIPID PANEL Routine 03/29/2024 8:43 AM FREIGHT INSPECTOR Lipid screening ALBUMIN CREATININE RATIO, URINE Routine 10/13/2023 4:57 PM CDT Stage 3a chronic kidney disease (HCC) HEMOGLOBIN A1C Routine 09/27/2019 2:46 AM CDT HEPATITIS PANEL, ACUTE Routine 0 11:16 PM CDT from Last 3 Months [...] of Race in Diagnosing Kidney Disease, JASN 2020). The CKD-EPI equation should not be used for patients with unstable renal function and has not been validated in children and those over 70. Current interpretive data was last reviewed 2021. Blood 07/18/2024 8:59 AM CDT 07/18/2024 11:06 AM CDT us Chandrika Chambers BOAT PAINTER LAB BLOOD ORDERABLES Final Res ult [facility] [place] [address] * (ABNORMAL) Differential, auto (07/18/2024 8:59 AM CDT) Neutrophil abs 5.29 1.50 - 6.50 K/cumm Comment:Testing performed by : [facility], [address] [place] [address] Lymphocyte abs 0.60(L) 0.80 - 3.30 K/cumm [facility] Comment:Testing performed by : [facility], [address] [place] [address] Monocyte abs 0.67 0.20 - 0.80 K/cumm [facility] Comment:Testing performed by : [facility], [address] [place] [address] Eosinophil abs 0.09 0.00 - 0.50 K/cumm [facility] Comment:Testing performed by : [facility], [address] [place] [address] Basophil abs 0.02 0.00 - 0.10 K/cumm [facility] Comment:Testing performed by : [facility], [address] [place] [address] Neutrophil pct 79.4 % [facility] Comment: Interpretive Data Percent cell count reference ranges are not reported, since discordance with absolute values may lead to misinterpretation of CBC data. Current Interpretive Data was last revised on 2017. Testing performed by: [facility], [address] [place] [phone] Lymphocyte pct 8.9 % [facility] Comment: Interpretive Data Percent cell count reference ranges are not reported, since discordance with absolute values may lead to misinterpretation of CBC data. Current Interpretive Data was last revised on 2017. Testing performed by: [facility], [address] [place] [phone] Monocyte pct 10.0 % [facility] Comment: Interpretive Data Percent cell count reference ranges are not reported, since discordance with absolute values may lead to misinterpretation of CBC data. Current Interpretive Data was last revised on 2017. Testing performed by: [facility], [address] [place] [phone] Eosinophil pct 1.3 % [facility] Comment: Interpretive Data Percent cell count reference ranges are not reported, since discordance with absolute values may lead to misinterpretation of CBC data. Current Interpretive Data was last revised on 2017. Testing performed by: [facility], [address] [place] [phone] Basophil pct 0.3 % [facility] Comment: Interpretive Data Percent cell count reference ranges are not reported, since discordance with absolute values may lead to misinterpretation of CBC data. Current Interpretive Data was last revised on 2017. Testing performed by: [facility], [address] [place] [phone] Blood 07/18/2024 8:59 AM CDT 07/18/2024 9:11 AM CDT us Chandrika SCalvin [place] BOAT PAINTER LAB BLOOD ORDERABLES Final Res ult [facility] [place] [address] * (ABNORMAL) Immunoglobulin free light chains (07/18/2024 8:59 AM CDT) Graball/Lambda ratio [facility] 11.01(H) 0.26 - 1.65 Comment: Interpretive Data The Binding Site FreeLite assay procedure was used. Results from different manufacturers or methods may not be comparable. Serial testing should be performed using the same methods and instrumentation. Current Interpretive Data was last revised on 2023. Graball free light chain BJ 12.99(H) 0.33 - 1.94 mg/dL [facility] Comment: Interpretive Data The Binding Site FreeLite assay procedure was used. Results from different manufacturers or methods may not be comparable. Serial testing should be performed using the same methods and instrumentation. Current Interpretive Data was last revised on 2023. Lambda free light chain BJ 1.18 0.57 - 2.63 mg/dL [facility] Comment: Interpretive Data The Binding Site FreeLite assay procedure was used. Results from different manufacturers or methods may not be comparable. Serial testing should be performed using the same methods and instrumentation. Current Interpretive Data was last revised on 2023. Blood 07/18/2024 8:59 AM CDT 07/18/2024 9:35 AM CDT Chandrika Chambers BOAT PAINTER LAB BLOOD ORDERABLES Final Res ult [facility] Department [place] [address] * (ABNORMAL) CBC with auto differential (07/18/2024 8:59 AM CDT) WBC 6.66 3.80 - 9.90 K/cumm Comment:Testing performed by : [facility], [address] [place] [phone] Hgb 13.8 13.0 - 17.5 g/dL [facility] Comment:Testing performed by : [facility], [address] [place] [phone] Hct 41.2 38.9 - 50.3 % [facility] Comment:Testing performed by : [facility], [address] [place] [phone] Plt 175 150 - 400 K/cumm [facility] Comment:Testing performed by : [facility], [address] [place], [place] [phone] MPV 9.4 6.8 - 10.4 fL [facility] Comment:Testing performed by : [facility], [address] [place] [address] RBC 4.10(L) 4.30 - 5.80 M/cumm [facility] Comment:Testing performed by : [facility], [address] [place], [place] [phone] MCV 100.4(H) 81.3 - 96.4 fL [facility] Comment:Testing performed by : [facility], [address] [place], [place] [phone] MCH 33.7(H) 27.1 - 33.3 pg [facility] Comment:Testing performed by : [facility], [address] [place] [address] MCHC 33.5 32.3 - 35.7 g/dL [facility] Comment:Testing performed by : [facility], [address] [place] [address] RDW CV 13.4 11.1 - 14.9 % [facility] Comment:Testing performed by : [facility], [address] [place] [address] NRBC abs 0.00 0.00 - 0.01 K/cumm [facility] Comment:Testing performed by : [facility], [address] [place] [address] Blood 07/18/2024 8:59 AM CDT 07/18/2024 9:11 AM CDT us Chandrika Chambers BOAT PAINTER LAB BLOOD ORDERABLES Final Res ult [facility] Department [place] [address] * (ABNORMAL) Protein electrophoresis with reflex, serum with interpretation (07/18/2024 8:59 AM CDT) Protein, sr 6.7 6.2 - 8.2 g/dL Albumin 4.1 3.2 - 5.0 g/dL [facility] Alpha-1 globulin 0.3 0.2 - 0.4 g/dL [facility] Alpha-2 globulin 0.8 0.5 - 1.0 g/dL [facility] Beta-1 globulin 0.4 0.3 - 0.6 g/dL [facility] Beta-2 globulin 0.2 0.2 - 0.6 g/dL [facility] Gamma globulin 1.0 0.5 - 1.7 g/dL [facility] Rstr Pk Gamma 0.5(H) 0.0 - 0.0 g/dL [facility] SPEP interp Please see comment [facility] Comment: Abnormal restricted peak in Gamma region Possible abnormal restricted peak in Beta-2 region Electrophoretic pattern appears similar to previous sample 05/24/24 Reviewed and signed by Balaji Le MD, PhD 07/19/2024 Blood 07/18/2024 8:59 AM CDT 07/18/2024 10:49 AM CDT Chandrika Chambers BOAT PAINTER LAB BLOOD ORDERABLES Final Res ult Performing Organization Address City/[facility] [[email or web address]] Co de Phone Number [facility] Department [place] [address] * Lactate dehydrogenase (LD) (07/18/2024 8:59 AM CDT) [facility] Lactate dehydrogenase (LDH) 230 100 - 250 Units/L Blood 07/18/2024 8:59 AM CDT 07/18/2024 9:18 AM CDT Chandrika SCalvin [place] BOAT PAINTER LAB BLOOD ORDERABLES Final Res ult Performing Organization Address City/[facility] [[email or web address]] Co de Phone Number [facility] [place] [address] * (ABNORMAL) IgA (07/18/2024 8:59 AM CDT) [facility] Immunoglobulin A <50(L) 70 - 400 mg/dL Blood 07/18/2024 8:59 AM CDT 07/18/2024 9:35 AM CDT us Chandrika S. [place] BOAT PAINTER LAB BLOOD ORDERABLES Final Res ult Performing Organization Address [facility] [[email or web address]] Co de Phone Number [facility] [place] [address] * IgM (07/18/2024 8:59 AM CDT) [facility] Immunoglobulin M 50 40 - 230 mg/dL Blood 07/18/2024 8:59 AM CDT 07/18/2024 9:35 AM CDT Chandrika S. [place] BOAT PAINTER LAB BLOOD ORDERABLES Final Res ult Performing Organization Address [facility] de Phone Number [facility] [place] [address] * IgG (07/18/2024 8:59 AM CDT) [facility] Immunoglobulin G 1,045 700 - 1,600 mg/dL Blood 07/18/2024 8:59 AM CDT 07/18/2024 9:35 AM CDT Chandrika S. [place] BOAT PAINTER LAB BLOOD ORDERABLES Final Res ult Performing Organization Address [facility] de Phone Number [facility] [place] [address] * (ABNORMAL) Comprehensive metabolic panel (07/18/2024 8:59 AM CDT) [facility] Sodium 144 135 - 145 mmol/L Potassium, pl 4.2 3.3 - 4.9 mmol/L [facility] Chloride 106 97 - 110 mmol/L [facility] CO2 26 22 - 32 mmol/L [facility] Anion gap 12 2 - 15 mmol/L [facility] BUN 15 6 - 25 mg/dL [facility] Creatinine 1.50(H) 0.80 - 1.30 mg/dL [facility] Glucose 177 70 - 199 mg/dL [facility] Comment: Interpretive Data Fasting glucose >/= [...] classification and Diagnosis of Diabetes Diabetes Care 202; 46: S19-S40. Current interpretive data was last revised 2022. Calcium 9.6 8.5 - 10.3 mg/dL [facility] Bilirubin, total 0.4 0.1 - 1.2 mg/dL [facility] Protein, pl 7.3 6.5 - 8.5 g/dL [facility] Albumin 4.4 3.5 - 5.0 g/dL [facility] Alk phos 78 40 - 130 Units/L [facility] ALT 19 7 - 55 Units/L [facility] AST 20 10 - 50 Units/L [facility] Blood 07/18/2024 8:59 AM CDT 07/18/2024 9:18 AM CDT us Chandrika [place] BOAT PAINTER LAB BLOOD ORDERABLES Final Res ult [facility] [place] [address] * Surgical pathology (07/11/2024 12:00 AM CDT) Tissue (Skin, shave biopsy) 07/11/2024 07/12/2024 8:59 AM CDT Narrative [facility] - 07/15/2024 3:50 PM CDT EPIC results best viewed via link to PDF [facility]ermat[facility] [address], [place] [address] [email or web address] Note to Patients: This report may contain [...] Submitting Physician Information: Bridger Parada MD PhD [address] [facility], [address] [place] [phone] , DERMATOPATHOLOGY REPORT RESULTS DIAGNOSIS: A. SKIN, [...] djd/anc ICD-9 ZSD.176 ZSD.1474 Clerical Data A; 67139 B; 80120 The characteristics of special, immunohistochemical, and immunofluorescence stains and in-situ hybridization tests performed by the [facility] were deemed acceptable in ongoing supplier quality engineering manager measures and in compliance with regulations drawn from the Clinical Laboratory Improvement Act iq0406 (CLIA '88). Control reactions for all stains performed were deemed adequate and appropriate by a pathologist prior to evaluation of patient tissue. Some diagnoses were rendered with the assistance of laboratory-developed tests utilizing analyte-specific reagents; the performance characteristic of these tests were determined by [facility] and are not cleared or approved by the [place] Food an Drug administration. Laboratory developed test may only be performed in a facility that is certified by the [facility] as a high-complexity laboratory under CLIA '88. These tests are used for clinical purposes and are not investigational. Bridger Parada MD PhD LAB PATHOLOGY ORDERABLES Final Result [facility] [address] [place] [address] * POCT lipid panel (03/29/2024 8:43 AM FREIGHT INSPECTOR) Cholesterol, POC 126 mg/dL HDL, POC 43 mg/dL Triglycerides, POC 77 mg/dL LDL Cholesterol POC 67 mg/dL Chol/HDL Ratio, POC 1.5 Non-HDL Cholesterol, POC 83 mg/dL Cholesterol Total, POC 126 mg/dL Capillary blood 03/29/2024 8 :43 AM FREIGHT INSPECTOR Allison Sepulveda NP POINT OF CARE TEST ORDERA BLES Final Result * Albumin Creatinine Ratio, Urine (10/13/2023 4:57 PM CDT) [facility] Albumin Ur <12.0 mg/L Comment: Interpretive Data No reference range established. Current interpretive data was last revised 2018. Creatinine Ur 44.8 mg/dL [facility] Comment: Interpretive Data No reference range established. Current interpretive data was last revised 2018. Albumin Creatinine Ratio, Ur <27 1 - 29 mg/g [facility] Urine 10/13/2023 4:57 PM CDT 10/13/2023 5:23 PM CDT us Reyes Patterson MD LAB URINE O RDERABLES Final Result Performing Organization Address [facility] de Phone Number [facility] Department [place] [address] * (ABNORMAL) Hemoglobin A1c (09/27/2019 2:46 AM CDT) [facility] Hgb A1C 6.3(H) 4.0 - 5.6 % [facility] Estimated Average Glucose 134 mg/dL [facility] Comment: The ADA recommends reporting an estimated Average Glucose (eAG) with all Hemoglobin A1c results using the equation derived from a study of 507 normal and diabetic adults. Minority populations were underrepresented and children were not included. (Diabetes Care 31:7953-9947, 2008). The eAG is not equivalent to a fasting glucose. Blood specimen (specimen) 09/27/2019 2:46 AM CDT 09/27/2019 3:01 AM CDT us Barbara Moralez MD LAB BLOOD ORDERABLES Final Resu lt Performing Organization Address [facility]/ZIP Co de Phone Number [facility] [place] [address] * Hepatitis panel, acute (08/15/2019 11:16 PM CDT) Hep A IgM Nonreactive Nonreactive [facility] Comment: Interpretive Data: If Hep A IgM Ab is reported as Equivocal, a new sample should be drawn in two weeks for testing. Current interpretive data was last revised on 19. Hep B core IgM Nonreactive Nonreactive [facility] Comment: Interpretive Data If HepB Core IgM Ab is reported as Equivocal, a new sample should be drawn in two weeks for testing. Current interpretive data was last revised on 19. Hep C Ab Nonreactive Nonreactive [facility] HepBsAg Nonreactive Nonreactive [facility] Blood specimen (specimen) 08/15/2019 11:16 PM CDT 08/15/2019 11:29 PM CDT Karly Damon MD LAB MICROBIOLOGY - GENERAL OR DERABLES Edited Result - Final [facility] [address] [facility] Department [place] [address] from Last 3 Months or Most Recently Relevant to Health Maintenance Insurance IDPA AETNA MEDICARE GOLD AETNA MEDICARE GOLD IDPA AETFORMERLY [facility] REF AETNA MEDICARE GOLD Advance Directives For more information, please contact: [phone] * Full Code (Latest Code Status on File) Date Activated Date Inactivated Comments 04/09/2020 3:39 PM 04/14/2020 7:48 PM * Full Code Date Activated Date Inactivated Comments 04/08/2020 2:57 PM 04/09/2020 4:39 AM * Full Code Date Activated Date Inactivated Comments 09/26/2019 10:46 PM 09/29/2019 6:38 PM * Full Code Date Activated Date Inactivated Comments 08/15/2019 10:16 PM 08/27/2019 9:04 PM Care Teams School Bus Attendant Relationship Specialty Start Date End Date Annabella Washington PA PCP - General Physician Clam Sorter 04/16/20 Rohit Cr MD PhD Medical Oncologist/Dietitian Consultant Medical Oncology 08/28/19 Toney Godinez MD Consulting Physician Nephrology 09/16/21
--- OUTSIDE RECORDS SUMMARY | 2024-09-11 12:05 | XMS_ITS | Encounter Summary ---
Author Organization [facility] Address [address] [facility] [address] [place] [address] Care Team Providers Care Cracker Sprayer Name Role Phone Matthieu Hector Primary Care Provider Unavaila Matthieu Gonzales Primary Care Provider Unavaila ble No, Physician Primary Care Provider [phone] No, Physician Primary Care Provider [phone] No, Physician Primary Care Provider [phone] Kathleen Paz FINANCIAL REPORTING ADVISOR Primary Care Provider [phone] Rohit Cr MD PhD Unavailable [phone]- [phone] Annabella Washington Primary Care Pr ovider Kathleen Paz FINANCIAL REPORTING ADVISOR Primary Care Provider [phone] Annabella Washington Primary Care Pr ovider Toney Godinez MD Unavailable Encounter Details Date Type Department Care Team (Late st Contact Info) Description 05/26/2016 Orders Only [facility] ProviderPaz MD [address] [place] [address] Social History Tobacco Use Types Packs/Day Years Used Date Smoking Tobacco: Never Alcohol Use Standard Drinks/Week Comments No 0 (1 standard drink = 0.6 oz pur e alcohol) Sex and Gender Information Value Date Recorded Sex Assigned at Not on file Legal Sex Male 10:17 AM SUBPOENA SERVER Gender Identity Not on file Sexual Orientation Not on file documented as of this encounter Plan of Treatment Not on file documented as of this encounter Procedures Procedure Name Priority Date/Time Associated Diagnosis Comments CARDIOLOGY REPORT 05/26/2016 documented in this encounter Results * CARDIOLOGY REPORT (05/26/2016) Anatomical Region Laterality Modality Other Narrative 05/26/2016 Ordered by an unspecified provider. us Historical Provider [facility] MIKKI ECKERT Final Result documented in this encounter Visit Diagnoses Not on filedocumented in this encounter Additional Health Concerns Infection Onset Date Last Indicated Resolved Time COVID: Suspected 04/09/2020 04/09/2020 04/09/2020 6:52 PM SUBPOENA SERVER Respiratory Infection (MAKENNA), contact + droplet Comment:04/09/2020 IP Review - Patient classified as Low Risk for COVID-19 and has one negative COVID-19 test. Patient meets criteria for COVID-19 isolation discontinuation. Fifi Contreras RN Automatically added due to negative COVID-19 result. 04/09/2020 04/09/2020 04/09/2020 11:41 PM SUBPOENA SERVER documented as of this encounter Care Teams Cracker Sprayer Relationship Specialty Start Date End Date Matthieu Hector PCP - General 06/24/16 03/13/19 Matthieu Hector PCP - General 05/15/14 06/23/16 No, Physician PCP - General 03/14/19 03/14/19 No, Physician PCP - General 07/31/19 08/12/19 No, Physician PCP - General 07/30/19 07/30/19 Kathleen Paz NP [address] [facility] [address] [place] [address] PCP - General Nurse Practitioner 08/13/19 04/11/20 Annabella Washington PA [address] [facility] [facility] [address] [place] [address] PCP - General 04/12/20 04/12/20 Kathleen Paz, FINANCIAL REPORTING ADVISOR [address] [facility] [facility] [address] [place] [address] PCP - General 04/13/20 04/15/20 Annabella Washington PA [address] [facility] [facility] [address] [place] [address] PCP - General Physician Foil Cutter 04/16/20 Rohit Cr MD PhD [address] [facility] [address] [place] [address] Medical Oncologist/Veterinary Nurse Medical Oncology 08/28/19 Toney Godinez MD [address] [facility] [address] [place] [address] Consulting Physician Nephrology 09/16/21 documented as of this encounter
--- OUTSIDE RECORDS SUMMARY | 2024-09-11 12:05 | XMS_ITS | Encounter Summary ---
Author Organization [facility] Address [address] [facility] [place] [address] Care Team Providers Care General Laborer Name Role Phone Unavailable Primary Care Provider Unavailabl e Encounter Details Date Type Department Care Team (Late st Contact Info) Description 08/02/2019 Lab Requisition [facility] Care Pathology Lab [address] [place] [address] Alon Mcdonald MD [address] [place] [address] Enlarged lymph nodes, unspecified Social History Tobacco Use Types Packs/Day Years Used Date Smoking Tobacco: Never Assessed Sex and Gender Information Value Date Recorded Sex Assigned at Not on file Legal Sex Male 2:52 PM CDT Gender Identity Not on file Sexual Orientation Not on file documented as of this encounter Plan of Treatment Not on file documented as of this encounter Procedures Procedure Name Priority Date/Time Associated Diagnosis Comments FLOW CYTOMETRY TISSUE PANEL Routine 08/02/2019 12:24 PM CDT Enlarged lymph nodes, unspecified documented in this encounter Results * FLOW CYTOMETRY TISSUE PANEL (08/02/2019 12:24 PM CDT) Case Report Flow Cytometry Case: [id number] Authorizing Provider: Alon Mcdonald MD Collected: 08/02/2019 12:24 PM Ordering Location: [facility] Care Pathology Lab Received: 08/02/2019 02:54 PM Pathologist: Isa Rodríguez MD Specimen: Lymph Node 08/05/2019 11:58 AM CDT [facility] Final Diagnosis Lymph node, flow cytometric immunophenotypic analysis: - 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 - See interpretation. 08/05/2019 11:58 AM CDT [facility] at 1158 CDT Flow Cytometry Interpretation The lymph node specimen has a viability of 84%. The majority of cells are within the lymphocyte gate (96%). Within the lymphocyte gate, there is a monotypic, kappa-restricted B-cell population identified. There is no co-expression of CD5 or CD10 on the B-cells. These cells express CD19, CD20, CD11c, lack expression of CD23, CD25, CD34, CD103, and comprise 54.7% of total events. There is no immunophenotypical ly aberrant T-cell population seen (CD4:CD8 ratio = 4.6:1). A cytospin prepared from the flow cytometry specimen is reviewed for director software quality assurance purposes. The lymph node specimen shows evidence of involvement by a CD5-negative, [id number] mature B-cell lymphoma. Correlation with clinical findings, concurrent tissue pathology, and relevant cytogenetic/molecu lar studies is required. 08/05/2019 11:58 AM [facility] PATH[facility] Flow Cytometry Results Differential Result Comment Flow Cell Count /uL 47,200 Total Viability % 84.0 Lymphocytes % 96 Dim CD45 Region % 0 Monocytes % 2 Granulocytes % 1 08/05/2019 11:58 AM [facility] Reason for test Enlarged lymph nodes, unspecified 08/05/2019 11:58 AM [facility] PATH[facility] Client Specimen ID # [id number] 08/05/2019 11:58 AM [facility] Number of markers 19 were performed. A-2 Flow CD3 A-4 Flow CD10 A-6 Flow CD20 A-7 Flow CD23 A-12 Flow CD2 A-13 Flow CD4 A-16 Flow CD1a A-18 Flow CD25 A-19 Flow CD103 A-20 Flow CD11c A-3 Flow CD5 A-5 Flow CD19 A-8 Flow CD34 A-9 Flow CD45 A-14 Flow CD7 A-15 Flow CD8 A-17 Flow CD30 A-10 [place]+CD19+ A-11 Lambda+CD19+ 08/05/2019 11:58 AM [facility] PATH[facility] Disclaimer Test performed at [facility], [address] [place] [address], [id number]. *The established laboratory minimum viability is 70%. Values below the minimum may result in the failure to find an abnormal population of cells. This test was developed and its performance characteristics determined by the Flow Cytometry Laboratory. It has not been cleared by the [place] Food and Drug Administration (FDA). The FDA has determined that such clearance or approval is not necessary. This test is used for clinical purposes. It should not be regarded as investigational or for research. This laboratory is regulated under the Clinical Laboratory Improvement Amendments of 1998 (CLIA) as a qualified to perform high complexity clinical testing. 08/05/2019 11:58 AM CDT [facility] PATHOLOGY LAB Embedded Images 0 11:58 AM CDT [facility] PATHOLOGY LAB Pathology/Cytolo gy ENTIRE LYMPH NODE / Unknown 08/02/2019 12:24 PM CDT 08/02/2019 2:54 PM CDT Alon Mcdonald MD LAB - PATHOLOGY/CYTOLOGY ORDER BRITTANY Final Result [facility] PATHOLOGY LAB [address] [phone] documented in this encounter Visit Diagnoses Diagnosis Enlarged lymph nodes, unspecified documented in this encounter
--- OUTSIDE RECORDS SUMMARY | 2024-09-11 12:05 | XMS_ITS | Encounter Summary ---
Author Organization [facility] Address [address] [facility] [place] [address] Care Team Providers Care Nurse Midwife Name Role Phone Unavailable Primary Care Provider Unavailabl e Encounter Details Date Type Department Care Team (Late st Contact Info) Description 08/06/2019 Lab Requisition [facility] Care Pathology Lab [address] [place] [address] Alon Mcdonald MD [address] [place] [address] Illness, unspecified Social History Tobacco Use Types Packs/Day [...] Procedure Name Priority Date/Time Associated Diagnosis Comments PATHOLOGY TISSUE Routine 08/02/2019 12:2 4 PM CDT Illness, unspecified documented in this encounter Results * PATHOLOGY TISSUE (08/02/2019 12:24 PM CDT) Case Report Surgical Pathology Report Case: [id number] Authorizing Provider: Alon Mcdonald MD Collected: 08/02/2019 12:24 PM Ordering Location: [facility] Care Pathology Lab Received: 08/06/2019 09:47 AM Pathologist: Isa Rodríguez MD Specimen: Lymph Node Biopsy, OSC: [id number] 08/07/2019 2:31 PM CDT [facility] Final Diagnosis Right axillary lymph node, ultrasound-guided needle core biopsy: - Low grade B-cell lymphoma, 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 - See description. 08/07/2019 2:31 PM CDT [facility] at 1431 CDT Microscopic Description and Comment Review of the right axillary lymph node reveals effacement of normal keya architecture with small to medium sized atypical lymphoid cells with expansion into interfollicular areas. Immunohistochemical stains are performed on the block, with appropriate controls, and demonstrate the following: The atypical lymphoid cells are positive for CD20 and negative for CD5, cyclin D-1, CD23 and CD10. CD3 and CD5 highlight T-cells. CD23 highlights residual follicular dendritic cell meshworks. CD10 and BCL-6 highlight residual germinal centers. Cyclin D1 is negative in lymphocytes. The proliferative index by Ki-67 is estimated at 30%. Concurrent flow cytometry ([id number]) shows CD5-negative, [id number] mature B-cell lymphoma. 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 Correlation with clinical findings and relevant cytogenetic/molecular testing is required. Case reviewed in intradepartmental consensus conference. 08/07/2019 2:31 PM [facility] Clinical History Generalized lymphadenopathy. 08/07/2019 2:31 PM [facility] Materials Received Received are 2 slide(s) and 1 block (A1) labeled [id number] along with a copy of the outside pathology report. [place] [address]. All original materials are returned to the referring institution, along with a copy of our final report. 08/07/2019 2:31 PM [facility] Disclaimer The performance characteristics of all immunohistochemical and indirect immunofluorescence stains (if any) cited in this report were determined by the [facility]opathology Laboratory [facility]. Some of these tests were developed by our own laboratory and have not been cleared or approved by the US Food and Drug Administration. The FDA does not require this test to go through premarket FDA review. These tests are used for clinical purposes. They should not be regarded as investigational or for research. This laboratory is certified under the Clinical Laboratory Improvement Amendments (CLIA) as qualified to perform high complexity clinical laboratory testing. This case has been personally reviewed and interpreted by the attending (teaching) pathologist. 08/07/2019 2:31 PM [facility] Embedded Images 08/07/2019 2:31 PM [facility] Pathology/Cytolo gy BIOPSY OF LYMPH NODE / Unknown 08/02/2019 12:24 PM CDT 08/06/2019 9:47 AM CDT Alon Mcdonald MD LAB - PATHOLOGY/CYTOLOGY ORDER BRITTANY Final Result [facility] PATHOLOGY LAB [address] [phone] documented in this encounter Visit Diagnoses Diagnosis Illness, unspecified documented in this encounter
--- OUTSIDE RECORDS SUMMARY | 2024-09-11 12:05 | XMS_ITS | Encounter Summary ---
Author Organization [facility] Address [address] [place] [address] Care Team Providers Care Trashman Name Role Phone Kathleen Paz COKE OVEN PATCHER Primary Care Provider [phone] Rohit Cr MD PhD Unavailable [phone] Annablela Washington Primary Care Pr ovider Kathleen Paz COKE OVEN PATCHER Primary Care Provider [phone] Annabella Washington Primary Care Pr ovider Toney Godinez MD Unavailable Encounter Details Date Type Department Care Team (Late st Contact Info) Description 11/26/2019 Telephone [facility] [address] [place] [address] Graciela Jamil, RT Social History Tobacco Use Types Packs/Day Years Used Date Smoking Tobacco: Never Smokeless Tobacco: Never Alcohol Use Standard Drinks/Week Comments No 0 (1 standard drink = 0.6 oz pur e alcohol) Sex and Gender Information Value Date Recorded Sex Assigned at Not on file Legal Sex Male 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 Patient meets criteria for COVID-19 isolation discontinuation. Fifi Contreras RN Automatically added due to negative COVID-19 result. 04/09/2020 04/09/2020 04/09/2020 11:41 PM BIOMETRICS INSTRUCTOR documented as of this encounter Care Teams Trashman Relationship Specialty Start Date End Date Kathleen Paz NP [address] [facility] [address] [place] [address] PCP - General Nurse Practitioner 08/13/19 04/11/20 Annabella Washington PA [address] [facility] [address] [place] [address] PCP - General 04/12/20 04/12/20 Kathleen Paz NP [address] [facility] [address] [place] [address] PCP - General 04/13/20 04/15/20 Annabella Washington PA [address] [facility] [address] [place] [address] PCP - General Physician Assistant Center Director 04/16/20 Rohit Cr MD PhD [address] [facility] [address] [place] [address] Medical Oncologist/Manager Area Medical Oncology 08/28/19 Toney Godinez MD [address] [facility] [address] [place] [id number] Consulting Physician Nephrology 09/16/21 documented as of this encounter
--- OUTSIDE RECORDS SUMMARY | 2024-09-11 12:05 | XMS_ITS | Clinical Summary ---
Author Organization [facility] Radha arambula [facility] Address [address] [facility] [place] [address] Care Team Providers Care Commercial Property Manager Name Role Phone Unavailable Primary Care Provider Unavailabl e Social History Tobacco Use Types Packs/Day Years Used Date Smoking Tobacco: Never Assessed Sex and Gender Information Value Date Recorded Sex Assigned at Not on file Legal Sex Male 4:21 PM CDT Gender Identity Not on file Sexual Orientation Not on file Plan of Treatment Health Maintenance Due Date Last Done Comments DTAP/TDAP/TD VACCINES (1 - Tdap) 1964 PNEUMOCOCCAL VACCINE 50+ YEARS (1 of 1 - PCV) 11/13/18 96 ZOSTER VACCINE (1 of 2) 11/14/1995 RSV VACCINE (60+ or ) (1 - 1-dose 75+ series) 2020 INFLUENZA VACCINE (#1) 2023
--- OUTSIDE RECORDS SUMMARY | 2024-09-11 12:05 | XMS_ITS | Clinical Summary ---
Author Organization [facility] Address [address] [facility] [place] [address] Care Team Providers Care Production Or Plant Engineer Name Role Phone Unavailable Primary Care Provider Unavailabl e Source Comments [facility],non-owned Affiliates and Associated Physician Practices is amultiple site organization consisting of ambulatory clinics and hospital sitesin [place], [place], [place] and [place]. This disclosure is being madepursuant to the Care Everywhere program and may not contain all information available regarding this patient. Last updated 17.[facility] Matthew Kenney Cuisine Social History Tobacco Use Types Packs/Day Years Used Date Smoking Tobacco: Never Assessed Sex and Gender Information Value Date Recorded Sex Assigned at Not on file Legal Sex Male 2:52 PM CDT Gender Identity Not on file Sexual Orientation Not on file Plan of Treatment Health Maintenance Due Date Last Done Comments HEPATITIS C SCREENING 11/09/1963 DTAP/TDAP/TD VACCINES (1 - Tdap) 1964 PNEUMOCOCCAL VACCINE 50+ (1 of 1 - PCV) 11/14/1995 ZOSTER VACCINE (1 of 2) 11/14/1995 Respiratory Syncytial Virus (RSV) Vaccine Pt: or over 60 yrs (1 - 1-dose 75+ series) 2020 COVID-19 VACCINE ( - 2023-2 5 season) 2023 DEPRESSION SCREENING 03/27/2024 INFLUENZA VACCINE (Season Ended) 2024 HEPATITIS B VACCINE Aged Out No longe r eligible based on patient's age to complete this topic HIB VACCINE Aged Out No longer eligi ble based on patient's age to complete this topic HPV VACCINE Aged Out No longer eligi ble based on patient's age to complete this topic MENINGOCOCCAL (Group B) VACC INE SHARED DECISION-MAKING Aged Out No longer eligibl e based on patient's age to complete this topic MENINGOCOCCAL GROUPS A/C/Y/W VACCINE Aged Out No longer eligible b ased on patient's age [place] [address] AET[employer]
== END 2024-09-11 10:34 | disposition home or self-care (01) ==
PROVIDERS: PCP Physician Assistant; Visit Provider Physician Assistant
DX: I67.82 Cerebral ischemia (principal); I61.8 Other nontraumatic intracerebral hemorrhage; H74.8X1 Other specified disorders of right middle ear and mastoid
CPT/HCPCS: 70553; A9579

== ENCOUNTER 2025-02-04 08:54 | Outpatient (CLI) | payer MEDICARE, SELFPAY ==
--- NOTE | ~2025-02-04 | CT_ITS ---
EXAM/PROCEDURE: CT soft tissue neck w con HISTORY: palpable mass of neck COMPARISON: None available. TECHNIQUE: Contrast-enhanced soft tissue neck CT FINDINGS: No suspicious mass or drainable fluid collection present. Scattered nonpathologic sized lymph nodes present in the jugulodigastric, posterior triangle and occipital region as well as in the sternocleidomastoid mastoid regions. Parapharyngeal and carotid spaces appear symmetric. Fossae of Rosenmuller appear normal. Three-vessel left-sided arch present with patent common carotid arteries. There is approximate 60% stenosis with focal calcified plaque lesions in the proximal ICAs bilaterally. Vertebral arteries are patent with left vertebral artery slightly dominant. Diffuse degenerative changes throughout the bones. No acute process seen in the visualized intracranial contents or visualized portions of the upper chest. Sternal retention wires partially visualized. IMPRESSION: No obvious mass identified. Several chronic appearing findings as above including approximately 60% stenosis in both proximal ICAs. Correlation with duplex carotid ultrasound recommended. Reviewed, dictated and finalized at location A. ONNEL RESEARCH PSYCHOLOGIST IMPRESSION: No obvious mass identified. Several chronic appearing findings as a kenneth including approximately 60% stenosis in both proximal ICAs. Correlation wi duplex carotid ultrasound recommended.
--- OUTSIDE RECORDS SUMMARY | 2025-02-04 09:11 | XMS_ITS | Encounter Summary ---
Author Organization [facility] Address [address] [place] [address] Phone Care Team Providers Care Patient Account Representative Name Role Phone Rohit Cr MD PhD Unavailable [phone] Annabella Washington Primary Care Pr ovider Toney Godinez MD Unavailable Encounter Details Date Type Department Care Team (Late st Contact Info) Description 08/19/2022 Telephone [facility] Bone Marrow Transplant [address] [facility] 7th Floor, [place] [address] Berenice Tello V. 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
--- OUTSIDE RECORDS SUMMARY | 2025-02-04 09:11 | XMS_ITS | Clinical Summary ---
Author Organization [facility] Address [address] [place] [address] Care Team Providers Care Playground Worker Name Role Phone Unavailable Primary Care Provider Unavailabl e Source Comments [facility],non-owned Affiliates and Associated Physician Practices is amultiple site organization consisting of ambulatory clinics and hospital sitesin [place], [place], [place] and [place]. This disclosure is being madepursuant to the Care Everywhere program and may not contain all information available regarding this patient. Last updated 17.[facility] Taplet Social History Tobacco Use Types Packs/Day Years [...] yrs (1 - 1-dose 75+ series) 2020 DEPRESSION SCREENING 03/27/2024 COVID-19 VACCINE (1 - 2023-2 5 season) 2024 INFLUENZA VACCINE (#1) 2024 HEPATITIS B VACCINE Aged Out No [...] patient's age to complete [place] [address] AETNA
--- OUTSIDE RECORDS SUMMARY | 2025-02-04 09:11 | XMS_ITS | Clinical Summary ---
Author Organization [facility] Radha arambula [facility] Address [address] [facility] [place] [place] [address] Care Team Providers Care Registered Nurse Teacher Name Role Phone Unavailable Primary Care Provider [...] 1-dose 75+ series) 2020 INFLUENZA VACCINE (#1) 2024
--- OUTSIDE RECORDS SUMMARY | 2025-02-04 09:11 | XMS_ITS | Encounter Summary ---
Author Organization [facility] Address [address] [place] [address] Care Team Providers Care Hoeing Row Boss Name Role Phone Kathleen Paz PRESS READER Primary Care Provider [phone] Rohit Cr MD PhD Unavailable [phone] Annabella Washington Primary Care Pr ovider Kathleen Paz PRESS READER Primary Care Provider [phone] Annabella Washington Primary Care Pr ovider Toney Godinez MD Unavailable Encounter Details Date Type Department Care Team (Late st Contact Info) Description 09/18/2019 Telephone [facility] [address] [place] [id number] Elvira Emmanuel RT Social History Tobacco Use Types Packs/Day Years Used Date Smoking Tobacco: Never Smokeless Tobacco: Never Alcohol Use Standard Drinks/Week Comments No 0 (1 standard drink = 0.6 oz pur e alcohol) Sex and Gender Information Value Date Recorded Sex Assigned at Not on file Legal Sex Male 10:17 AM LIBRARY SPECIALIST Gender Identity Not on file Sexual Orientation Not on file documented as of this encounter Plan of Treatment Not on file documented as of this encounter Visit Diagnoses Not on filedocumented in this encounter Additional Health Concerns Infection Onset Date Last Indicated Resolved Time COVID: Suspected 04/09/2020 04/09/2020 04/09/2020 6:52 PM LIBRARY SPECIALIST Respiratory Infection (MAKENNA), contact + droplet Comment:04/09/2020 IP Review - Patient classified as Low Risk for COVID-19 and has one negative COVID-19 test. Patient meets criteria for COVID-19 isolation discontinuation. Fifi Contreras RN Automatically added due to negative COVID-19 result. 04/09/2020 04/09/2020 04/09/2020 11:41 PM LIBRARY SPECIALIST documented as of this encounter Care Teams Hoeing Row Boss Relationship Specialty Start Date End Date Kathleen Paz NP [address] [facility] [facility] [address] [place] [address] PCP - General Nurse Practitioner 08/13/19 04/11/20 Annablela Washington PA [address] [facility] [address] [place] [address] PCP - General 04/12/20 04/12/20 Kathleen Paz NP [address] [facility] [address] [place] [address] PCP - General 04/13/20 04/15/20 Annabella Washington PA [address] [facility] [address] [place] [address] PCP - General Physician Stope Miner 04/16/20 Rohit Cr MD PhD [address] [facility] [address] [place] [address] Medical Oncologist/Stove Tender Medical Oncology 08/28/19 Toney Godinez MD [address] [facility] [address] [place] [id number] Consulting Physician Nephrology 09/16/21 documented as of this encounter
--- OUTSIDE RECORDS SUMMARY | 2025-02-04 09:11 | XMS_ITS | Encounter Summary ---
Author Organization [facility] Address [address] [place] [address] Phone Care Team Providers Care Lead Athlete Name Role Phone Rohit Cr MD PhD Unavailable [phone] Annabella Washington Primary Care Pr ovider Toney Godinez MD Unavailable Encounter Details Date Type Department Care Team (Late st Contact Info) Description 05/09/2023 Telephone [facility] Bone Marrow Transplant [address] [facility] 7th Floor, [place] [address] Berenice Tello V. 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
--- OUTSIDE RECORDS SUMMARY | 2025-02-04 09:11 | XMS_ITS | Encounter Summary ---
Author Organization [facility] Address [address] [place] [address] Phone Care Team Providers Care Bar Steward Name Role Phone Rohit Cr MD PhD Unavailable [phone] Annabella Washington Primary Care Pr ovider Toney Godinez MD Unavailable Encounter Details Date Type Department Care Team (Late st Contact Info) Description 02/19/2024 Telephone [facility] Medicine Scheduling [address] [place] [address] Belen Soto Social History Tobacco Use Types Packs/Day Years Used Date Smoking Tobacco: Never Passive Smoke Exposure: Never Smokeless Tobacco: Never Alcohol Use Standard Drinks/Week Comments No 0 (1 standard drink = 0.6 oz pur e alcohol) Sex and Gender Information Value Date Recorded Sex Assigned at Not on file Legal Sex Male 10:17 AM HOG FEEDER Gender Identity Not on file Sexual Orientation Not on file documented as of this encounter Plan of Treatment Not on file documented as of this encounter Visit Diagnoses Not on filedocumented in this encounter Care Teams Bar Steward Relationship Specialty Start Date End Date Annabella Washington PA PCP - General Physician Chemical Research Engineer 04/16/20 Rohit Cr MD PhD Medical Oncologist/Methods Engineer Medical Oncology 08/28/19 Toney Godinez MD Consulting Physician Nephrology 09/16/21 documented as of this encounter
--- OUTSIDE RECORDS SUMMARY | 2025-02-04 09:11 | XMS_ITS ---
Author Organization [facility] Address [address] [place] [address] Care Team Providers Care Hospice Rn Name Role Phone Rohit Cr MD PhD Unavailable [phone] Annabella Washington Primary Care Pr ovider Toney Godinez MD Unavailable Active Problems Patient Care Coordination No te Formatting of this note is d ifferent from the original. 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 Assessment [...] home allopurinol 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 10/01/2015 Overview (09/26/2019): 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 angina pectoris Assessment & Plan (09/26/2019 11:13 PM CDT): Continue home ASA, simva, metop, amlodipine Hypertension associated with diabetes 10/01/2015 Overview (06/30/2016): HTN (hypertension), benign History of coronary artery bypass surgery 2015 Overview (06/30/2016): 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 ([facility]) 10/01/2015 Overview (06/30/2016): DM type 2 with diabetic dyslipidemia Current Treatment and Therapy Plans Daratumumab SUBCUTANEOUS / Lenalidomide / Dexamethasone - 28 Day Cycles - Myeloma* Plan Start Date:11/06/2024 Plan Provider:Rohit Cr MD PhD Linked Problems Multiple myeloma not having achieved remission (HCC) Treatment Medications Current Day (Day 1 5, Cycle 4 - Planned for 02/13/2025) Next Day (Day 1, Cycle 5 - Planned for 02/27/2025) daratumumab-fihj (DARZALEX FASPRO) (DARZALEX FASPRO)daratumumab-fihj (DARZALEZ FASPRO) (DARZELEX FASPRO)lenalidomide (REVLIMID) daratumumab-fihj (DARZALEX FASPRO) 1,800 mg -30,000 units hyaluronidase subcutaneous injection daratumumab-fihj (DARZALEX FASPRO) 1,800 mg -30,000 units [...] Treatment Medications Discontinue Reason Plan Provider Cycles Daratumumab SUBCUTANEOUS / Lenalidomide / Dexamethasone - 28 Day Cycles - Myeloma 11/12/19 22 10/03/2024 daratumumab-fi hj (DARZALEX FASPRO) (DARZALEX FASPRO)daratum umab-fihj (DARZALEZ FASPRO) (DARZELEX FASPRO)lenalid omide (REVLIMID) Automatic discontinuation of dormant plans Rohit Cr MD PhD 15 of 17 cycles started Bendamustine / RiTUXimab 28 Day Cycles - NHL 0 03/24/2020 bendamustine (BENDEKA) IVPB in 50 mLriTUXimab [...] Diagnosed Date Resolved Date Sepsis 04/14/2020 04/14/2020 ALEXA (acute kidney injury) 08/27/2019 Assessment & [...]
--- OUTSIDE RECORDS SUMMARY | 2025-02-04 09:11 | XMS_ITS | Encounter Summary ---
Author Organization [facility] Address [address] [place] [address] Phone Care Team Providers Care Gore Cutter Name Role Phone Rohit Cr MD PhD Unavailable [phone] Annabella Washington Primary Care Pr ovider Toney Godinez MD Unavailable Encounter Details Date Type Department Care Team (Late st Contact Info) Description 01/21/[address] [facility] Medicine Scheduling [address] [place] [address] Belen Soto Social History Tobacco Use Types Packs/Day Years Used Date Smoking Tobacco: Never Passive Smoke Exposure: Never Smokeless Tobacco: Never Alcohol Use Standard Drinks/Week Comments No 0 (1 standard drink = 0.6 oz pur e alcohol) Personal Safety Answer Date Recorded Have you ever been in or are you currently in a harmful physical or emotional relationship or is someone making you feel afraid or unsafe? 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
--- OUTSIDE RECORDS SUMMARY | 2025-02-04 09:11 | XMS_ITS | Clinical Summary ---
Author Organization [facility] Address [address] [place] [address] Care Team Providers Care Yarn Conditioner Name Role Phone Rohit rC MD PhD Unavailable [phone] [facility] Pr ovider Toney Godinez MD Unavailable Allergies Active Allergy Reactions Criticality Noted Date Comments Rituximab Shortness of breath,Chills High 0 Medications diphenhydrAMIN E (BENADRYL) 25 mg capsule take 1 capsule by oral route every 4 - 6 hours as needed 0 0 05/15/19 15 Active allopurinoL (ZYLOPRIM) 100 mg tabletIndicati ons:Prevent Tumor Lysis Syndrome Take 1 tablet (100 mg total) by mouth daily 30 tablet 11 08/28/19 20 Active amLODIPine (NORVASC) 10 mg tabletIndicati ons:Weakness,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) Take 1 tablet (10 mg total) by mouth daily 30 tablet 08/28/19 20 Active blood-glucose meter miscIndication s:Other specified diabetes mellitus with other specified complication, unspecified whether manager long term care insulin use (HCC) 1 each 3 (three) times a day 1 each 02/03/20 20 Active blood glucose diagnostic (glucose blood) stripIndicatio ns:Other specified diabetes mellitus with other specified complication, unspecified whether manager long term care insulin use (HCC) Use to test blood glucose 3 times daily 200 each 02/03/20 20 Active dapagliflozin- metformin 5-1,000 mg tablet, IR & ER, biphasic 24hrIndication s:type 2 diabetes mellitus Take 1 tablet by mouth daily 30 tablet 03/25/20 20 Active blood glucose diagnostic (OneTouch Ultra Blue Test Strip) strip OneTouch Ultra Blue Test Strip Active blood-glucose meter misc OneTouch Ultra2 Meter U UTD Active levothyroxine (SYNTHROID) 50 mcg tablet 07/30/19 21 Active blood-glucose meter miscIndication s:Kishore marginal zone B-cell lymphoma (HCC) OneTouch Ultra2 Meter USE DIRECTED DAILY Active blood glucose diagnostic (OneTouch Ultra Test) stripIndicatio ns:Kishore marginal zone B-cell lymphoma (HCC) OneTouch Ultra Test strips USE 1 STRIP TO TEST BLOOD SUGAR DAILY Active blood glucose diagnostic (OneTouch Ultra Test) stripIndicatio ns:Kishore marginal zone B-cell lymphoma (HCC) USE 1 STRIP TO TEST BLOOD SUGAR DAILY Active senna (SENOKOT) 8.6 mg tabletIndicati ons:HOLD FOR DIARRHEA Take 1 tablet by mouth daily 30 tablet 11 09/24/19 22 Active glimepiride (AMARYL) 1 mg tablet TAKE 1 TABLET BY MOUTH EVERY DAY AT DINNER 12/25/19 22 Active oxyCODONE (ROXICODONE) 5 mg immediate release tabletIndicati ons:Multiple myeloma not having achieved remission (HCC) Active atorvastatin (LIPITOR) 40 mg tablet TAKE 1 TABLET(40 MG) BY MOUTH DAILY 90 tablet 3 04/13/19 23 Active lancets (OneTouch Delica Lancets) 33 gauge miscIndication s:Multiple myeloma not having achieved remission (HCC) OneTouch Delica Lancets 33 gauge USE ONE TIME DAILY DIRECTED. Active loratadine (CLARITIN) 10 mg tablet Take 1 tablet (10 mg total) by mouth every morning 04/27/19 23 Active aspirin 81 mg enteric coated tablet Take 1 tablet (81 mg total) by mouth daily Active sodium bicarbonate 650 mg tabletIndicati ons:Multiple myeloma not having achieved remission (HCC) Take 1 tablet (650 mg total) by mouth 2 (two) times a day Active ergocalciferol (VITAMIN D) 50,000 unit capsuleIndicat ions:Kishore marginal zone B-cell lymphoma (HCC) Take 1 capsule (50,000 Units total) by mouth every 30 (thirty) days 3 capsule 3 07/28/19 24 Active gabapentin (NEURONTIN) 100 mg capsuleIndicat ions:Kishore marginal zone B-cell lymphoma (HCC),Idiopath ic peripheral neuropathy TAKE 2 CAPSULES(200 MG) BY MOUTH THREE TIMES DAILY 180 capsule 2 12/10/19 24 Active acyclovir (ZOVIRAX) 400 mg tabletIndicati ons:Kishore marginal zone B-cell lymphoma (HCC) TAKE 1 TABLET BY MOUTH DAILY 90 tablet 3 01/25/20 24 Active nitroglycerin (NITROSTAT) 0.4 mg SL tabletIndicati ons: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 Place 1 tablet (0.4 mg total) under the tongue every 5 (five) minutes as needed for chest pain Up to 3 doses; if pain not relieved call 911 25 tablet 3 03/29/19 25 Active methylPREDNISo lone (MEDROL) 32 mg tabletIndicati ons:Multiple myeloma not having achieved remission (HCC) Take 1 tablet (32 mg total) by mouth once as needed (for symptoms of a daratumumab related reaction at home prior to travel to the Emergency Department) 1 tablet 11/08/19 25 Active prochlorperazi ne (Compazine) 10 mg tabletIndicati ons:Multiple myeloma not having achieved remission (HCC) Take 1 tablet (10 mg total) by mouth every 6 (six) hours as needed for nausea or vomiting 30 tablet 3 11/08/19 25 Active furosemide (LASIX) 40 mg tablet Active hydrALAZINE (APRESOLINE) 25 mg tablet Active lisinopriL (PRINIVIL,ZEST RIL) 5 mg tablet TAKE 1 TABLET(5 MG) BY MOUTH DAILY 90 tablet 1 01/22/20 25 Active lenalidomide (REVLIMID) 10 mg capsuleIndicat ions:Multiple myeloma not having achieved remission (HCC) Take 1 capsule (10 mg total) by mouth daily for 21 days Then 7 days off. Take whole with water. Do not break, chew, or open. 21 capsule 01/25/20 25 11/21/2 025 Active dexAMETHasone (DECADRON) 2 mg tabletIndicati ons:Multiple myeloma not having achieved remission (HCC) Take 5 tablets (10 mg) on Days 2 and 16 of Cycles 3 through 6. 10 tablet 01/31/20 Active lenalidomide (REVLIMID) 10 mg capsuleIndicat ions:Multiple myeloma not having achieved remission (HCC) Take 1 capsule (10 mg total) by mouth daily for 21 days Take whole with water. Do not break, chew, or open. 21 capsule 01/31/20 25 025 Active lisinopriL (PRINIVIL,ZEST RIL) 5 mg tablet Take 1 tablet (5 mg total) by mouth daily 90 tablet 10/17/19 025 Discontinued lenalidomide (REVLIMID) 10 mg capsuleIndicat ions:Multiple myeloma not having achieved remission (HCC) Take 1 capsule (10 mg total) by mouth daily for 21 days Take whole with water. Do not break, chew, or open. 21 capsule 01/01/20 025 Discontinued(R eorder) dexAMETHasone (DECADRON) 2 mg tabletIndicati ons:Multiple myeloma not having achieved remission (HCC) Take 5 tablets (10 mg) on Days 2 and 16 of Cycles 3 through 6. 10 tablet 01/03/20 25 025 Discontinued(T herapy completed) lenalidomide (REVLIMID) 10 mg capsuleIndicat ions:Multiple myeloma not having achieved remission (HCC) Take 1 capsule (10 mg total) by mouth daily for 21 days Take whole with water. Do not break, chew, or open. 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 Assessment & Plan (09/26/2019 11:13 PM CDT): Continue home ASA, simva, metop, amlodipine Hypertension associated with diabetes 10/01/2015 Overview (06/30/2016): HTN (hypertension), benign History of coronary artery bypass surgery 2015 Overview (06/30/2016): 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 ([facility]/HCC) 10/01/2015 Overview (06/30/2016): DM type 2 with [...] 125/hr -hold salt tabs as bicarb 31 Encounters Date Type Department Care Team Description 01/30/2025 11:00 AM AGENCY APPOINTMENTS SUPERVISOR Infusion [facility] [address] [address] Multiple myeloma not having achieved remission (HCC) (Primary Dx) 01/30/2025 10:00 AM AGENCY APPOINTMENTS SUPERVISOR Office Visit [facility] [address] [phone] Rohit Cr MD PhD Multiple myeloma not having achieved remission (HCC) (Primary Dx) 01/30/2025 9:15 AM AGENCY APPOINTMENTS SUPERVISOR Lab [facility] - Lab Collection [address] [facility] [address] [place] [address] Multiple myeloma not having achieved remission (HCC) 01/24/2025 Orders Only [facility] [address] [place] [phone] Rohit Cr MD PhD Multiple myeloma not having achieved remission (HCC) 01/24/2025 Telephone [facility] [address] [place] [phone] Sharon Gilbert RN 01/21/2025 Telephone [facility] Medicine Scheduling [address] [place] [phone] Belen Soto 01/16/2025 4:30 PM CDT Infusion [facility]fusion [address] [place] [address] Multiple myeloma not having achieved remission (HCC) (Primary Dx) 01/16/2025 3:30 PM CDT Lab [facility] Collection [address] [place] [address] [address] [place] [address] Multiple myeloma not having achieved remission (HCC) 01/02/2025 11:30 AM CDT Infusion [facility] [address] [place] [address] Multiple myeloma not having achieved remission (HCC) (Primary Dx) 01/02/2025 10:30 AM CDT Lab [facility] Collection [address] [place] [address] Multiple myeloma not having achieved remission (HCC) 01/02/2025 10:00 AM CDT Office Visit [facility] Medicine Bone Marrow Transplant [address] [place] [phone] Chandrika Chambres NP Multiple myeloma not having achieved remission (HCC) (Primary Dx) 01/02/2025 9:00 AM CDT Lab [facility] Medicine Oncology Lab [address] [place] [phone] Multiple myeloma not having achieved remission (HCC) 01/01/2025 Orders Only [facility] Medicine Bone Marrow Transplant [address] [place] [phone] Sharon Gilbert RN Multiple myeloma not having achieved remission (HCC) (Primary Dx) 12/31/2024 Orders Only [facility] Medicine Bone Marrow Transplant [address] [place] [phone] Rohit Cr MD PhD Multiple myeloma not having achieved remission (HCC) 12/26/2024 8:00 AM CDT - 12/26/2024 12:00 PM CDT Hospital Encounter [facility] [address] [place] [address] Multiple myeloma not having achieved remission (HCC) (Primary Dx) Discharge Disposition: Discharge to home or self care 12/19/2024 3:45 PM CDT - 12/19/2024 6:05 PM CDT Hospital Encounter [facility] [address] [place] [address] Multiple myeloma not having achieved remission (HCC) (Primary Dx) Discharge Disposition: Discharge to home or self care 12/12/2024 8:00 AM CDT Infusion [facility] [address] [place] [address] Multiple myeloma not having achieved remission (HCC) (Primary Dx) 12/12/2024 7:00 AM CDT Lab [facility] Collection [address] [facility] Floor [address] [place] [address] Multiple myeloma not having achieved remission (HCC) 12/06/2024 Orders Only [facility] Medicine Bone Marrow Transplant [address] [facility] Floor [address] [place] [address] Sharon Gilbert RN Multiple myeloma not having achieved remission (HCC) (Primary Dx) 12/05/2024 9:00 AM CDT Infusion [facility] [address] [place] [address] Multiple myeloma not having achieved remission (HCC) (Primary Dx) 12/05/2024 8:00 AM CDT [facility] [address] [place] [address] Rohit Cr MD PhD Multiple myeloma not having achieved remission (HCC) (Primary Dx) 12/05/2024 7:00 AM CDT Lab [facility] [address] [place] [address] Multiple myeloma not having achieved remission (HCC) 12/02/2024 [facility] [address] [facility] Floor [address] [place] [address] Rohit Cr MD PhD Multiple myeloma not having achieved remission (HCC) 11/29/2024 Telephone [facility] [address] [facility] Floor [address] [place] [address] Sharon Gilbert RN 11/28/2024 8:00 AM CDT Infusion [facility]fusion [address] [place] [address] Multiple myeloma not having achieved remission (HCC) (Primary Dx) 11/28/2024 7:00 AM CDT Lab [facility] [address] [place] [address] Multiple myeloma not having achieved remission (HCC) 11/28/2024 Orders Only [facility] [address] [phone] Rohit Cr MD PhD 11/28/2024 Orders Only [facility] [address] [facility] [address] [place] [address] Rohit Cr MD PhD 11/21/2024 8:00 AM CDT Infusion [facility] [address] [place] [address] Multiple myeloma not having achieved remission (HCC) (Primary Dx) 11/21/2024 7:00 AM CDT Lab [facility] [address] [place] [address] Multiple myeloma not having achieved remission (HCC) 11/14/2024 8:00 AM CDT Infusion [facility] [address] [place] [address] Multiple myeloma not having achieved remission (HCC) (Primary Dx) 11/14/2024 7:00 AM CDT Lab [facility] [address] [place] [address] Multiple myeloma not having achieved remission (HCC) 11/07/2024 1:00 PM CDT Infusion [facility] [address] [place] [address] Multiple myeloma not having achieved remission (HCC) (Primary Dx) 11/07/2024 11:30 AM CDT Office Visit [facility] Medicine Bone Marrow Transplant [address] [facility] [address] [place] [phone] Rohit Cr MD PhD Multiple myeloma not having achieved remission (HCC) (Primary Dx) 11/07/2024 10:30 AM CDT Lab [facility] - [facility] [address] [place] [address] Multiple myeloma not having achieved remission (HCC) from Last 3 Months Surgical History Surgery Date Site/Laterality Comments CORONARY ARTERY BYPASS GRAFT 03/27/2010 - 03/26/2011 Coronary Artery Bypass Graft CENTRAL LINE PLACEMENT > 5 YEARS 08/17/2019 N/A CARDIAC SURGERY SUPERFICIAL BONE BIOPSY 04/08/2020 N/A BIOPSY DEEP BONE 10/14/2024 N/A Medical History Medical History Date Comments Cardiovascular disease Coronary Artery Disease Hypertension Hypertension Hx Other Medical Diabetes Type I I Sleep apnea Sleep Apnea Coronary artery disease Diabetes mellitus Cancer (HCC) Family History Medical History Relation [...] on file Legal Sex Male 10:17 AM AGENCY APPOINTMENTS SUPERVISOR Gender Identity Not on file Sexual Orientation Not on file Last Filed Vital Signs Vital Sign Reading Time Taken Comments Blood Pressure 144/72 01/30/2025 12:57 PM AGENCY APPOINTMENTS SUPERVISOR Pulse 74 01/30/2025 12:57 PM AGENCY APPOINTMENTS SUPERVISOR Temperature 36.5 C (97.7 F) 01/30/2025 12:57 PM AGENCY APPOINTMENTS SUPERVISOR Respiratory Rate 18 01/30/2025 12:5 7 PM AGENCY APPOINTMENTS SUPERVISOR Oxygen Saturation 97% 01/30/2025 12: 57 PM AGENCY APPOINTMENTS SUPERVISOR Inhaled Oxygen Concentration - - Weight 79.7 kg (175 lb 12.8 oz) 01/30/2025 9:57 AM AGENCY APPOINTMENTS SUPERVISOR Height 171.1 cm (5' 7.36) 11/07/2024 1 2:46 PM CDT Body Mass Index 27.24 11/07/2024 12:46 PM CDT Plan of Treatment Health Maintenance Due Date Last Done Comments Depression Screening 1945 Dilated Eye Exam 1945 Foot Exam 1945 DTaP/Tdap/Td Vaccine (1 - Tdap) 1956 Hepatitis B Screening 11/14/1963 Pneumococcal vaccine 65+ (1 of 2 - PCV) 1964 Zoster Vaccine (1 of 2) 1964 Well Visit 65+ 2010 Hemoglobin A1C 03/29/2020 09/27/2019 Albumin Creatinine Ratio, Urine 10/12/2024 Influenza Vaccine (#1) 2024 Lipid Panel 03/29/2025 03/29/2024, 04/2 07/2022, 01/13/2022, Additional history exists Fall Risk Assessment 10/14/2025 10/14/2024, 06/10/2021, 09/04/2019 eGFR 01/30/2026 01/30/2025, 10/0 11/2024, 12/05/2024, Additional history exists Hepatitis C Screening Completed 08/15/2019 Procedures Procedure Name Priority Date/Time Associated Diagnosis Comments EGFR STAT 01/30/2025 9:51 AM AGENCY APPOINTMENTS SUPERVISOR Multiple myeloma not having achieved remission (HCC) DIFFERENTIAL AUTO Routine 01/30/2025 9:5 1 AM AGENCY APPOINTMENTS SUPERVISOR Multiple myeloma not having achieved remission (HCC) LACTATE DEHYDROGENASE Routine 01/30/2025 9:51 AM AGENCY APPOINTMENTS SUPERVISOR Multiple myeloma not having achieved remission (HCC) IGA Routine 01/30/2025 9:51 AM AGENCY APPOINTMENTS SUPERVISOR Multiple myeloma not having achieved remission (HCC) IGG Routine 01/30/2025 9:51 AM AGENCY APPOINTMENTS SUPERVISOR Multiple myeloma not having achieved remission (HCC) IGM Routine 01/30/2025 9:51 AM AGENCY APPOINTMENTS SUPERVISOR Multiple myeloma not having achieved remission (HCC) IMMUNOGLOBULIN FREE LIGHT CHAINS Routine 01/30/2025 9:51 AM AGENCY APPOINTMENTS SUPERVISOR Multiple myeloma not having achieved remission (HCC) PROTEIN ELECTROPHORESIS, WITH REFLEX, SERUM Routine 01/30/2025 9:51 AM AGENCY APPOINTMENTS SUPERVISOR Multiple myeloma not having achieved remission (HCC) CBC WITH AUTO DIFFERENTIAL Routine 01/30/2025 9:51 AM AGENCY APPOINTMENTS SUPERVISOR Multiple myeloma not having achieved remission (HCC) COMPREHENSIVE METABOLIC PANEL STAT 01/30/2025 9:51 AM AGENCY APPOINTMENTS SUPERVISOR Multiple myeloma not having achieved remission (HCC) DIFFERENTIAL AUTO Routine 01/16/2025 3:4 5 PM CDT Multiple myeloma not having achieved remission (HCC) CBC WITH AUTO DIFFERENTIAL Routine 01/16/2025 3:45 PM CDT Multiple myeloma not having achieved remission (HCC) IMMUNOTYPING Routine 01/02/2025 9:45 AM CDT Multiple myeloma not having achieved remission (HCC) EGFR STAT 01/02/2025 9:45 AM CDT Multiple myeloma not having achieved remission (HCC) DIFFERENTIAL AUTO Routine 01/02/2025 9:4 5 AM CDT Multiple myeloma not having achieved remission (HCC) COMPREHENSIVE METABOLIC PANEL STAT 01/02/2025 9:45 AM CDT Multiple myeloma not having achieved remission (HCC) CBC WITH AUTO DIFFERENTIAL Routine 01/02/2025 9:45 AM CDT Multiple myeloma not having achieved remission (HCC) IGG Routine 01/02/2025 9:45 AM CDT Multiple myeloma not having achieved remission (HCC) IGM Routine 01/02/2025 9:45 AM CDT Multiple myeloma not having achieved remission (HCC) IMMUNOGLOBULIN FREE LIGHT CHAINS Routine 01/02/2025 9:45 AM CDT Multiple myeloma not having achieved remission (HCC) PROTEIN ELECTROPHORESIS, WITH REFLEX, SERUM Routine 01/02/2025 9:45 AM CDT Multiple myeloma not having achieved remission (HCC) IGA Routine 01/02/2025 9:45 AM CDT Multiple myeloma not having achieved remission (HCC) LACTATE DEHYDROGENASE Routine 01/02/2025 9:45 AM CDT Multiple myeloma not having achieved remission (HCC) DIFFERENTIAL AUTO Routine 12/26/2024 8:4 6 AM CDT Multiple myeloma not having achieved remission (HCC) CBC WITH AUTO DIFFERENTIAL Routine 12/26/2024 8:46 AM CDT Multiple myeloma not having achieved remission (HCC) DIFFERENTIAL AUTO Routine 12/19/2024 4:1 4 PM CDT Multiple myeloma not having achieved remission (HCC) CBC WITH AUTO DIFFERENTIAL Routine 12/19/2024 4:14 PM CDT Multiple myeloma not having achieved remission (HCC) DIFFERENTIAL AUTO Routine 12/12/2024 7:0 7 AM CDT Multiple myeloma not having achieved remission (HCC) CBC WITH AUTO DIFFERENTIAL Routine 12/12/2024 7:07 AM CDT Multiple myeloma not having achieved remission (HCC) EGFR STAT 12/05/2024 8:53 AM CDT Multiple myeloma not having achieved remission (HCC) DIFFERENTIAL AUTO Routine 12/05/2024 8:5 3 AM CDT Multiple myeloma not having achieved remission (HCC) CBC WITH AUTO DIFFERENTIAL Routine 12/05/2024 8:53 AM CDT Multiple myeloma not having achieved remission (HCC) COMPREHENSIVE METABOLIC PANEL STAT 12/05/2024 8:53 AM CDT Multiple myeloma not having achieved remission (HCC) DIFFERENTIAL AUTO Routine 11/28/2024 7:4 5 AM CDT Multiple myeloma not having achieved remission (HCC) CBC WITH AUTO DIFFERENTIAL Routine 11/28/2024 7:45 AM CDT Multiple myeloma not having achieved remission (HCC) DIFFERENTIAL AUTO Routine 11/21/2024 8:0 2 AM CDT Multiple myeloma not having achieved remission (HCC) CBC WITH AUTO DIFFERENTIAL Routine 11/21/2024 8:02 AM CDT Multiple myeloma not having achieved remission (HCC) DIFFERENTIAL AUTO Routine 11/14/2024 7:4 8 AM CDT Multiple myeloma not having achieved remission (HCC) CBC WITH AUTO DIFFERENTIAL Routine 11/14/2024 7:48 AM CDT Multiple myeloma not having achieved remission (HCC) EGFR STAT 11/07/2024 11:15 AM CDT Multiple myeloma not having achieved remission (HCC) DIFFERENTIAL AUTO Routine 11/07/2024 11: 15 AM CDT Multiple myeloma not having achieved remission (HCC) CBC WITH AUTO DIFFERENTIAL Routine 11/07/2024 11:15 AM CDT Multiple myeloma not having achieved remission (HCC) COMPREHENSIVE METABOLIC PANEL STAT 11/07/2024 11:15 AM CDT Multiple myeloma not having achieved remission (HCC) TYPE AND SCREEN Routine 11/07/2024 11:15 AM CDT Multiple myeloma not having achieved remission (HCC) POCT LIPID PANEL Routine 03/29/2024 8:43 AM AGENCY APPOINTMENTS SUPERVISOR Lipid screening ALBUMIN CREATININE RATIO, URINE Routine 10/13/2023 4:57 PM CDT Stage 3a chronic kidney disease (HCC) HEMOGLOBIN A1C Routine 09/27/2019 2:46 AM CDT HEPATITIS PANEL, ACUTE Routine 0 11:16 PM CDT from Last 3 Months or Most Recently Relevant to Health Maintenance Results * (ABNORMAL) eGFR (01/30/2025 9:51 AM AGENCY APPOINTMENTS SUPERVISOR) eGFR 52(L) >=60 mL/min/1. 73 m2 Comment: Interpretive Data [...] interpretive data was last reviewed 2021. Blood 01/30/2025 9:51 AM AGENCY APPOINTMENTS SUPERVISOR 01/30/2025 9:56 AM AGENCY APPOINTMENTS SUPERVISOR us Chandrika Chambers ENGINEERING TECHNOLOGIST LAB BLOOD ORDERABLES Final Res ult BRYANT CHARLES [facility] [place] [address] * (ABNORMAL) Differential, auto (01/30/2025 9:51 AM AGENCY APPOINTMENTS SUPERVISOR) Neutrophil abs 2.01 1.50 - 6.50 K/cumm Comment:Testing performed by : [facility], [address] [place] [address] Lymphocyte abs 0.48(L) 0.80 - 3.30 K/cumm [facility] Comment:Testing performed by : [facility], [address] [place], [place] [phone] Monocyte abs 0.67 0.20 - 0.80 K/cumm [facility] Comment:Testing performed by : [facility], [address] [place], [place] [id number] Eosinophil abs 0.11 0.00 - 0.50 K/cumm [facility] Comment:Testing performed by : [facility], [address] [place], [place] [phone] Basophil abs 0.11(H) 0.00 - 0.10 K/cumm [facility] Comment:Testing performed by : [facility], [address] [place] [address] Neutrophil pct 59.6 % [facility] Comment: Interpretive Data Percent cell count reference ranges are not reported, since discordance with absolute values may lead to misinterpretation of CBC data. Current Interpretive Data was last revised on 2017. Testing performed by: [facility], [address] [place], [place] [phone] Lymphocyte pct 14.1 % [facility] Comment: Interpretive Data Percent cell count reference ranges are not reported, since discordance with absolute values may lead to misinterpretation of CBC data. Current Interpretive Data was last revised on 2017. Testing performed by: [facility], [address] [place] [phone] Monocyte pct 19.8 % [facility] Comment: Interpretive Data Percent cell count reference ranges are not reported, since discordance with absolute values may lead to misinterpretation of CBC data. Current Interpretive Data was last revised on 2017. Testing performed by: [facility], [address] [place] [phone] Eosinophil pct 3.4 % [facility] Comment: Interpretive Data Percent cell count reference ranges are not reported, since discordance with absolute values may lead to misinterpretation of CBC data. Current Interpretive Data was last revised on 2017. Testing performed by: [facility], [address] [place] [phone] Basophil pct 3.2 % [facility] Comment: Interpretive Data Percent cell count reference ranges are not reported, since discordance with absolute values may lead to misinterpretation of CBC data. Current Interpretive Data was last revised on 2017. Testing performed by: [facility], [facility] [place] [address] Blood 01/30/2025 9:51 AM AGENCY APPOINTMENTS SUPERVISOR 01/30/2025 9:55 AM AGENCY APPOINTMENTS SUPERVISOR Chandrika Chambers ENGINEERING TECHNOLOGIST LAB BLOOD ORDERABLES Final Res ult [facility] Department [place] [address] * (ABNORMAL) Immunoglobulin free light chains (01/30/2025 9:51 AM AGENCY APPOINTMENTS SUPERVISOR) Sandoval/Lambda ratio [facility] 4.09(H) 0.26 - 1.65 Comment: Interpretive Data The Binding Site FreeLite assay procedure was used. Results from different manufacturers or methods may not be comparable. Serial testing should be performed using the same methods and instrumentation. Current Interpretive Data was last revised on 2023. Sandoval free light chain [facility] 2.86(H) 0.33 - 1.94 mg/dL [facility] Comment: Interpretive Data The Binding Site FreeLite assay procedure was used. Results from different manufacturers or methods may not be comparable. Serial testing should be performed using the same methods and instrumentation. Current Interpretive Data was last revised on 2023. Lambda free light chain [facility] 0.70 0.57 - 2.63 mg/dL [facility] Comment: Interpretive Data The Binding Site FreeLite assay procedure was used. Results from different manufacturers or methods may not be comparable. Serial testing should be performed using the same methods and instrumentation. Current Interpretive Data was last revised on 2023. Blood 01/30/2025 9:51 AM AGENCY APPOINTMENTS SUPERVISOR 01/30/2025 10:30 AM AGENCY APPOINTMENTS SUPERVISOR us Chandrika Persaud [place] ENGINEERING TECHNOLOGIST LAB BLOOD ORDERABLES Final Res ult [facility] Department [place] [address] * (ABNORMAL) CBC with auto differential (01/30/2025 9:51 AM AGENCY APPOINTMENTS SUPERVISOR) WBC 3.37(L) 3.80 - 9.90 K/cumm Comment:Testing performed by : [facility], [address] [place] [address] Hgb 13.2 13.0 - 17.5 g/dL [facility] Comment:Testing performed by : [facility], [address] [place] [address] Hct 40.1 38.9 - 50.3 % [facility] Comment:Testing performed by : [facility], [address] [place] [address] Plt 195 150 - 400 K/cumm [facility] Comment:Testing performed by : [facility], [address] [place] [address] MPV 8.0 6.8 - 10.4 fL [facility] Comment:Testing performed by : [facility], [address] [place] [address] RBC 4.06(L) 4.30 - 5.80 M/cumm [facility] Comment:Testing performed by : [facility], [address] [place] [address] MCV 98.7(H) 81.3 - 96.4 fL [facility] Comment:Testing performed by : [facility], [address] [place] [address] MCH 32.5 27.1 - 33.3 pg [facility] Comment:Testing performed by : [facility], [address] [place] [phone] MCHC 33.0 32.3 - 35.7 g/dL [facility] Comment:Testing performed by : [facility], [address] [place] [phone] RDW CV 13.9 11.1 - 14.9 % [facility] Comment:Testing performed by : [facility], [address] [place] [phone] NRBC abs 0.00 0.00 - 0.01 K/cumm [facility] Comment:Testing performed by : [facility], [address] [place] [phone] Blood 01/30/2025 9:51 AM AGENCY APPOINTMENTS SUPERVISOR 01/30/2025 9:55 AM AGENCY APPOINTMENTS SUPERVISOR Chandrika Chambers ENGINEERING TECHNOLOGIST LAB BLOOD ORDERABLES Final Res ult [facility] Department [place] [address] * (ABNORMAL) Protein electrophoresis with reflex, serum with interpretation (01/30/2025 9:51 AM AGENCY APPOINTMENTS SUPERVISOR) Protein, sr 5.9(L) 6.2 - 8.2 g/dL Albumin 3.7 3.2 - 5.0 g/dL [facility] Alpha-1 globulin 0.3 0.2 - 0.4 g/dL [facility] Alpha-2 globulin 0.8 0.5 - 1.0 g/dL [facility] Beta-1 globulin 0.3 0.3 - 0.6 g/dL [facility] Beta-2 globulin 0.2 0.2 - 0.6 g/dL [facility] Gamma globulin 0.5 0.5 - 1.7 g/dL [facility] Rstr Pk Gamma peak A 0.2(H) 0.0 - 0.0 g/dL [facility] Rstr Pk Gamma peak B 0.1(H) 0.0 - 0.0 g/dL [facility] SPEP interp Please see comment [facility] Comment: Two abnormal restricted peaks in Gamma region Electrophoretic pattern appears similar to previous sample 01/03/2025 Reviewed and signed by Aurelio Gutierrez MD, PhD 01/31/2025 Blood 01/30/2025 9:51 AM AGENCY APPOINTMENTS SUPERVISOR 01/30/2025 10:30 AM AGENCY APPOINTMENTS SUPERVISOR Chandrika Chambers ENGINEERING TECHNOLOGIST LAB BLOOD ORDERABLES Final Res ult Performing Organization Address [facility] Co de Phone Number [facility] [place] [address] * Lactate dehydrogenase (LD) (01/30/2025 9:51 AM AGENCY APPOINTMENTS SUPERVISOR) Lactate dehydrogenase (LDH) 181 100 - 250 Units/L Blood 01/30/2025 9:51 AM AGENCY APPOINTMENTS SUPERVISOR 01/30/2025 9:56 AM AGENCY APPOINTMENTS SUPERVISOR Chandrika Chambers ENGINEERING TECHNOLOGIST LAB BLOOD ORDERABLES Final Res ult Performing Organization Address [facility] [place] [address] * (ABNORMAL) IgA (01/30/2025 9:51 AM AGENCY APPOINTMENTS SUPERVISOR) Immunoglobulin A <5(L) 70 - 400 mg/dL Comment:Reviewed. Blood 01/30/2025 9:51 AM AGENCY APPOINTMENTS SUPERVISOR 01/30/2025 10:16 AM AGENCY APPOINTMENTS SUPERVISOR Chandrika Chambers ENGINEERING TECHNOLOGIST LAB BLOOD ORDERABLES Final Res ult Performing Organization Address [facility] [place] [address] * (ABNORMAL) IgM (01/30/2025 9:51 AM AGENCY APPOINTMENTS SUPERVISOR) Immunoglobulin M 37(L) 40 - 230 mg/dL Blood 01/30/2025 9:51 AM AGENCY APPOINTMENTS SUPERVISOR 01/30/2025 10:16 AM AGENCY APPOINTMENTS SUPERVISOR Chandrika S. [place] ENGINEERING TECHNOLOGIST LAB BLOOD ORDERABLES Final Res ult Performing Organization Address [facility] Co de Phone Number [facility] [place] [address] * (ABNORMAL) IgG (01/30/2025 9:51 AM AGENCY APPOINTMENTS SUPERVISOR) Pathologist [facility] Immunoglobulin G 539(L) 700 - 1,600 mg/dL Blood 01/30/2025 9:51 AM AGENCY APPOINTMENTS SUPERVISOR 01/30/2025 10:16 AM AGENCY APPOINTMENTS SUPERVISOR Chandrika S. [place] ENGINEERING TECHNOLOGIST LAB BLOOD ORDERABLES Final Res ult Performing Organization Address [facility] de Phone Number [facility] [place] [address] * (ABNORMAL) Comprehensive metabolic panel (01/30/2025 9:51 AM AGENCY APPOINTMENTS SUPERVISOR) [facility] Sodium 143 135 - 145 mmol/L Potassium, pl 4.2 3.3 - 4.9 mmol/L [facility] Chloride 107 97 - 110 mmol/L [facility] CO2 28 22 - 32 mmol/L [facility] Anion gap 8 2 - 15 mmol/L [facility] BUN 17 6 - 25 mg/dL [facility] Creatinine 1.37(H) 0.80 - 1.30 mg/dL [facility] Glucose 199 70 - 199 mg/dL [facility] Comment: Interpretive Data Fasting glucose >/= 126 [...] interpretive data was last revised 2022. Calcium 8.9 8.5 - 10.3 mg/dL [facility] Bilirubin, total 0.4 0.1 - 1.2 mg/dL [facility] Protein, pl 6.2(L) 6.5 - 8.5 g/dL [facility] Albumin 3.9 3.5 - 5.0 g/dL [facility] Alk phos 77 40 - 130 Units/L [facility] ALT 12 7 - 55 Units/L [facility] AST 12 10 - 50 Units/L [facility] Blood 01/30/2025 9:51 AM AGENCY APPOINTMENTS SUPERVISOR 01/30/2025 9:56 AM AGENCY APPOINTMENTS SUPERVISOR Chandrika Chambers ENGINEERING TECHNOLOGIST LAB BLOOD ORDERABLES Final Res ult [facility] Department [place] [address] * (ABNORMAL) Differential, auto (01/16/2025 3:45 PM CDT) Neutrophil abs 5.39 1.50 - 6.50 K/cumm Comment:Testing performed by : [facility], [address] [place], [place] [phone] Lymphocyte abs 0.32(L) 0.80 - 3.30 K/cumm [facility] Comment:Testing performed by : [facility], [address] [place] [address] Monocyte abs 0.94(H) 0.20 - 0.80 K/cumm [facility] Comment:Testing performed by : [facility], [address] [place] [address] Eosinophil abs 0.54(H) 0.00 - 0.50 K/cumm [facility] Comment:Testing performed by : [facility], [address] [place] [address] Basophil abs 0.04 0.00 - 0.10 K/cumm [facility] Comment:Testing performed by : [facility], [address] [place] [phone] Neutrophil pct 74.6 % [facility] Comment: Interpretive Data Percent cell count reference ranges are not reported, since discordance with absolute values may lead to misinterpretation of CBC data. Current Interpretive Data was last revised on 2017. Testing performed by: [facility], [address] [place] [phone] Lymphocyte pct 4.4 % [facility] Comment: Interpretive Data Percent cell count reference ranges are not reported, since discordance with absolute values may lead to misinterpretation of CBC data. Current Interpretive Data was last revised on 2017. Testing performed by: [facility], [address] [place] [phone] Monocyte pct 13.0 % [facility] Comment: Interpretive Data Percent cell count reference ranges are not reported, since discordance with absolute values may lead to misinterpretation of CBC data. Current Interpretive Data was last revised on 2017. Testing performed by: [facility], [address] [place] [phone] Eosinophil pct 7.5 % [facility] Comment: Interpretive Data Percent cell count reference ranges are not reported, since discordance with absolute values may lead to misinterpretation of CBC data. Current Interpretive Data was last revised on 2017. Testing performed by: [facility], [address] [place] [phone] Basophil pct 0.6 % [facility] Comment: Interpretive Data Percent cell count reference ranges are not reported, since discordance with absolute values may lead to misinterpretation of CBC data. Current Interpretive Data was last revised on 2017. Testing performed by: [facility], [address] [place] [phone] Blood 01/16/2025 3:45 PM CDT 01/16/2025 3:53 PM CDT us Chandrika Hellerr ENGINEERING TECHNOLOGIST LAB BLOOD ORDERABLES Final Res ult [facility] Department [place] [address] * (ABNORMAL) CBC with auto differential (01/16/2025 3:45 PM CDT) WBC 7.22 3.80 - 9.90 K/cumm Comment:Testing performed by : [facility], [address] [place] [address] Hgb 13.3 13.0 - 17.5 g/dL [facility] Comment:Testing performed by : [facility], [address] [place] [address] Hct 40.3 38.9 - 50.3 % [facility] Comment:Testing performed by : [facility], [address] [place] [address] Plt 145(L) 150 - 400 K/cumm [facility] Comment:Testing performed by : [facility], [address] [place] [address] MPV 9.5 6.8 - 10.4 fL [facility] Comment:Testing performed by : [facility], [address] [place] [address] RBC 4.08(L) 4.30 - 5.80 M/cumm [facility] Comment:Testing performed by : [facility], [address] [place] [address] MCV 98.6(H) 81.3 - 96.4 fL [facility] Comment:Testing performed by : [facility], [address] [place] [address] MCH 32.5 27.1 - 33.3 pg [facility] Comment:Testing performed by : [facility], [address] [place] [address] MCHC 32.9 32.3 - 35.7 g/dL [facility] Comment:Testing performed by : [facility], [address] [place] [address] RDW CV 13.8 11.1 - 14.9 % [facility] Comment:Testing performed by : [facility], [address] [place] [phone] NRBC abs 0.00 0.00 - 0.01 K/cumm [facility] Comment:Testing performed by : [facility], [address] [place] [phone] Blood 01/16/2025 3:45 PM CDT 01/16/2025 3:53 PM CDT Chandrika S. [place] ENGINEERING TECHNOLOGIST LAB BLOOD ORDERABLES Final Res ult Performing Organization Address [facility] Co de Phone Number [facility] [place] [address] * Immunotyping, serum with interpretation (01/02/2025 9:45 AM CDT) Immunosubtraction Please see comment Comment: TWO IGG KAPPA PARAPROTEINS Reviewed and signed by Clifton Jacobson MD, PhD 01/03/2025 Blood 01/02/2025 9:45 AM CDT 01/02/2025 11:28 AM CDT Narrative [facility] - 01/03/2025 1:40 PM CDT Reflex Immunotyping, Ser Chandrika S. [place] ENGINEERING TECHNOLOGIST LAB BLOOD ORDERABLES Final Res ult Performing Organization Address [facility] de Phone Number [facility] Department [place] [address] * (ABNORMAL) eGFR (01/02/2025 9:45 AM CDT) eGFR 55(L) >=60 mL/min/1. 73 m2 Comment: Interpretive Data [...] interpretive data was last reviewed 2021. Blood 01/02/2025 9:45 AM CDT 01/02/2025 10:06 AM CDT Rohit Cr MD PhD LAB BLOOD ORDERABLES Final Result [facility] Department [place] [address] * (ABNORMAL) Differential, auto (01/02/2025 9:45 AM CDT) Neutrophil abs 2.83 1.50 - 6.50 K/cumm Comment:Testing performed by : [facility], [address] [place] [address] Lymphocyte abs 0.35(L) 0.80 - 3.30 K/cumm [facility] Comment:Testing performed by : [facility], [address] [place] [address] Monocyte abs 0.77 0.20 - 0.80 K/cumm [facility] Comment:Testing performed by : [facility], [address] [place] [address] Eosinophil abs 0.32 0.00 - 0.50 K/cumm [facility] Comment:Testing performed by : [facility], [address] [place] [address] Basophil abs 0.08 0.00 - 0.10 K/cumm [facility] Comment:Testing performed by : [facility], [address] [place] [phone] Neutrophil pct 65.0 % [facility] Comment: Interpretive Data Percent cell count reference ranges are not reported, since discordance with absolute values may lead to misinterpretation of CBC data. Current Interpretive Data was last revised on 2017. Testing performed by: [facility], [address] [place] [phone] Lymphocyte pct 8.1 % [facility] Comment: Interpretive Data Percent cell count reference ranges are not reported, since discordance with absolute values may lead to misinterpretation of CBC data. Current Interpretive Data was last revised on 2017. Testing performed by: [facility], [address] [place] [phone] Monocyte pct 17.8 % [facility] Comment: Interpretive Data Percent cell count reference ranges are not reported, since discordance with absolute values may lead to misinterpretation of CBC data. Current Interpretive Data was last revised on 2017. Testing performed by: [facility], [address] [place] [phone] Eosinophil pct 7.3 % [facility] Comment: Interpretive Data Percent cell count reference ranges are not reported, since discordance with absolute values may lead to misinterpretation of CBC data. Current Interpretive Data was last revised on 2017. Testing performed by: [facility], [address] [place] [phone] Basophil pct 1.9 % [facility] Comment: Interpretive Data Percent cell count reference ranges are not reported, since discordance with absolute values may lead to misinterpretation of CBC data. Current Interpretive Data was last revised on 2017. Testing performed by: [facility], [address] [place] [phone] Blood 01/02/2025 9:45 AM CDT 01/02/2025 9:57 AM CDT us Rohit Cr MD PhD LAB BLOOD ORDERABLES Final Result [facility] Department [place] [address] * (ABNORMAL) Immunoglobulin free light chains (01/02/2025 9:45 AM CDT) Pathologist [facility] Sandoval/Lambda ratio [facility] 5.57(H) 0.26 - 1.65 Comment: Interpretive Data The Binding Site FreeLite assay procedure was used. Results from different manufacturers or methods may not be comparable. Serial testing should be performed using the same methods and instrumentation. Current Interpretive Data was last revised on 2023. Sandoval free light chain [facility] 2.45(H) 0.33 - 1.94 mg/dL [facility] Comment: Interpretive Data The Binding Site FreeLite assay procedure was used. Results from different manufacturers or methods may not be comparable. Serial testing should be performed using the same methods and instrumentation. Current Interpretive Data was last revised on 2023. Lambda free light chain [facility] 0.44(L) 0.57 - 2.63 mg/dL [facility] Comment: Interpretive Data The Binding Site FreeLite assay procedure was used. Results from different manufacturers or methods may not be comparable. Serial testing should be performed using the same methods and instrumentation. Current Interpretive Data was last revised on 2023. Blood 01/02/2025 9:45 AM CDT 01/02/2025 11:25 AM CDT us Chandrika SCalvin [place] ENGINEERING TECHNOLOGIST LAB BLOOD ORDERABLES Final Res ult [facility] Department [place] [address] * (ABNORMAL) CBC with auto differential (01/02/2025 9:45 AM CDT) Pathologist [facility] WBC 4.35 3.80 - 9.90 K/cumm Comment:Testing performed by : [facility], [address] [place] [phone] Hgb 13.7 13.0 - 17.5 g/dL [facility] Comment:Testing performed by : [facility], [address] [place] [address] Hct 40.6 38.9 - 50.3 % [facility] Comment:Testing performed by : [facility], [address] [place], [place] [phone] Plt 201 150 - 400 K/cumm [facility] Comment:Testing performed by : [facility], [address] [place] [address] MPV 8.3 6.8 - 10.4 fL [facility] Comment:Testing performed by : [facility], [address] [place], [place] [phone] RBC 4.13(L) 4.30 - 5.80 M/cumm [facility] Comment:Testing performed by : [facility], [address] [place], [place] [phone] MCV 98.3(H) 81.3 - 96.4 fL [facility] Comment:Testing performed by : [facility], [address] [place], [place] [phone] MCH 33.2 27.1 - 33.3 pg [facility] Comment:Testing performed by : [facility], [address] [place] [address] MCHC 33.8 32.3 - 35.7 g/dL [facility] Comment:Testing performed by : [facility], [address] [place] [address] RDW CV 13.2 11.1 - 14.9 % [facility] Comment:Testing performed by : [facility], [address] [place] [address] NRBC abs 0.00 0.00 - 0.01 K/cumm [facility] Comment:Testing performed by : [facility], [address] [place], [place] [phone] Blood 01/02/2025 9:45 AM CDT 01/02/2025 9:57 AM CDT Rohit Cr MD PhD LAB BLOOD ORDERABLES Final Result [facility] Department [place] [address] * (ABNORMAL) Protein electrophoresis with reflex, serum with interpretation (01/02/2025 9:45 AM CDT) Pathologist [facility] Protein, sr 6.0(L) 6.2 - 8.2 g/dL Albumin 3.7 3.2 - 5.0 g/dL [facility] Alpha-1 globulin 0.4 0.2 - 0.4 g/dL [facility] Alpha-2 globulin 0.8 0.5 - 1.0 g/dL [facility] Beta-1 globulin 0.4 0.3 - 0.6 g/dL [facility] Beta-2 globulin 0.2 0.2 - 0.6 g/dL [facility] Gamma globulin 0.5 0.5 - 1.7 g/dL [facility] Rstr Pk Gamma peak A 0.3(H) 0.0 - 0.0 g/dL [facility] Rstr Pk Gamma peak B 0.1(H) 0.0 - 0.0 g/dL [facility] SPEP interp Please see comment [facility] Comment: Two abnormal restricted peaks in Gamma region Electrophoretic pattern appears different from previous sample 10/25/2024 See immunotyping for further information Reviewed and signed by Clifton Jacobson MD, PhD 01/03/2025 Immunotyping See Immunotyping Results [facility] Blood 01/02/2025 9:45 AM CDT 01/02/2025 11:25 AM CDT us Chandrika Persaud [place] ENGINEERING TECHNOLOGIST LAB BLOOD ORDERABLES Final Res ult [facility] Department [place] [address] * Lactate dehydrogenase (LD) (01/02/2025 9:45 AM CDT) [facility] Lactate dehydrogenase (LDH) 156 100 - 250 Units/L Blood 01/02/2025 9:4 5 AM CDT 01/02/2025 10:06 AM CDT us Chandrika Chambers ENGINEERING TECHNOLOGIST LAB BLOOD ORDERABLES Final Res ult Performing Organization Address [facility] de Phone Number [facility] [place] [address] * (ABNORMAL) IgA (01/02/2025 9:45 AM CDT) Immunoglobulin A <5(L) 70 - 400 mg/dL Blood 01/02/2025 9:45 AM CDT 01/02/2025 10:50 AM CDT us Chandrika Chambers ENGINEERING TECHNOLOGIST LAB BLOOD ORDERABLES Final Res ult Performing Organization Address [facility] de Phone Number [facility] [facility] [place] [address] * (ABNORMAL) IgM (01/02/2025 9:45 AM CDT) Immunoglobulin M 34(L) 40 - 230 mg/dL Blood 01/02/2025 9:45 AM CDT 01/02/2025 10:50 AM CDT us Chandrika Chambers ENGINEERING TECHNOLOGIST LAB BLOOD ORDERABLES Final Res ult Performing Organization Address [facility] de Phone Number [facility] [place] [address] * (ABNORMAL) IgG (01/02/2025 9:45 AM CDT) Immunoglobulin G 697(L) 700 - 1,600 mg/dL Blood 01/02/2025 9:45 AM CDT 01/02/2025 10:50 AM CDT us Chandrika Hellerr ENGINEERING TECHNOLOGIST LAB BLOOD ORDERABLES Final Res ult Performing Organization Address [facility]/State/ZIP Co de Phone Number [facility] Department [place] [address] * (ABNORMAL) Comprehensive metabolic panel (01/02/2025 9:45 AM CDT) Sodium 142 135 - 145 mmol/L Potassium, pl 4.3 3.3 - 4.9 mmol/L [facility] Chloride 106 97 - 110 mmol/L [facility] CO2 27 22 - 32 mmol/L [facility] Anion gap 9 2 - 15 mmol/L [facility] BUN 20 6 - 25 mg/dL [facility] Creatinine 1.32(H) 0.80 - 1.30 mg/dL [facility] Glucose 216(H) 70 - 199 mg/dL [facility] Comment: Interpretive Data Fasting glucose >/= 126 [...] interpretive data was last revised 2022. Calcium 9.0 8.5 - 10.3 mg/dL [facility] Bilirubin, total 0.4 0.1 - 1.2 mg/dL [facility] Protein, pl 6.3(L) 6.5 - 8.5 g/dL [facility] Albumin 3.9 3.5 - 5.0 g/dL [facility] Alk phos 91 40 - 130 Units/L [facility] ALT 14 7 - 55 Units/L [facility] AST 11 10 - 50 Units/L [facility] Blood 01/02/2025 9:45 AM CDT 01/02/2025 10:06 AM CDT Rohit Cr MD PhD LAB BLOOD ORDERABLES Final Result Performing Organization Address City/[facility]/ZIP Co de Phone Number [facility] Department [place] [address] * (ABNORMAL) Differential, auto (12/26/2024 8:46 AM CDT) Neutrophil abs 2.16 1.50 - 6.50 K/cumm Imm gran abs 0.06 0.00 - 0.10 K/cumm [facility] Lymphocyte abs 0.20(L) 0.80 - 3.30 K/cumm [facility] Monocyte abs 0.52 0.20 - 0.80 K/cumm [facility] Eosinophil abs 0.89(H) 0.00 - 0.50 K/cumm [facility] Basophil abs 0.03 0.00 - 0.10 K/cumm [facility] Neutrophil pct 55.8 % [facility] Comment: Interpretive Data Percent cell count reference ranges are not reported, since discordance with absolute values may lead to misinterpretation of CBC data. Current Interpretive Data was last revised on 2017. Imm gran pct 1.6 % [facility] Comment: Interpretive Data Percent cell count reference ranges are not reported, since discordance with absolute values may lead to misinterpretation of CBC data. Current Interpretive Data was last revised on 2017. Lymphocyte pct 5.2 % [facility] Comment: Interpretive Data Percent cell count reference ranges are not reported, since discordance with absolute values may lead to misinterpretation of CBC data. Current Interpretive Data was last revised on 2017. Monocyte pct 13.5 % [facility] Comment: Interpretive Data Percent cell count reference ranges are not reported, since discordance with absolute values may lead to misinterpretation of CBC data. Current Interpretive Data was last revised on 2017. Eosinophil pct 23.1 % [facility] Comment: Interpretive Data Percent cell count reference ranges are not reported, since discordance with absolute values may lead to misinterpretation of CBC data. Current Interpretive Data was last revised on 2017. Basophil pct 0.8 % [facility] Comment: Interpretive Data Percent cell count reference ranges are not reported, since discordance with absolute values may lead to misinterpretation of CBC data. Current Interpretive Data was last revised on 2017. Blood 12/26/2024 8:46 AM CDT 12/26/2024 8:56 AM CDT Rohit Cr MD PhD LAB BLOOD ORDERABLES Final Result Performing Organization Address City/[facility]/ZIP Co de Phone Number [facility] [place] [address] * (ABNORMAL) CBC with auto differential (12/26/2024 8:46 AM CDT) [facility] WBC 3.86 3.80 - 9.90 K/cumm Hgb 13.5 13.0 - 17.5 g/dL [facility] Hct 40.0 38.9 - 50.3 % [facility] Plt 141(L) 150 - 400 K/cumm [facility] MPV 11.5 9.1 - 12.3 fL [facility] RBC 4.15(L) 4.30 - 5.80 M/cumm [facility] MCV 96.4 81.3 - 96.4 fL [facility] MCH 32.5 27.1 - 33.3 pg [facility] MCHC 33.8 32.3 - 35.7 g/dL [facility] RDW CV 12.6 11.1 - 14.9 % [facility] RDW SD 45.0 35.7 - 48.1 fL [facility] NRBC abs 0.00 0.00 - 0.01 K/cumm [facility] Blood 12/26/2024 8:46 AM CDT 12/26/2024 8:56 AM CDT us Rohit Cr MD PhD LAB BLOOD ORDERABLES Final Result Performing Organization Address City/[facility]/ZIP Co de Phone Number [facility] Department [place] [address] * (ABNORMAL) Differential, auto (12/19/2024 4:14 PM CDT) Neutrophil abs 4.88 1.50 - 6.50 K/cumm Imm gran abs 0.08 0.00 - 0.10 K/cumm [facility] Lymphocyte abs 0.13(L) 0.80 - 3.30 K/cumm [facility] Monocyte abs 0.85(H) 0.20 - 0.80 K/cumm [facility] Eosinophil abs 1.07(H) 0.00 - 0.50 K/cumm [facility] Basophil abs 0.03 0.00 - 0.10 K/cumm [facility] Neutrophil pct 69.4 % [facility] Comment: Interpretive Data Percent cell count reference ranges are not reported, since discordance with absolute values may lead to misinterpretation of CBC data. Current Interpretive Data was last revised on 2017. Imm gran pct 1.1 % [facility] Comment: Interpretive Data Percent cell count reference ranges are not reported, since discordance with absolute values may lead to misinterpretation of CBC data. Current Interpretive Data was last revised on 2017. Lymphocyte pct 1.8 % [facility] Comment: Interpretive Data Percent cell count reference ranges are not reported, since discordance with absolute values may lead to misinterpretation of CBC data. Current Interpretive Data was last revised on 2017. Monocyte pct 12.1 % [facility] Comment: Interpretive Data Percent cell count reference ranges are not reported, since discordance with absolute values may lead to misinterpretation of CBC data. Current Interpretive Data was last revised on 2017. Eosinophil pct 15.2 % [facility] Comment: Interpretive Data Percent cell count reference ranges are not reported, since discordance with absolute values may lead to misinterpretation of CBC data. Current Interpretive Data was last revised on 2017. Basophil pct 0.4 % [facility] Comment: Interpretive Data Percent cell count reference ranges are not reported, since discordance with absolute values may lead to misinterpretation of CBC data. Current Interpretive Data was last revised on 2017. Blood 12/19/2024 4:14 PM CDT 12/19/2024 4:23 PM CDT Rohit Cr MD PhD LAB BLOOD ORDERABLES Final Result Performing Organization Address [facility] de Phone Number [facility] Department [place] [address] * (ABNORMAL) CBC with auto differential (12/19/2024 4:14 PM CDT) [facility] WBC 7.04 3.80 - 9.90 K/cumm Hgb 13.7 13.0 - 17.5 g/dL [facility] Hct 41.1 38.9 - 50.3 % [facility] Plt 148(L) 150 - 400 K/cumm [facility] MPV 11.8 9.1 - 12.3 fL [facility] RBC 4.16(L) 4.30 - 5.80 M/cumm [facility] MCV 98.8(H) 81.3 - 96.4 fL [facility] MCH 32.9 27.1 - 33.3 pg [facility] MCHC 33.3 32.3 - 35.7 g/dL [facility] RDW CV 12.6 11.1 - 14.9 % [facility] RDW SD 45.7 35.7 - 48.1 fL [facility] NRBC abs 0.00 0.00 - 0.01 K/cumm [facility] Blood 12/19/2024 4:14 PM CDT 12/19/2024 4:23 PM CDT [facility] Cr MD PhD LAB BLOOD ORDERABLES Final Result Performing Organization Address [facility] Co de Phone Number [facility] Department [place] [address] * (ABNORMAL) Differential, auto (12/12/2024 7:07 AM CDT) [facility] Neutrophil abs 4.10 1.50 - 6.50 K/cumm Comment:Testing performed by : [facility], [address] [place] [phone] Lymphocyte abs 0.17(L) 0.80 - 3.30 K/cumm [facility] Comment:Testing performed by : [facility], [address] [place] [phone] Monocyte abs 0.33 0.20 - 0.80 K/cumm [facility] Comment:Testing performed by : [facility], [address] [place] [phone] Eosinophil abs 0.38 0.00 - 0.50 K/cumm [facility] Comment:Testing performed by : [facility], [address] [place] [phone] Basophil abs 0.04 0.00 - 0.10 K/cumm [facility] Comment:Testing performed by : [facility], [address] [place], [place] [phone] Neutrophil pct 81.7 % [facility] Comment: Interpretive Data Percent cell count reference ranges are not reported, since discordance with absolute values may lead to misinterpretation of CBC data. Current Interpretive Data was last revised on 2017. Testing performed by: [facility], [address] [place] [phone] Lymphocyte pct 3.4 % [facility] Comment: Interpretive Data Percent cell count reference ranges are not reported, since discordance with absolute values may lead to misinterpretation of CBC data. Current Interpretive Data was last revised on 2017. Testing performed by: [facility], [address] [place] [phone] Monocyte pct 6.6 % [facility] Comment: Interpretive Data Percent cell count reference ranges are not reported, since discordance with absolute values may lead to misinterpretation of CBC data. Current Interpretive Data was last revised on 2017. Testing performed by: [facility], [address] [place] [phone] Eosinophil pct 7.6 % [facility] Comment: Interpretive Data Percent cell count reference ranges are not reported, since discordance with absolute values may lead to misinterpretation of CBC data. Current Interpretive Data was last revised on 2017. Testing performed by: [facility], [address] [place] [phone] Basophil pct 0.8 % [facility] Comment: Interpretive Data Percent cell count reference ranges are not reported, since discordance with absolute values may lead to misinterpretation of CBC data. Current Interpretive Data was last revised on 2017. Testing performed by: [facility], [address] [place] [address] Blood 12/12/2024 7:07 AM CDT 12/12/2024 7:10 AM CDT Rohit Cr MD PhD LAB BLOOD ORDERABLES Final Result [facility] Department [place] [address] * (ABNORMAL) CBC with auto differential (12/12/2024 7:07 AM CDT) WBC 5.02 3.80 - 9.90 K/cumm Comment:Testing performed by : [facility], [address] [place] [address] Hgb 14.3 13.0 - 17.5 g/dL [facility] Comment:Testing performed by : [facility], [address] [place] [address] Hct 41.2 38.9 - 50.3 % [facility] Comment:Testing performed by : [facility], [address] [place] [address] Plt 144(L) 150 - 400 K/cumm [facility] Comment:Testing performed by : [facility], [address] [place] [address] MPV 9.1 6.8 - 10.4 fL [facility] Comment:Testing performed by : [facility], [address] [place] [address] RBC 4.21(L) 4.30 - 5.80 M/cumm [facility] Comment:Testing performed by : [facility], [address] [place] [address] MCV 97.9(H) 81.3 - 96.4 fL [facility] Comment:Testing performed by : [facility], [address] [place] [address] MCH 34.1(H) 27.1 - 33.3 pg [facility] Comment:Testing performed by : [facility], [address] [place] [address] MCHC 34.9 32.3 - 35.7 g/dL [facility] Comment:Testing performed by : [facility], [address] [place] [address] RDW CV 13.1 11.1 - 14.9 % [facility] Comment:Testing performed by : [facility], [address] [place] [address] NRBC abs 0.00 0.00 - 0.01 K/cumm [facility] Comment:Testing performed by : [facility], [address] [place] [address] Blood 12/12/2024 7:07 AM CDT 12/12/2024 7:10 AM CDT Rohit Cr MD PhD LAB BLOOD ORDERABLES Final Result [facility] Department [place] [address] * eGFR (12/05/2024 8:53 AM CDT) eGFR 61 >=60 mL/min/1. 73 m2 Comment: Interpretive Data [...] interpretive data was last reviewed 2021. Blood 12/05/2024 8:53 AM CDT 12/05/2024 9:31 AM CDT Rohit Cr MD PhD LAB BLOOD ORDERABLES Final Result [facility] Department [place] [address] * (ABNORMAL) Differential, auto (12/05/2024 8:53 AM CDT) Neutrophil abs 2.83 1.50 - 6.50 K/cumm Comment:Testing performed by : [facility], [address] [place] [phone] Lymphocyte abs 0.29(L) 0.80 - 3.30 K/cumm [facility] Comment:Testing performed by : [facility], [address] [place] [phone] Monocyte abs 0.88(H) 0.20 - 0.80 K/cumm [facility] Comment:Testing performed by : [facility], [address] [place] [phone] Eosinophil abs 0.14 0.00 - 0.50 K/cumm [facility] Comment:Testing performed by : [facility], [address] [place] [phone] Basophil abs 0.04 0.00 - 0.10 K/cumm [facility] Comment:Testing performed by : [facility], [address] [place] [phone] Neutrophil pct 67.7 % [facility] Comment: Interpretive Data Percent cell count reference ranges are not reported, since discordance with absolute values may lead to misinterpretation of CBC data. Current Interpretive Data was last revised on 2017. Testing performed by: [facility], [address] [place] [phone] Lymphocyte pct 7.0 % [facility] Comment: Interpretive Data Percent cell count reference ranges are not reported, since discordance with absolute values may lead to misinterpretation of CBC data. Current Interpretive Data was last revised on 2017. Testing performed by: [facility], [address] [place] [phone] Monocyte pct 21.1 % [facility] Comment: Interpretive Data Percent cell count reference ranges are not reported, since discordance with absolute values may lead to misinterpretation of CBC data. Current Interpretive Data was last revised on 2017. Testing performed by: [facility][Note 3] Lab, [address] [place] [phone] Eosinophil pct 3.3 % [facility] Comment: Interpretive Data Percent cell count reference ranges are not reported, since discordance with absolute values may lead to misinterpretation of CBC data. Current Interpretive Data was last revised on 2017. Testing performed by: [facility], [address] [place] [phone] Basophil pct 0.9 % [facility] Comment: Interpretive Data Percent cell count reference ranges are not reported, since discordance with absolute values may lead to misinterpretation of CBC data. Current Interpretive Data was last revised on 2017. Testing performed by: [facility], [address] [place] [phone] Blood 12/05/2024 8:53 AM CDT 12/05/2024 9:27 AM CDT Rohit Cr MD PhD LAB BLOOD ORDERABLES Final Result [facility] Department [place] [address] * (ABNORMAL) CBC with auto differential (12/05/2024 8:53 AM CDT) WBC 4.18 3.80 - 9.90 K/cumm Comment:Testing performed by : [facility], [address] [place], [place] [phone] Hgb 13.2 13.0 - 17.5 g/dL [facility] Comment:Testing performed by : [facility], [address] [place], [place] [phone] Hct 38.4(L) 38.9 - 50.3 % [facility] Comment:Testing performed by : [facility], [address] [place], [place] [phone] Plt 200 150 - 400 K/cumm [facility] Comment:Testing performed by : [facility], [address] [place], [place] [phone] MPV 8.3 6.8 - 10.4 fL [facility] Comment:Testing performed by : [facility], [address] [place], [place] [phone] RBC 3.90(L) 4.30 - 5.80 M/cumm [facility] Comment:Testing performed by : [facility], [address] [place], [place] [phone] MCV 98.4(H) 81.3 - 96.4 fL [facility] Comment:Testing performed by : [facility], [address] [place], [place] [phone] MCH 33.9(H) 27.1 - 33.3 pg [facility] Comment:Testing performed by : [facility], [address] [place], [place] [phone] MCHC 34.4 32.3 - 35.7 g/dL [facility] Comment:Testing performed by : [facility], [address] [place], [place] [phone] RDW CV 13.1 11.1 - 14.9 % [facility] Comment:Testing performed by : [facility], [address] [place], [place] [phone] NRBC abs 0.00 0.00 - 0.01 K/cumm [facility] Comment:Testing performed by : [facility], [address] [place] [phone] Blood 12/05/2024 8:53 AM CDT 12/05/2024 9:27 AM CDT Rohit Cr MD PhD LAB BLOOD ORDERABLES Final Result [facility] Department [place] [address] * (ABNORMAL) Comprehensive metabolic panel (12/05/2024 8:53 AM CDT) Sodium 140 135 - 145 mmol/L Potassium, pl 4.3 3.3 - 4.9 mmol/L [facility] Chloride 106 97 - 110 mmol/L [facility] CO2 24 22 - 32 mmol/L [facility] Anion gap 10 2 - 15 mmol/L [facility] BUN 17 6 - 25 mg/dL [facility] Creatinine 1.21 0.80 - 1.30 mg/dL [facility] Glucose 235(H) 70 - 199 mg/dL [facility] Comment: Interpretive Data Fasting glucose >/= 126 [...] interpretive data was last revised 2022. Calcium 8.8 8.5 - 10.3 mg/dL [facility] Bilirubin, total 0.4 0.1 - 1.2 mg/dL [facility] Protein, pl 6.4(L) 6.5 - 8.5 g/dL [facility] Albumin 3.7 3.5 - 5.0 g/dL [facility] Alk phos 87 40 - 130 Units/L [facility] ALT 16 7 - 55 Units/L [facility] AST 13 10 - 50 Units/L [facility] Blood 12/05/2024 8:53 AM CDT 12/05/2024 9:31 AM CDT Rohit Cr MD PhD LAB BLOOD ORDERABLES Final Result [facility] Department of Laboratories [place] [id number] * (ABNORMAL) Differential, auto (11/28/2024 7:45 AM CDT) Neutrophil abs 2.41 1.50 - 6.50 K/cumm Comment:Testing performed by : [facility], [address] [place] [phone] Lymphocyte abs 0.20(L) 0.80 - 3.30 K/cumm [facility] Comment:Testing performed by : [facility], [address] [place] [phone] Monocyte abs 0.58 0.20 - 0.80 K/cumm [facility] Comment:Testing performed by : [facility], [address] [place] [phone] Eosinophil abs 0.15 0.00 - 0.50 K/cumm [facility] Comment:Testing performed by : [facility], [address] [place], [place] [phone] Basophil abs 0.02 0.00 - 0.10 K/cumm [facility] Comment:Testing performed by : [facility], [address] [place] [phone] Neutrophil pct 71.6 % [facility] Comment: Interpretive Data Percent cell count reference ranges are not reported, since discordance with absolute values may lead to misinterpretation of CBC data. Current Interpretive Data was last revised on 2017. Testing performed by: [facility], [address] [place] [phone] Lymphocyte pct 6.1 % [facility] Comment: Interpretive Data Percent cell count reference ranges are not reported, since discordance with absolute values may lead to misinterpretation of CBC data. Current Interpretive Data was last revised on 2017. Testing performed by: [facility], [address] [place] [phone] Monocyte pct 17.3 % [facility] Comment: Interpretive Data Percent cell count reference ranges are not reported, since discordance with absolute values may lead to misinterpretation of CBC data. Current Interpretive Data was last revised on 2017. Testing performed by: [facility], [address] [place], [place] [id number] Eosinophil pct 4.4 % [facility] Comment: Interpretive Data Percent cell count reference ranges are not reported, since discordance with absolute values may lead to misinterpretation of CBC data. Current Interpretive Data was last revised on 2017. Testing performed by: [facility], [address] [place] [phone] Basophil pct 0.6 % [facility] Comment: Interpretive Data Percent cell count reference ranges are not reported, since discordance with absolute values may lead to misinterpretation of CBC data. Current Interpretive Data was last revised on 2017. Testing performed by: [facility][Note 3[facility] Lab, [address] [place] [phone] Blood 11/28/2024 7:45 AM CDT 11/28/2024 7:50 AM CDT Rohit Cr MD PhD LAB BLOOD ORDERABLES Final Result [facility] Department [place] [address] * (ABNORMAL) CBC with auto differential (11/28/2024 7:45 AM CDT) WBC 3.37(L) 3.80 - 9.90 K/cumm Comment:Testing performed by : [facility], [address] [place] [phone] Hgb 13.0 13.0 - 17.5 g/dL BRYANT CHARLES Comment:Testing performed by : [facility], [address] [place], [place] [phone] Hct 38.5(L) 38.9 - 50.3 % CERNER BJ Comment:Testing performed by : [facility], [address] [place], [place] [phone] Plt 138(L) 150 - 400 K/cumm CERNER BJ Comment:Testing performed by : [facility], [address] [place], [place] [phone] MPV 9.4 6.8 - 10.4 fL CERNER BJ Comment:Testing performed by : [facility], [address] [place], [place] [phone] RBC 3.81(L) 4.30 - 5.80 M/cumm CERNER BJ Comment:Testing performed by : [facility], [address] [place], [place] [phone] MCV 101.0(H) 81.3 - 96.4 fL CERNER BJ Comment:Testing performed by : [facility], [address] [place] [address] MCH 34.0(H) 27.1 - 33.3 pg CERNER BJ Comment:Testing performed by : [facility], [address] [place], [place] [phone] MCHC 33.7 32.3 - 35.7 g/dL CERNER BJ Comment:Testing performed by : [facility], [address] [place], [place] [phone] RDW CV 13.0 11.1 - 14.9 % CERNER BJ Comment:Testing performed by : [facility], [address] [place] [address] NRBC abs 0.00 0.00 - 0.01 K/cumm CERNER BJ Comment:Testing performed by : [facility], [address] [place], [place] [phone] Blood 11/28/2024 7:45 AM CDT 11/28/2024 7:50 AM CDT Rohit Cr MD PhD LAB BLOOD ORDERABLES Final Result BRYANT CHARLES [facility] Department [place] [address] * (ABNORMAL) Differential, auto (11/21/2024 8:02 AM CDT) Neutrophil abs 4.33 1.50 - 6.50 K/cumm Comment:Testing performed by : [facility], [address] [place] [address] Lymphocyte abs 0.23(L) 0.80 - 3.30 K/cumm CERNER MELVIN Comment:Testing performed by : [facility], [address] [place] [address] Monocyte abs 0.86(H) 0.20 - 0.80 K/cumm CERPETER CHARLES Comment:Testing performed by : [facility], [address] [place] [address] Eosinophil abs 0.19 0.00 - 0.50 K/cumm [facility] Comment:Testing performed by : [facility], [address] [place] [address] Basophil abs 0.02 0.00 - 0.10 K/cumm CERNER BJ Comment:Testing performed by : [facility], [address] [place] [address] Neutrophil pct 77.0 % CERNER BJ Comment: Interpretive Data Percent cell count reference ranges are not reported, since discordance with absolute values may lead to misinterpretation of CBC data. Current Interpretive Data was last revised on 2017. Testing performed by: [facility], [address] [place] [phone] Lymphocyte pct 4.0 % CERNER BJ Comment: Interpretive Data Percent cell count reference ranges are not reported, since discordance with absolute values may lead to misinterpretation of CBC data. Current Interpretive Data was last revised on 2017. Testing performed by: [facility], [address] [place] [address] Monocyte pct 15.3 % BRYANT CHARLES Comment: Interpretive Data Percent cell count reference ranges are not reported, since discordance with absolute values may lead to misinterpretation of CBC data. Current Interpretive Data was last revised on 2017. Testing performed by: [facility], [address] [place] [phone] Eosinophil pct 3.3 % BRYANT CHARLES Comment: Interpretive Data Percent cell count reference ranges are not reported, since discordance with absolute values may lead to misinterpretation of CBC data. Current Interpretive Data was last revised on 2017. Testing performed by: [facility], [address] [place], [place] [phone] Basophil pct 0.4 % BRYANT CHARLES Comment: Interpretive Data Percent cell count reference ranges are not reported, since discordance with absolute values may lead to misinterpretation of CBC data. Current Interpretive Data was last revised on 2017. Testing performed by: [facility], [address] [place] [address] Blood 11/21/2024 8:02 AM CDT 11/21/2024 8:09 AM CDT Rohit Cr MD PhD LAB BLOOD ORDERABLES Final Result [facility] Department [place] [address] * (ABNORMAL) CBC with auto differential (11/21/2024 8:02 AM CDT) WBC 5.63 3.80 - 9.90 K/cumm Comment:Testing performed by : [facility], [address] [place] [address] Hgb 13.5 13.0 - 17.5 g/dL BRYANT CHARLES Comment:Testing performed by : [facility], [address] [place] [address] Hct 40.3 38.9 - 50.3 % BRYANT CHARLES Comment:Testing performed by : [facility][Note 3] Lab, [address] [place] [address] Plt 132(L) 150 - 400 K/cumm CERPETER CHARLES Comment:Testing performed by : [facility], [address] [place] [address] MPV 9.4 6.8 - 10.4 fL CERPETER BJ Comment:Testing performed by : [facility], [address] [place], [place] [phone] RBC 3.96(L) 4.30 - 5.80 M/cumm CERPETER BJ Comment:Testing performed by : [facility], [address] [place], [place] [phone] MCV 101.6(H) 81.3 - 96.4 fL BRYANT BJ Comment:Testing performed by : [facility], [address] [place], [place] [phone] MCH 34.1(H) 27.1 - 33.3 pg [facility] Comment:Testing performed by : [facility], [address] [place] [address] MCHC 33.5 32.3 - 35.7 g/dL [facility] Comment:Testing performed by : [facility], [address] [place] [address] RDW CV 13.5 11.1 - 14.9 % [facility] Comment:Testing performed by : [facility], [address] [place] [address] NRBC abs 0.00 0.00 - 0.01 K/cumm [facility] Comment:Testing performed by : [facility], [address] [place] [address] Blood 11/21/2024 8:02 AM CDT 11/21/2024 8:09 AM CDT us Rohit Cr MD PhD LAB BLOOD ORDERABLES Final Result [facility] Department of Laboratories [place] [id number] * (ABNORMAL) Differential, auto (11/14/2024 7:48 AM CDT) Neutrophil abs 4.39 1.50 - 6.50 K/cumm Comment:Testing performed by : [facility][Note 3] Lab, [address] [place], [place] [id number] Lymphocyte abs 0.22(L) 0.80 - 3.30 K/cumm [facility] Comment:Testing performed by : [facility], [address] [place], [place] [id number] Monocyte abs 0.59 0.20 - 0.80 K/cumm [facility] Comment:Testing performed by : [facility][Note 3] Lab, [address] [place], [place] [id number] Eosinophil abs 0.23 0.00 - 0.50 K/cumm [facility] Comment:Testing performed by : [facility][Note 3] Lab, [address] [place], [place] [id number] Basophil abs 0.04 0.00 - 0.10 K/cumm [facility] Comment:Testing performed by : [facility][Note 3] Lab, [address] [place] [address] Neutrophil pct 80.4 % [facility] Comment: Interpretive Data Percent cell count reference ranges are not reported, since discordance with absolute values may lead to misinterpretation of CBC data. Current Interpretive Data was last revised on 2017. Testing performed by: [facility][Note 3] Lab, [address] [place] [address] Lymphocyte pct 4.0 % [facility] Comment: Interpretive Data Percent cell count reference ranges are not reported, since discordance with absolute values may lead to misinterpretation of CBC data. Current Interpretive Data was last revised on 2017. Testing performed by: [facility][Note 3] Lab, [address] [place] [address] Monocyte pct 10.7 % [facility] Comment: Interpretive Data Percent cell count reference ranges are not reported, since discordance with absolute values may lead to misinterpretation of CBC data. Current Interpretive Data was last revised on 2017. Testing performed by: [facility], [address] [place] [phone] Eosinophil pct 4.3 % BRYANT CHARLES Comment: Interpretive Data Percent cell count reference ranges are not reported, since discordance with absolute values may lead to misinterpretation of CBC data. Current Interpretive Data was last revised on 2017. Testing performed by: [facility], [address] [place] [phone] Basophil pct 0.7 % BRYANT CHARLES Comment: Interpretive Data Percent cell count reference ranges are not reported, since discordance with absolute values may lead to misinterpretation of CBC data. Current Interpretive Data was last revised on 2017. Testing performed by: [facility][Note 3] Lab, [address] [place] [address] Blood 11/14/2024 7:48 AM CDT 11/14/2024 7:54 AM CDT Rohit Cr MD PhD LAB BLOOD ORDERABLES Final Result [facility] Department [place] [address] * (ABNORMAL) CBC with auto differential (11/14/2024 7:48 AM CDT) WBC 5.46 3.80 - 9.90 K/cumm Comment:Testing performed by : [facility], [address] [place] [address] Hgb 13.4 13.0 - 17.5 g/dL BRYANT CHARLES Comment:Testing performed by : [facility], [address] [place] [address] Hct 39.8 38.9 - 50.3 % BRYANT CHARLES Comment:Testing performed by : [facility], [address] [place] [address] Plt 140(L) 150 - 400 K/cumm BRYANT CHARLES Comment:Testing performed by : [facility], [address] [place] [phone] MPV 9.4 6.8 - 10.4 fL BRYANT CHARLES Comment:Testing performed by : [facility], [address] [place], [place] [phone] RBC 3.93(L) 4.30 - 5.80 M/cumm BRYANT CHARLES Comment:Testing performed by : [facility], [address] [place], [place] [phone] MCV 101.2(H) 81.3 - 96.4 fL BRYANT CHARLES Comment:Testing performed by : [facility], [address] [place], [place] [phone] MCH 34.1(H) 27.1 - 33.3 pg BRYANT CHARLES Comment:Testing performed by : [facility], [address] [place], [place] [phone] MCHC 33.7 32.3 - 35.7 g/dL BRYANT CHARLES Comment:Testing performed by : [facility], [address] [place], [place] [phone] RDW CV 13.3 11.1 - 14.9 % [facility] Comment:Testing performed by : [facility], [address] [place], [place] [phone] NRBC abs 0.00 0.00 - 0.01 K/cumm BRYANT CHARLES Comment:Testing performed by : [facility], [address] [place] [address] Blood 11/14/2024 7:48 AM CDT 11/14/2024 7:54 AM CDT us Rohit Cr MD PhD LAB BLOOD ORDERABLES Final Result BRYANT CHARLES [facility] Department [place] [address] * (ABNORMAL) eGFR (11/07/2024 11:15 AM CDT) eGFR 48(L) >=60 mL/min/1. 73 m2 Comment: Interpretive Data [...] interpretive data was last reviewed 2021. Blood 11/07/2024 11:1 5 AM CDT 11/07/2024 11:44 AM CDT Rohit Cr MD PhD LAB BLOOD ORDERABLES Final Result [facility] Department [place] [address] * (ABNORMAL) Differential, auto (11/07/2024 11:15 AM CDT) Neutrophil abs 6.55(H) 1.50 - 6.50 K/cumm Comment:Testing performed by : [facility], [address] [place] [phone] Lymphocyte abs 0.68(L) 0.80 - 3.30 K/cumm BRYANT CHARLES Comment:Testing performed by : [facility], [address] [place] [phone] Monocyte abs 0.88(H) 0.20 - 0.80 K/cumm BRYANT CHARLES Comment:Testing performed by : [facility], [address] [place] [phone] Eosinophil abs 0.07 0.00 - 0.50 K/cumm [facility] Comment:Testing performed by : [facility], [address] [place] [phone] Basophil abs 0.06 0.00 - 0.10 K/cumm [facility] Comment:Testing performed by : [facility], [address] [place] [phone] Neutrophil pct 79.5 % [facility] Comment: Interpretive Data Percent cell count reference ranges are not reported, since discordance with absolute values may lead to misinterpretation of CBC data. Current Interpretive Data was last revised on 2017. Testing performed by: [facility], [address] [place] [phone] Lymphocyte pct 8.3 % [facility] Comment: Interpretive Data Percent cell count reference ranges are not reported, since discordance with absolute values may lead to misinterpretation of CBC data. Current Interpretive Data was last revised on 2017. Testing performed by: [facility], [address] [place] [phone] Monocyte pct 10.7 % [facility] Comment: Interpretive Data Percent cell count reference ranges are not reported, since discordance with absolute values may lead to misinterpretation of CBC data. Current Interpretive Data was last revised on 2017. Testing performed by: [facility], [address] [place] [phone] Eosinophil pct 0.8 % [facility] Comment: Interpretive Data Percent cell count reference ranges are not reported, since discordance with absolute values may lead to misinterpretation of CBC data. Current Interpretive Data was last revised on 2017. Testing performed by: [facility], [address] [place] [phone] Basophil pct 0.7 % [facility] Comment: Interpretive Data Percent cell count reference ranges are not reported, since discordance with absolute values may lead to misinterpretation of CBC data. Current Interpretive Data was last revised on 2017. Testing performed by: [facility], [address] [place] [phone] Blood 11/07/2024 11:1 5 AM CDT 11/07/2024 11:21 AM CDT Rohit Cr MD PhD LAB BLOOD ORDERABLES Final Result BRYANT CHARLES [facility] Department [place] [address] * (ABNORMAL) CBC with auto differential (11/07/2024 11:15 AM CDT) WBC 8.25 3.80 - 9.90 K/cumm Comment:Testing performed by : [facility], [address] [place] [address] Hgb 14.0 13.0 - 17.5 g/dL BRYANT CHARLES Comment:Testing performed by : [facility], [address] [place] [address] Hct 39.9 38.9 - 50.3 % BRYANT CHARLES Comment:Testing performed by : [facility], [address] [place] [address] Plt 191 150 - 400 K/cumm BRYANT CHARLES Comment:Testing performed by : [facility], [address] [place] [address] MPV 8.2 6.8 - 10.4 fL BRYANT CHARLES Comment:Testing performed by : [facility], [address] [place] [address] RBC 3.97(L) 4.30 - 5.80 M/cumm BRYANT CHARLES Comment:Testing performed by : [facility], [address] [place] [address] MCV 100.5(H) 81.3 - 96.4 fL BRYANT CHARLES Comment:Testing performed by : [facility], [address] [place] [address] MCH 35.3(H) 27.1 - 33.3 pg BRYANT CHARLES Comment:Testing performed by : [facility], [address] [place] [phone] MCHC 35.2 32.3 - 35.7 g/dL [facility] Comment:Testing performed by : [facility], [address] [place] [phone] RDW CV 13.6 11.1 - 14.9 % [facility] Comment:Testing performed by : [facility], [address] [place] [phone] NRBC abs 0.00 0.00 - 0.01 K/cumm [facility] Comment:Testing performed by : [facility], [address] [place] [phone] Blood 11/07/2024 11:1 5 AM CDT 11/07/2024 11:21 AM CDT Rohit Cr MD PhD LAB BLOOD ORDERABLES Final Result Performing Organization Address [facility] Co de Phone Number [facility] Department [place] [address] * Type and screen (11/07/2024 11:15 AM CDT) Pathologist [facility] ABO Rh B Positive Jaydon, indirect Negative [facility] Blood 11/07/2024 11:1 5 AM CDT 11/07/2024 11:33 AM CDT Narrative [facility] - 11/07/2024 12:42 PM CDT Has the patient had daratumumab (Darzalex) or isatuximab (Sarclisa) in the past 6 months?->No Rohit Cr MD PhD LAB BLOOD BANK TEST ORDERABLES Final Result Performing Organization Address [facility]/ZIP Co de Phone Number [facility] [place] [address] * (ABNORMAL) Comprehensive metabolic panel (11/07/2024 11:15 AM CDT) Pathologist [facility] Sodium 141 135 - 145 mmol/L Potassium, pl 4.6 3.3 - 4.9 mmol/L [facility] Chloride 106 97 - 110 mmol/L [facility] CO2 24 22 - 32 mmol/L [facility] Anion gap 11 2 - 15 mmol/L [facility] BUN 18 6 - 25 mg/dL [facility] Creatinine 1.49(H) 0.80 - 1.30 mg/dL [facility] Glucose 99 70 - 199 mg/dL [facility] Comment: Interpretive Data Fasting glucose >/= 126 [...] 2022. Calcium 9.6 8.5 - 10.3 mg/dL [facility] Bilirubin, total 0.4 0.1 - 1.2 mg/dL [facility] Protein, pl 7.6 6.5 - 8.5 g/dL [facility] Albumin 4.2 3.5 - 5.0 g/dL [facility] Alk phos 73 40 - 130 Units/L [facility] ALT 16 7 - 55 Units/L [facility] AST 14 10 - 50 Units/L [facility] Blood 11/07/2024 11:1 5 AM CDT 11/07/2024 11:20 AM CDT us Rohit Cr MD PhD LAB BLOOD ORDERABLES Final Result [facility] Department [place] [address] * POCT lipid panel (03/29/2024 8:43 AM AGENCY APPOINTMENTS SUPERVISOR) Cholesterol, POC 126 mg/dL HDL, POC 43 mg/dL Triglycerides, POC 77 mg/dL LDL Cholesterol POC 67 mg/dL Chol/HDL Ratio, POC 1.5 Non-HDL Cholesterol, POC 83 mg/dL Cholesterol Total, POC 126 mg/dL Capillary blood 03/29/2024 8 :43 AM AGENCY APPOINTMENTS SUPERVISOR Result [facility] Allison Sepulveda NP POINT OF CARE TEST ORDERA BLES Final Result * Albumin Creatinine Ratio, Urine (10/13/2023 4:57 PM CDT) Albumin Ur <12.0 mg/L Comment: Interpretive Data No reference range established. Current interpretive data was last revised 2018. Creatinine Ur 44.8 mg/dL [facility] Comment: Interpretive Data No reference range established. Current interpretive data was last revised 2018. Albumin Creatinine Ratio, Ur <27 1 - 29 mg/g [facility] Urine 10/13/2023 4:57 PM CDT 10/13/2023 5:23 PM CDT Result [facility] Reyes Patterson MD LAB URINE O RDERABLES Final Result [facility] Department [place] [address] * (ABNORMAL) Hemoglobin A1c (09/27/2019 2:46 AM CDT) Hgb A1C 6.3(H) 4.0 - 5.6 % [facility] Estimated Average Glucose 134 mg/dL [facility] Comment: The ADA recommends reporting an estimated Average Glucose (eAG) with all Hemoglobin A1c results using the equation derived from a study of 507 normal and diabetic adults. Minority populations were underrepresented and children were not included. (Diabetes Care 31:0803-7000, 2008). The eAG is not equivalent to a fasting glucose. Blood specimen (specimen) 09/27/2019 2:46 AM CDT 09/27/2019 3:01 AM CDT Barbara Moralez MD LAB BLOOD ORDERABLES Final Resu lt Performing Organization Address [facility]/ZIP Co de Phone Number [facility] Department [place] [address] * Hepatitis panel, acute (08/15/2019 11:16 PM CDT) Hep A IgM Nonreactive Nonreactive [facility] Comment: Interpretive Data: If Hep A IgM Ab is reported as Equivocal, a new sample should be drawn in two weeks for testing. Current interpretive data was last revised on 19. Hep B core IgM Nonreactive Nonreactive [facility] Comment: Interpretive Data If HepB Core IgM Ab is reported as Equivocal, a new sample should be drawn in two weeks for testing. Current interpretive data was last revised on 19. Hep C Ab Nonreactive Nonreactive [facility] HepBsAg Nonreactive Nonreactive [facility] Blood specimen (specimen) 08/15/2019 11:16 PM CDT 08/15/2019 11:29 PM CDT us Karly Damon MD LAB MICROBIOLOGY - GENERAL OR DERABLES Edited Result - Final Performing Organization Address [facility] Co de Phone Number [facility] Department [place] [address] from Last 3 Months or Most Recently Relevant to Health Maintenance Insurance IDPA [employer] MEDICARE GOLD AETNA MEDICARE GOLD [facility] AETNA MEDICARE GOLD Advance Directives For more information, please contact: [phone] * Full Code (Latest Code Status on File) Date Activated Date Inactivated Comments 04/09/2020 3:39 PM 04/14/2020 7:48 PM * Full Code Date Activated Date Inactivated Comments 04/08/2020 2:57 PM 04/09/2020 4:39 AM * Full Code Date Activated Date Inactivated Comments 09/26/2019 10:46 PM 09/29/2019 6:38 PM * Full Code Date Activated Date Inactivated Comments 08/15/2019 10:16 PM 08/27/2019 9:04 PM Care Teams Yarn Conditioner Relationship Specialty Start Date End Date Annabella Washington PA PCP - General Physician Qualifications Examiner 04/16/20 Rohit Cr MD PhD Medical Oncologist/Pipeline Dispatcher Medical Oncology 08/28/19 Toney Godinez MD Consulting Physician Nephrology 09/16/21
--- OUTSIDE RECORDS SUMMARY | 2025-02-04 09:12 | XMS_ITS | Encounter Summary ---
Author Organization [facility] Address [address] [place] [address] Care Team Providers Care Fruit Buying Grader Name Role Phone Unavailable Primary Care Provider Unavailabl e Encounter Details Date Type Department Care Team (Late st Contact Info) Description 08/02/2019 Lab Requisition [facility] Care Pathology Lab [address] [place] [address] Alon Mcdonald MD [address] [place] [address] Enlarged lymph nodes, unspecified Social History [...] PM CDT) Case Report Flow Cytometry Case: [id number] Authorizing Provider: Alon Mcdonald MD Collected: 08/02/2019 12:24 PM Ordering Location: [facility] Care Pathology Lab Received: 08/02/2019 02:54 PM Pathologist: Isa Rodríguez MD Specimen: Lymph Node 08/05/2019 11:58 AM CDT [facility] Final Diagnosis Lymph node, flow cytometric immunophenotypic analysis: - 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 - See interpretation. 08/05/2019 [...] the flow cytometry specimen is reviewed for quality assurance monitor body purposes. The lymph node specimen shows evidence of involvement by a CD5-negative, [id number] mature B-cell lymphoma. Correlation with clinical findings, concurrent tissue pathology, and relevant cytogenetic/molecu lar studies is required. 08/05/2019 11:58 AM [facility] PATHOLOGY LAB Flow Cytometry Results Differential Result Comment Flow Cell Count /uL 47,200 Total Viability % 84.0 Lymphocytes % 96 Dim CD45 Region % 0 Monocytes % 2 Granulocytes % 1 08/05/2019 11:58 AM [facility] Reason for test Enlarged lymph nodes, unspecified 08/05/2019 11:58 AM [facility] PATHOLOG[facility] LAB Client Specimen ID # [id number] 08/05/2019 11:58 AM [facility] PATHOLOG[facility] LAB Number of markers 19 were performed. A-2 Flow CD3 A-4 Flow CD10 A-6 Flow CD20 A-7 Flow CD23 A-12 Flow CD2 A-13 Flow CD4 A-16 Flow CD1a A-18 Flow CD25 A-19 Flow CD103 A-20 Flow CD11c A-3 Flow CD5 A-5 Flow CD19 A-8 Flow CD34 A-9 Flow CD45 A-14 Flow CD7 A-15 Flow CD8 A-17 Flow CD30 A-10 [place]+CD19+ A-11 Lambda+CD19+ 08/05/2019 11:58 AM [facility] PATHOLOGY LAB Disclaimer Test performed at [facility], [address] [place] [address], [id number]. *The established laboratory minimum viability is 70%. [...] complexity clinical testing. 08/05/2019 11:58 AM CDT [facility] PATHOLOGY LAB Embedded Images 0 11:58 AM CDT [facility] PATHOLOGY LAB Pathology/Cytolo gy ENTIRE LYMPH NODE / Unknown 08/02/2019 12:24 PM CDT 08/02/2019 2:54 PM CDT Alon Mcdonald MD LAB - PATHOLOGY/CYTOLOGY ORDER BRITTANY Final Result [facility] PATHOLOGY LAB [address] [phone] documented in this encounter Visit Diagnoses Diagnosis Enlarged lymph nodes, unspecified documented in this encounter
--- OUTSIDE RECORDS SUMMARY | 2025-02-04 09:12 | XMS_ITS | Encounter Summary ---
Author Organization [facility] Address [address] [place] [address] Phone Care Team Providers Care Carpet Repairer Name Role Phone Kathleen Paz ACCOUNTS PAYABLE REPRESENTATIVE Primary Care Provider [phone] Rohit Cr MD PhD Unavailable [phone] Annabella Washington Primary Care Pr ovider Kathleen Paz ACCOUNTS PAYABLE REPRESENTATIVE Primary Care Provider [phone] Annabella Washington Primary Care Pr ovider Toney Godinez MD Unavailable Encounter Details Date Type Department Care Team (Late st Contact Info) Description 10/07/[address] [facility] Marrow Transplant [address] [facility] 7th Floor, [place] [address] Raz Segundo Social History Tobacco Use Types Packs/Day Years Used Date Smoking Tobacco: Never Smokeless Tobacco: Never Alcohol Use Standard Drinks/Week Comments No 0 (1 standard drink = 0.6 oz pur e alcohol) Sex and Gender Information Value Date Recorded Sex Assigned at Not on file Legal Sex Male 10:17 AM BARTENDERS Gender Identity Not on file Sexual Orientation Not on file documented as of this encounter Plan of Treatment Not on file documented as of this encounter Visit Diagnoses Not on filedocumented in this encounter Additional Health Concerns Infection Onset Date Last Indicated Resolved Time COVID: Suspected 04/09/2020 04/09/2020 04/09/2020 6:52 PM BARTENDERS Respiratory Infection (MAKENNA), contact + droplet Comment:04/09/2020 IP Review - Patient classified as Low Risk for COVID-19 and has one negative COVID-19 test. Patient meets criteria for COVID-19 isolation discontinuation. Fifi Contreras RN Automatically added due to negative COVID-19 result. 04/09/2020 04/09/2020 04/09/2020 11:41 PM BARTENDERS documented as of this encounter Care Teams Carpet Repairer Relationship Specialty Start Date End Date Kathleen Paz NP [address] [facility] [address] [place] [address] PCP - General Nurse Practitioner 08/13/19 04/11/20 Annabella Washington PA [address] [facility] [address] [place] [address] PCP - General 04/12/20 04/12/20 Kathleen Paz NP [address] [facility] [address] [place] [address] PCP - General 04/13/20 04/15/20 Annabella Washington PA [address] [facility] [address] [place] [address] PCP - General Physician Print Color Operator 04/16/20 Rohit Cr MD PhD [address] [facility] [address] [place] [address] Medical Oncologist/Insurance Manager Medical Oncology 08/28/19 Toney Godinez MD [address] [facility] [address] [facility] [place] [address] Consulting Physician Nephrology 09/16/21 documented as of this encounter
--- OUTSIDE RECORDS SUMMARY | 2025-02-04 09:12 | XMS_ITS | Encounter Summary ---
Author Organization [facility] Address [address] [place] [address] Care Team Providers Care Lure Maker Name Role Phone Katlheen Paz FINANCIAL SERVICE PROFESSIONAL Primary Care Provider [phone] Rohit Cr MD PhD Unavailable [phone] Annabella Washington Primary Care Pr ovider Kathleen Paz FINANCIAL SERVICE PROFESSIONAL Primary Care Provider [phone] Annabella Washington Primary Care Pr ovider Toney Godinez MD Unavailable Encounter Details Date Type Department Care Team (Late st Contact Info) Description 11/26/2019 Telephone [facility] [address] [place] [address] Graciela Jamil, RT Social History Tobacco Use Types Packs/Day Years Used Date Smoking Tobacco: Never Smokeless Tobacco: Never Alcohol Use Standard Drinks/Week Comments No 0 (1 standard drink = 0.6 oz pur e alcohol) Sex and Gender Information Value Date Recorded Sex Assigned at Not on file Legal Sex Male 10:17 AM MAT TESTER Gender Identity Not on file Sexual Orientation Not on file documented as of this encounter Functional Status documented as of this encounter Plan of Treatment Not on file documented as of this encounter Visit Diagnoses Not on filedocumented in this encounter Additional Health Concerns Infection Onset Date Last Indicated Resolved Time COVID: Suspected 04/09/2020 04/09/2020 04/09/2020 6:52 PM MAT TESTER Respiratory Infection (MAKENNA), contact + droplet Comment:04/09/2020 IP Review - Patient classified as Low Risk for COVID-19 and has one negative COVID-19 test. Patient meets criteria for COVID-19 isolation discontinuation. Fifi Contreras RN Automatically added due to negative COVID-19 result. 04/09/2020 04/09/2020 04/09/2020 11:41 PM MAT TESTER documented as of this encounter Care Teams Lure Maker Relationship Specialty Start Date End Date Kathleen Paz, EMETERIO [address] [place] [address] PCP - General Nurse Practitioner 08/13/19 04/11/20 Annabella Washignton PA [address] [place] [address] PCP - General 04/12/20 04/12/20 Kathleen Paz NP [address] [place] [address] PCP - General 04/13/20 04/15/20 Annabella Washington PA [address] [place] [address] PCP - General Physician Fuel Dock Attendant 04/16/20 Rohit Cr MD PhD [address] [place] [address] Medical Oncologist/Metallurgical Engineering Teacher Medical Oncology 08/28/19 Toney Godinez MD [address] [facility] [address] [place] [address] Consulting Physician Nephrology 09/16/21 documented as of this encounter
--- OUTSIDE RECORDS SUMMARY | 2025-02-04 09:12 | XMS_ITS | Encounter Summary ---
Author Organization [facility] Address [address] [facility] [address] [place] [address] Care Team Providers Care Ortho/Prosthetic Aide Name Role Phone Matthieu Hector Primary Care Provider Unavaila Matthieu Gonzales Primary Care Provider Unavaila ble No, Physician Primary Care Provider [phone] No, Physician Primary Care Provider [phone], Physician Primary Care Provider [phone] Kathleen Paz SILVERWARE BUFFING MACHINE OPERATOR Primary Care Provider [phone] Rohit Cr MD PhD Unavailable [phone] Annabella Washington Primary Care Pr ovider Kathleen Paz SILVERWARE BUFFING MACHINE OPERATOR Primary Care Provider [phone] Annabella Washington Primary Care Pr ovider Toney Godinez MD Unavailable Encounter Details Date Type Department Care Team (Late st Contact Info) Description 05/26/2016 Orders Only [facility] Provider, MD Paz [address] [place] [address] Social History Tobacco Use Types Packs/Day Years Used Date Smoking Tobacco: Never Alcohol Use Standard Drinks/Week Comments No 0 (1 standard drink = 0.6 oz pur e alcohol) Sex and Gender Information Value Date Recorded Sex Assigned at Not on file Legal Sex Male 10:17 AM ONCOLOGY RN Gender Identity Not on file Sexual Orientation [...] COVID: Suspected 04/09/2020 04/09/2020 04/09/2020 6:52 PM ONCOLOGY RN Respiratory Infection (MAKENNA), contact + droplet Comment:04/09/2020 IP Review - Patient classified as Low Risk for COVID-19 and has one negative COVID-19 test. Patient meets criteria for COVID-19 isolation discontinuation. Fifi Contreras RN Automatically added due to negative COVID-19 result. 04/09/2020 04/09/2020 04/09/2020 11:41 PM ONCOLOGY RN documented as of this encounter Care Teams Ortho/Prosthetic Aide Relationship Specialty Start Date End Date Matthieu Hector PCP - General 06/24/16 03/13/19 Matthieu Hector PCP - General 05/15/14 06/23/16 No, Physician PCP - General 03/14/19 03/14/19 No, Physician PCP - General 07/31/19 08/12/19 No, Physician PCP - General 07/30/19 07/30/19 Kathleen Paz, EMETERIO [address] [facility] [address] [place] [address] PCP - General Nurse Practitioner 08/13/19 04/11/20 Annabella Washington PA [address] [facility] [address] [place] [address] PCP - General 04/12/20 04/12/20 Kathleen Paz, SILVERWARE BUFFING MACHINE OPERATOR [address] [facility] [address] [place] [address] PCP - General 04/13/20 04/15/20 Annabella Washington PA [address] [facility] [address] [place] [address] PCP - General Physician Command And Control Officer 04/16/20 Rohit Cr MD PhD [address] [facility] [address] [place] [address] Medical Oncologist/Home Therapy Clinician Medical Oncology 08/28/19 Toney Godinez MD [address] [facility] [address] [place] [address] Consulting Physician Nephrology 09/16/21 documented as of this encounter
--- OUTSIDE RECORDS SUMMARY | 2025-02-04 09:12 | XMS_ITS | Encounter Summary ---
Author Organization [facility] Address [address] [facility] [place] [address] Care Team Providers Care Underpresser Hand Name Role Phone Unavailable Primary Care Provider Unavailabl e Encounter Details Date Type Department Care Team (Late st Contact Info) Description 08/06/2019 Lab Requisition [facility] Care Pathology Lab [address] [place] [address] Alon Mcdonald MD [address] [place] [address] Illness, unspecified Social History Tobacco Use [...] CDT) Case Report Surgical Pathology Report Case: [id number] Authorizing Provider: Alon Mcdonald MD Collected: 08/02/2019 12:24 PM Ordering Location: [facility] Care Pathology Lab Received: 08/06/2019 09:47 AM Pathologist: Isa Rodríguez MD Specimen: Lymph Node Biopsy, OSC: [id number] 08/07/2019 2:31 PM CDT [facility] [...] is estimated at 30%. Concurrent flow cytometry ([id number]) shows CD5-negative, [id number] mature B-cell lymphoma. 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 Correlation with clinical findings and relevant cytogenetic/molecular testing is required. Case reviewed in intradepartmental consensus conference. 08/07/2019 2:31 PM [facility] PATHOLOGY [facility] Clinical History Generalized lymphadenopathy. 08/07/2019 2:31 PM [facility] PATH[facility] Materials Received Received are 2 slide(s) and 1 block (A1) labeled [id number] along with a copy of the outside pathology report. [place] [address]. All original materials are returned to the referring institution, along with a copy of our final report. 08/07/2019 2:31 PM [facility] PATH[facility] Disclaimer The performance characteristics of all immunohistochemical and indirect immunofluorescence stains (if any) cited in this report were determined by the Histopathology Laboratory of [facility]. Some of these tests were developed [...] the attending (teaching) pathologist. 08/07/2019 2:31 PM [facility] PATH[facility] Embedded Images 08/07/2019 2:31 PM [facility] PATH[facility] LAB Pathology/Cytolo gy BIOPSY OF LYMPH NODE / Unknown 08/02/2019 12:24 PM CDT 08/06/2019 9:47 AM CDT Alon Mcdonald MD LAB - PATHOLOGY/CYTOLOGY ORDER BRITTANY Final Result [facility] PATHOLOGY LAB [address] [phone] documented in this encounter Visit Diagnoses Diagnosis Illness, unspecified documented in this encounter
[2025-02-04 09:16] LABS: Estimated Glomerular Filt Rate 58
== END 2025-02-04 08:55 | disposition home or self-care (01) ==
PROVIDERS: PCP Physician Assistant; Visit Provider Otolaryngology
DX: R22.1 Localized swelling, mass and lump, neck (principal)
CPT/HCPCS: 70491; Q9967